=== PATIENT | female | born 1960 | race Caucasian/White ===

== ENCOUNTER 2016-09-01 14:28 | Inpatient (IN) | payer MEDICAID ==
[2016-09-01] MEDS ORDERED: NS 0.9% 1000 ML* 1,000 ML IV ONE ×2 (18:26→22:22)
[2016-09-01 19:03] LABS: Hematocrit 35 % (35-47); Hemoglobin 11.3 g/dl (12.0-16.0); Mean Corpuscular HGB Conc 32 g/dl (31-36); Mean Corpuscular Hemoglobin 30 pg (27-31); Mean Corpuscular Volume 95 fL (80-97); Mean Platelet Volume 9 um3 (7.4-10.4); Red Blood Count 3.71 10^6/ul (4.0-5.4); Red Cell Distribution Width 16 % (10.5-15); White Blood Count 14.4 10^3/ul (3.5-10.8)
[2016-09-01] MEDS ORDERED: HYDROmorphone* 1 MG/ML 1 ML SYR IV SLOW PU ONE ×2 (19:09→23:16)
[2016-09-01] MEDS ORDERED: Ondansetron INJ* 2 MG/ML VIAL IV ONE (19:09)
[2016-09-01 19:20] LABS: ALT 9 U/L (7-52); AST 13 U/L (13-39); Albumin 2.9 g/dL (3.2-5.2); Alkaline Phosphatase 70 U/L (34-104); Amylase 19 U/L (29-103); BUN/Creatinine Ratio 18.2 (8-20); Blood Urea Nitrogen 8 mg/dL (6-24); C Reactive Protein 28.96 mg/L (< 5.00); CO2 Carbon Dioxide 34 mmol/L (22-32); Calcium 8.6 mg/dL (8.6-10.3); Chloride 96 mmol/L (101-111); EGFR African American 188.9 (>60); EGFR Non-African American 146.9 (>60); Globulin 3.3 g/dL (2-4); Glucose 113 mg/dL (70-100); Lipase 17 U/L (11.0-82.0); Sodium 138 mmol/L (133-145); Total Protein 6.2 g/dL (6.4-8.9)
[2016-09-01 19:26] LABS: Anion Gap 8 mmol/L (2-11); Potassium 2.7 mmol/L (3.5-5.0)
[2016-09-01] MEDS ORDERED: Iohexol 300* (CONTRAST) 10 ML SDV IV ONE (19:28)
--- NOTE | 2016-09-01 19:54 | RAD ---
Indication: Abdominal pain for 2 days. J-tube placed 2 weeks ago. History of gastric ulcers. Peritoneal signs. Assess for perforation. Comparison: No relevant prior exams available on the [facility] PACS for comparison. Technique: Upright AP 1927 hours Report: Negative for free air beneath the diaphragm. No focal pulmonary lesion, compelling alveolar consolidation, pleural effusion, pneumothorax. Clear lungs and pleural spaces. Negative for pneumothorax. The heart, pulmonary vasculature, and mediastinal contours are unremarkable. Unremarkable osseous structures and soft tissue contours. IMPRESSION: 1. Negative for free air in either the diaphragm. 2. No evidence for acute intrathoracic disease.
[2016-09-01] MEDS: KCL 10 MEQ/50 ML IVPREMIX* 10 MEQ/50 ML BAG IV SCH ×3 (20:21→23:15)
--- NOTE | 2016-09-01 20:48 | RAD ---
INDICATION: LEFT upper and LEFT lower abdominal pain for 2 days. J-tube placed 2 weeks ago. History of gastric ulcers. COMPARISON: No relevant prior exams available on the [facility] PACS for comparison. TECHNIQUE: Multidetector CT images were obtained from the lung bases to the ischial tuberosities with 100 mL Omnipaque 300 IV and oral contrast. Multiplanar reformation. REPORT: Moderately large hiatal hernia with resulting mild compressive atelectasis at the medial aspect of the bilateral lung bases and anterior displacement of the heart. Decreased density of the liver consistent with fatty infiltration. Subtle suggestion of cholelithiasis. No additional CT abnormality of the gallbladder. Negative for biliary dilatation. Atrophic pancreas without suspicious CT finding. Unremarkable spleen. Hiatal hernia as noted. No additional abnormality of the upper GI. J-tube enters at the LEFT abdomen with the tip in the anterior midline. Subcutaneous and intra-abdominal wall musculature interstitial edema and subcutaneous emphysema at the LEFT anterior abdominal wall region of the J-tube insertion. LEFT lateral to the J-tube approximating the muscular fascia there is a 1.8 cm AP by 2.6 cm transverse by 2.8 cm cephalocaudal loculated fluid collection which may represent postprocedural hematoma or potentially abscess. Negative for suspicious finding of the small bowel or retrocecal appendix. Moderately severe diverticulosis of the colon without findings of diverticulitis. Negative for ascites. Negative for free intraperitoneal air negative for significant hernias. Additional subcutaneous emphysema noted at the RIGHT groin and proximal thigh. Normal adrenal glands. Normal size kidneys with symmetric delayed nephrograms and pyelograms. No suspicious focal renal lesions or hydronephrosis. Unremarkable ureters and largely decompressed urinary bladder. Unremarkable uterus and adnexal regions. Negative for lymphadenopathy. Normal diameter abdominal aorta and iliac arteries. Partial physiologic distention of the IVC. Negative for suspicious osseous lesions. Degenerative spondylosis and facet joint osteoarthritis. Associated mild grade 1 degenerative retrolisthesis at L2-L3 and mild degenerative grade 1 anterolisthesis at L4-L5. Mild bilateral hip joint osteoarthritis. IMPRESSION: 1. Hiatal hernia. 2. Fatty infiltration of the liver. 3. High probability for cholelithiasis. 4. G-tube in place. Correlate for potential cellulitis /myositis and small abscess versus hematoma at the LEFT anterior abdominal wall adjacent to the J-tube tract. 5. Bilateral symmetric delayed nephrograms and pyelograms. Correlate for potential acute renal failure. Negative for obstructive uropathy. 6. Incomplete distention of the IVC suggests low volume state. Correlate with clinical assessment. 7. Normal appendix documented. Colonic diverticulosis without findings of diverticulitis.
--- NOTE | 2016-09-01 22:14 | RAD ---
Indication: Suggestion of gallstones on CT. Comparison: CT of the same date. Technique: RIGHT upper quadrant ultrasound. Report: Appropriate direction flow documented in the portal and hepatic veins. 15.4 cm liver is echogenic in echogenicity. Negative for focal hepatic lesions. Negative for intrahepatic biliary dilatation. 2.3 mm common bile duct. The gallbladder is packed with small stones. 2.3 mm normal range gallbladder wall thickness. No pericholecystic fluid evident. Negative for sonographic Jensen's sign. The pancreas is obscured due to bowel gas. Negative for ascites. 11.6 cm RIGHT kidney is unremarkable. IMPRESSION: 1. Cholelithiasis without secondary findings to suggest acute cholecystitis. 2. Hepatosteatosis.
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
[2016-09-01 23:51] LABS: Alcohol < 10 mg/dL (<10)
[2016-09-02] MEDS ORDERED: Morphine INJ* 2 MG/ML 1 ML SYRINGE IV PRN (00:25)
[2016-09-02] MEDS ORDERED: NS 0.9% 1000 ML* 1,000 ML IV SCH (00:30)
--- NOTE | 2016-09-02 00:38 | ED ---
Joao Trent Alfonso, scribed for Daniel Tubbs on 09/02/16 at 0003 . Progress - Progress Note Progress Note: Consulted Dr. Guajardo who agrees to admit. Re-Evaluation - Re-Evaluation First Eval Re-Evaluation Time: 22:30 Change: Improved Comment: The patient is still in discomfort, although she appears to be more comfortable. My concern is that she is only taking clear liquids by mouth, is only able to get limited J-tube feeds, and is hypokalemia. She may require continuous IV potassium at the hospital. Course/Dx - Diagnoses Provider Diagnoses: Abdominal pain, Hypokalemia - Provider Notifications Discussed Care Of Patient With: Vidal Guajardo Time Discussed With Above Provider: 00:02 Instructed by Provider To: Other - Consulted Dr. Guajardo who agrees to admit. The documentation as recorded by the Joao baig Alfonso accurately reflects the service I personally performed and the decisions made by , Daniel Tubbs.
[2016-09-02] MEDS ORDERED: KCL 20 MEQ/100 ML IVPREMIX* 20 MEQ/100 ML BAG IV SCH (01:00)
[2016-09-02] MEDS: Pantoprazole IV* 40 MG IV SCH (02:44)
[2016-09-02] MEDS: Ondansetron INJ* 2 MG/ML VIAL IV PRN ×2 (02:45→10:21)
[2016-09-02] MEDS: KCL 10 MEQ/50 ML IVPREMIX* 10 MEQ/50 ML BAG IV SCH ×3 (02:47→08:43)
[2016-09-02 03:03] LABS: Urine Bilirubin Negative (Negative); Urine Glucose Negative (Negative); Urine Nitrite Negative (Negative)
[2016-09-02] MEDS: HYDROmorphone* 1 MG/ML 1 ML SYR IV PRN ×2 (06:13→15:27)
[2016-09-02 06:40] LABS: BUN/Creatinine Ratio 14.3 (8-20); Calcium 7.3 mg/dL (8.6-10.3); EGFR Non-African American 191.3 (>60); Globulin 2.4 g/dL (2-4); Magnesium 1.5 mg/dL (1.9-2.7); Phosphorus 2.8 mg/dL (2.5-5.0); Potassium 3.6 mmol/L (3.5-5.0); Total Bilirubin 0.5 mg/dL (0.2-1.0); Total Protein 4.4 g/dL (6.4-8.9)
[2016-09-02] MEDS: Sucralfate TAB* 1 GM PO SCH ×2 (08:43→20:40)
--- NOTE | 2016-09-02 09:47 | PN ---
Progress Note - Progress Note Date of Service: 09/02/16 SOAP: Subjective: She feels better this morning-she got some sleep She has some nausea, no vomiting Minimal pain around the J tube site Objective: Temp Pulse Resp BP Pulse Ox 98.0 F 85 16 109/53 93 09/02/16 07:16 09/02/16 07:16 09/02/16 07:16 09/02/16 07:16 09/02/16 07:16 Intake & Output 08/31/16 09/01/16 09/02/16 09/03/16 06:59 06:59 06:59 06:59 Intake Total 1414 Output Total 200 Balance 1214 Weight 175 lb Intake: IV Fluids 1210 IVPB 54 Oral 50 Tube Feeding Flush Amount 100 Output: Urine 200 Other: Date of Last Bowel 09/01/16 Movement Estimated Stool Amount Small PEX: Comfortable Lungs are clear Abd is soft and non-distended. Bowel sounds are present and are hyperactive but not high pitched or tinkling Mild tenderness around the J-tube site-no redness Laboratory Last Values WBC 14.4 10^3/ul (3.5-10.8) H 09/01/16 18:56 RBC 3.71 10^6/ul (4.0-5.4) L 09/01/16 18:56 Hgb 11.3 g/dl (12.0-16.0) L 09/01/16 18:56 Hct 35 % (35-47) 09/01/16 18:56 MCV 95 fL (80-97) 09/01/16 18:56 MCH 30 pg (27-31) 09/01/16 18:56 MCHC 32 g/dl (31-36) 09/01/16 18:56 RDW 16 % (10.5-15) H 09/01/16 18:56 Plt Count 315 10^3/ul (150-450) 09/01/16 18:56 MPV 9 um3 (7.4-10.4) 09/01/16 18:56 Neut % (Auto) 78.1 % (38-83) 09/01/16 18:56 Lymph % (Auto) 17.4 % (25-47) L 09/01/16 18:56 [place] % (Auto) 3.6 % (1-9) 09/01/16 18:56 Eos % (Auto) 0.5 % (0-6) 09/01/16 18:56 Baso % (Auto) 0.4 % (0-2) 09/01/16 18:56 Absolute Neuts (auto) 11.2 10^3/ul (1.5-7.7) H 09/01/16 18:56 Absolute Lymphs (auto) 2.5 10^3/ul (1.0-4.8) 09/01/16 18:56 Absolute Monos (auto) 0.5 10^3/ul (0-0.8) 09/01/16 18:56 Absolute Eos (auto) 0.1 10^3/ul (0-0.6) 09/01/16 18:56 Absolute Basos (auto) 0.1 10^3/ul (0-0.2) 09/01/16 18:56 Absolute Nucleated RBC 0.01 10^3/ul 09/01/16 18:56 Nucleated RBC % 0 09/01/16 18:56 Sodium 140 mmol/L (133-145) 09/02/16 06:15 Potassium 3.6 mmol/L (3.5-5.0) 09/02/16 06:15 Chloride 106 mmol/L (101-111) 09/02/16 06:15 Carbon Dioxide 31 mmol/L (22-32) 09/02/16 06:15 Anion Gap 3 mmol/L (2-11) 09/02/16 06:15 BUN 5 mg/dL (6-24) L 09/02/16 06:15 Creatinine 0.35 mg/dL (0.51-0.95) L 09/02/16 06:15 Est GFR ( Amer) 246.0 (>60) 09/02/16 06:15 Est GFR (Non-Af Amer) 191.3 (>60) 09/02/16 06:15 BUN/Creatinine Ratio 14.3 (8-20) 09/02/16 06:15 Glucose 96 mg/dL (70-100) 09/02/16 06:15 Lactic Acid 0.6 mmol/L (0.5-2.0) 09/01/16 23:20 Calcium 7.3 mg/dL (8.6-10.3) L 09/02/16 06:15 Phosphorus 2.8 mg/dL (2.5-5.0) 09/02/16 06:15 Magnesium 1.5 mg/dL (1.9-2.7) L 09/02/16 06:15 Total Bilirubin 0.50 mg/dL (0.2-1.0) 09/02/16 06:15 AST 10 U/L (13-39) L 09/02/16 06:15 ALT 7 U/L (7-52) 09/02/16 06:15 Alkaline Phosphatase 53 U/L (34-104) 09/02/16 06:15 C-Reactive Protein 28.96 mg/L (< 5.00) H 09/01/16 18:56 Total Protein 4.4 g/dL (6.4-8.9) L 09/02/16 06:15 Albumin 2.0 g/dL (3.2-5.2) L 09/02/16 06:15 Globulin 2.4 g/dL (2-4) 09/02/16 06:15 Albumin/Globulin Ratio 0.8 (1-3) L 09/02/16 06:15 Prealbumin 7 mg/dL (18-38) L 09/02/16 06:15 Amylase 19 U/L (29-103) L 09/01/16 18:56 Lipase 17 U/L (11.0-82.0) 09/01/16 18:56 Urine Color Yellow 09/02/16 02:51 Urine Appearance Clear 09/02/16 02:51 Urine pH 6.0 (5-9) 09/02/16 02:51 Ur Specific [place] > 1.060 (1.010-1.030) H 09/02/16 02:51 Urine Protein Negative (Negative) 09/02/16 02:51 Urine Ketones Trace (Negative) H 09/02/16 02:51 Urine Blood Negative (Negative) 09/02/16 02:51 Urine Nitrate Negative (Negative) 09/02/16 02:51 Urine Bilirubin Negative (Negative) 09/02/16 02:51 Urine Urobilinogen Negative (Negative) 09/02/16 02:51 Ur Leukocyte Esterase Negative (Negative) 09/02/16 02:51 Urine Glucose Negative (Negative) 09/02/16 02:51 Serum Alcohol < 10 mg/dL (<10) 09/01/16 18:56 Assessment: S/P exlap in [place] for perforated gastric ulcer-gastric outlet obstruction, s/p J-tube placement Malnutrition Abdominal pain Plan: Start J-tube feeds Nutrition consult Physical therapy Oral intake as tolerated Discharge planning-icu manager to see--?? placement depending on home situation. Patient recently moved here from [place] and presently living with sister. Repeat WBC in AM No antibiotics
--- NOTE | 2016-09-02 11:51 | HP ---
HISTORY AND PHYSICAL: DATE OF ADMISSION: 09/02/16 REASON FOR ADMISSION: Left-sided abdominal pain status post exploratory laparotomy. HISTORY OF PRESENT ILLNESS: Ms. Christina James is a 56-year-old woman, who was in previously good health, who actually just moved to [facility] from [place] 9 days ago. Her history starts sometime in early July where she developed some nausea and vomiting for about a week and then developed a severe upper abdominal pain radiating up into her chest, and on 07/16/16, she presented to a hospital in a suburb of [place], [place], where workup apparently showed pneumoperitoneum. She was taken emergently to the operating room for an exploratory laparotomy, although I do have the specific operative reports, but by referring to some of the records that we have available, she underwent a modified Harley patch of what appeared to be a prepyloric /pyloric gastric ulcer perforation. I do not have any reference to pathology. A MENDY drain was placed at that time and she spent several days in the intensive care unit according to the patient as well as her sister, who is here in the emergency room with her. She did develop an abdominal wall abscess requiring drainage and she was discharged home tolerating liquids. Apparently, she developed persistent nausea and vomiting and returned to the hospital and was re-admitted. She underwent an upper endoscopy after a CAT scan had showed some gastric outlet obstruction. Apparently, there was some continued ulceration at the gastric repair/patch, but I am not sure if there was mention of gastric outlet obstruction, but the sister makes it appear that the endoscope was able to be passed into the small intestine. In light of these findings, the patient underwent a laparoscopic jejunostomy tube with a balloon that she was using in the hospital on a pump and was subsequently discharged home taking bolus feeds. Apparently, there were some social issues regarding the patient and her and she returned to [facility] where she is now presently living with her sister in [place]. She has no primary care provider or medical care. She has been using bolus feeds with Jevity as instructed by the medical facility in [place]. Her main complaint today is in the last several days, she has been having some left- sided abdominal pain from the iliac crest up near where the J-tube is. She has had no fever, shakes, or chills. She has had very poor oral intake. She has had some loose bowel movements. Apparently, she has had some discomfort when the J-tube is flushed. The sister brought her into the emergency room today to make sure that there were no significant issues. All of the above is obtained from the limited records that we have from several admissions in the hospital in [place]. PAST MEDICAL HISTORY: Hiatal hernia. The patient was not aware of this prior to this surgery. PAST SURGICAL HISTORY: As per above. MEDICATIONS: Now include: 1. Pantoprazole. 2. Protonix 40 mg b.i.d. 3. Colace. 4. Carafate. ALLERGIES: She has no known drug allergies. SOCIAL HISTORY: She does not use tobacco or alcohol. She, apparently, is and estranged from her . REVIEW OF SYSTEMS: She has had no chest pain or shortness of breath. Pulmonary : There has been no wheezing or hemoptysis. PHYSICAL EXAMINATION GENERAL: She is a pale-appearing woman, appears to be somewhat older than stated age. She is awake, alert, and conversive, answers questions lucidly. VITAL SIGNS: She is afebrile, pulse 84, blood pressure 112/65, respirations 11. HEENT: Oral mucosa is slightly dry. Sclerae are anicteric. LUNGS: Clear to auscultation with normal respiratory effort. HEART: Regular rate and rhythm without murmurs, rubs, or gallops. ABDOMEN: Soft and nondistended. She has normoactive to hyperactive bowel sounds throughout, these were not, however, high-pitched or tinkling. She has a well- healed upper midline incision with appropriate incisional tenderness. I appreciate no hernia. She has a J-tube in the left mid abdomen. This flushes well with saline. I am not able to withdraw fluid obviously. There is some leakage around the tube with some induration and irritation of the skin and soft tissue. She has some mild tenderness lateral and inferior to this as well, but I appreciate no redness, fluctuance, or abscess. EXTREMITIES: Show no cyanosis or edema. DIAGNOSTIC STUDIES/LAB DATA: Included a white blood cell count of 14,000, hemoglobin of 11.3, platelet count is 315,000. Electrolytes were within normal limits other than a potassium of 2.7, carbon dioxide of 34, lactic acid 1.1. C - reactive protein 28. Albumin 2.9, amylase is 19. I did review the CT scan of the abdomen and pelvis and the images. This does not show any intraabdominal fluid, free air, or abscess. There is no apparent obstruction. She was given oral contrast, but there was only very small amount taken. There does not appear to be a markedly distended stomach and there appears to be some contrast into the duodenum. There also is a moderate-sized hiatal hernia. There is a J-tube in place with the balloon inflated that extends out to the left abdominal wall. There was some air in this tract. There was also some subcutaneous air in the right flank as well as the left flank with a possible small fluid collection in the left flank below the J-tube site insertion. It should be noted that there was subcutaneous air noted down on CT scan in mid August while in [place] and there were apparent drain sites placed and this does not appear to be unchanged. IMPRESSION AND PLAN: Status post exploratory laparotomy with a modified Harley patch placement of a perforated prepyloric and pyloric gastric ulcer confounded by abdominal wall abscess, which was drained and a subsequent apparent gastric outlet obstruction with subsequently placed laparoscopic jejunostomy feeding tube for nutrition and hydration. All of the above was done in [place] and she recently moved back to [facility] 9 days ago and has no regular care provider. Overall, she has not been thriving with intolerance to the tube feeds and is living with her sister, who works full-time and I believe is having difficulty caring for her ailing sister. In addition, she has been having poor oral intake, not able to keep liquids down. I had a long discussion with the patient and her sister. I do not believe that an urgent surgical intervention is required here; however, this seems to be more of a social problem with inability to manage her tube feeds and developing some discomfort in the left side of the abdominal wall, I am not certain the etiology of this. She is hypokalemic and somewhat dehydrated. They were not particularly interested in being admitted, but I think that at this point for her to improve, she will require admission with IV hydration and appropriate consultation with Dietary/Nutrition for assistance with home tube feeds and appropriate feeding devices, social science research assistant consultation, perhaps visiting nurses to be arranged, and I think even an upper GI with Gastrografin to evaluate the gastric outlet obstruction and also to make that the J-tube is in correct position. None of these could be done completely this weekend, but I think that this will expedite her care and prevent another return to the emergency room, especially in light of the fact that the patient has no primary care providers. Tonight, the plan will be for admission with IV hydration, repletion of her potassium, and appropriate Nutrition, Dietary, and Nursing consultation with plans for possible contrast evaluation earlier next week. [id number]/[facility] #: [id number] MTDD
[2016-09-03] MEDS: Pantoprazole IV* 40 MG IV SCH (01:06)
[2016-09-03] MEDS: HYDROmorphone* 1 MG/ML 1 ML SYR IV PRN ×2 (03:19→15:40)
[2016-09-03 08:28] LABS: Hematocrit 27 % (35-47); Hemoglobin 8.8 g/dl (12.0-16.0); Mean Corpuscular HGB Conc 32 g/dl (31-36); Mean Corpuscular Hemoglobin 31 pg (27-31); Mean Corpuscular Volume 95 fL (80-97); Mean Platelet Volume 9 um3 (7.4-10.4); Red Blood Count 2.86 10^6/ul (4.0-5.4); Red Cell Distribution Width 16 % (10.5-15); White Blood Count 9.4 10^3/ul (3.5-10.8)
[2016-09-03] MEDS: Sucralfate TAB* 1 GM PO SCH ×2 (08:52→21:09)
[2016-09-04] MEDS: HYDROmorphone* 1 MG/ML 1 ML SYR IV PRN ×4 (01:02→23:57)
[2016-09-04] MEDS: Pantoprazole IV* 40 MG IV SCH (01:04)
[2016-09-04 06:05] LABS: Hematocrit 27 % (35-47); Hemoglobin 8.7 g/dl (12.0-16.0); Mean Corpuscular HGB Conc 32 g/dl (31-36); Mean Corpuscular Hemoglobin 30 pg (27-31); Mean Corpuscular Volume 95 fL (80-97); Mean Platelet Volume 9 um3 (7.4-10.4); Red Blood Count 2.87 10^6/ul (4.0-5.4); Red Cell Distribution Width 16 % (10.5-15); White Blood Count 8.6 10^3/ul (3.5-10.8)
[2016-09-04 06:17] LABS: Albumin 1.9 g/dL (3.2-5.2); BUN/Creatinine Ratio 13.8 (8-20); Calcium 7.5 mg/dL (8.6-10.3); EGFR African American 305.6 (>60); EGFR Non-African American 237.6 (>60); Globulin 2.4 g/dL (2-4); Potassium 3.1 mmol/L (3.5-5.0); Total Protein 4.3 g/dL (6.4-8.9)
[2016-09-04 06:18] LABS: Total Bilirubin 0.4 mg/dL (0.2-1.0)
[2016-09-04] MEDS: Sucralfate TAB* 1 GM PO SCH ×2 (08:51→20:46)
[2016-09-04] MEDS: Ondansetron INJ* 2 MG/ML VIAL IV PRN (10:44)
--- NOTE | 2016-09-04 11:50 | RAD ---
INDICATION: Abdominal pain status post repair of a gastric ulcer at an outside institution July 2016. COMPARISON: Comparison is made with a prior CT of the abdomen and pelvis from September 01, 2016. Technique: The patient's jejunostomy tube was initially injected to assess for position and patency with Gastrografin. Subsequently a single contrast upper GI series exam was performed. Approximately 5.2 minutes of intermittent fluoroscopic guidance were provided for the study. Findings: The patient's jejunostomy tube is located within the small bowel in the mid abdomen. The catheter tip is located to the right of the midline. There is no evidence for leakage. The small bowel in the region of the catheter tip is nondistended. The esophageal peristalsis appeared to be within normal limits. There is a moderate to large hiatal hernia centered to the right of the midline. There is a persistent collection of barium present within the hernia projecting toward the left side just beyond the gastroesophageal junction suspicious for an ulcer or ulcerated mass. There is thickening of the gastric folds in this region This area is not visualized on the prior CT study. There is a collection of barium present in the distal antrum hilar region which is small in size suspicious for a gastric ulcer and consistent with the patient's clinical history. The stomach emptied slowly. There was decreased peristalsis. IMPRESSION: 1. LARGE HIATAL HERNIA. WITHIN THE HERNIA THERE IS A PERSISTENT COLLECTION OF BARIUM JUST BEYOND THE GASTROESOPHAGEAL JUNCTION SUSPICIOUS FOR AN ULCER OR ULCERATED MASS. RECOMMEND ENDOSCOPY FOR FURTHER EVALUATION. 2. PERSISTENT COLLECTION OF BARIUM IN THE DISTAL ANTRUM PYLORIC REGION MOST CONSISTENT WITH AN ULCER. 3. SLOW EMPTYING OF THE STOMACH. CPT II Codes: 6045F
--- NOTE | 2016-09-04 14:50 | PN ---
Progress Note - Progress Note Date of Service: 09/04/16 SOAP: Subjective: Reports doing the same. Still has leakage around J-tube despite low feeding rate at 30ml/hr. Denies nausea or vomiting. Tolerating clear liquids, just c/o early satiety. Objective: Awake and alert, comfortable and in NAD. VSS, afebrile Abdomen soft, NT, ND J-tube with wet dressing around, no active discharge. Feeding rate at 30 ml/hr. Prior incisions from recent surgery well healed. Upper GI reviwed with Dr. Guajardo Assessment: A 56 y/o female with recent patch repair of perforated gastric ulcer, s/p J- tube placement in [place] with persistent leakage around feeding tube. Plan: Will discuss with Dr. Guajardo Possible need for GI consult for EGD Keep on clear liquids at current rate of tube feeding.
--- NOTE | 2016-09-04 18:08 | PN ---
Progress Note - Progress Note Date of Service: 09/04/16 SOAP: Subjective: Her only complaint is the leakage around the J-tube She is taking some po-goes slowly and stops when feels full, no nausea or vomiting Passing flatus and no abdominal pain Objective: afebrile Temp Pulse Resp BP Pulse Ox 97.5 F 76 16 101/60 96 09/04/16 15:42 09/04/16 15:42 09/04/16 15:42 09/04/16 15:42 09/04/16 15:42 PEX: Abd is soft and non-distended. Bowel sounds are present. The J-tube is in good position and running well with continuous tube feeds. UGI reviewed Assessment: Recent repair of perforated gastric ulcer at hospital in [place]-- Apparent degree of gastric outlet obstruction at site of Harley patch repair. No contrast extravasation. J-tube in good position Plan: Appreciate [employer], Physical therapy and Dietary consults. Will increase tube feeds to 40 cc/hr Balloon in J-tube deflated slightly to see if this will decrease the drainage around the tube. Old operative records requested May consider GI consult for follow up EGD-this does not necessarily need to be done as an inpatient. When tolerating tube feeds and visiting nurse services can be arranged she can be discharged home All discussed with patient and her sister.
[2016-09-04] MEDS: Potassium Chlor TAB* 20 MEQ TAB.ER PO SCH (20:46)
[2016-09-05] MEDS: Pantoprazole IV* 40 MG IV SCH (01:11)
[2016-09-05] MEDS: HYDROmorphone* 1 MG/ML 1 ML SYR IV PRN ×3 (03:06→20:44)
[2016-09-05] MEDS: Ondansetron INJ* 2 MG/ML VIAL IV PRN ×2 (03:12→20:45)
[2016-09-05] MEDS: Sucralfate TAB* 1 GM PO SCH ×2 (09:31→20:45)
[2016-09-05] MEDS: Potassium Chlor TAB* 20 MEQ TAB.ER PO SCH ×2 (09:31→20:45)
--- NOTE | 2016-09-05 13:56 | PN ---
Progress Note - Progress Note Date of Service: 09/05/16 SOAP: Subjective: Reports doing better today. Ambulatory OOB to chair, denies any pain, nausea or vomiting. Tolerating clear liquids. Tube feeding rate advanced to 50ml/hr, which has been tolerated well too. Had a small BM earlier today. Objective: Awake and alert, comfortable on bed, finished eating lunch. In no acute distress. VSS, afebrile. Abdomen soft, NT, ND J-tube with scanty surrounding drainage noted, no active discharge. I/O reviewed UGI reviewed with Dr. Guajardo and radiologist. Assessment: A 56 y/o female, s/p repair of perforated gastric ulcer with malnutrition. Plan: Will continue current regimen of PO clear liquids, possibly advance to full liquids, in addition to tube feeding at a rate of 50ml/hr. Patient will require tube feeding at this time due to poor PO caloric and protein intake. She is taking some oral intake, however, it is not enough to meet her daily caloric intake for proper nutrition and healing. Will discuss with social research assistant plans for discharge. No surgical indications at this time.
[2016-09-06] MEDS: Pantoprazole IV* 40 MG IV SCH (01:48)
[2016-09-06] MEDS: HYDROmorphone* 1 MG/ML 1 ML SYR IV PRN ×3 (01:48→20:55)
[2016-09-06] MEDS ORDERED: NS 0.9% 500 ML BAG* 500 ML IV ONE (06:05)
--- NOTE | 2016-09-06 09:03 | PN ---
Progress Note - Progress Note Date of Service: 09/06/16 SOAP: Subjective: She did well overnight-no new complaints She is tolerating some of the full liquids and ensure She is passing flatus and had a BM this morning Objective: Temp Pulse Resp BP Pulse Ox 98.0 F 65 14 95/55 96 09/06/16 07:32 09/06/16 07:32 09/06/16 07:32 09/06/16 07:32 09/06/16 07:32 PEX: Comfortable in chair Lungs are clear Abd is soft and non-distended. She has bowel sounds that are normoactive and slightly hyperactive. J-Tube is in place with some minimal amount of drainage around the exit site. Ext with minimal edema No labs Assessment: S/P emergent repair of perforated gastric ulcer with J-tube placement Severe malnutrition with significant weight loss and muscle mass wasting. Low protein and pre-albumin lab values. Minimal and insufficient oral intake to maintain adequate caloric requirements secondary to edema and narrowing at the area of gastric perforation repair that is expected to improve with time and may need EGD in future for follow up and treatment if there is no improvement. Dependence on J-tube feeds to maintain recommended caloric intake per dietary assessment and recommendations. Plan: D/C planning in progress--possible d/c tomorrow Increase tube feeds to 60cc/h--goal of 70cc/hr Physical therapy Full liquids po as tolerated.
[2016-09-06] MEDS: Potassium Chlor TAB* 20 MEQ TAB.ER PO SCH ×2 (09:27→20:55)
[2016-09-06] MEDS: Sucralfate TAB* 1 GM PO SCH ×2 (09:28→20:55)
[2016-09-07] MEDS: Pantoprazole IV* 40 MG IV SCH (01:07)
[2016-09-07] MEDS: HYDROmorphone* 1 MG/ML 1 ML SYR IV PRN ×3 (01:07→11:55)
[2016-09-07] MEDS: Potassium Chlor TAB* 20 MEQ TAB.ER PO SCH (08:04)
[2016-09-07] MEDS: Sucralfate TAB* 1 GM PO SCH (08:04)
--- NOTE | 2016-09-07 10:45 | PN ---
Progress Note - Progress Note Date of Service: 09/07/16 Note: Surgery Progress: (see discharge summary) S: No new c/o. Tae TFs at 60 ml/hr. O: Vital Signs - 8 hr 09/07/16 09/07/16 09/07/16 03:02 05:08 05:55 Temperature 98.4 F Pulse Rate 76 Respiratory 16 14 12 Rate Blood Pressure 103/48 (mmHg) O2 Sat by Pulse 98 Oximetry 09/07/16 09/07/16 07:51 08:00 Temperature 97.9 F Pulse Rate 78 Respiratory 11 14 Rate Blood Pressure 98/54 (mmHg) O2 Sat by Pulse 96 Oximetry Intake and Output Last 24 Hours 09/05/16 09/06/16 09/07/16 09/08/16 06:59 06:59 06:59 06:59 Intake Total 677 2949 4189 840 Output Total 212 890 9792 500 Balance 277 2324 2989 340 Intake: IV Fluids 500 NS (0.9%) 500 Oral 677 1695 1480 840 Tube Feeding 1104 2038 Tube Feeding Flush Amount 150 171 Output: Urine 007 931 3492 500 Other: Estimated Void Medium Medium Date of Last Bowel 1 Movement # Bowel Movements 0 0 0 Estimated Stool Amount Medium Small # Voids 1 Heart: reg Lungs: clear Abd: soft; min tenderness; small amt drainage around J-tube. No new labs. A/P: severe malnutrition s/p repair perf'd gastric ulcer; J-jejunostomy feeding tube for severe protein malnutrition; home today on TFs; will order repeat labs for 1 week. Surgery f/u in 2 wks.
[2016-09-07 16:13] VITALS: BP 101/48
--- NOTE | 2016-09-08 12:03 | DS ---
AMENDED REPORT NOW INCLUDES COSIGNER DESIGNATION - ESIGNED BEFORE ADJUSTMENTS CC: [facility]* DISCHARGE SUMMARY: DATE OF ADMISSION: 09/02/16 DATE OF DISCHARGE: 09/07/16 ATTENDING SURGEON: Dr. Vidal Guajardo * (DICTATED BY JOSE F GANDARA) HOSPITAL COURSE: Please refer to admission history and physical for admission details. In brief, the patient had recently undergone repair of a perforated gastric ulcer in [place]. She required a subsequent surgery for gastric outlet obstruction for placement of a feeding jejunostomy. She then moved to the area here to stay with her sister because of social reasons and presented with abdominal pain and poor intake. She was unable to manage her bolus tube feedings at home. During the course of her admission, she underwent an upper GI series on 09/04/16, which showed a large hiatal hernia with persistent collection of barium just distal to the GE junction and also in the pyloric region consistent with her known recent surgeries. She was maintained on IV Protonix as well as oral sucralfate and gradually improved in terms of pain and tolerance of both oral liquids as well as tube feeds. As of the morning of discharge, she was tolerating full rate of 70 mL/hour of tube feeds (Jevity 1.2 ) and pump was programmed for 30 mL water flush every 8 hours. PHYSICAL EXAMINATION: In the morning of discharge, temperature 97.9, blood pressure 98/54, pulse 78, respirations are 11, room air saturation 96%. General : No acute distress. Heart: Regular rate and rhythm. No murmur noted. Lungs : Clear to auscultation. Abdomen: Soft. Mild tenderness in the upper abdomen to palpation. No tenderness in the lower abdomen. There is a small amount of clear yellow drainage around the jejunostomy site. LABORATORY DATA: Most recent labs were reviewed and these will be repeated in 1 week. PLAN: She has a followup scheduled with the primary care office ([facility]) for 09/15/16. She has a followup scheduled with Dr. Guajardo for . Instructions were reviewed with her. She will continue oral b.i.d. dose of Protonix 40 mg and continue the Carafate. A prescription was also sent from my office for Narco 5/325 to her pharmacy ([facility] checked) . [place], [place] [id number]/[facility] #: [id number] [facility]ITAL[facility]ando
== END 2016-09-07 19:05 | disposition home health service (06) | DRG 252 ==
LOC: ED 14:28 → SSU 09-02 00:23 → OBSVTOIN 09-02 09:30
PROVIDERS: ADMIT Surgery; ATTEND Surgery
DX: K94.13 Enterostomy malfunction (principal); E43 Unspecified severe protein-calorie malnutrition; G71.0 Muscular dystrophy; K44.9 Diaphragmatic hernia without obstruction or gangrene; E87.6 Hypokalemia; E86.0 Dehydration; K21.9 Gastro-esophageal reflux disease without esophagitis; Y83.8 Other surgical procedures as the cause of abnormal reaction of the patient, or of later complication, without mention of misadventure at the time of the procedure; Y73.1 Therapeutic (nonsurgical) and rehabilitative gastroenterology and urology devices associated with adverse incidents; Y92.9 Unspecified place or not applicable; Z93.4 Other artificial openings of gastrointestinal tract status; Z80.0 Family history of malignant neoplasm of digestive organs; Z68.28 Body mass index [BMI] 28.0-28.9, adult
CPT/HCPCS: 36415; 71010; 74177; 74246; 76705; 80053; 80320; 81003; 82150; 83605; 83690; 83735; 84100; 84134; 85025; 85027; 86140; A9270-GY; G0378; G0480; J1170; J2405; J3480; Q9967

== ENCOUNTER 2016-09-15 15:51 | Inpatient (IN) | payer MEDICAID ==
[2016-09-15 19:56] LABS: Hematocrit 31 % (35-47); Hemoglobin 9.9 g/dl (12.0-16.0); Mean Corpuscular HGB Conc 32 g/dl (31-36); Mean Corpuscular Hemoglobin 30 pg (27-31); Mean Corpuscular Volume 95 fL (80-97); Mean Platelet Volume 9 um3 (7.4-10.4); Red Blood Count 3.29 10^6/ul (4.0-5.4); Red Cell Distribution Width 17 % (10.5-15); White Blood Count 11.6 10^3/ul (3.5-10.8)
[2016-09-15 20:11] LABS: Albumin 3.1 g/dL (3.2-5.2); BUN/Creatinine Ratio 23.7 (8-20); Calcium 8.8 mg/dL (8.6-10.3); EGFR African American 223.7 (>60); EGFR Non-African American 173.9 (>60); Globulin 3.6 g/dL (2-4); Total Bilirubin 0.5 mg/dL (0.2-1.0); Total Protein 6.7 g/dL (6.4-8.9)
--- NOTE | 2016-09-15 21:47 | ED ---
Sandra Trent Edward, scribed for Mehul Bowens MD on 09/15/16 at 2113 . HPI Febrile Illness - HPI Summary HPI Summary: 56 y/o female presents to ED c/o gradual onset fever starting earlier this morning (high 102). Pt currently does not have a fever. She also noticed a hard spot above her feeding tube a couple of days ago with pain to touch, rated 7/10 in severity. Pt was seen at [facility] today and states they sent her to ED for further evaluation. PMHx ruptured ulcer. - History of Current Complaint Chief Complaint: EDFever Time Seen by Provider: 09/15/16 21:10 Hx Obtained From: Patient Onset/Duration: Started Hours Ago - This morning, Resolved Current Severity: Moderate Pain Intensity: 7 Pain Scale Used: 0-10 Numeric Aggravating Factors: Other: - Pain to touch Associated Signs and Symptoms: Other: - Hard spot and pain above J-tube - Additional Pertinent History Primary Care Physician: [id number] - Allergy/Home Medications Allergies/Adverse Reactions: Allergies Allergy/AdvReac Type Severity Reaction Status Date / Time No Known Allergies Allergy Verified 09/15/16 21:25 PMH/Surg Hx/FS Hx/Imm Hx Previously Healthy: No Endocrine/Hematology History: Denies: Hx Diabetes Cardiovascular History: Denies: Hx Hypertension GI History: Reports: Hx Gall Bladder Disease - gallstones, Hx Gastroesophageal Reflux Disease, Hx Hiatal Hernia, Hx Ulcer, Other GI Disorders - Hx perforated stomach, duodenal stenosis, prepyloric ulcer, malnourishment History: Denies: Hx Renal Disease Musculoskeletal History: Reports: Other Musculoskeletal History - Hx muscular dystrophy Sensory History: Reports: Hx Contacts or Glasses - Glasses, though not with patient at this time. Denies: Hx Hearing Aid Opthamlomology History: Reports: Hx Contacts or Glasses - Glasses, though not with patient at this time. - Surgical History Surgery Procedure, Year, and Place: J-tube insertion (10 days ago), ulcer repair (a month ago) Infectious Disease History: Denies: Traveled Outside the [place] in Last 30 Days - Family History Known Family History: Positive: Other - colon CA - Social History Alcohol Use: None Hx Substance Use: No - No excessive ASA or NSAID use Substance Use Type: Reports: None Hx Tobacco Use: No Smoking Status (MU): Never Smoked Tobacco Review of Systems Positive: Fever Eyes: Negative ENT: Negative Cardiovascular: Negative Respiratory: Negative Gastrointestinal: Other - Hard spot above J-tube, pain to touch Genitourinary: Negative Musculoskeletal: Negative Skin: Negative Neurological: Negative Psychological: Normal All Other Systems Reviewed And Are Negative: Yes Physical Exam Triage Information Reviewed: Yes Vital Signs On Initial Exam: Initial Vitals Temp Pulse Resp BP Pulse Ox 98.6 F 91 16 119/71 97 09/15/16 15:57 09/15/16 15:57 09/15/16 15:57 09/15/16 15:57 09/15/16 15:57 Vital Signs Reviewed: Yes Appearance: Positive: Pain Distress - mild discomfort, Thin Skin: Positive: Warm Head/Face: Positive: Normal Head/Face Inspection Eyes: Positive: BERNARDO Neck: Positive: Supple Respiratory/Lung Sounds: Positive: Breath Sounds Present Cardiovascular: Positive: RRR Abdomen Description: Positive: Soft, Other: - j tube in place with surrounding area of induratyion, tender, warmth Bowel Sounds: Positive: Present Musculoskeletal: Positive: Strength/ROM Intact Neurological: Positive: Alert, Oriented to Person Place, Time Psychiatric: Positive: Affect/Mood Appropriate Diagnostics - Vital Signs Vital Signs Temp Pulse Resp BP Pulse Ox 09/15/16 20:57 99.9 F 98 17 124/65 97 09/15/16 17:45 99.7 F 87 16 116/60 99 09/15/16 17:00 99.2 F 88 16 110/59 99 09/15/16 15:57 98.6 F 91 16 119/71 97 - Laboratory Lab Results: Lab Results 09/15/16 09/15/16 09/15/16 Range/Units 19:45 19:45 19:45 WBC 11.6 H (3.5-10.8) 10^3/ul RBC 3.29 L (4.0-5.4) 10^6/ul Hgb 9.9 L (12.0-16.0) g/dl Hct 31 L (35-47) % MCV 95 (80-97) fL MCH 30 (27-31) pg MCHC 32 (31-36) g/dl RDW 17 H (10.5-15) % Plt Count 396 (150-450) 10^3/ul MPV 9 (7.4-10.4) um3 Sodium 135 (133-145) mmol/L Potassium 4.0 (3.5-5.0) mmol/L Chloride 100 L (101-111) mmol/L Carbon Dioxide 29 (22-32) mmol/L Anion Gap 6 (2-11) mmol/L BUN 9 (6-24) mg/dL Creatinine 0.38 L (0.51-0.95) mg/dL Est GFR ( Amer) 223.7 (>60) Est GFR (Non-Af Amer) 173.9 (>60) BUN/Creatinine Ratio 23.7 H (8-20) Glucose 120 H (70-100) mg/dL Lactic Acid 0.9 (0.5-2.0) mmol/L Calcium 8.8 (8.6-10.3) mg/dL Total Bilirubin 0.50 (0.2-1.0) mg/dL AST 17 (13-39) U/L ALT 12 (7-52) U/L Alkaline Phosphatase 85 (34-104) U/L Total Protein 6.7 (6.4-8.9) g/dL Albumin 3.1 L (3.2-5.2) g/dL Globulin 3.6 (2-4) g/dL Albumin/Globulin Ratio 0.9 L (1-3) Result Diagrams: 09/15/16 19:45 09/15/16 19:45 Lab Statement: Any lab studies that have been ordered have been reviewed, and results considered in the medical decision making process. - CT ABD/PEL CT CT Interpretation: Positive (See Comments) - Fluid, contrast and pockets of air surrounding the J-tube catheter in the subcutaneous tissues indicating leakage along the catheter. There is mild hazy infiltration of the surrounding subcutaneous fat which could indicate inflammation or infection. CT Interpretation Completed By: Radiologist Re-Evaluation - Re-Evaluation First Eval Comment: results d/w pt, case d/w dr xiao Course/Dx - Course Assessment/Plan: 56 y/o female presents to ED c/o gradual onset fever starting earlier this morning (high 102). Pt currently does not have a fever. She also noticed a hard spot above her feeding tube a couple of days ago with pain to touch, rated 7/10 in severity. Pt was seen at [facility] [place] today and states they sent her to ED for further evaluation. PMHx ruptured ulcer. ABD/PEL CT SHOWS Fluid, contrast and pockets of air surrounding the J-tube catheter in the subcutaneous tissues indicating leakage along the catheter. There is mild hazy infiltration of the surrounding subcutaneous fat which could indicate inflammation or infection. Pt accepted for admission by Dr. Torres. - Diagnoses Provider Diagnoses: Abdominal pain - Provider Notifications Instructed by Provider To: Admit As Inpatient Discharge - Discharge Plan Condition: Fair Disposition: ADMITTED TO [facility] documentation as recorded by the Sandra baig Edward accurately reflects the service I personally performed and the decisions made by Kwan hernandez David, MD.
[2016-09-15] MEDS ORDERED: Iohexol 300* (CONTRAST) 10 ML SDV IV ONE (22:56)
[2016-09-15] MEDS ORDERED: Ondansetron INJ* 2 MG/ML VIAL IV ONE (23:47)
[2016-09-15] MEDS: Morphine INJ* 2 MG/ML 1 ML SYRINGE IV ONE (23:51)
[2016-09-16] MEDS ORDERED: Morphine INJ* 2 MG/ML 1 ML SYRINGE ONE (03:11)
[2016-09-16] MEDS: Morphine INJ* 2 MG/ML 1 ML SYRINGE IV ONE (03:14)
[2016-09-16] MEDS ORDERED: Acetaminophen TAB* 325 MG PO PRN (04:26)
[2016-09-16] MEDS: NS 0.9% 1000 ML* 1,000 ML IV SCH ×2 (04:46→23:01)
[2016-09-16] MEDS ORDERED: ZOSYN 3.375 GM x ONE DOSE over 30 miuntes IVPB ×2 (05:00)
[2016-09-16] MEDS: Sucralfate TAB* 1 GM PO SCH ×3 (06:26→18:57)
[2016-09-16] MEDS: Morphine INJ* 2 MG/ML 1 ML SYRINGE IV PRN ×4 (06:27→22:55)
--- NOTE | 2016-09-16 08:38 | HP ---
H&P (Free Text) History and Physical: Update to H & P Ms. James is a 56 y.o. female who returns to the hospital after a recent discharge because she was found to have a high fever at her doctor's office and she noticed more pain and a bigger lump near her jejunostomy tube. Her recent hx is of a perforated ulcer repaired in [place]. This was followed by an episode of persistent nausea and vomiting that was recognized to be due to gastric outlet obstruction. This was managed by placement of a feeding jejuostomy. She then left [place] and came to [place]. She was recently admitted to the surgical service from 09/02-09/07 when she was having difficulty with the bolus feeds and experiencing nausea. She was managed by d/c-ing the feeds and gradually resuming continuous feeds. She has been home since then managing the feeds well, but 3 days ago noticed a "bump" in the abdominal wall that seemed to get bigger while she waited till her scheduled doctor's appointment. From the office she was to the ER. Since coming to the floor she has had some pain at the site and she also c/o pain in the left chest with inspiration. 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 Meds: carafate, colace, protonix NKDA SH: neg. tob, EtOH, or IVDA FH: Ctkrswn-Rvnti-Phdhm syndrome in her sister, brother, and some uncles; sister also had colon cancer PE: General: WDWN female reclining in bed, in NAD Vital Signs 09/15/16 09/15/16 09/15/16 15:57 17:00 17:45 Temperature 98.6 F 99.2 F 99.7 F Pulse Rate 91 88 87 Respiratory 16 16 16 Rate Blood Pressure 119/71 110/59 116/60 (mmHg) O2 Sat by Pulse 97 99 99 Oximetry 09/15/16 09/15/16 09/15/16 20:57 21:21 23:51 Temperature 99.9 F 100.2 F Pulse Rate 98 104 Respiratory 17 16 18 Rate Blood Pressure 124/65 118/70 (mmHg) O2 Sat by Pulse 97 97 Oximetry 09/16/16 09/16/16 09/16/16 03:14 04:13 05:04 Temperature 97.9 F Pulse Rate 101 Respiratory 16 16 16 Rate Blood Pressure 114/69 (mmHg) O2 Sat by Pulse 99 Oximetry 09/16/16 09/16/16 06:27 07:21 Temperature 98.1 F Pulse Rate 90 Respiratory 16 16 Rate Blood Pressure 91/54 (mmHg) O2 Sat by Pulse 97 Oximetry HEENT: neg. cervical adenopathy, pale conjunctivae, neg. scleral icterus, dry oral mucosa. lungs: clear to ausc, no crepitus of the left side. heart: reg without murmurs abd: good BS, soft, tender near jejunostomy where there is a tender subcutaneous mass that is neither warm nor red. THere is a well-healed midline scar. ext: tr. edema of the ankles, no calf tenderness. Laboratory Results - last 24 hr 09/15/16 09/15/16 09/15/16 19:45 19:45 19:45 WBC 11.6 H RBC 3.29 L Hgb 9.9 L Hct 31 L MCV 95 MCH 30 MCHC 32 RDW 17 H Plt Count 396 MPV 9 Neut % (Auto) 75.0 Lymph % (Auto) 17.9 L Vance % (Auto) 5.9 Eos % (Auto) 0.7 Baso % (Auto) 0.5 Absolute Neuts (auto) 9.1 H Absolute Lymphs (auto) 2.2 Absolute Monos (auto) 0.7 Absolute Eos (auto) 0.1 Absolute Basos (auto) 0.1 Absolute Nucleated RBC 0.01 Nucleated RBC % 0.1 Sodium 135 Potassium 4.0 Chloride 100 L Carbon Dioxide 29 Anion Gap 6 BUN 9 Creatinine 0.38 L Est GFR ( Amer) 223.7 Est GFR (Non-Af Amer) 173.9 BUN/Creatinine Ratio 23.7 H Glucose 120 H Lactic Acid 0.9 Calcium 8.8 Total Bilirubin 0.50 AST 17 ALT 12 Alkaline Phosphatase 85 Total Protein 6.7 Albumin 3.1 L Globulin 3.6 Albumin/Globulin Ratio 0.9 L A/P: 56 y.o. female with possible subcutaneous abscess near jejunostomy. Will try to aspirate it to better characterize its nature. Will check CXR to evaluate the c/o pleuritic CP, will hold on PE eval. unless other signs/ symptoms occur. Will resume TF and oral pain meds. CLFoster
--- NOTE | 2016-09-16 09:13 | PN ---
Progress Note - Progress Note Date of Service: 09/16/16 Note: Surgery Procedure Note Under aseptic conditions, the subcutaneous mass in the abdominal wall adjacent to the jejunostomy site was aspirated. ~5 cc of old blood and a small amount of pus were recovered. She tolerated the procedure well. A bandaid was applied. Cultures were sent. Niki
--- NOTE | 2016-09-16 09:40 | RAD ---
Indication: Abdominal pain, Contrast: Administered 102.0 ml of OMNIPAQUE 300 mg/ml CT of the abdomen and pelvis was performed after oral and IV contrast administration. Coronal and sagittal reconstructed images were obtained. Lung bases demonstrate no pleural fluid, nodules or masses. Hiatal hernia is noted. Bibasilar atelectasis is noted. The heart demonstrates no pericardial effusion. Liver is normal in size. No focal lesions or intrahepatic ductal dilatation is noted. The spleen is normal in size. The gallbladder is distended. No calcified gallstone is noted. The common duct is not dilated. The pancreas demonstrates no mass or pancreatic duct dilatation. No adrenal lesions are noted. The kidneys demonstrate symmetric nephrograms without focal lesions. No retroperitoneal adenopathy is noted. No dilated loops of bowel are noted. The colon is filled with stool. CT of the pelvis demonstrates jejunostomy tube in place. There is a fluid collection superficial to the anterior abdominal wall muscles in the subcutaneous fat with multiloculated foci of air and contrast. This is likely an abscess and measures approximately 6 cm in length x 6 cm in width x 2.8 cm in greatest AP dimension. The contrast suggests that there may be leakage from the jejunostomy tube. The uterus and ovaries are unremarkable. The urinary bladder is unremarkable. No hernias are noted. IMPRESSION: There is a large fixed type hiatal hernia noted. At the jejunostomy tube insertion site in the subcutaneous tissue there is a 6 x 6 x 2.8 cm loculated fluid collection with contrast and air. This suggests that there is leakage from the jejunostomy tube. Underlying not excluded. No intra-abdominal masses are identified.
[2016-09-16] MEDS: Docusate CAP* 100 MG PO SCH ×3 (09:48→21:34)
[2016-09-16] MEDS: HYDROcodone/ACET. 7.5/325 LIQ* 15 ML UDC PO PRN (09:49)
[2016-09-16] MEDS: ZOSYN 3.375 GM Q8H per EXTENDED INFUSION IVPB SCH ×4 (09:49→16:50)
[2016-09-16] MEDS: Pantoprazole IV* 40 MG IV SCH (09:49)
[2016-09-16] MEDS: Ondansetron INJ* 2 MG/ML VIAL IV PRN (09:56)
--- NOTE | 2016-09-16 11:07 | RAD ---
Indication: Pleural chest pain. 2 views of the chest including dual energy PA views are reviewed. There appears to be a moderate to large hiatal hernia noted. Chronic pleural changes are noted. Lung hicks demonstrate no pleural fluid, pneumonia or pneumothorax. IMPRESSION: Large hiatal hernia. No definite pneumonia is identified.
[2016-09-17] MEDS: Sucralfate TAB* 1 GM PO SCH ×4 (01:21→16:14)
[2016-09-17] MEDS: ZOSYN 3.375 GM Q8H per EXTENDED INFUSION IVPB SCH ×6 (01:22→17:12)
[2016-09-17] MEDS: Morphine INJ* 2 MG/ML 1 ML SYRINGE IV PRN ×4 (02:47→20:05)
[2016-09-17] MEDS: NS 0.9% 1000 ML* 1,000 ML IV SCH (07:19)
[2016-09-17] MEDS: Docusate CAP* 100 MG PO SCH ×2 (08:38→21:09)
[2016-09-17] MEDS: Pantoprazole IV* 40 MG IV SCH (08:38)
--- NOTE | 2016-09-17 09:22 | PN ---
Progress Note - Progress Note Date of Service: 09/17/16 Note: Surgery Ms. James c/o new painful lump on right side near hip. She also had a lot of pain at the site near the J-tube with any movement. Cultures have come back showing neg MRSA, neg SA, but some gram pos cocci is in fluid aspirated from nodule. Ms. James asks to have rehab referral. Vital Signs 09/16/16 09/16/16 09/16/16 09:30 09:49 10:58 Temperature Pulse Rate Respiratory 16 16 16 Rate Blood Pressure (mmHg) O2 Sat by Pulse Oximetry 09/16/16 09/16/16 09/16/16 11:48 11:49 11:58 Temperature 98.3 F Pulse Rate 82 Respiratory 16 16 16 Rate Blood Pressure 88/43 (mmHg) O2 Sat by Pulse 95 Oximetry 09/16/16 09/16/16 09/16/16 12:40 15:14 18:57 Temperature 97.8 F Pulse Rate 80 Respiratory 17 16 Rate Blood Pressure 95/50 96/49 (mmHg) O2 Sat by Pulse 98 Oximetry 09/16/16 09/16/16 09/16/16 19:47 19:57 22:55 Temperature 98.5 F Pulse Rate 84 Respiratory 16 16 16 Rate Blood Pressure 89/55 (mmHg) O2 Sat by Pulse 96 Oximetry 09/16/16 09/16/16 09/17/16 23:29 23:55 02:47 Temperature 98.4 F Pulse Rate 74 Respiratory 16 16 16 Rate Blood Pressure 91/45 (mmHg) O2 Sat by Pulse 96 Oximetry 09/17/16 09/17/16 09/17/16 03:23 03:47 06:16 Temperature 98.6 F Pulse Rate 82 Respiratory 16 16 16 Rate Blood Pressure 82/40 (mmHg) O2 Sat by Pulse 91 Oximetry 09/17/16 09/17/16 07:16 07:25 Temperature 98.1 F Pulse Rate 71 Respiratory 16 16 Rate Blood Pressure 89/57 (mmHg) O2 Sat by Pulse 99 Oximetry Abd: soft, tender near trocar site in RLQ, no masses felt; tender near J-tube site where there is a subcutaneous nodule. Intake & Output 09/16/16 09/17/16 09/17/16 22:59 06:59 14:59 Intake Total 883 1634 10 Output Total 300 250 0 Balance 583 1384 10 Intake: IV Fluids 105 979 10 IVPB 105 Oral 360 200 Tube Feeding 358 290 Tube Feeding Flush Amount 60 60 Output: Urine 300 250 0 CXR showed large hiatal hernia. A/P: persistent infected hematoma near J-tube site. Will I&D later today. Ms. James would like her sister to be present. Continue Zosyn for now. EMILEForyan
[2016-09-17] MEDS: HYDROcodone/ACET. 7.5/325 LIQ* 15 ML UDC PO PRN ×3 (13:07→22:40)
--- NOTE | 2016-09-17 16:22 | PN ---
Progress Note - Progress Note Date of Service: 09/17/16 Note: Procedure Note Under sterile conditions using 1%Lidocaine, I&D of abdominal wall mass was done without difficulty. She tolerated procedure well. 1/4 inch packing used to dress wound. There was 2 cc of blood. Niki
[2016-09-18] MEDS: Sucralfate TAB* 1 GM PO SCH ×4 (00:19→17:47)
[2016-09-18] MEDS: Morphine INJ* 2 MG/ML 1 ML SYRINGE IV PRN ×6 (00:34→21:57)
[2016-09-18] MEDS: ZOSYN 3.375 GM Q8H per EXTENDED INFUSION IVPB SCH ×6 (01:16→18:57)
[2016-09-18] MEDS: HYDROcodone/ACET. 7.5/325 LIQ* 15 ML UDC PO PRN ×5 (03:19→23:58)
--- NOTE | 2016-09-18 08:51 | SURGPN ---
Subjective - Introduction -: Reports feeling OK, still has intermittent pain at I&D site. Denies fever or chills. J tube feeding has been working well. 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 - Medications -: Active Medications Generic Name Dose Route Start Last Admin Trade Name Freq PRN Reason Stop Dose Admin Acetaminophen 650 mg 09/16/16 04:26 Tylenol Tab* PO Q6H PRN FEVER Hydrocodone Bitart/Acetaminophen 5 ml 09/16/16 08:54 09/18/16 08:16 Nortab 7.5/325 Liq* PO 5 ml Q4H PRN Administration PAIN Docusate Sodium 100 mg 09/16/16 09:00 09/17/16 21:09 Colace Cap* PO 100 mg BID MATHEW Administration Piperacillin Sod/Tazobactam 100 mls @ 25 mls/hr 09/16/16 09:00 09/18/16 01:16 Sod 3.375 gm/ Sodium Chloride IVPB 25 mls/hr Q8H MATHEW Administration Morphine Sulfate 2 mg 09/16/16 04:25 09/18/16 04:04 Morphine Inj (Syringe)* IV 2 mg Q3H PRN Administration PAIN Ondansetron HCl 4 mg 09/16/16 04:25 09/16/16 09:56 Zofran Inj* IV 4 mg Q6H PRN Administration NAUSEA/VOMITING Pantoprazole Sodium 40 mg 09/16/16 09:00 09/17/16 08:38 Protonix Iv* IV 40 mg DAILY MATHEW Administration Sucralfate 1 gm 09/16/16 06:00 09/18/16 05:36 Carafate* PO Not Given Q6HR MATHEW Objective - Objective -: Awake and alert, laying in bed, comfortable and in NAD. - Intake and Output -: Intake & Output 09/16/16 09/17/16 09/18/16 09/19/16 06:59 06:59 06:59 06:59 Intake Total 1265 Output Total 750 Balance 515 Intake: IV Fluids 185 NS (0.9%) 80 zosyn 105 IVPB 105 zosyn 105 Oral 280 Tube Feeding 605 Tube Feeding Flush Amount 90 Output: Urine 750 Surgical Physical Exam - Comments -: Vitals reviewed, afebrile, Tmax 98.7 Lungs CTA bilat. Heart RRR, no murmurs Abdomen soft, NT, ND. J-tube site with no erythema or induration noted. I&D site, lateral to J-tube insertion with a nicely healing wound, approx. 2 cm , with no erythema or induration noted. No active bleeding or discharge. Packing gauze was removed, and new 1/4 inch plain packing gauze inserted. Ext. without edema Assessment and Plan - Assessment -: A 56 y/o female with hx PUD, perforated ulcer, s/p patch repair, on tube feeding. Abdominal wall abscess, s/p I&D. - Plan Additional Comments: Continue IV Zosyn. Discussed with patient possible discharge today. She is still having some pain issues, feels uncomfortable going home. She also has some difficulties ambulating, thinks she might benefit from STR for PT/OT eval and treatment. Will discuss with social service manager.
[2016-09-18] MEDS: Pantoprazole IV* 40 MG IV SCH (09:09)
[2016-09-18] MEDS: Docusate CAP* 100 MG PO SCH ×2 (09:14→20:27)
[2016-09-18] MEDS: Ondansetron INJ* 2 MG/ML VIAL IV PRN (13:03)
[2016-09-19] MEDS: Sucralfate TAB* 1 GM PO SCH ×4 (00:19→16:15)
[2016-09-19] MEDS: Morphine INJ* 2 MG/ML 1 ML SYRINGE IV PRN ×6 (01:17→22:50)
[2016-09-19] MEDS: ZOSYN 3.375 GM Q8H per EXTENDED INFUSION IVPB SCH ×6 (03:00→16:17)
[2016-09-19] MEDS: Docusate CAP* 100 MG PO SCH ×2 (07:42→20:35)
[2016-09-19] MEDS: HYDROcodone/ACET. 7.5/325 LIQ* 15 ML UDC PO PRN ×3 (08:50→19:34)
[2016-09-19] MEDS: Pantoprazole IV* 40 MG IV SCH (09:43)
--- NOTE | 2016-09-19 12:30 | PN ---
Progress Note - Progress Note Date of Service: 09/19/16 SOAP: Subjective: Doing about the same, has no new complaints. No fever or chills. Objective: VSS, afebrile Abdomen soft, NT, ND. Packing change done by nursing staff, wound and dressing are clean and dry. No labs today Assessment: Improving J-tube tunnel abscess, s/p I&D Plan: Convert Abx to PO Augmentin in anticipation for d/c tomorrow D/C plans to STR at [facility] tomorrow 09/20 Patient aware and agrees to plans
[2016-09-20] MEDS: Sucralfate TAB* 1 GM PO SCH ×3 (00:50→10:01)
[2016-09-20] MEDS: ZOSYN 3.375 GM Q8H per EXTENDED INFUSION IVPB SCH ×4 (01:39→07:54)
[2016-09-20] MEDS: Morphine INJ* 2 MG/ML 1 ML SYRINGE IV PRN (03:42)
[2016-09-20] MEDS: Docusate CAP* 100 MG PO SCH (07:49)
[2016-09-20] MEDS: Pantoprazole IV* 40 MG IV SCH (07:54)
[2016-09-20] MEDS: HYDROcodone/ACET. 7.5/325 LIQ* 15 ML UDC PO PRN ×2 (07:54→12:25)
[2016-09-20 07:57] VITALS: BP 131/72
--- NOTE | 2016-09-20 11:26 | PN ---
Progress Note - Progress Note Date of Service: 09/20/16 SOAP: Subjective: Feeling about the same, no new complaints. Denies fever or chills. Objective: Awake and alert, in NAD VSS, afebrile J-tube with scanty surrounding leak, not any worse than it has been. No skin changes or erythema. I&D site with clean packed wound. No active bleeding or discharge. Assessment: Doing well, s/p I&D of abdominal wall abscess Plan: D/c to [facility] today Packing change daily, instructions given in d/c pappers Augmentin PO for a week. F/U in office next week for wound recheck.
--- NOTE | 2016-09-20 12:16 | DS ---
DATE OF ADMISSION: 09/16/2016. DATE OF DISCHARGE: 09/20/2016. ADMISSION DIAGNOSES: Abdominal pain, fever, and abdominal wall abscess. DISCHARGE DIAGNOSES: Abdominal pain, fever, and abdominal wall abscess. ATTENDING PHYSICIAN: Dr. Monica Ponce* (dictated by JOSE F Cobos). CONSULTATIONS: None. PROCEDURE: Incision and drainage of abdominal wall abscess on 09/17/2016. HISTORY OF PRESENT ILLNESS: Ms. James is a 56-year-old female who presented to the emergency room in the late evening hours of 09/15/2016 with complaints of high fever at her doctor's office. She also noted more pain and bigger lump near her jejunostomy tube site. The patient is well-known to us from recent admission approximately two weeks ago due to problems with her J feeding tube. She has a recent history of perforated ulcer that was repaired in [place], followed by an episode of persistent nausea and vomiting and was recognized to be due to gastric outlet obstruction. She was managed back there by placement of feeding jejunostomy tube shortly after she left [place] and came to [place] to live with her sister. She was recently admitted earlier this month due to difficulty with the bolus feeding, as well as nausea and vomiting. She was eventually discharged and her feeding tube rate was gradually resumed. She was discharged home in a stable condition and reports doing well until two days prior to her presentation when she noticed a lump on her abdominal wall just lateral to her jejunostomy tube site. She scheduled an appointment to see her primary care doctor and she was noticed to have increased redness, pain, as well as fever, so she was sent to the emergency room for further evaluation. HOSPITAL COURSE: The patient was seen and examined by Dr. Ponce and was found to have an abscess of the abdominal wall for which she was admitted for IV antibiotics. The patient was seen on the following morning by Dr. Ponce and a small aspiration of the lump was done under aseptic technique at bedside with 5 cc of purulent drainage recovered. A band-aid was applied and culture was sent that revealed staph epidermidis, was negative for MRSA as well as a normal skin jazzmine. The patient was covered empirically on Zosyn and she did relatively well. On that second day from her admission, she continued to improve; however , the need was felt for the area to be explored more, so the patient underwent an incision and drainage of abdominal wall abscess at bedside using local anesthetic. The area was cleaned nicely and then was packed with a quarter inch plain packing gauze. The patient was continued on IV Zosyn and she had no difficulty with her tube feeding, as well as maintaining her full liquid diet. She continued to improve on a daily basis with daily packing changes and quarter inch plain packing gauze. The patient had difficulties ambulating out of bed due to her recent hospitalization as well as her remote history of muscular dystrophy. The plans were made for the patient to be [facility] for a [facility]-term rehab as well as OT/PT evaluation and treatment as tolerated. Her antibiotics were converted, we are going to maintain her on p.o. Augmentin as well as Lortab elixir as needed for pain. She will continue to have wound care at the [facility] facility using quarter inch plain packing gauze on a daily basis and she may shower as well. We will plan to see her back in the office next week for wound recheck and possible packing gauze change as well. DISCHARGE MEDICATIONS: Her discharge medications to the [facility] home facility at [facility] include: 1. Colace 100 mg p.o. b.i.d. 2. Lortab elixir 7.5/325, 15 ml p.o. q.6 hours as needed for pain. 3. Protonix 40 mg p.o. daily. 4. Carafate 1 gm tablet p.o. q.i.d. 5. Augmentin 875 mg one tablet p.o. b.i.d. for a week. PROBLEM LIST: Abscess of the abdominal wall close to jejunostomy tube site, status post incision and drainage of abdominal wall abscess on 09/17/2016. The patient will be maintained on antibiotics and pain control and she will spend the next few weeks for short-term rehab at [facility] and will be seen in the office next week on 09/27/2016 at 10:30 in the morning for a follow-up appointment. JOSE F BUSTOS [id number]/[facility] #: [id number] [place]
== END 2016-09-20 13:00 | DRG 252 ==
LOC: ED 15:51 → SSU 09-16 02:57 → OBSVTOIN 09-17 15:50
PROVIDERS: ADMIT Surgery; ATTEND Surgery
PROC: 0J983ZZ Drainage of Abdomen Subcutaneous Tissue and Fascia, Percutaneous Approach (ICD-10-PCS; principal; 2016-09-16)
PROC: 0J983ZZ Drainage of Abdomen Subcutaneous Tissue and Fascia, Percutaneous Approach (ICD-10-PCS; 2016-09-17)
DX: K94.19 Other complications of enterostomy (principal); G71.0 Muscular dystrophy; K31.5 Obstruction of duodenum; L02.211 Cutaneous abscess of abdominal wall; K21.9 Gastro-esophageal reflux disease without esophagitis; K44.9 Diaphragmatic hernia without obstruction or gangrene; Y69 Unspecified misadventure during surgical and medical care; R19.09 Other intra-abdominal and pelvic swelling, mass and lump; Z80.0 Family history of malignant neoplasm of digestive organs; Y92.9 Unspecified place or not applicable
CPT/HCPCS: 36415; 71020; 74177; 80053; 83605; 85025; 85027; 87040; 87070; 87077; 87150; 87186; 87205; 87640; 87641; 94640; A9270-GY; G0378; J2270; J2405; J2543; Q9967

== ENCOUNTER 2016-10-08 11:17 | Inpatient (IN) | payer MEDICAID, OTHER ==
[2016-10-08] MEDS ORDERED: Morphine INJ* 4 MG/ML 1 ML CARPUJECT IV ONE ×2 (12:38→15:50)
[2016-10-08] MEDS ORDERED: Ondansetron INJ* 2 MG/ML VIAL IV ONE (12:38)
[2016-10-08] MEDS ORDERED: NS 0.9% 1000 ML* 1,000 ML IV ONE ×2 (12:38→23:54)
[2016-10-08 13:19] LABS: ALT 16 U/L (7-52); Albumin 3.7 g/dL (3.2-5.2); Alkaline Phosphatase 73 U/L (34-104); BUN/Creatinine Ratio 37.8 (8-20); Blood Urea Nitrogen 17 mg/dL (6-24); C Reactive Protein 232.58 mg/L (< 5.00); CO2 Carbon Dioxide 28 mmol/L (22-32); Calcium 9.7 mg/dL (8.6-10.3); Chloride 101 mmol/L (101-111); EGFR Non-African American 143.1 (>60); Globulin 3.7 g/dL (2-4); Glucose 111 mg/dL (70-100); Lipase < 10 U/L (11.0-82.0); Sodium 136 mmol/L (133-145); Total Protein 7.4 g/dL (6.4-8.9)
[2016-10-08 13:21] LABS: Hematocrit 36 % (35-47); Hemoglobin 11.7 g/dl (12.0-16.0); Mean Corpuscular HGB Conc 33 g/dl (31-36); Mean Corpuscular Hemoglobin 30 pg (27-31); Mean Corpuscular Volume 93 fL (80-97); Mean Platelet Volume 11 um3 (7.4-10.4); Red Blood Count 3.86 10^6/ul (4.0-5.4); Red Cell Distribution Width 16 % (10.5-15); White Blood Count 12.5 10^3/ul (3.5-10.8)
[2016-10-08 14:14] LABS: Anion Gap 7 mmol/L (2-11)
[2016-10-08] MEDS ORDERED: Iohexol 300* (CONTRAST) 10 ML SDV IV ONE (14:18)
--- NOTE | 2016-10-08 15:30 | RAD ---
INDICATION: Abdominal abscess, J tube. COMPARISON: Comparison is made with a prior CT of the abdomen and pelvis from September 16, 2016. TECHNIQUE: A CT scan of the abdomen and pelvis was performed with intravenous and oral contrast following intravenous injection of 101 ml of Omnipaque 300 nonionic contrast. Contiguous axial sections were obtained from the lung bases through the symphysis pubis. Images were reconstructed in the coronal and sagittal planes. FINDINGS: There is minimal subsegmental atelectasis in the left lower lobe. The lung bases are otherwise clear. No pleural effusion is present. The liver and spleen are normal in size without significant focal abnormality. The liver is decreased in attenuation consistent with fatty infiltration. There is more focal decreased attenuation in the medial segment of the left hepatic lobe most consistent with more focal fatty infiltration. The gallbladder is distended. This appears similar to the prior exam. No calcified gallstones are seen. The pancreas appears to be within normal limits. The kidneys and adrenal glands are normal in size. No hydronephrosis is seen. There is a small 1 cm cyst in the lower pole of the right kidney. The aorta is normal in caliber and demonstrates homogeneous contrast opacification. No significant enlarged retroperitoneal lymph nodes are seen. There is a large hiatal hernia containing the majority of the stomach which is slightly distended and unchanged from the prior study. There is mild thickening of the wall of the antrum of the stomach which is unchanged. The small bowel and colon appear nondistended. The appendix is within normal limits. There is moderate to severe sigmoid diverticulosis without evidence for diverticulitis. There is an anterior abdominal wall hernia containing small bowel and colon which are nondistended. There is a jejunostomy tube entering anterolaterally on the left side. The catheter tip extends into the region of the jejunum. The balloon portion of the catheter has been pulled back and is now located within the abdominal wall. There is soft tissue swelling in the abdominal wall muscles and subcutaneous fat in this region. There is air present within the abdominal wall. There is an open wound and packing material present. No discrete fluid collection or abscess is seen. The uterus is retroverted and mildly enlarged. No free intraperitoneal air or fluid is seen. No significant focal osseous abnormality is seen. The results of this exam were discussed with the referring clinician. IMPRESSION: 1. THE PATIENT'S JEJUNOSTOMY TUBE HAS BEEN PULLED BACK. THE BALLOON CATHETER PORTION OF THE TUBE IS LOCATED WITHIN THE ABDOMINAL WALL. RECOMMEND REPLACING OR REPOSITIONING THIS TUBE. 2. THERE IS SOFT TISSUE SWELLING AND AIR WITHIN THE ABDOMINAL WALL MOST CONSISTENT WITH CELLULITIS. SOME OF THE AIR MAY BE SECONDARY TO LEAKAGE AROUND THE CATHETER. THERE IS ALSO AN OPEN WOUND IN THIS REGION. 3. LARGE HIATAL HERNIA, UNCHANGED. 4. THICKENING OF THE WALL OF THE ANTRUM UNCHANGED CONSISTENT WITH INCOMPLETE DISTENTION OR GASTRITIS. 6 ANTERIOR ABDOMINAL WALL HERNIA CONTAINING NONDISTENDED SMALL BOWEL AND COLON. 7. DISTENDED GALLBLADDER.
--- NOTE | 2016-10-08 16:45 | ED ---
Sandra Trent Edward, scribed for Daniel Tubbs on 10/08/16 at 1239 . Skin Complaint - HPI Summary HPI Summary: 56 y/o female presents to the ED c/o gradual onset abscess on the L side of her ABD where her feeding tube is that became larger and more painful starting two nights ago. The abscess is hot, draining and severely painful. The pain is aggravated with touch. The abscess was opened up and drained last night by Dr. Hernandez. Dr. Guajardo performed an I&D two nights ago. Associated sx: N/V. No PMHx DM. SHx J-tube. PMHx perforated gastric ulcer (2 months ago), hiatal hernia , muscular dystrophy. - History of Current Complaint Chief Complaint: EDAbdPain Time Seen by Provider: 10/08/16 12:25 Stated Complaint: ABD PAIN,INCISION FOR CYST LEAKING Hx Obtained From: Patient Onset/Duration: Started Days Ago, Still Present, Worse Since - Two nights ago Timing: Constant Current Severity: Severe Pain Intensity: 8 Pain Scale Used: 0-10 Numeric Skin Location: Abdomen - L side Character: Swelling, Redness, Painful Aggravating Symptom(s): Touch Associated Signs & Symptoms: Nausea, Vomiting, Drainage, Tenderness - Additional Pertinent History Primary Care Physician: [id number] - Allergy/Home Medications Allergies/Adverse Reactions: Allergies Allergy/AdvReac Type Severity Reaction Status Date / Time No Known Allergies Allergy Verified 09/15/16 21:25 PMH/Surg Hx/FS Hx/Imm Hx Previously Healthy: No Endocrine/Hematology History: Denies: Hx Diabetes Cardiovascular History: Denies: Hx Hypertension GI History: Reports: Hx Gall Bladder Disease - gallstones, Hx Gastroesophageal Reflux Disease, Hx Hiatal Hernia, Hx Ulcer, Other GI Disorders - Hx perforated stomach, duodenal stenosis, prepyloric ulcer, malnourishment History: Denies: Hx Dialysis, Hx Renal Disease Musculoskeletal History: Reports: Other Musculoskeletal History - Hx muscular dystrophy Sensory History: Reports: Hx Contacts or Glasses - Glasses, though not with patient at this time. Denies: Hx Hearing Aid Opthamlomology History: Reports: Hx Contacts or Glasses - Glasses, though not with patient at this time. - Surgical History Surgery Procedure, Year, and Place: J-tube insertion (10 days ago), ulcer repair (a month ago) - Immunization History Date of Tetanus Vaccine: utd Date of Influenza Vaccine: utd Infectious Disease History: No Infectious Disease History: Denies: Traveled Outside the [place] in Last 30 Days - Family History Known Family History: Positive: Other - colon CA - Social History Alcohol Use: None Hx Substance Use: No - No excessive ASA or NSAID use Substance Use Type: Reports: None Hx Tobacco Use: No Smoking Status (MU): Never Smoked Tobacco Review of Systems Constitutional: Negative Eyes: Negative ENT: Negative Cardiovascular: Negative Respiratory: Negative Positive: Vomiting, Nausea Genitourinary: Negative Musculoskeletal: Negative Skin: Other - Abscess @ L side ABD - hot, draining, painful Neurological: Negative Psychological: Normal All Other Systems Reviewed And Are Negative: Yes Physical Exam Triage Information Reviewed: Yes Vital Signs On Initial Exam: Initial Vitals Temp Pulse Resp BP Pulse Ox 98.7 F 81 14 114/67 98 10/08/16 11:20 10/08/16 11:20 10/08/16 11:20 10/08/16 11:20 10/08/16 11:20 Vital Signs Reviewed: Yes Appearance: Positive: Well-Appearing, No Pain Distress Skin: Positive: Warm, Skin Color Reflects Adequate Perfusion, Dry, Other - J tube and swelling lateral to the J tube. Tender with drainage. Head/Face: Positive: Normal Head/Face Inspection Eyes: Positive: EOMI, BERNARDO ENT: Positive: Normal ENT inspection Neck: Positive: Supple, Nontender Respiratory/Lung Sounds: Positive: Clear to Auscultation, Breath Sounds Present Cardiovascular: Positive: RRR, Pulses are Symmetrical in both Upper and Lower Extremities Abdomen Description: Positive: Soft, Other: - Tenderness over the LLQ and LUQ Bowel Sounds: Positive: Present Musculoskeletal: Positive: Normal, Strength/ROM Intact Neurological: Positive: Normal, Sensory/Motor Intact, Alert, Oriented to Person Place, Time Diagnostics - Vital Signs Vital Signs Temp Pulse Resp BP Pulse Ox 10/08/16 11:20 98.7 F 81 14 114/67 98 - Laboratory Result Diagrams: 10/08/16 12:45 10/08/16 14:25 Lab Statement: Any lab studies that have been ordered have been reviewed, and results considered in the medical decision making process. - CT ABD/PEL CT CT Interpretation: Positive (See Comments) - 1. THE PATIENT'S JEJUNOSTOMY TUBE HAS BEEN PULLED BACK. THE BALLOON CATHETER PORTION OF THE TUBE IS LOCATED WITHIN THE ABDOMINAL WALL. RECOMMEND REPLACING OR REPOSITIONING THIS TUBE. 2. THERE IS SOFT TISSUE SWELLING AND AIR WITHIN THE ABDOMINAL WALL MOST CONSISTENT WITH CELLULITIS. SOME OF THE AIR MAY BE SECONDARY TO LEAKAGE AROUND THE CATHETER. THERE IS ALSO AN OPEN WOUND IN THIS REGION. 3. LARGE HIATAL HERNIA, UNCHANGED. 4. THICKENING OF THE WALL OF THE ANTRUM UNCHANGED CONSISTENT WITH INCOMPLETE DISTENTION OR GASTRITIS. 6 ANTERIOR ABDOMINAL WALL HERNIA CONTAINING NONDISTENDED SMALL BOWEL AND COLON. 7. DISTENDED GALLBLADDER. ED PHYSICIAN AGREEABLE. CT Interpretation Completed By: Radiologist Re-Evaluation - Re-Evaluation 1 Re-Evaluation Time: 15:40 Comment: J-tube bulb deflated and J-tube removed Course/Dx - Course Assessment/Plan: 56 y/o female presents to the ED c/o gradual onset abscess on the L side of her ABD where her feeding tube is that became larger and more painful starting two nights ago. The abscess is hot, draining and severely painful. The pain is aggravated with touch. The abscess was opened up and drained last night by Dr. Hernandez. Dr. Guajardo performed an I&D two nights ago. Associated sx: N/V. No PMHx DM. SHx J-tube. PMHx perforated gastric ulcer ( 2 months ago), hiatal hernia, muscular dystrophy. CT results called in by Dr. Valles. Spoke with Dr. Hernandez (surgeon) @ 15:30. ABD/PEL CT SHOWS 1. THE PATIENT' S JEJUNOSTOMY TUBE HAS BEEN PULLED BACK. THE BALLOON CATHETER PORTION OF THE TUBE IS LOCATED WITHIN THE ABDOMINAL WALL. RECOMMEND REPLACING OR REPOSITIONING THIS TUBE. 2. THERE IS SOFT TISSUE SWELLING AND AIR WITHIN THE ABDOMINAL WALL MOST CONSISTENT WITH CELLULITIS. SOME OF THE AIR MAY BE SECONDARY TO LEAKAGE AROUND THE CATHETER. THERE IS ALSO AN OPEN WOUND IN THIS REGION. 3. LARGE HIATAL HERNIA, UNCHANGED. 4. THICKENING OF THE WALL OF THE ANTRUM UNCHANGED CONSISTENT WITH INCOMPLETE DISTENTION OR GASTRITIS. 6 ANTERIOR ABDOMINAL WALL HERNIA CONTAINING NONDISTENDED SMALL BOWEL AND COLON. 7. DISTENDED GALLBLADDER. ED PHYSICIAN AGREEABLE. Spoke with Dr. Jimenez. [place] [facility] On re -eval, the patient's j-tube was removed. - Diagnoses Provider Diagnoses: Abdominal pain, Abdominal wall abscess s/p drained, Malfunction of jejunostomy tube - Physician Notifications Discussed Care Of Patient With: Brenna Jimenez Time Discussed With Above Provider: 15:37 Instructed by Provider To: Admit As Inpatient Discharge - Discharge Plan Condition: Stable Disposition: ADMITTED TO [facility] Referrals: Jigna Lopez PA [Primary Care Provider] - The documentation as recorded by the Sandra baig Edward accurately reflects the service I personally performed and the decisions made by , Daniel Tubbs.
[2016-10-08] MEDS ORDERED: Zosyn per Pharmacy* NOTE FOLLOW UP SCH (17:00)
[2016-10-08 17:38] LABS: Urine Bilirubin Negative (Negative); Urine Glucose Negative (Negative); Urine Nitrite Negative (Negative)
--- NOTE | 2016-10-08 17:54 | HP ---
DATE OF ADMISSION: October 08, 2016 PRIMARY CARE PHYSICIAN: Lesley Lopez of [facility]. PRIMARY SURGEON: Dr. Guajardo CHIEF COMPLAINT: Abdominal wall abscess/skin & soft tissue infection (recurrent ), displaced J tube. HISTORY OF PRESENT ILLNESS: Christina James is a 56-year-old female with past medical history of Jipjuam-Weytt-Pfyls, recent perforated peptic ulcer (July 2016 s/p surgery in [place] at [facility]). Patient then relocated to [facility] to be cared for without the help of her sister and has had multiple complications since. She had a J tube placed prior to leaving [place]. Patient was admitted September 16 through the with an abdominal wall abscess near her left mid abdomen. Initially bedside I/D revealed pus growing Staph epi, and second I/D culture grew E. coli, Klebsiella pneumoniae, Enterobacter cloacae. She was treated with Zosyn and discharged with 7 days of Augmentin. She had been tolerating her continuous tube feeds at home since, but started to develop chills, tenderness at the left abdomen site, erythema, nausea/vomiting and visited her surgeon doctor two days prior to admission; bedside incision and drainage was performed. Patient received hydrocodone 7.5/acetaminophen 325 mg, but had continued symptoms of pain, swelling and tenderness at the site in addition to leaking at the J-tube site. Patient saw Surgeon Dr. Mehul Hernandez the night prior to admission who did additional incision and drainage with packing of gauze into the site, and gave prescription for Augmentin. However, pain was uncontrolled and patient was unable to fill antibiotics before morning of admission when she called Dr. Hernandez and was advised to return to the ED. In the ED CT abdomen and pelvis with IV and p.o. contrast noticed that the J tube balloon was dislodged into the abdominal wall, along with soft tissue swelling and subcutaneous air, and an open wound. ED physician then removed the J tube. The patient is being admitted for IV antibiotics, and further surgical management as necessary of the abdominal wall abscess. She was started on Zosyn in the ED. Blood cultures were obtained. Initial vital signs were blood pressure 114/67. Pulse rate 81. Satting 98% on room air. Temperature 98.7 degrees Fahrenheit. Initial labs leukocytosis white count 12.5. C reactive protein 232. Lipase below 10. Additional findings from the CT abdomen and pelvis included large hiatal hernia containing majority of the stomach which is highly distended, unchanged from prior study. Additionally mild thickening of the wall of the antrum of the stomach which is unchanged. Evidence of moderate to severe sigmoid diverticulosis without evidence of diverticulitis. Anterior abdominal wall hernia containing small bowel and colon which are nondistended. No free intraperitoneal air or fluid is seen. Gallbladder is distended. Patient attests to intermittent nausea and vomiting over the last week which is new. Previously she had been on 70 mL/hour during waking hours of Jevity 1.2 and had begun supplementing with p.o. intake. Sister notes that J tube was planned to be removed sometime soon, but patient had not yet seen newly established GI physician, Fatih Hernández, scheduled for appointment October 26. PAST MEDICAL HISTORY: [id number]-[id number]-Hgixz. Perforated peptic ulcer status post J tube complicated by abdominal wall abscess now x2. PAST SURGICAL HISTORY: Exploratory laparotomy 07/16/16 with modified Harley patch with laparoscopic jejunostomy tube with balloon. Incision and drainage. MEDICATIONS: 1. Protonix 40 mg b.i.d. 2. Hydrocodone/acetaminophen 7.5/325 mg liquid every 6 hours p.r.n. 3. Docusate 100 mg p.o. b.i.d. 4. Carafate 1 gram p.o. a.c. and h.s. Had been prescribed Augmentin day prior but not filled yet ALLERGIES: No known drug allergies FAMILY HISTORY: Sister with colon cancer. Dad with CVA and delirium. Maternal grandmother with pancreatic cancer. SOCIAL HISTORY: Patient living with sister in [facility] after relocating from [place]. Denies smoking history, drug use or alcohol use. No children. 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 REVIEW OF SYSTEMS: Patient has never received a colonoscopy. PHYSICAL EXAMINATION GENERAL: Patient is supine on bed, slightly uncomfortable appearing. VITAL SIGNS: As described in HPI. HEENT: Pupils equally round and reactive to light. Moist mucous membranes. NECK: Supple. LUNGS: Clear to auscultation bilaterally. No wheezing, rales or rhonchi. HEART: Regular rate and rhythm. No murmurs, rubs or gallops. ABDOMEN: former J tube exit site slightly erythematous lateral to left umbilicus. Area of erythema, swelling, approximately 6 cm wide that is lateral and superior to that site which has incision and packing (brown), with substantial tenderness of the area. No chantal pus or malodor observed. EXTREMITIES: No edema. Foot deformities and surgical scar. Pulses intact. SKIN: No lesions or rashes other than erythema noted above. LABORATORY DATA: As described in HPI. RADIOLOGIC IMAGING: As described in HPI. ASSESSMENT/PLAN: 1. Christina James is a 56-year-old with history of Charcot- Kenzie-Tooth, presenting with peptic ulcer perforation complicated by J tube placement and abdominal wall abscess with recurrence x2 now. She is being admitted for IV antibiotics, additional incision and drainage by surgical team including Dr. Hernandez and Dr. Guajardo. We will continue Zosyn here initially. Followup blood cultures and try to obtain additional cultures from the abscess site if possible to narrow antibiotics. Site previously grew E. coli, Klebsiella pneumoniae and Enterobacter cloacae, as well as Strep epi. She will receive IV fluids, maintain n.p.o. status. Manage nausea with Zofran p.r.n. Pain control with IV morphine p.r.n. We will give bowel regimen to prevent constipation. 2. Peptic ulcer disease. Continue home Carafate and Protonix 40 mg b.i.d. 3. Disposition. Surgical short stay unit observation status. 4. DVT prophylaxis heparin 5000 t.i.d to start HD#2 pending on surgical plan 5. Code status. Full code. Discussed with patient. [id number]/CPS #: [id number] DAVION
[2016-10-08] MEDS ORDERED: ZOSYN 3.375 GM Q8H per EXTENDED INFUSION IVPB SCH ×2 (18:00)
[2016-10-08] MEDS: NS 0.9% 1000 ML* 1,000 ML IV SCH (18:24)
[2016-10-08] MEDS: Morphine INJ* 4 MG/ML 1 ML CARPUJECT IV PRN (19:47)
[2016-10-08] MEDS: ZOSYN 3.375 GM Q8H per EXTENDED INFUSION IVPB SCH ×2 (20:31)
[2016-10-09] MEDS: Morphine INJ* 4 MG/ML 1 ML CARPUJECT IV PRN ×2 (01:04→05:09)
[2016-10-09] MEDS: NS 0.9% 1000 ML* 1,000 ML IV SCH (01:06)
[2016-10-09] MEDS: ZOSYN 3.375 GM Q8H per EXTENDED INFUSION IVPB SCH ×6 (05:11→21:05)
[2016-10-09 06:46] LABS: Hematocrit 25 % (35-47); Hemoglobin 8.3 g/dl (12.0-16.0); Mean Corpuscular HGB Conc 33 g/dl (31-36); Mean Corpuscular Hemoglobin 30 pg (27-31); Mean Corpuscular Volume 93 fL (80-97); Mean Platelet Volume 10 um3 (7.4-10.4); Red Blood Count 2.74 10^6/ul (4.0-5.4); Red Cell Distribution Width 16 % (10.5-15); White Blood Count 9.7 10^3/ul (3.5-10.8)
[2016-10-09] MEDS ORDERED: Ondansetron INJ* 2 MG/ML VIAL ONE (06:48)
[2016-10-09] MEDS: Ondansetron INJ* 2 MG/ML VIAL IV PRN (06:51)
[2016-10-09 07:10] LABS: BUN/Creatinine Ratio 22.5 (8-20); Calcium 8.3 mg/dL (8.6-10.3); EGFR African American 210.8 (>60); EGFR Non-African American 163.9 (>60); Magnesium 1.7 mg/dL (1.9-2.7); Potassium 3.8 mmol/L (3.5-5.0)
[2016-10-09] MEDS: HYDROmorphone* 1 MG/ML 1 ML CARPUJECT IV SLOW PU PRN ×6 (08:30→23:46)
[2016-10-09] MEDS ORDERED: Influenza VAC *QUAD* 2017-18* 0.5 ML SYRINGE IM ONE (09:00)
[2016-10-09] MEDS ORDERED: HYDROmorphone* 1 MG/ML 1 ML CARPUJECT IV SLOW PU ONE (09:40)
[2016-10-09] MEDS ORDERED: HYDROmorphone* 1 MG/ML 1 ML CARPUJECT ONE (09:42)
[2016-10-09] MEDS ORDERED: Magnesium Sulfate 2 GM IV* 2 GM/50 ML BAG IVPB ONE (10:52)
[2016-10-09] MEDS ORDERED: NS 0.9% 1000 ML* 1,000 ML IV SCH ×2 (11:00→12:07)
--- NOTE | 2016-10-09 12:01 | CONS ---
CC: [facility]; [facility] Office * CONSULTATION REPORT: DATE OF CONSULT: 10/09/16 REFERRING PROVIDER: Ronn Corona MD, hospitalist. REASON FOR CONSULT: Left abdominal wall abscess and drainage. HISTORY OF PRESENT ILLNESS: Ms. Christina James is a 56-year-old woman who is well known to me from 2 recent hospitalizations here at [facility] over the past 6 weeks. Her history starts in early summer when she was living in [place], [place] and presented with what was diagnosed as a perforated distal gastric ulcer at the prepyloric area, which was repaired using a Harley patch with abdominal washout. She was quite ill in the intensive care unit with drains in place for at least a week. Upon previous review of old record, she had improved to the point where she was discharged to rehab, developed problems with persistent nausea and vomiting, and repeat workup including an upper GI and endoscopy showed some narrowing at the repair site with persistent giant ulcer. For this reason, she was taken back to the operating room in [place], where she underwent a laparoscopic placement of a jejunostomy feeding tube, which she had been using after her discharge there. Due to family and personal reasons, she apparently left [place] and was living with her sister here in [facility] and she had presented to the emergency room about a week after arrival with abdominal pain, nausea and vomiting. Since her first admission here, she had been slowly advancing her diet to a soft diet and now had been taking J-tube feeds only during the day for convenience, but felt that she was increasing her oral intake to the point where soon we were going to plan on discontinuing the J-tube. Her bowels have been working. She had no fevers. I saw her in the office on Sunday where she complained of a lump lateral to the J- tube. She had an abscess drained here before, which we are not certain if this is a laparoscopic site or a drain site, but she noted she did have firmness , redness. She had firmness and pain, although on aspiration and opening, there was no evidence of abscess or unusual findings and this was packed. Over the next 48 hours, she developed redness, fever and swelling in addition to more drainage, presented to the emergency room here yesterday. A CAT scan of the abdomen and pelvis, which I did review showed the J-tube balloon to have pulled back up into the subcutaneous space with some air and a probable abscess in the space. There was no intraabdominal abscess, fluid or air and there appeared to be no significant obstructive pathology. She was noted to be afebrile without tachycardia. White blood cell count was 12,500 and her renal function was normal. She had a C-reactive protein of 232. I do not see whether a prealbumin has been ordered yet. Further discussion with Dr. Hernandez yesterday from a surgical consultation, the decision was made to remove the J-tube. Dr. Hernandez had opened up the abscess cavity and site and it was packed. In addition, her blood cultures returned positive for gram-negative bacilli. She is presently on Zosyn and surgical consultation has now been obtained. PAST MEDICAL HISTORY: 1. [id number]-[id number]. 2. Perforated peptic ulcer as per above with J-tube insertion. PAST SURGICAL HISTORY: 1. Exploratory laparotomy with Harley patch of a perforated gastric ulcer. 2. Laparoscopic jejunostomy tube insertion. MEDICATIONS: Include: 1. Protonix. 2. Hydrocodone. 3. Docusate. 4. Carafate. ALLERGIES: She has no known drug allergies. SOCIAL HISTORY: She has been living with her sister after relocating from [place]. She is apparently estranged from her . She denies smoking, drug abuse or alcohol use. PHYSICAL EXAM: Temperature 98.8, pulse 82, blood pressure 92/46. Her oxygen saturation is 98%. In general, she is a well-developed, well-nourished female who is awake, alert, in no apparent distress. Oral mucosa was slightly dry. Lungs were clear to auscultation with normal respiratory effort. Heart has a regular rate and rhythm without murmurs, rubs, or gallops. Her abdomen is soft , nondistended. There are bowel sounds present throughout. She has a well- healed midline incision. There was a J-tube site in the left mid abdominal wall and lateral to this is a 1.5-inch to 2-inch transverse incision with packing. The packing was removed and there is a subcutaneous cavity extending 3 to 4 cm in all directions including medially. There was some old contrast- appearing material and also some greenish brownish fluid down on the drainage gauze. There is some induration surrounding, but no significant cellulitis. IMPRESSION: 1. Recent history of an emergent repair of a perforated gastric ulcer with subsequent jejunostomy placement for gastric outlet obstruction at the site of repair. She had been slowly advancing her diet as tolerated and reducing the J - tube feedings. Currently, that developed an abdominal wall abscess due to the fact that the J-tube and its balloon had pulled back into the subcutaneous space causing contamination and infection. This seems to be adequately drained. 2. Medical problems as applied above. PLAN: 1. The patient has been admitted to the hospital and started on IV fluids. 2. IV Zosyn has been started for treatment of the abdominal wall abscess as well as the gram-negative bacilli in the blood. 3. The packing was changed here at the bedside. There was a cavity that will need to be packed daily. 4. Concern obviously is the closure of the jejunostomy site at the skin and subcutaneous tissue and hopefully not development of a long-term small bowel fistula. As far as we noticed, it has been healthy bowel. There is no evidence of distal obstruction, and with time and nutrition that this should improve and close with appropriate control of infection and wound care. 5. She could start with some sips of clear liquids, ice chips and water at present. 6. I would recommend nutritional consult and checking of her nutritional parameters to follow these to make sure that she has been improving over the past several weeks. [id number]/CPS #: [id number] DAVION
[2016-10-09] MEDS ORDERED: NS 0.9% 500 ML BAG* 500 ML IV ONE (12:07)
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
[2016-10-09] MEDS ORDERED: Heparin VIAL(*) 5000 UNITS/ML VIAL (FIVE THOUSAND) SUBCUT SCH (14:00)
[2016-10-10] MEDS: HYDROmorphone* 1 MG/ML 1 ML CARPUJECT IV SLOW PU PRN ×7 (01:51→21:28)
[2016-10-10] MEDS: NS 0.9% 1000 ML* 1,000 ML IV SCH ×2 (03:13→16:37)
[2016-10-10] MEDS: ZOSYN 3.375 GM Q8H per EXTENDED INFUSION IVPB SCH ×6 (05:07→22:03)
[2016-10-10] MEDS: Ondansetron INJ* 2 MG/ML VIAL IV PRN ×2 (05:27→19:01)
[2016-10-10 08:21] LABS: Hematocrit 27 % (35-47); Hemoglobin 8.9 g/dl (12.0-16.0); Mean Corpuscular HGB Conc 33 g/dl (31-36); Mean Corpuscular Hemoglobin 31 pg (27-31); Mean Corpuscular Volume 93 fL (80-97); Mean Platelet Volume 10 um3 (7.4-10.4); Red Blood Count 2.89 10^6/ul (4.0-5.4); Red Cell Distribution Width 15 % (10.5-15); White Blood Count 8.2 10^3/ul (3.5-10.8)
[2016-10-10 08:40] LABS: Anion Gap 6 mmol/L (2-11); BUN/Creatinine Ratio 13.2 (8-20); Blood Urea Nitrogen 5 mg/dL (6-24); CO2 Carbon Dioxide 27 mmol/L (22-32); Calcium 8.6 mg/dL (8.6-10.3); Chloride 105 mmol/L (101-111); EGFR African American 223.7 (>60); EGFR Non-African American 173.9 (>60); Glucose 82 mg/dL (70-100); Magnesium 1.7 mg/dL (1.9-2.7); Potassium 3.7 mmol/L (3.5-5.0); Sodium 138 mmol/L (133-145)
[2016-10-10 08:45] LABS: Prealbumin 7 mg/dL (18-38)
[2016-10-10 08:46] LABS: Iron < 15 ug/dL (50-212)
[2016-10-10 09:04] LABS: Ferritin 75.8 ng/mL (11-307)
[2016-10-10] MEDS: diPHENhydraMINE IV* 50 MG/ML 1 ml VIAL (BENADRYL) IV PRN ×2 (10:11→20:09)
--- NOTE | 2016-10-10 11:40 | PN ---
Progress Note - Progress Note Date of Service: 10/10/16 SOAP: Subjective: Still with left abdominal pain No N/V and is passing flatus Nurses changed the outer dressing several times yesterday Objective: Temp Pulse Resp BP Pulse Ox 98.0 F 71 16 93/49 96 10/10/16 07:28 10/10/16 07:28 10/10/16 10:11 10/10/16 07:28 10/10/16 07:28 Intake & Output 10/08/16 10/09/16 10/10/16 10/11/16 06:59 06:59 06:59 06:59 Intake Total 1708 3217 269 Output Total 600 850 300 Balance 1108 2367 -31 Weight 169 lb Intake: IV Fluids 1598 2597 269 ABX - ZOSYN 30 105 33 NS (0.9%) 267 1937 236 NS bolus 500 magnesium 55 IVPB 110 Oral 0 620 Output: Urine 600 850 300 Other: Estimated Void Medium Date of Last Bowel 10/07/16 Movement # Bowel Movements 0 0 # Voids 1 PEX: Comfortable Abdomen is soft and non-distended. Bowel sounds are present. Left lateral abdominal abscess cavity is open and clean-there is some odor and slight greenish tinge to the drainage. No significant amount of drainage though. Wound was re-packed. J-Tube site open without significant drainage at the site. Laboratory Results - last 24 hr 10/10/16 10/10/16 10/10/16 08:01 08:01 08:01 WBC 8.2 RBC 2.89 L Hgb 8.9 L Hct 27 L MCV 93 MCH 31 MCHC 33 RDW 15 Plt Count 250 MPV 10 Neut % (Auto) 73.8 Lymph % (Auto) 16.7 L [place] % (Auto) 6.9 Eos % (Auto) 2.3 Baso % (Auto) 0.3 Absolute Neuts (auto) 6.0 Absolute Lymphs (auto) 1.4 Absolute Monos (auto) 0.6 Absolute Eos (auto) 0.2 Absolute Basos (auto) 0 Absolute Nucleated RBC 0 Nucleated RBC % 0 Sodium 138 Potassium 3.7 Chloride 105 Carbon Dioxide 27 Anion Gap 6 BUN 5 L Creatinine 0.38 L Est GFR ( Amer) 223.7 Est GFR (Non-Af Amer) 173.9 BUN/Creatinine Ratio 13.2 Glucose 82 Calcium 8.6 Magnesium 1.7 L Iron < 15 L Ferritin 75.8 Lactate Dehydrogenase 99 L Prealbumin 7 L Blood Type B Negative Antibody Screen Negative Blood culture results noted-- Assessment: Left abdominal wall abscess s/p I and D. This was apparently caused by the dislodged J tube. J-tube has now been removed. Malnutrition Plan: Dietary consult Continue IV anbx Abscess care with daily packing Minimal po intake for now-hopefully J-tube site will heal and she will not develop a chronic fistula. She may need a short period of TPN as she apparently has not been taking enough po in (was using J-tube during the day and on a soft diet) and her pre-albumin is quite low.
[2016-10-10] MEDS: Acetaminophen TAB* 325 MG PO PRN (12:24)
[2016-10-10] MEDS ORDERED: Magnesium Sulfate 2 GM IV* 2 GM/50 ML BAG IVPB ONE (12:30)
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
[2016-10-11] MEDS: HYDROmorphone* 1 MG/ML 1 ML CARPUJECT IV SLOW PU PRN ×7 (00:09→23:39)
[2016-10-11] MEDS: NS 0.9% 1000 ML* 1,000 ML IV SCH (00:14)
[2016-10-11] MEDS: ZOSYN 3.375 GM Q8H per EXTENDED INFUSION IVPB SCH ×6 (04:51→21:43)
[2016-10-11 06:44] LABS: Hematocrit 25 % (35-47); Hemoglobin 8.2 g/dl (12.0-16.0); Mean Corpuscular HGB Conc 33 g/dl (31-36); Mean Corpuscular Hemoglobin 30 pg (27-31); Mean Corpuscular Volume 92 fL (80-97); Mean Platelet Volume 9 um3 (7.4-10.4); Red Blood Count 2.73 10^6/ul (4.0-5.4); Red Cell Distribution Width 16 % (10.5-15); White Blood Count 6.7 10^3/ul (3.5-10.8)
[2016-10-11 06:59] LABS: BUN/Creatinine Ratio 8.6 (8-20); Calcium 8.1 mg/dL (8.6-10.3); EGFR Non-African American 191.3 (>60); Magnesium 1.6 mg/dL (1.9-2.7); Potassium 3.7 mmol/L (3.5-5.0)
--- NOTE | 2016-10-11 08:52 | PN ---
Progress Note - Progress Note Date of Service: 10/11/16 SOAP: Subjective: Still with pain at abscess site She is tolerating some po and passing flatus, No N/V Passing flatus Objective: Temp Pulse Resp BP Pulse Ox 98.3 F 72 16 109/47 96 10/11/16 07:34 10/11/16 07:34 10/11/16 08:24 10/11/16 07:34 10/11/16 07:34 Intake & Output 10/09/16 10/10/16 10/11/16 10/12/16 06:59 06:59 06:59 06:59 Intake Total 1708 3217 2338 Output Total 587 959 5072 150 Balance 1108 2367 1138 -150 Weight 169 lb Intake: IV Fluids 1598 2597 1868 ABX - ZOSYN 30 105 33 NS (0.9%) 267 1937 764 NS bolus 500 1016 magnesium 55 55 IVPB 110 Oral 0 620 470 Output: Urine 877 732 7722 150 Other: Estimated Void Medium Date of Last Bowel 10/07/16 Movement # Bowel Movements 0 0 0 # Voids 1 1 PEX: Comfortable Abd is soft and and non-distended. Bowel sounds are present. Left abdominal wall abscess site is clean and open with surrounding induration and swelling without warmth or redness. Minimal drainage-packing removed-minimal seropurulent output, not green or yellow and cavity remains open. J-Tube site without drainage. Assessment: Left abdominal wall abscess s/p I and D--related to dislodged J tube. J-tube site appears to be healing without evidence of fistula--minimal drainage and abscess cavity appears clean Malnutrition Blood cultures positive Plan: Start soft diet plus supplements Wound care Physical therapy and nutrition consults Wound care IV antibiotics
[2016-10-11] MEDS: diPHENhydraMINE IV* 50 MG/ML 1 ml VIAL (BENADRYL) IV PRN ×2 (10:05→21:20)
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
[2016-10-11] MEDS: Ondansetron INJ* 2 MG/ML VIAL IV PRN (19:28)
[2016-10-12] MEDS: HYDROmorphone* 1 MG/ML 1 ML CARPUJECT IV SLOW PU PRN ×5 (03:01→17:04)
[2016-10-12] MEDS: ZOSYN 3.375 GM Q8H per EXTENDED INFUSION IVPB SCH ×6 (04:47→20:42)
--- NOTE | 2016-10-12 09:11 | PN ---
Progress Note - Progress Note Date of Service: 10/12/16 Note: Surgery Progress: S: pt states she still has a lot of pain around the I&D site w/ moderate drainage and skin irritation; she continues on IV Zosyn; she is using Dilaudid 1 mg regularly; she is asking for stool softener (no BM for 4- 5 d) O: Vital Signs - 8 hr 10/12/16 10/12/16 10/12/16 03:01 03:56 04:01 Temperature 98.6 F Pulse Rate 76 Respiratory 16 14 16 Rate Blood Pressure 95/47 (mmHg) O2 Sat by Pulse 94 Oximetry 10/12/16 10/12/16 10/12/16 05:15 06:15 07:13 Temperature 97.6 F Pulse Rate 64 Respiratory 16 16 16 Rate Blood Pressure 101/52 (mmHg) O2 Sat by Pulse 97 Oximetry 10/12/16 10/12/16 07:27 07:47 Temperature Pulse Rate Respiratory 18 18 Rate Blood Pressure (mmHg) O2 Sat by Pulse Oximetry Intake and Output Last 24 Hours 10/10/16 10/11/16 10/12/16 10/13/16 06:59 06:59 06:59 06:59 Intake Total 3217 2338 2722 Output Total 850 1200 1425 Balance 2367 1138 1297 Intake: IV Fluids 2597 1868 1519 ABX - ZOSYN 105 33 NS (0.9%) 7348 664 3850 NS bolus 500 1016 19 magnesium 55 55 IVPB 233 ABX - ZOSYN 133 magnesium 100 Oral 620 470 970 Output: Urine 850 1200 1425 Other: Estimated Void Medium # Bowel Movements 0 0 0 Estimated Stool Amount Medium # Voids 1 1 Left abd wound: some surrounding erythema of skin (2/2 wound drainage which appears to be mostly serous); some fibrinous debris in lateral wound and a small amt of cloudy drainage after probing w/ sterile Qtip. Irrigated w/ saline ; repacked w/ saline-moistened portion of 4x4; angelica'd well. Blood C&S noted (E coli) A/P: cont current wound care; abx per hosp; will order Colace; pt will speak w/ hospitalist re: potential change to po analgesics and abx; d/c plan?
[2016-10-12] MEDS: Docusate CAP* 100 MG PO SCH ×2 (09:48→20:42)
[2016-10-12 12:15] LABS: Hematocrit 28 % (35-47); Mean Corpuscular HGB Conc 33 g/dl (31-36); Mean Corpuscular Hemoglobin 31 pg (27-31); Mean Corpuscular Volume 93 fL (80-97); Mean Platelet Volume 9 um3 (7.4-10.4); Red Blood Count 2.97 10^6/ul (4.0-5.4); Red Cell Distribution Width 16 % (10.5-15); White Blood Count 7.2 10^3/ul (3.5-10.8)
[2016-10-12 12:29] LABS: BUN/Creatinine Ratio 6.1 (8-20); Calcium 8.4 mg/dL (8.6-10.3); EGFR African American 263.2 (>60); EGFR Non-African American 204.7 (>60); Magnesium 1.5 mg/dL (1.9-2.7); Potassium 3.4 mmol/L (3.5-5.0)
[2016-10-12] MEDS ORDERED: Potassium Chloride LIQUID* 20 MEQ PACKET PO ONE (13:00)
[2016-10-12] MEDS: oxyCODONE TAB* 5 MG TAB PO PRN ×2 (13:34→22:17)
[2016-10-12] MEDS: Ondansetron INJ* 2 MG/ML VIAL IV PRN ×2 (13:39→19:27)
[2016-10-12] MEDS ORDERED: Senna TAB PO PRN (19:07)
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
[2016-10-12] MEDS: NS 0.9% 1000 ML* 1,000 ML IV SCH (20:47)
[2016-10-13] MEDS: oxyCODONE TAB* 5 MG TAB PO PRN ×2 (03:45→13:19)
[2016-10-13] MEDS: ZOSYN 3.375 GM Q8H per EXTENDED INFUSION IVPB SCH ×4 (05:28→13:41)
[2016-10-13] MEDS: Docusate CAP* 100 MG PO SCH ×2 (08:09→19:47)
[2016-10-13] MEDS: HYDROmorphone* 1 MG/ML 1 ML CARPUJECT IV SLOW PU PRN ×3 (08:09→23:20)
[2016-10-13 10:17] LABS: Hematocrit 30 % (35-47); Hemoglobin 9.9 g/dl (12.0-16.0); Mean Corpuscular HGB Conc 33 g/dl (31-36); Mean Corpuscular Hemoglobin 30 pg (27-31); Mean Corpuscular Volume 91 fL (80-97); Mean Platelet Volume 9 um3 (7.4-10.4); Red Blood Count 3.28 10^6/ul (4.0-5.4); Red Cell Distribution Width 16 % (10.5-15); White Blood Count 6.1 10^3/ul (3.5-10.8)
[2016-10-13 10:39] LABS: BUN/Creatinine Ratio 5.7 (8-20); Calcium 8.6 mg/dL (8.6-10.3); EGFR Non-African American 191.3 (>60); Magnesium 1.6 mg/dL (1.9-2.7); Potassium 3.6 mmol/L (3.5-5.0)
[2016-10-13] MEDS ORDERED: Magnesium Sulf 4 GM/100 ML IV* 4,000 MG/100 ML BAG IVPB ONE (11:15)
[2016-10-13] MEDS: Ondansetron INJ* 2 MG/ML VIAL IV PRN ×2 (13:11→23:25)
--- NOTE | 2016-10-13 14:50 | PN ---
Progress Note - Progress Note Date of Service: 10/13/16 Note: Surgery Progress: S: "I feel lousy and nauseated today." Still having pain L abd, but using less pain meds. Had BM yesterday. Passing flatus. Day #6 Zosyn. O: Vital Signs - 8 hr 10/13/16 10/13/16 10/13/16 07:33 08:09 09:09 Temperature 97.8 F Pulse Rate 63 Respiratory 18 16 16 Rate Blood Pressure 123/68 (mmHg) O2 Sat by Pulse 98 Oximetry 10/13/16 10/13/16 12:36 13:19 Temperature 98.4 F Pulse Rate 68 Respiratory 18 16 Rate Blood Pressure 102/60 (mmHg) O2 Sat by Pulse 97 Oximetry Intake and Output Last 24 Hours 10/11/16 10/12/16 10/13/16 10/14/16 06:59 06:59 06:59 06:59 Intake Total 2338 2722 1375 160 Output Total 1200 1425 1150 1050 Balance 1138 1297 225 -890 Intake: IV Fluids 1868 1519 100 ABX - ZOSYN 33 100 NS (0.9%) 764 1500 NS bolus 1016 19 magnesium 55 IVPB 233 215 ABX - ZOSYN 133 115 magnesium 100 100 Oral 465 760 5943 160 Output: Urine 1200 1425 1150 1050 Other: Date of Last Bowel 10/13/16 Movement # Bowel Movements 0 0 1 Estimated Stool Amount Medium Small # Voids 1 1 Gen: NAD, though verbalizes how bad she feels. Abd: wound w/ moderate cloudy [place] drainage on drsg, which had been in place for ~ 18 hr. Surrounding skin w/ less erythema/irritation. Still moderately tender w / induration persisting in the supero-lateral aspect. She also was experiencing some sharp pain just medial to the wound when I examined her. The remainder of her abd exam reveals no sig tenderness. Packing was changed which she tolerated well. Laboratory Results - last 24 hr 10/13/16 10/13/16 10:05 10:05 WBC 6.1 RBC 3.28 L Hgb 9.9 L Hct 30 L MCV 91 MCH 30 MCHC 33 RDW 16 H Plt Count 325 MPV 9 Neut % (Auto) 68.8 Lymph % (Auto) 23.0 L [place] % (Auto) 5.1 Eos % (Auto) 2.2 Baso % (Auto) 0.9 Absolute Neuts (auto) 4.2 Absolute Lymphs (auto) 1.4 Absolute Monos (auto) 0.3 Absolute Eos (auto) 0.1 Absolute Basos (auto) 0.1 Absolute Nucleated RBC 0 Nucleated RBC % 0.1 Sodium 139 Potassium 3.6 Chloride 103 Carbon Dioxide 32 Anion Gap 4 BUN 2 L Creatinine 0.35 L Est GFR ( Amer) 246.0 Est GFR (Non-Af Amer) 191.3 BUN/Creatinine Ratio 5.7 L Glucose 125 H Calcium 8.6 Magnesium 1.6 L A/P: s/p I&D J-tube site w/ removal of J-tube, on Zosyn, with wound care ( packing changes daily), w/ overall improvement, though subjectively patient feels worse at present. Abx per hosp; cont wound care. Discussed w/ Dr. Guajardo.
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
[2016-10-13] MEDS ORDERED: diPHENhydraMINE PO* 25 MG PO PRN (15:59)
[2016-10-13] MEDS: HYDROmorphone TAB* 2 MG PO PRN (16:54)
--- NOTE | 2016-10-13 22:33 | CONS ---
CONSULTATION REPORT: DATE OF CONSULT: 10/13/16 CHIEF COMPLAINT: A 56-year-old female with a chief complaint of painful left second toe. HISTORY OF PRESENT ILLNESS: She has this chronic infection to this toe but at times, it does turn red and painful. PAST MEDICAL HISTORY: Reviewed. PAST SURGICAL HISTORY: Reviewed as well. MEDICATION LIST: Reviewed. REVIEW OF SYSTEMS: Constitutional: Denies. No nausea and vomiting. No fevers , no chills. Endocrine: Negative for hyperglycemia. PHYSICAL EXAM: Alert, oriented x3. In no apparent distress. Normal affect and speech. Vascular Exam: The lower extremities, dorsalis pedis pulses are 2/ 4, right and left. Posterior tibial pulses 2/4, right and left. Neuro Exam: Intact intracranial sensation. Nail Exam: Most of her nails appeared to be not mycotic at this time. Does needed the trimming; however, the toe in question, the left second toe, does have a mild paronychia on the lateral aspect. PLAN: Discussed etiology and treatment options with the patient. I recommend trimming of the nail border, which I did so. She should feel some immediate relief. As far as the future followup is concerned, I advised her that she has a type of nail that tends to ingrow and this has been chronic enough. I recommended she consider a much more definitive procedure like a matrixectomy to ensure that the site does not recur. The patient tolerated the procedure well. Thank you for the consult. Reconsult if needed. [id number]/CPS #: [id number] DAVION
[2016-10-13] MEDS: cefTRIAXone VIAL(*) 1,000 MG in NS 0.9% 50 ML* 50 ML IVPB SCH (23:28)
[2016-10-14] MEDS: HYDROmorphone TAB* 2 MG PO PRN (02:48)
[2016-10-14 08:02] LABS: BUN/Creatinine Ratio 5.1 (8-20); Blood Urea Nitrogen 2 mg/dL (6-24); CO2 Carbon Dioxide 25 mmol/L (22-32); Calcium 7.9 mg/dL (8.6-10.3); Chloride 104 mmol/L (101-111); EGFR African American 217.1 (>60); EGFR Non-African American 168.8 (>60); Glucose 93 mg/dL (70-100); Sodium 136 mmol/L (133-145)
[2016-10-14] MEDS: HYDROmorphone* 1 MG/ML 1 ML CARPUJECT IV SLOW PU PRN ×2 (08:08→18:11)
[2016-10-14] MEDS: Docusate CAP* 100 MG PO SCH ×2 (08:08→19:56)
[2016-10-14 08:29] LABS: Anion Gap 7 mmol/L (2-11); Magnesium 2.2 mg/dL (1.9-2.7)
--- NOTE | 2016-10-14 08:41 | PN ---
Progress Note - Progress Note Date of Service: 10/14/16 Note: Surgery Ms. James reports she has some pain at the I&D site, and has some nausea after the dressing changes. She is trying to make sure she gets in enough fluid at least. Vital Signs 10/13/16 10/13/16 10/13/16 09:09 12:05 12:36 Temperature 98.4 F 98.4 F Pulse Rate 68 68 Respiratory 16 18 18 Rate Blood Pressure 102/60 102/60 (mmHg) O2 Sat by Pulse 97 97 Oximetry 10/13/16 10/13/16 10/13/16 13:19 15:19 15:26 Temperature 98.6 F Pulse Rate 67 Respiratory 16 16 18 Rate Blood Pressure 113/48 (mmHg) O2 Sat by Pulse 96 Oximetry 10/13/16 10/13/16 10/13/16 16:54 18:54 19:27 Temperature 98.6 F Pulse Rate 63 Respiratory 16 16 18 Rate Blood Pressure 119/60 (mmHg) O2 Sat by Pulse 94 Oximetry 10/13/16 10/13/16 10/13/16 20:00 20:17 21:17 Temperature Pulse Rate Respiratory 14 14 14 Rate Blood Pressure (mmHg) O2 Sat by Pulse Oximetry 10/13/16 10/13/16 10/13/16 23:20 23:44 23:47 Temperature 98.3 F Pulse Rate 64 64 Respiratory 14 16 Rate Blood Pressure 103/43 (mmHg) O2 Sat by Pulse 95 93 Oximetry 10/14/16 10/14/16 10/14/16 00:20 02:30 02:48 Temperature 98.0 F Pulse Rate 67 Respiratory 12 16 16 Rate Blood Pressure 110/48 (mmHg) O2 Sat by Pulse 94 Oximetry 10/14/16 10/14/16 07:45 08:08 Temperature 98.5 F Pulse Rate 66 Respiratory 14 18 Rate Blood Pressure 105/54 (mmHg) O2 Sat by Pulse 95 Oximetry Abd: soft, tender near I&D site with some erythema at around the I&D and J- tube sites; there is also some induration laterally. Wound: I probed the wound and do not find any undrained pus. The wound base is clean and granulating. Intake & Output 10/13/16 10/14/16 10/14/16 22:59 06:59 14:59 Intake Total 410 682 Output Total 1000 1100 300 Balance -590 -418 -300 Intake: IV Fluids 582 ABX - ZOSYN 55 NS bolus 422 magnesium 105 Oral 410 100 Output: Urine 1000 1100 300 Laboratory Results - last 24 hr 10/13/16 10/13/16 10/14/16 10:05 10:05 07:35 WBC 6.1 RBC 3.28 L Hgb 9.9 L Hct 30 L MCV 91 MCH 30 MCHC 33 RDW 16 H Plt Count 325 MPV 9 Neut % (Auto) 68.8 Lymph % (Auto) 23.0 L [place] % (Auto) 5.1 Eos % (Auto) 2.2 Baso % (Auto) 0.9 Absolute Neuts (auto) 4.2 Absolute Lymphs (auto) 1.4 Absolute Monos (auto) 0.3 Absolute Eos (auto) 0.1 Absolute Basos (auto) 0.1 Absolute Nucleated RBC 0 Nucleated RBC % 0.1 Sodium 139 136 Potassium 3.6 TNP Chloride 103 104 Carbon Dioxide 32 25 Anion Gap 4 7 BUN 2 L 2 L Creatinine 0.35 L 0.39 L Est GFR ( Amer) 246.0 217.1 Est GFR (Non-Af Amer) 191.3 168.8 BUN/Creatinine Ratio 5.7 L 5.1 L Glucose 125 H 93 Calcium 8.6 7.9 L Magnesium 1.6 L 2.2 A/P: Gradual improvement; still managing symptoms around dressing changes. Continue current plan.
[2016-10-14] MEDS: Ondansetron INJ* 2 MG/ML VIAL IV PRN (09:07)
[2016-10-14 09:53] LABS: Hematocrit 28 % (35-47); Hemoglobin 9.4 g/dl (12.0-16.0); Mean Corpuscular HGB Conc 33 g/dl (31-36); Mean Corpuscular Hemoglobin 30 pg (27-31); Mean Corpuscular Volume 91 fL (80-97); Mean Platelet Volume 9 um3 (7.4-10.4); Red Cell Distribution Width 16 % (10.5-15); White Blood Count 6.1 10^3/ul (3.5-10.8)
[2016-10-14] MEDS: Acetaminophen TAB* 325 MG PO PRN ×2 (12:22→21:39)
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
[2016-10-14] MEDS ORDERED: Ondansetron INJ* 2 MG/ML VIAL IV PRN (17:34)
[2016-10-14] MEDS: cefTRIAXone VIAL(*) 1,000 MG in NS 0.9% 50 ML* 50 ML IVPB SCH (19:53)
[2016-10-14] MEDS: Famotidine TAB* 20 MG PO SCH (20:34)
--- NOTE | 2016-10-15 07:34 | PN ---
Progress Note - Progress Note Date of Service: 10/15/16 Note: Surgery Ms. James feels okay, but only ate half of dinner last night, and had no appetite for supplements. Denies other problems. Vital Signs 10/14/16 10/14/16 10/14/16 07:45 08:00 08:08 Temperature 98.5 F Pulse Rate 66 Respiratory 14 18 18 Rate Blood Pressure 105/54 (mmHg) O2 Sat by Pulse 95 Oximetry 10/14/16 10/14/16 10/14/16 09:08 11:28 15:36 Temperature 98.1 F 98.5 F Pulse Rate 60 65 Respiratory 18 14 14 Rate Blood Pressure 115/62 110/63 (mmHg) O2 Sat by Pulse 98 95 Oximetry 10/14/16 10/14/16 10/14/16 18:11 19:11 19:20 Temperature 98.6 F Pulse Rate 61 Respiratory 18 14 18 Rate Blood Pressure 119/60 (mmHg) O2 Sat by Pulse 96 Oximetry 10/14/16 10/14/16 10/14/16 19:56 21:41 23:53 Temperature 98.4 F Pulse Rate 70 Respiratory 16 15 16 Rate Blood Pressure 108/55 (mmHg) O2 Sat by Pulse 92 Oximetry 10/15/16 03:51 Temperature 98.2 F Pulse Rate 63 Respiratory 16 Rate Blood Pressure 116/47 (mmHg) O2 Sat by Pulse 94 Oximetry Abd: soft, non-tender except slightly near open wound near J-tube site. Wound: clean and granulating, min. drainage on gauze, packing had some fibrinopurulent drainage. Periwound skin is erythematous with vesicular eruptions. Intake & Output 10/14/16 10/15/16 10/15/16 22:59 06:59 14:59 Intake Total 450 100 Output Total 450 500 Balance 0 -400 Intake: IVPB 0 NS (0.9%) 0 Oral 450 100 Output: Urine 450 500 Other: # Bowel Movements 1 0 Estimated Stool Amount Small Laboratory Results - last 24 hr 10/14/16 10/14/16 10/14/16 07:35 09:41 09:41 WBC 6.1 RBC 3.10 L Hgb 9.4 L Hct 28 L MCV 91 MCH 30 MCHC 33 RDW 16 H Plt Count 338 MPV 9 Neut % (Auto) 70.1 Lymph % (Auto) 22.0 L Motley % (Auto) 5.5 Eos % (Auto) 1.9 Baso % (Auto) 0.5 Absolute Neuts (auto) 4.3 Absolute Lymphs (auto) 1.3 Absolute Monos (auto) 0.3 Absolute Eos (auto) 0.1 Absolute Basos (auto) 0 Absolute Nucleated RBC 0 Nucleated RBC % 0 Sodium 136 Potassium TNP 3.5 Chloride 104 Carbon Dioxide 25 Anion Gap 7 BUN 2 L Creatinine 0.39 L Est GFR ( Amer) 217.1 Est GFR (Non-Af Amer) 168.8 BUN/Creatinine Ratio 5.1 L Glucose 93 Calcium 7.9 L Magnesium 2.2 A/P: Improving; will provide Nystatin to periwound skin. CLFoster
[2016-10-15] MEDS: Docusate CAP* 100 MG PO SCH ×2 (08:04→19:40)
[2016-10-15] MEDS: Famotidine TAB* 20 MG PO SCH ×2 (08:04→19:39)
[2016-10-15] MEDS ORDERED: Magnesium Hydroxide LIQ* 30 ML UDC ONE (08:22)
[2016-10-15] MEDS: Nystatin TOP POWDER* 15 GM BTL TOPICAL SCH ×2 (08:25→19:40)
[2016-10-15] MEDS: HYDROmorphone TAB* 2 MG PO PRN ×3 (08:29→23:33)
[2016-10-15 08:43] LABS: Hematocrit 30 % (35-47); Hemoglobin 9.8 g/dl (12.0-16.0); Mean Corpuscular HGB Conc 33 g/dl (31-36); Mean Corpuscular Hemoglobin 30 pg (27-31); Mean Corpuscular Volume 91 fL (80-97); Mean Platelet Volume 8 um3 (7.4-10.4); Red Blood Count 3.28 10^6/ul (4.0-5.4); Red Cell Distribution Width 16 % (10.5-15); White Blood Count 6.1 10^3/ul (3.5-10.8)
[2016-10-15 08:55] LABS: Calcium 8.8 mg/dL (8.6-10.3); EGFR African American 210.8 (>60); EGFR Non-African American 163.9 (>60); Magnesium 1.7 mg/dL (1.9-2.7); Potassium 3.5 mmol/L (3.5-5.0)
[2016-10-15] MEDS ORDERED: Magnesium Hydroxide LIQ* 30 ML UDC PO PRN (09:34)
[2016-10-15] MEDS ORDERED: Magnesium Sulfate 2 GM IV* 2 GM/50 ML BAG IVPB ONE (18:13)
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
[2016-10-15] MEDS: cefTRIAXone VIAL(*) 1,000 MG in NS 0.9% 50 ML* 50 ML IVPB SCH (19:45)
[2016-10-15] MEDS: Acetaminophen TAB* 325 MG PO PRN (20:26)
[2016-10-16 08:31] LABS: Hematocrit 29 % (35-47); Hemoglobin 9.6 g/dl (12.0-16.0); Mean Corpuscular HGB Conc 33 g/dl (31-36); Mean Corpuscular Hemoglobin 30 pg (27-31); Mean Corpuscular Volume 91 fL (80-97); Mean Platelet Volume 8 um3 (7.4-10.4); Red Blood Count 3.18 10^6/ul (4.0-5.4); Red Cell Distribution Width 16 % (10.5-15); White Blood Count 7.7 10^3/ul (3.5-10.8)
[2016-10-16] MEDS: Docusate CAP* 100 MG PO SCH ×2 (08:40→21:22)
[2016-10-16] MEDS: HYDROmorphone TAB* 2 MG PO PRN ×3 (08:41→21:22)
[2016-10-16] MEDS: Famotidine TAB* 20 MG PO SCH ×2 (08:41→21:22)
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
[2016-10-16 08:49] LABS: BUN/Creatinine Ratio 12.5 (8-20); Calcium 8.6 mg/dL (8.6-10.3); EGFR African American 210.8 (>60); EGFR Non-African American 163.9 (>60); Magnesium 1.9 mg/dL (1.9-2.7); Potassium 3.6 mmol/L (3.5-5.0)
[2016-10-16] MEDS: Nystatin TOP POWDER* 15 GM BTL TOPICAL SCH ×3 (14:39→21:58)
[2016-10-16] MEDS ORDERED: PROCHLORPERAZINE INJ 5 MG/ML 2 ML VIAL IV PRN (18:10)
[2016-10-16] MEDS ORDERED: PROCHLORPERAZINE INJ 5 MG/ML 2 ML VIAL ONE (18:12)
[2016-10-16] MEDS: cefTRIAXone VIAL(*) 1,000 MG in NS 0.9% 50 ML* 50 ML IVPB SCH (21:22)
--- NOTE | 2016-10-16 21:38 | PN ---
Progress Note - Progress Note Date of Service: 10/16/16 SOAP: Subjective: Tolerating soft diet and having bowel movements but she also has some episodes of nausea without vomiting Abscess site pain is improving Objective: Temp Pulse Resp BP Pulse Ox 98.9 F 73 14 125/49 93 10/16/16 19:43 10/16/16 19:43 10/16/16 21:22 10/16/16 19:43 10/16/16 19:43 Intake & Output 10/14/16 10/15/16 10/16/16 10/17/16 06:59 06:59 06:59 06:59 Intake Total 7277 675 2857 640 Output Total 3150 5957 438 0439 Balance -1898 -580 824 -460 Intake: IV Fluids 582 ABX - ZOSYN 55 NS bolus 422 magnesium 105 IVPB 0 54 NS (0.9%) 0 magnesium 54 Oral 734 688 7503 640 Output: Urine 3150 7944 [id number] [id number] Other: # Bowel Movements 0 0 Estimated Stool Amount Small Medium Medium # Voids 1 PEX: Comfortable Abd is soft and nondistended. Bowel sounds are present Abscess site on left abdominal wall is clean and granulating. Minimal discharge. No odor Induration is much improved. Packing was changed. Assessment: Left abdominal wall abscess s/p I and D--no evidence of fistula Malnutrition-protein calorie S/P gastric ulcer perforation repair in [place] Plan: Soft diet WOund care IV antibiotics per hospitalist service She can be discharged home from surgical standpoint.
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
[2016-10-17] MEDS: Nystatin TOP POWDER* 15 GM BTL TOPICAL SCH (10:26)
[2016-10-17] MEDS: Docusate CAP* 100 MG PO SCH ×2 (10:38→20:19)
[2016-10-17] MEDS: Famotidine TAB* 20 MG PO SCH ×2 (10:38→20:18)
--- NOTE | 2016-10-17 13:56 | PN ---
Progress Note - Progress Note Date of Service: 10/17/16 Note: Surgery Progress: S: (patient seen earlier this a.m.) Less pain. Less drainage from wound. Tolerating diet fairly well. Current Medications Acetaminophen (Tylenol Tab*) 650 mg PO Q4H PRN PRN Reason: HEADACHE/PAIN Last Admin: 10/15/16 20:26 Dose: 650 mg Diphenhydramine HCl (Benadryl Po*) 25 mg PO Q6H PRN PRN Reason: ITCHING Last Admin: 10/14/16 19:56 Dose: 25 mg Docusate Sodium (Colace Cap*) 100 mg PO BID [facility] Last Admin: 10/17/16 10:38 Dose: 100 mg Famotidine (Pepcid Tab*) 20 mg PO BID [facility] Last Admin: 10/17/16 10:38 Dose: 20 mg Heparin Sodium (Porcine) (Heparin Flush Picc/Ml/Cvc(*)) 0 ml IV FLUSH 0600, 1800 [facility] PRN Reason: Protocol Last Admin: 10/17/16 05:56 Dose: Not Given Hydromorphone HCl (Dilaudid Iv*) 1 mg IV SLOW PU Q2HR PRN PRN Reason: PAIN - UNCONTROLLED Last Admin: 10/14/16 18:11 Dose: 1 mg Hydromorphone HCl (Dilaudid Tab*) 2 mg PO Q6H PRN PRN Reason: PAIN Last Admin: 10/16/16 21:22 Dose: 2 mg Ceftriaxone Sodium 1,000 mg/ (Sodium Chloride) 50 mls @ 200 mls/hr IVPB Q24H [facility] Last Admin: 10/16/16 21:22 Dose: 200 mls/hr Magnesium Hydroxide (Milk Of Magnesia Liq*) 30 ml PO DAILY PRN PRN Reason: CONSTIPATION Nystatin (Nystatin Top Powder*) 1 applic TOPICAL BID [facility] Last Admin: 10/17/16 10:26 Dose: Not Given Ondansetron HCl (Zofran Inj*) 4 mg IV Q4H PRN PRN Reason: NAUSEA Last Admin: 10/16/16 15:01 Dose: 4 mg Prochlorperazine Edisylate (Compazine Inj*) 5 mg IV Q6H PRN PRN Reason: NAUSEA Senna (Senokot Tab*) 1 tab PO DAILY PRN PRN Reason: CONSTIPATION O: Vital Signs - 8 hr 10/17/16 10/17/16 10/17/16 07:26 10:30 11:38 Temperature 97.9 F 98.7 F Pulse Rate 73 81 Respiratory 16 16 16 Rate Blood Pressure 115/55 121/65 (mmHg) O2 Sat by Pulse 91 96 Oximetry Intake and Output Last 24 Hours 10/15/16 10/16/16 10/17/16 10/18/16 06:59 06:59 06:59 06:59 Intake Total 670 1674 1028 600 Output Total 6702 114 4732 400 Balance -580 824 -672 200 Intake: IV Fluids 63 ABX - CEFTRIAXONE 55 NS (0.9%) 8 IVPB 0 54 NS (0.9%) 0 magnesium 54 Oral 670 1620 965 600 Output: Urine 0905 637 9760 400 Other: # Bowel Movements 0 0 0 Estimated Stool Amount Small Medium Medium Abd: small to moderate amt of drainage on dsg which had been in place for ~ 10- 12 hr), that from the lateral aspect being serosanguinous and that medially being more yellow/green. There remains some mild erythema of the surrounding skin w/ tenderness, but much improved from previous. There is no expressible drainage from the medial wound (former J-tube exit site). It is too small to probe. The lateral wound is repacked w/ saline-moistened 1/2" plain pkg which she tolerated well. A: s/p I&D of abd wall abscess and removal of feeding Jejunostomy tube; bacteremia; improving P: per hospitalist, she is likely to be discharged home 10/18; abx per Dr. Corral. She will cont w/ daily packing/drsg changes as above, with f/u in the office w/ Dr. Bennett Spencer, 10/24.
[2016-10-17] MEDS: HYDROmorphone TAB* 2 MG PO PRN (14:08)
[2016-10-17] MEDS: cefTRIAXone VIAL(*) 1,000 MG in NS 0.9% 50 ML* 50 ML IVPB SCH (20:19)
--- NOTE | 2016-10-17 22:34 | CONS ---
CONSULTATION REPORT: DATE OF CONSULT: 10/17/16 REQUESTING PROVIDER: Romina Capps NP CONSULTING SERVICE: Infectious Disease. REASON FOR CONSULTATION: E. coli bacteremia. IMPRESSION: 1. E. coli in 1 of 4 blood cultures bottles from 10/08/16 in the setting of left upper quadrant superficial abdominal abscess associated with a J-tube, which has been dislodged. It was a gram-negative organism. It was low-grade bacteremia and from a likely source with no signs or symptoms of distant spread. 2. Recent J-tube placement, which had been complicated by multiple abdominal wall abscesses. 3. Perforated peptic ulcer, status post J-tube and patch repair. 4. Hvktdvt-Uzauu-Ckgkg. RECOMMENDATIONS: Augmentin 500 mg by mouth twice daily for another 10 days. She will follow up with her surgical team. HISTORY OF PRESENT ILLNESS: This is a 56-year-old woman with recent abdominal surgery for ruptured peptic ulcer and she had a subsequent J-tube placed for nutrition. She was not tolerating the feeds well and over the course of summer , she had a number of abscesses associated with the entry site. She had a number of drainages including on November 16 when cultures were sent for E. coli, Klebsiella, Enterobacter, there were not cultures available from this admission. The area where the J-tube was dislodged is healing up. J-tube is out , she is eating okay. There is a small amount of greenish drainage she noticed on the dressing when it was changed the day after, been there for 24 hours. She has no pain at the site. PAST MEDICAL HISTORY: 1. Sntksnu-Deaoc-Wmmpc. 2. Perforated gastric ulcer, status post patch repair, abdominal washout and subsequent jejunostomy tube for gastric outlet obstruction at the site of repair. 3. Multiple abscess associated with the jejunostomy tube site. ALLERGIES: No known drug allergies. MEDICATIONS: 1. Tylenol. 2. Docusate. 3. Famotidine. 4. Magnesium. 5. Nystatin topical power. 6. Ceftriaxone 1 g a day. 7. Senna. 8. Benadryl p.r.n. SOCIAL HISTORY: She recently lived in [place]. She lives in [place] with her sister. She has no traveled, otherwise. FAMILY HISTORY: No recurrent infections. REVIEW OF SYSTEMS: All negative except as noted above. PHYSICAL EXAM: Vital Signs: Temperature is 37, heart rate 70, respiratory rate 16, blood pressure 130/67, O2 sat 99% on room air. General: She is awake , not in distress. HEENT: There is no conjunctival hemorrhage. Oropharynx without lesions. Neck is supple. Lymph Nodes: There is no inguinal, axillary , or epitrochlear lymphadenopathy. Heart: Regular rate and rhythm without murmurs, rubs or gallops. Lungs: Clear to auscultation bilaterally. Abdomen: Soft, nontender, nondistended. There are bowel sounds present. She has a left upper lobe subcentimeter wound with no surrounding erythema and no expressible fluid. Skin: There is no rash or splinter hemorrhages. Musculoskeletal: There is no spine tenderness to palpation or joint synovitis. DIAGNOSTIC STUDIES/LAB DATA: White blood cell count 7, hemoglobin 9.6, platelets 380,000. Creatinine 0.4. Please see impressions and recommendations outlined above, which I have discussed with Romina Capps NP and Dr. Guajardo. Thanks for asking me to see Ms. James in consultation. [id number]/[facility] #: [id number] [facility]
[2016-10-18] MEDS: Nystatin TOP POWDER* 15 GM BTL TOPICAL SCH ×2 (01:28→11:39)
[2016-10-18] MEDS: HYDROmorphone TAB* 2 MG PO PRN (01:59)
--- NOTE | 2016-10-18 10:18 | PN ---
Progress Note - Progress Note Date of Service: 10/18/16 Note: S: pt seen and examined at bedside. Expressing impatience toward care, wants to know the time she can expect to be discharged so she can tell her sister to pick her up. Waiting to go into the shower. Ate full breakfast this AM and had a bowel movement. States she is having less pain at wound sites. Dressing was changed this morning, appeared to have fair amount of green/brown discharge medially, some bloody discharge laterally. Pt reports it was itchy this morning , nurse applied more topical Nystatin powder which helped. Currently it is beginning to itch again but wants to wait until after shower to apply more powder. O: Vital Signs - 8 hr 10/18/16 10/18/16 03:48 03:59 Temperature 97.9 F Pulse Rate 64 Respiratory 16 16 Rate Blood Pressure 108/53 (mmHg) O2 Sat by Pulse 94 Oximetry Intake & Output 10/16/16 10/17/16 10/18/16 10/19/16 06:59 06:59 06:59 06:59 Intake Total 1674 1028 1655 Output Total 850 1700 800 100 Balance 824 -672 855 -100 Intake: IV Fluids 63 80 ABX - CEFTRIAXONE 55 55 NS (0.9%) 8 25 IVPB 54 magnesium 54 Oral 0079 562 0951 Output: Urine 850 1700 800 100 Other: Date of Last Bowel 10/18/16 Movement # Bowel Movements 0 0 0 1 Estimated Stool Amount Medium Medium Large Gen: Anxious appearing woman in NAD, Afeb. Ab: soft nontender, +BS. Fresh dressing that was applied this morning clean and dry. Mild amount of green/yellow discharge medially. A: s/p I&D of abd wall abscess and removal of feeding Jejunostomy tube; bacteremia; improving P: Ready for discharge later today.
[2016-10-18] MEDS: Docusate CAP* 100 MG PO SCH (10:45)
[2016-10-18] MEDS: Famotidine TAB* 20 MG PO SCH (10:45)
[2016-10-18 12:47] VITALS: BP 102/59
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
== END 2016-10-18 13:00 | disposition home health service (06) | DRG 721 ==
LOC: ED 11:17 → SSU 16:03 → OBSVTOIN 10-09 08:26
PROVIDERS: ADMIT Internal Medicine; ATTEND Internal Medicine
PROC: 3E0234Z Introduction of Serum, Toxoid and Vaccine into Muscle, Percutaneous Approach (ICD-10-PCS; principal; 2016-10-09)
PROC: 2W43X5Z Packing of Abdominal Wall using Packing Material (ICD-10-PCS; 2016-10-09)
PROC: 0DPDXUZ Removal of Feeding Device from Lower Intestinal Tract, External Approach (ICD-10-PCS; 2016-10-09)
DX: T81.4XXA Infection following a procedure, initial encounter (principal); K27.5 Chronic or unspecified peptic ulcer, site unspecified, with perforation; R78.81 Bacteremia; G71.0 Muscular dystrophy; K31.5 Obstruction of duodenum; E44.0 Moderate protein-calorie malnutrition; L02.211 Cutaneous abscess of abdominal wall; K94.13 Enterostomy malfunction; G60.0 Hereditary motor and sensory neuropathy; K44.9 Diaphragmatic hernia without obstruction or gangrene; K57.30 Diverticulosis of large intestine without perforation or abscess without bleeding; K46.9 Unspecified abdominal hernia without obstruction or gangrene; K21.9 Gastro-esophageal reflux disease without esophagitis; D64.9 Anemia, unspecified; T80.89XA Other complications following infusion, transfusion and therapeutic injection, initial encounter; Y82.8 Other medical devices associated with adverse incidents; Y92.239 Unspecified place in hospital as the place of occurrence of the external cause; B96.20 Unspecified Escherichia coli [E. coli] as the cause of diseases classified elsewhere; R11.2 Nausea with vomiting, unspecified; Y83.8 Other surgical procedures as the cause of abnormal reaction of the patient, or of later complication, without mention of misadventure at the time of the procedure; L03.032 Cellulitis of left toe; L60.0 Ingrowing nail; Z23 Encounter for immunization; Y92.9 Unspecified place or not applicable; Z80.0 Family history of malignant neoplasm of digestive organs; Z82.3 Family history of stroke; Z82.0 Family history of epilepsy and other diseases of the nervous system; Z87.11 Personal history of peptic ulcer disease; Z68.27 Body mass index [BMI] 27.0-27.9, adult
CPT/HCPCS: 36415; 74177; 80048; 80053; 81003; 82728; 83010; 83540; 83605; 83615; 83690; 83735; 84134; 85025; 85610; 85730; 86140; 86850; 86900; 86901; 87040; 87077; 87186; 87205; 90686; 93005; A9270-GY; G0378; J0696; J0780; J1170; J1200; J2270; J2405; J2543; J3475; Q9967

== ENCOUNTER 2016-11-25 12:36 | Emergency (ER) | payer OTHER ==
[2016-11-25] MEDS ORDERED: Ondansetron INJ* 2 MG/ML VIAL IV ONE (15:39)
[2016-11-25 16:21] LABS: Hematocrit 37 % (35-47); Hemoglobin 12.4 g/dl (12.0-16.0); Mean Corpuscular HGB Conc 33 g/dl (31-36); Mean Corpuscular Hemoglobin 29 pg (27-31); Mean Corpuscular Volume 88 fL (80-97); Mean Platelet Volume 10 um3 (7.4-10.4); Red Blood Count 4.24 10^6/ul (4.0-5.4); Red Cell Distribution Width 15 % (10.5-15); White Blood Count 8.2 10^3/ul (3.5-10.8)
[2016-11-25] MEDS: NS 0.9% 1000 ML* 2,000 ML IV ONE (16:30)
[2016-11-25 16:31] LABS: Albumin 3.7 g/dL (3.2-5.2); BUN/Creatinine Ratio 17.2 (8-20); C Reactive Protein 2.23 mg/L (< 5.00); Calcium 9.3 mg/dL (8.6-10.3); EGFR African American 137.3 (>60); EGFR Non-African American 106.8 (>60); Globulin 3.1 g/dL (2-4); Magnesium 1.7 mg/dL (1.9-2.7); Potassium 3.6 mmol/L (3.5-5.0); Total Bilirubin 0.5 mg/dL (0.2-1.0); Total Protein 6.8 g/dL (6.4-8.9)
[2016-11-25] MEDS ORDERED: Iohexol 300* (CONTRAST) 10 ML SDV IV ONE (17:10)
[2016-11-25] MEDS ORDERED: Morphine INJ* 4 MG/ML 1 ML CARPUJECT IV ONE (18:30)
--- NOTE | 2016-11-25 18:49 | RAD ---
CLINICAL HISTORY: Nausea and vomiting. History of G-tube removed 2 months earlier. COMPARISON: Most recent comparison CT examination is dated October 25, 2016 TECHNIQUE: Contrast enhanced CT examination of the abdomen and pelvis from the lung bases through the initial tuberosities. The patient received 96 mL Omnipaque 300 intravenously prior to imaging.The patient received oral contrast as well prior to imaging. FINDINGS: Similar the prior CT examination, there is a large hiatal hernia with the gastric fundus located at the midline and right of midline lower thorax. The hiatal hernia causes compressive atelectasis at the bilateral medial lower lobes. The liver, spleen, pancreas and adrenal glands are grossly normal in appearance. There is questionable thickening of the gallbladder wall measuring 4 mm in thickness. There are no hyperattenuating stones or gallbladder sludge seen in the lumen. The kidneys are normal in appearance without focal mass, calcification or signs of hydronephrosis. Evaluation is limited without oral contrast. The small and large bowel are not distended. The patient's normal appendix is identified in the right lower quadrant with gas in the lumen measuring just over 6 mm in diameter. There are numerable diverticula at the rectosigmoid colon but none exhibit focal inflammatory change. There is no gross retroperitoneal or mesenteric lymphadenopathy. There is supraumbilical midline diastases recti with subcutaneous fat and transverse colon herniating beyond the level of the abdominal wall. The pelvic viscera is normal in appearance. The abdominal aorta and iliac arteries are normal in course and diameter. Degenerative changes include multilevel loss of intervertebral disc height involving the lower thoracic and lumbar spine.There are no sinister bone lesions. IMPRESSION: 1. Large hiatal hernia similar in appearance to the previous CT examination. 2. Questionable thickening of the gallbladder wall. If the patient is exhibiting a positive Jensen's sign or other signs of acute cholecystitis further characterization can be made with ultrasound. 3. Additional chronic and degenerative changes described in the body the report.
[2016-11-25 20:19] VITALS: BP 104/49
[2016-11-25] MEDS ORDERED: LORazepam TAB(*) 1 MG PO ONE (20:33)
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
== END 2016-11-25 20:42 | disposition home or self-care (01) ==
LOC: ED 12:36
DX: R11.10 Vomiting, unspecified (principal); F32.9 Major depressive disorder, single episode, unspecified; K21.9 Gastro-esophageal reflux disease without esophagitis; Z87.11 Personal history of peptic ulcer disease; K44.9 Diaphragmatic hernia without obstruction or gangrene
CPT/HCPCS: 36415; 74177; 80053; 83605; 83690; 83735; 85025; 86140; 96360; 96374; 96375; 99283; A9270-GY; J2270; J2405; Q9967

== ENCOUNTER 2018-03-22 14:39 | Emergency (ER) | payer MEDICARE ==
--- NOTE | 2018-03-22 14:58 | ED ---
Abdominal Pain/Female - HPI Summary HPI Summary: A 57 y/o F brought in by ambulance presents to ED s/p abd surgery with c/o abd pain onset this week. She had a cholecystectomy, small intestine resection, hiatal hernia repair on 03/11/[address] [facility] Guajardo felt it was too invasive to the do the surgery locally. Associated sx: foul-smelling diarrhea 6x ; fever; nausea; lightheadedness. She has two tubes in her abdomen draining fluids, which has been odd colored today. Denies vomiting, bloody stool. Pt is in rehab at [facility]. - History of Current Complaint Stated Complaint: ABD PAIN Time Seen by Provider: 03/22/18 14:55 Hx Obtained From: Patient, EMS Onset/Duration: Lasting Days, Still Present Timing: Constant Severity Initially: Moderate Severity Currently: Moderate Pain Intensity: 7 Pain Scale Used: 0-10 Numeric Location: Diffuse Associated Signs and Symptoms: Positive: Fever, Nausea, Diarrhea, Other: - pos: lightheadedness. Negative: Blood in Stool, Vomiting Allergies/Adverse Reactions: Allergies Allergy/AdvReac Type Severity Reaction Status Date / Time No Known Allergies Allergy Verified 11/25/16 12:44 Home Medications: Home Medications ALPRAZolam [Alprazolam] 0.5 mg PO BEDTIME PRN 03/22/18 [History Confirmed ] Citalopram Hydrobromide [Citalopram HBr] 20 mg PO BEDTIME 03/22/18 [History Confirmed 03/22/18] traZODone TAB* [Desyrel TAB*] 50 mg PO BEDTIME 03/22/18 [History Confirmed 03/22] PMH/Surg Hx/FS Hx/Imm Hx Previously Healthy: No Endocrine/Hematology History: Denies: Hx Diabetes Cardiovascular History: Denies: Hx Hypertension GI History: Reports: Hx Gall Bladder Disease - gallstones, Hx Gastroesophageal Reflux Disease, Hx Hiatal Hernia, Hx Ulcer, Other GI Disorders - Hx perforated stomach, duodenal stenosis, prepyloric ulcer, malnourishment History: Denies: Hx Dialysis, Hx Renal Disease Musculoskeletal History: Reports: Other Musculoskeletal History - Hx muscular dystrophy Sensory History: Reports: Hx Contacts or Glasses - Glasses, though not with patient at this time. Denies: Hx Hearing Aid Opthamlomology History: Reports: Hx Contacts or Glasses - Glasses, though not with patient at this time. Psychiatric History: Reports: Hx Depression - CURRENT - Surgical History Surgery Procedure, Year, and Place: g-tube insertion, ulcer repair, - Immunization History Date of Tetanus Vaccine: utd Date of Influenza Vaccine: utd - Family History Known Family History: Positive: Other - colon CA - Social History Occupation: Unemployed Lives: With Family Alcohol Use: Rare Hx Substance Use: No - No excessive ASA or NSAID use Substance Use Type: Reports: None Hx Tobacco Use: No Smoking Status (MU): Never Smoked Tobacco Review of Systems Positive: Fever. Negative: Chills Negative: Erythema Negative: Sore Throat Negative: Chest Pain Negative: Shortness Of Breath, Cough Positive: Abdominal Pain, Diarrhea, Nausea, Other - pos: "odd" colored fluid draining from abd tubes. neg: bloody stool.. Negative: Vomiting Negative: dysuria, hematuria Negative: Myalgia, Edema Negative: Rash Neurological: Other - pos: lightheadedness. neg: dizziness All Other Systems Reviewed And Are Negative: Yes Physical Exam - Summary Physical Exam Summary: Constitutional: Well-developed, Well-nourished, Alert. (-) Distressed Skin: Warm, Dry HENT: Normocephalic; Atraumatic Eyes: Conjunctiva normal Neck: Musculoskeletal ROM normal neck. (-) JVD, (-) Stridor, (-) Tracheal deviation Cardio: Rhythm regular, rate normal, Heart sounds normal; Intact distal pulses; The pedal pulses are 2+ and symmetric. Radial pulses are 2+ and symmetric. (-) Murmur Pulmonary/Chest wall: Effort normal. (-) Respiratory distress, (-) Wheezes, (-) Rales Abd: Soft, (-) Distension, (-) Guarding, (-) Rebound, Diffusely tender. Drainage which is somewhat cloudy coming out of drain on left. Drain on the right is clear Musculoskeletal: (-) Edema Lymph: (-) Cervical adenopathy Neuro: Alert, Oriented x3 Psych: Mood and affect Normal Triage Information Reviewed: Yes Vital Signs Reviewed: Yes Diagnostics - Laboratory Result Diagrams: 03/22/18 15:32 03/22/18 15:32 Lab Statement: Any lab studies that have been ordered have been reviewed, and results considered in the medical decision making process. Abdominal Pain Fem Course/Dx - Course Course Of Treatment: Pt is a 57 y/o F brought in by ambulance s/p abd surgery with c/o abd pain onset this week. She had a Para-esophageal hiatal hernia repair, laparotomy, cholecystectomy, revision of GJ tube, and ventral hernia repair by Dr. Iqra Cuevas on 03/11/[address] [facility]. Guajardo felt it was too invasive to the do the surgery locally. Associated sx: foul-smelling diarrhea 6x ; fever; nausea; lightheadedness. She has two tubes in her abdomen draining fluids, which has been odd colored today. Denies vomiting, bloody stool. Test results with no significant abnormalities except for elevated troponin. Sepsis fluids and abx delated due to very difficult vascular access. We discussed patient care with Junior Servin and he accepted the patient to [facility]. Patient will be transferred to [facility]. Dx post-operative infection, abd pain, diarrhea. The patient is agreeable with this plan. - Diagnoses Provider Diagnoses: Post-operative infection, Diarrhea, Abdominal pain - Provider Notifications Discussed Care Of Patient With: Junior Servin Time Discussed With Above Provider: 18:48 Instructed by Provider To: Transfer - Dr. Junior Servin agreed to accept the patient to [facility] Discharge - Sign-Out/Discharge Documenting (check all that apply): Patient Departure Patient Received Moderate/Deep Sedation with Procedure: No - Discharge Plan Condition: Stable Disposition: TRANS HIGHER LVL OF CARE FAC Referrals: Jigna Lopez PA [Primary Care Provider] - - Billing Disposition and Condition Condition: STABLE Disposition: Trans Higher Lvl of Care Fac - Attestation Statements Document Initiated by Scribe: Yes Documenting Scribe: Liane Levin Provider For Whom Scribe is Documenting (Include Credential): Dr. Noe Easton MD Scribe Attestation: Liane Trent scribed for Dr. Noe Easton MD on 03/22/18 at 1936. Scribe Documentation Reviewed: Yes Provider Attestation: The documentation as recorded by the Liane baig accurately reflects the service I personally performed and the decisions made by me, Dr. Noe Easton MD Status of Scribe Document: Viewed
[2018-03-22 15:56] LABS: ABS Basophils 0 10^3/ul (0-0.2); ABS Eosinophils 0 10^3/ul (0-0.6); ABS Lymphocytes 0.9 10^3/ul (1.0-4.8); ABS Monocytes 0.6 10^3/ul (0-0.8); ABS Neutrophils 12.8 10^3/ul (1.5-7.7); ABS Nucleated RBC 0 10^3/ul; Eosinophil % 0.3 %; Hematocrit 34 % (35-47); Hemoglobin 10.9 g/dl (12.0-16.0); Mean Corpuscular HGB Conc 32 g/dl (31-36); Mean Corpuscular Hemoglobin 30 pg (27-31); Mean Corpuscular Volume 93 fL (80-97); Mean Platelet Volume 8.5 fL (7.4-10.4); Nucleated Red Blood Cells % 0; Platelet Count 396 10^3/ul (150-450); Red Blood Count 3.62 10^6/ul (4.00-5.40); Red Cell Distribution Width 14 % (10.5-15); White Blood Count 14.3 10^3/ul (3.5-10.8)
[2018-03-22 16:07] LABS: Activated Partial Thrombo Time 28.4 seconds (26.0-36.3); INR 1.06 (0.77-1.02)
[2018-03-22 16:17] LABS: Albumin 2.9 g/dL (3.2-5.2); BUN/Creatinine Ratio 16.3 (8-20); EGFR African American 181.9 (>60); EGFR Non-African American 150.3 (>60); Globulin 2.9 g/dL (2-4); Potassium 3.3 mmol/L (3.5-5.0); Total Bilirubin 0.6 mg/dL (0.2-1.0); Total Protein 5.8 g/dL (6.4-8.9)
[2018-03-22 16:18] LABS: Urine Appearance Clear; Urine Bacteria 1+ (Absent); Urine Bilirubin Negative (Negative); Urine Blood 1+ (Negative); Urine Color Yellow; Urine Glucose Negative (Negative); Urine Ketones 2+ (Negative); Urine Nitrite Negative (Negative); Urine Protein Negative (Negative); Urine Red Blood Cell 1+(3-5/hpf) (Absent); Urine Specific Gravity 1.017 (1.010-1.030); Urine Squamous Epithelial Cell Present (Absent); Urine Urobilinogen Negative (Negative); Urine White Blood Cell Trace(0-5/hpf) (Absent)
[2018-03-22 16:23] LABS: Troponin I 0.06 ng/mL (<0.04)
[2018-03-22] MEDS ORDERED: metroNIDAZOLE IV 500 MG/100ML* 500 MG/100 ML BAG IVPB ONE (16:37)
[2018-03-22] MEDS ORDERED: Ciprofloxacin 400MG IVPREMIX(* 400 MG/200 ML BAG IVPB ONE (16:37)
[2018-03-22] MEDS ORDERED: Morphine VIAL* 10 MG/ML 1 ML VIAL IV ONE ×2 (17:29→19:43)
[2018-03-22] MEDS ORDERED: Ondansetron INJ* 2 MG/ML VIAL IV ONE (17:30)
[2018-03-22] MEDS ORDERED: NS 0.9% 1000 ML** 1,000 ML IV SCH (18:30)
[2018-03-22] MEDS: NS 0.9% 1000 ML** 2,000 ML IV ONE (18:45)
[2018-03-22] MEDS ORDERED: Ondansetron ODT TAB* 4 MG PO ONE (19:43)
[2018-03-22 20:03] VITALS: BP 148/69
--- NOTE | 2018-03-23 19:55 | PN ---
Progress Note - Progress Note Date of Service: 03/23/18 - Positive blood culture in 1/4 bottles called by lab at [address] Hutchinson. Note: Chart reviewed. Pt was post op from abdominal surgery at [facility], and was transferred to [facility] for further evaluation and care. Dr. Servin, [facility] ED accepted pt. Called [facility] at 1954. Results in 1/4 blood culture bottles show growth in the aerobic bottle, MRSA neg and staph aureus negative. Urine culture also grew few enterbacteriacea, possible contaminant. [facility] put me through to Marissa Gao RN, pt's nurse, and she took report on the one positive blood culture, and the urine culture result. Marissa will report results to Dr. Garcia, pt's attending. Alyssa Hutchinson MD [id number]/23/18.
== END 2018-03-22 20:00 | disposition short-term general hospital (02) ==
LOC: ED 14:39
DX: T81.41XA Infection following a procedure, superficial incisional surgical site, initial encounter (principal); K21.9 Gastro-esophageal reflux disease without esophagitis; Z98.890 Other specified postprocedural states; R50.9 Fever, unspecified; R11.0 Nausea; R19.7 Diarrhea, unspecified; R42 Dizziness and giddiness
CPT/HCPCS: 36415; 80053; 81003; 81015; 83605; 84484; 85025; 85610; 85730; 87040; 87077; 87086; 87150; 87205; 96361; 96365; 96366; 99285; A9270-GY; J0744; J2270; J2405; J3490

== ENCOUNTER 2018-06-03 12:48 | Emergency (ER) | payer MEDICARE ==
[2018-06-03] MEDS ORDERED: NS 0.9% 1000 ML** 1,000 ML IV ONE (13:12)
--- NOTE | 2018-06-03 13:16 | ED ---
GI/ HPI - HPI Summary HPI Summary: Patient is a 58 y/o F presenting to ED with complaints of diarrhea and blood in stool. Patient has had episodes of diarrhea on and off over the course of the past few weeks but she notes last night was the first time she noticed blood. Blood is described as bright red. She reports a greater amount of blood present today with bowel movements compared to yesterday. PMHx of ruptured ulcer that required surgery. PSHx of cholecystectomy this past March, hiatal hernia repair, colon resection. She denies any post-surgery complications. Last colonoscopy was March of last year, 2017. She denies Hx of hemorrhoids, patient is not on blood thinners. Patient notes chronic and intermittent abdominal pain as well. No abdominal pain at present in the room. She states that she called PCP today and was advised to come to ED. No recent travel, no recent antibiotics reported. On triage, pain is rated 7/10, nothing is noted to aggravate/alleviate Sx. Home medications and allergies are reviewed. - History of Current Complaint Chief Complaint: EDGIBleed Time Seen by Provider: 06/03/18 13:04 Stated Complaint: BLOOD IN STOOL PER FAMILY Hx Obtained From: Patient Onset/Duration: Started Days Ago - blood in stool noted last night, Started Weeks Ago - diarrhea, Still Present Timing: Constant, Intermittent - abdominal pain, chronic, Lasting Days - blood in stool noted last night, Lasting Weeks - diarrhea Severity: Severe - 7/10 Current Severity: None Pain Intensity: 7 Associated Signs and Symptoms: Positive: Bright Red Blood w/Stool, Diarrhea, Abdominal Pain - chronic Aggravating Factor(s): Nothing Alleviating Factor(s): Nothing - Additional Pertinent History Primary Care Physician: JOSEPH - Allergy/Home Medications Allergies/Adverse Reactions: Allergies Allergy/AdvReac Type Severity Reaction Status Date / Time No Known Allergies Allergy Verified 06/03/18 12:53 Home Medications: Home Medications Pantoprazole TAB * [Protonix TAB*] 40 mg PO DAILY 06/03/18 [History Confirmed ] Sucralfate TAB* [Carafate*] 1 gm PO QID 06/03/18 [History Confirmed 06/03/18] PMH/Surg Hx/FS Hx/Imm Hx Endocrine/Hematology History: Denies: Hx Diabetes Cardiovascular History: Denies: Hx Hypertension GI History: Reports: Hx Gall Bladder Disease - gallstones, Hx Gastroesophageal Reflux Disease, Hx Hiatal Hernia, Hx Ulcer, Other GI Disorders - Hx perforated stomach, duodenal stenosis, prepyloric ulcer, malnourishment History: Denies: Hx Dialysis, Hx Renal Disease Musculoskeletal History: Reports: Other Musculoskeletal History - Hx muscular dystrophy Sensory History: Reports: Hx Contacts or Glasses - Glasses, though not with patient at this time. Denies: Hx Hearing Aid Opthamlomology History: Reports: Hx Contacts or Glasses - Glasses, though not with patient at this time. Psychiatric History: Reports: Hx Depression - CURRENT - Surgical History Surgery Procedure, Year, and Place: g-tube insertion, ulcer repair, - Immunization History Date of Tetanus Vaccine: utd Date of Influenza Vaccine: utd Infectious Disease History: No Infectious Disease History: Denies: Traveled Outside the [place] in Last 30 Days - Family History Known Family History: Positive: Other - colon CA - Social History Alcohol Use: None Hx Substance Use: No - No excessive ASA or NSAID use Substance Use Type: Reports: None Hx Tobacco Use: No Smoking Status (MU): Never Smoked Tobacco Review of Systems Negative: Fever - on vitals, temp is 98.8 F Gastrointestinal: Other - POSITIVE - BLOOD WITH STOOL Positive: Abdominal Pain - CHRONIC , Diarrhea All Other Systems Reviewed And Are Negative: Yes Physical Exam - Summary Physical Exam Summary: VITAL SIGNS: Reviewed. GENERAL: Patient is a well-developed and obese female who is lying comfortable in the stretcher. Patient is not in any acute respiratory distress. HEAD AND FACE: Normocephalic and atraumatic. EYES: PERRLA, EOMI x 2, No injected conjunctiva. EARS: Hearing grossly intact. Ear canals and tympanic membranes are WNL. MOUTH: Oropharynx within normal limits. NECK: Supple, trachea is midline, no adenopathy, no JVD. CHEST: Symmetric, no tenderness at palpation LUNGS: Clear to auscultation bilaterally. No wheezing or crackles. CVS: RRR, S1 and S2 present, no murmurs or gallops appreciated. ABDOMEN: Soft, non-tender. No signs of distention. Positive bowel sounds. No rebound no guarding, and no masses palpated. No abdominal bruit or pulsations. 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 NEURO: Alert and oriented x 3. No acute neurological deficits. Speech is normal. SKIN: Dry and warm Triage Information Reviewed: Yes Vital Signs On Initial Exam: Initial Vitals Temp Pulse Resp BP Pulse Ox 98.8 F 112 20 158/101 97 06/03/18 12:50 06/03/18 12:50 06/03/18 12:50 06/03/18 12:50 06/03/18 12:50 Vital Signs Reviewed: Yes Diagnostics - Vital Signs Vital Signs Temp Pulse Resp BP Pulse Ox 06/03/18 12:50 98.8 F 112 20 158/101 97 - Laboratory Result Diagrams: 06/03/18 14:30 06/03/18 14:30 Lab Statement: Any lab studies that have been ordered have been reviewed, and results considered in the medical decision making process. - Radiology ABDOMEN X-RAY Radiology Interpretation Completed By: Radiologist Summary of Radiographic Findings: IMPRESSION: NO EVIDENCE FOR OBSTRUCTION. THIS REPORT WAS REVIEWED BY DR. FARIAS. - EKG 1337 Cardiac Rate: NL - rate of 84 BPM EKG Rhythm: Sinus Rhythm Summary of EKG Findings: EKG showed sinus rhythm with rate of 84 BPM, normal axis, no ST elevation. Re-Evaluation - Re-Evaluation First Eval Re-Evaluation Time: 15:23 Comment: Therefore since the patient has a normal H&H and is guaiac negative the patient will be discharged home with follow-up with primary care physician. Patient is hemodynamically stable alert oriented 3. I discussed all the findings and test results with the patient. Patient was instructed to return to the emergency room immediately if any of the symptoms return worsens. Plan of care was discussed with the patient and understands and agrees. All questions were answered at patient satisfaction. There were no further complaints or concerns. Lung exam before discharge: CTA B/L. Good air exchange. No wheezing or crackles heard. CVS: S1 and S2 present. No murmurs appreciated. Patient is alert and oriented x 3. Patient is hemodynamically stable. Patient will be discharged home with follow up PCP in the next 2-3 days GIGU Course/Dx - Course Assessment/Plan: This patient is a 58-year-old female who presents to the emergency department with a chief complaint of bright red blood per rectum. The patient reports that diarrhea was present yesterday and she noticed some blood after having a bowel movement. Patient denies any abdominal pain at present also she has chronic history of abdominal pain. She had her last colonoscopy 1 year ago and she is not taking any blood thinners. Blood work without any significant abnormality except for INR 1.24, alkaline phosphatase of 110, lipase less than 10. Guaiac is negative. Abdominal x-ray impression: No evidence for obstruction. Therefore since the patient has a normal H&H and is guaiac negative the patient will be discharged home with follow-up with primary care physician. Patient is hemodynamically stable alert oriented 3. I discussed all the findings and test results with the patient. Patient was instructed to return to the emergency room immediately if any of the symptoms return worsens. Plan of care was discussed with the patient and understands and agrees. All questions were answered at patient satisfaction. There were no further complaints or concerns. Lung exam before discharge: CTA B/L. Good air exchange. No wheezing or crackles heard. CVS: S1 and S2 present. No murmurs appreciated. Patient is alert and oriented x 3. Patient is hemodynamically stable. Patient will be discharged home with follow up PCP in the next 2-3 days - Diagnoses Provider Diagnoses: GI bleed, Diarrhea Discharge - Sign-Out/Discharge Documenting (check all that apply): Patient Departure - discharge Patient Received Moderate/Deep Sedation with Procedure: No - Discharge Plan Condition: Stable Disposition: HOME Patient Education Materials: Gastrointestinal Bleeding (ED) Referrals: Jigna Lopez PA [Primary Care Provider] - 3 Days Additional Instructions: RETURN TO ED FOR ANY NEW OR WORSENING SYMPTOMS. FOLLOW UP WITH YOUR PRIMARY CARE PHYSICIAN WITHIN THREE DAYS - Billing Disposition and Condition Condition: STABLE Disposition: Home - Attestation Statements Document Initiated by Nahum: Yes Documenting Scribe: GIANFRANCO ANGEL Provider For Whom Nahum is Documenting (Include Credential): SADE FARIAS MD Scribe Attestation: GIANFRANCO Trent scribed for SADE FARIAS MD on 06/03/18 at 2111. Scribe Documentation Reviewed: Yes Provider Attestation: The documentation as recorded by the GIANFRANCO baig accurately reflects the service I personally performed and the decisions made by me, SADE FARIAS MD Status of Scribe Document: Viewed
[2018-06-03 14:52] LABS: ABS Basophils 0 10^3/ul (0-0.2); ABS Eosinophils 0.1 10^3/ul (0-0.6); ABS Lymphocytes 1.8 10^3/ul (1.0-4.8); ABS Monocytes 0.4 10^3/ul (0-0.8); ABS Nucleated RBC 0 10^3/ul; Eosinophil % 0.9 %; Hematocrit 34 % (33-41); Hemoglobin 11.2 g/dL (12.0-16.0); Lymphocyte % 21.9 %; Mean Corpuscular HGB Conc 33 g/dL (31-36); Mean Corpuscular Hemoglobin 28 pg (27-31); Mean Corpuscular Volume 86 fL (80-97); Mean Platelet Volume 9.7 fL (7.4-10.4); Nucleated Red Blood Cells % 0; Platelet Count 283 10^3/uL (150-450); Red Blood Count 3.95 10^6 /uL (3.70-4.87); Red Cell Distribution Width 15 % (10.5-15); White Blood Count 8.4 10^3/uL (3.5-10.8)
[2018-06-03 15:08] LABS: Activated Partial Thrombo Time 30.8 seconds (26.0-36.3); INR 1.24 (0.82-1.09)
[2018-06-03 15:14] LABS: ALT 19 U/L (7-52); AST 19 U/L (13-39); Albumin 3.5 g/dL (3.2-5.2); Albumin/Globulin Ratio 1.2 (1-3); Alkaline Phosphatase 110 U/L (34-104); Anion Gap 7 mmol/L (2-11); BUN/Creatinine Ratio 13.1 (8-20); Blood Urea Nitrogen 8 mg/dL (6-24); C Reactive Protein 4.43 mg/L (<8.01); CO2 Carbon Dioxide 25 mmol/L (22-32); Calcium 8.9 mg/dL (8.6-10.3); Chloride 107 mmol/L (101-111); EGFR African American 121.1 (>60); Glucose 98 mg/dL (70-100); Potassium 3.7 mmol/L (3.5-5.0); Sodium 139 mmol/L (135-145); Total Protein 6.5 g/dL (6.4-8.9)
[2018-06-03 15:35] VITALS: BP 104/69
== END 2018-06-03 15:35 | disposition home or self-care (01) ==
LOC: ED 12:48
DX: K92.2 Gastrointestinal hemorrhage, unspecified (principal); E11.9 Type 2 diabetes mellitus without complications; R94.31 Abnormal electrocardiogram [ECG] [EKG]; K21.9 Gastro-esophageal reflux disease without esophagitis; K44.9 Diaphragmatic hernia without obstruction or gangrene; G71.00 Muscular dystrophy, unspecified
CPT/HCPCS: 36415; 74019; 80053; 82272; 83605; 83690; 85025; 85610; 85730; 86140; 93005; 96360; 96361; 99283

== ENCOUNTER 2019-05-22 15:09 | Emergency (ER) | payer MEDICARE ==
--- OUTSIDE RECORDS SUMMARY | 2019-05-22 15:17 | XMS REPORT ---
:1960 Author Organization [facility] Care Team Providers Name Role Phone Unavailable Unavailable Unavailable Problems Condition Condition Condition Status Onset Resolution Last Treating Comments Name Details Category Date Date Treatment Clinician Date Other Other Diagnosis Active 2019-0 Misty postprocedu postprocedu 4-12 Ingrahm ral ral [id number] complicatio complicatio ns and ns and disorders disorders of of digestive digestive system system Unspecified Unspecified Diagnosis Active 2019-0 Misty abdominal abdominal 4-12 Ingrahm pain pain [id number] Incisional Incisional Diagnosis Active 2019-0 Misty hernia hernia 4-12 Ingrahm without without [id number] obstruction obstruction or gangrene or gangrene Diarrhea, Diarrhea, Diagnosis Active Misty unspecified unspecified Ingrm [id number] Dysuria Dysuria Diagnosis [facility] [id number] Weakness Weakness Diagnosis Active Misty Shantem [id number] Allergies, Adverse Reactions, Alerts Allergy Allergy Status Severity Reaction(s) Onset Inactive Treating Comments Name Type Date Date Clinician Unknown None Active Unknown None Unknown No Known Allergies For This Patient Medications Ordered Filled Start Stop Current Ordering Indication Dosage Frequency Signature Comments Components Medication Medication Date Date Medication? Clinician (SIG) Name Name No Known No Known No None None None Medications Medications For This For This Patient Patient Procedures This patient has no known procedures. Results This patient has no known results.
--- OUTSIDE RECORDS SUMMARY | 2019-05-22 15:17 | XMS REPORT ---
:1960 Author Organization [facility] Care Team Providers Name Role Phone Unavailable Unavailable Unavailable Problems Condition Condition Condition Status Onset Resolution Last Treating Comments Name Details Category Date Date Treatment Clinician Date Other Other Diagnosis Active 2019-0 Misty postprocedu postprocedu 4-12 Ingrahm ral ral [id number] complicatio complicatio ns and ns and disorders disorders of of digestive digestive system system Unspecified Unspecified Diagnosis Active 2019-0 Misty abdominal abdominal 4-12 Ingrahm pain pain [id number] Incisional Incisional Diagnosis Active 2019-0 Misty hernia hernia 4-12 Ingrahm without without [id number] obstruction obstruction or gangrene or gangrene Diarrhea, Diarrhea, Diagnosis Active Misty unspecified unspecified Ingrm [id number] Dysuria Dysuria Diagnosis [facility] [id number] Weakness Weakness Diagnosis Active Misty Shantem [id number] Allergies, Adverse Reactions, Alerts Allergy Allergy Status [...]
--- OUTSIDE RECORDS SUMMARY | 2019-05-22 15:17 | XMS REPORT ---
:1960 Author Organization [facility] Care Team Providers Name Role Phone Unavailable Unavailable Unavailable Problems Condition Condition Condition Status Onset Resolution Last Treating Comments Name Details Category Date Date Treatment Clinician Date Other Other Diagnosis Active 2019-0 Misty postprocedu postprocedu 4-12 Ingrahm ral ral [id number] complicatio complicatio ns and ns and disorders disorders of of digestive digestive system system Unspecified Unspecified Diagnosis Active 2019-0 Misty abdominal abdominal 4-12 Ingrahm pain pain [id number] Incisional Incisional Diagnosis Active 2019-0 Misty hernia hernia 4-12 Ingrahm without without [id number] obstruction obstruction or gangrene or gangrene Diarrhea, Diarrhea, Diagnosis Active Misty unspecified unspecified Ingrm [id number] Dysuria Dysuria Diagnosis [facility] [id number] Weakness Weakness Diagnosis Active Misty Shantem [id number] Allergies, Adverse Reactions, Alerts Allergy Allergy Status [...]
--- OUTSIDE RECORDS SUMMARY | 2019-05-22 15:17 | XMS REPORT ---
:1960 Author Organization [facility] Care Team Providers Name Role Phone Unavailable Unavailable Unavailable Problems Condition Condition Condition Status Onset Resolution Last Treating Comments Name Details Category Date Date Treatment Clinician Date Other Other Diagnosis Active 2019-0 Misty postprocedu postprocedu 4-12 Ingrahm ral ral [id number] complicatio complicatio ns and ns and disorders disorders of of digestive digestive system system Unspecified Unspecified Diagnosis Active 2019-0 Misty abdominal abdominal 4-12 Ingrahm pain pain [id number] Incisional Incisional Diagnosis Active 2019-0 Misty hernia hernia 4-12 Ingrahm without without [id number] obstruction obstruction or gangrene or gangrene Diarrhea, Diarrhea, Diagnosis Active Misty unspecified unspecified Ingrm [id number] Dysuria Dysuria Diagnosis [facility] [id number] Weakness Weakness Diagnosis Active Misty Shantem [id number] Allergies, Adverse Reactions, Alerts Allergy Allergy Status [...]
--- OUTSIDE RECORDS SUMMARY | 2019-05-22 15:17 | XMS REPORT ---
:1960 Author Organization [facility] Care Team Providers Name Role Phone Unavailable Unavailable Unavailable Problems Condition Condition Condition Status Onset Resolution Last Treating Comments Name Details Category Date Date Treatment Clinician Date Other Other Diagnosis Active 2019-0 Misty postprocedu postprocedu 4-12 Ingrahm ral ral [id number] complicatio complicatio ns and ns and disorders disorders of of digestive digestive system system Unspecified Unspecified Diagnosis Active 2019-0 Misty abdominal abdominal 4-12 Ingrahm pain pain [id number] Incisional Incisional Diagnosis Active 2019-0 Misty hernia hernia 4-12 Ingrahm without without [id number] obstruction obstruction or gangrene or gangrene Diarrhea, Diarrhea, Diagnosis Active Misty unspecified unspecified Ingrm [id number] Dysuria Dysuria Diagnosis [facility] [id number] Weakness Weakness Diagnosis Active Misty Shantem [id number] Allergies, Adverse Reactions, Alerts Allergy Allergy Status [...]
--- OUTSIDE RECORDS SUMMARY | 2019-05-22 15:17 | XMS REPORT ---
:1960 Author Organization [facility] Care Team Providers Name Role Phone Unavailable Unavailable Unavailable Problems Condition Condition Condition Status Onset Resolution Last Treating Comments Name Details Category Date Date Treatment Clinician Date Other Other Diagnosis Active 2019-0 Misty postprocedu postprocedu 4-12 Ingrahm ral ral [id number] complicatio complicatio ns and ns and disorders disorders of of digestive digestive system system Unspecified Unspecified Diagnosis Active 2019-0 Misty abdominal abdominal 4-12 Ingrahm pain pain [id number] Incisional Incisional Diagnosis Active 2019-0 Misty hernia hernia 4-12 Ingrahm without without [id number] obstruction obstruction or gangrene or gangrene Diarrhea, Diarrhea, Diagnosis Active Misty unspecified unspecified Ingrm [id number] Dysuria Dysuria Diagnosis [facility] [id number] Weakness Weakness Diagnosis Active Misty Shantem [id number] Allergies, Adverse Reactions, Alerts Allergy Allergy Status [...]
--- OUTSIDE RECORDS SUMMARY | 2019-05-22 15:17 | XMS REPORT ---
:1960 Author Organization [facility] Care Team Providers Name Role Phone Unavailable Unavailable Unavailable Problems Condition Condition Condition Status Onset Resolution Last Treating Comments Name Details Category Date Date Treatment Clinician Date Other Other Diagnosis Active 2019-0 Misty postprocedu postprocedu 4-12 Ingrahm ral ral [id number] complicatio complicatio ns and ns and disorders disorders of of digestive digestive system system Unspecified Unspecified Diagnosis Active 2019-0 Misty abdominal abdominal 4-12 Ingrahm pain pain [id number] Incisional Incisional Diagnosis Active 2019-0 Misty hernia hernia 4-12 Ingrahm without without [id number] obstruction obstruction or gangrene or gangrene Diarrhea, Diarrhea, Diagnosis Active Misty unspecified unspecified Ingrm [id number] Dysuria Dysuria Diagnosis [facility] [id number] Weakness Weakness Diagnosis Active Misty Shantem [id number] Allergies, Adverse Reactions, Alerts Allergy Allergy Status [...]
--- OUTSIDE RECORDS SUMMARY | 2019-05-22 15:17 | XMS REPORT ---
:1960 Author Organization [facility] Care Team Providers Name Role Phone Unavailable Unavailable Unavailable Problems Condition Condition Condition Status Onset Resolution Last Treating Comments Name Details Category Date Date Treatment Clinician Date Other Other Diagnosis Active 2019-0 Misty postprocedu postprocedu 4-12 Ingrahm ral ral [id number] complicatio complicatio ns and ns and disorders disorders of of digestive digestive system system Unspecified Unspecified Diagnosis Active 2019-0 Misty abdominal abdominal 4-12 Ingrahm pain pain [id number] Incisional Incisional Diagnosis Active 2019-0 Misty hernia hernia 4-12 Ingrahm without without [id number] obstruction obstruction or gangrene or gangrene Diarrhea, Diarrhea, Diagnosis Active Misty unspecified unspecified Ingrm [id number] Dysuria Dysuria Diagnosis [facility] [id number] Weakness Weakness Diagnosis Active Misty Shantem [id number] Allergies, Adverse Reactions, Alerts Allergy Allergy Status [...]
--- OUTSIDE RECORDS SUMMARY | 2019-05-22 15:17 | XMS REPORT ---
:1960 Author Organization [facility] Care Team Providers Name Role Phone Unavailable Unavailable Unavailable Problems Condition Condition Condition Status Onset Resolution Last Treating Comments Name Details Category Date Date Treatment Clinician Date Other Other Diagnosis Active 2019-0 Misty postprocedu postprocedu 4-12 Ingrahm ral ral [id number] complicatio complicatio ns and ns and disorders disorders of of digestive digestive system system Unspecified Unspecified Diagnosis Active 2019-0 Misty abdominal abdominal 4-12 Ingrahm pain pain [id number] Incisional Incisional Diagnosis Active 2019-0 Misty hernia hernia 4-12 Ingrahm without without [id number] obstruction obstruction or gangrene or gangrene Diarrhea, Diarrhea, Diagnosis Active Misty unspecified unspecified Ingrm [id number] Dysuria Dysuria Diagnosis [facility] [id number] Weakness Weakness Diagnosis Active Misty Shantem [id number] Allergies, Adverse Reactions, Alerts Allergy Allergy Status [...]
--- OUTSIDE RECORDS SUMMARY | 2019-05-22 15:17 | XMS REPORT ---
:1960 Author Organization [facility] Care Team Providers Name Role Phone Unavailable Unavailable Unavailable Problems Condition Condition Condition Status Onset Resolution Last Treating Comments Name Details Category Date Date Treatment Clinician Date Other Other Diagnosis Active 2019-0 Misty postprocedu postprocedu 4-12 Ingrahm ral ral [id number] complicatio complicatio ns and ns and disorders disorders of of digestive digestive system system Unspecified Unspecified Diagnosis Active 2019-0 Misty abdominal abdominal 4-12 Ingrahm pain pain [id number] Incisional Incisional Diagnosis Active 2019-0 Misty hernia hernia 4-12 Ingrahm without without [id number] obstruction obstruction or gangrene or gangrene Diarrhea, Diarrhea, Diagnosis Active Misty unspecified unspecified Ingrm [id number] Dysuria Dysuria Diagnosis [facility] [id number] Weakness Weakness Diagnosis Active Misty Shantem [id number] Allergies, Adverse Reactions, Alerts Allergy Allergy Status [...]
--- OUTSIDE RECORDS SUMMARY | 2019-05-22 15:17 | XMS REPORT ---
:1960 Author Organization [facility] Care Team Providers Name Role Phone Unavailable Unavailable Unavailable Problems Condition Condition Condition Status Onset Resolution Last Treating Comments Name Details Category Date Date Treatment Clinician Date Other Other Diagnosis Active 2019-0 Misty postprocedu postprocedu 4-12 Ingrahm ral ral [id number] complicatio complicatio ns and ns and disorders disorders of of digestive digestive system system Unspecified Unspecified Diagnosis Active 2019-0 Misty abdominal abdominal 4-12 Ingrahm pain pain [id number] Incisional Incisional Diagnosis Active 2019-0 Misty hernia hernia 4-12 Ingrahm without without [id number] obstruction obstruction or gangrene or gangrene Diarrhea, Diarrhea, Diagnosis Active Misty unspecified unspecified Ingrm [id number] Dysuria Dysuria Diagnosis Active [facility] [id number] Weakness Weakness Diagnosis Active Misty Shantem [id number] Allergies, Adverse Reactions, Alerts Allergy Allergy Status [...]
--- OUTSIDE RECORDS SUMMARY | 2019-05-22 15:17 | XMS REPORT ---
:1960 Author Organization [facility] Care Team Providers Name Role Phone Unavailable Unavailable Unavailable Problems Condition Condition Condition Status Onset Resolution Last Treating Comments Name Details Category Date Date Treatment Clinician Date Other Other Diagnosis Active 2019-0 Misty postprocedu postprocedu 4-12 Ingrahm ral ral [id number] complicatio complicatio ns and ns and disorders disorders of of digestive digestive system system Unspecified Unspecified Diagnosis Active 2019-0 Misty abdominal abdominal 4-12 Ingrahm pain pain [id number] Incisional Incisional Diagnosis Active 2019-0 Misty hernia hernia 4-12 Ingrahm without without [id number] obstruction obstruction or gangrene or gangrene Diarrhea, Diarrhea, Diagnosis Active Misty unspecified unspecified Ingrm [id number] Dysuria Dysuria Diagnosis [facility] [id number] Weakness Weakness Diagnosis Active Misty Shantem [id number] Allergies, Adverse Reactions, Alerts Allergy Allergy Status [...]
--- OUTSIDE RECORDS SUMMARY | 2019-05-22 15:17 | XMS REPORT ---
:1960 Author Organization [facility] Care Team Providers Name Role Phone Unavailable Unavailable Unavailable Problems Condition Condition Condition Status Onset Resolution Last Treating Comments Name Details Category Date Date Treatment Clinician Date Other Other Diagnosis Active 2019-0 Misty postprocedu postprocedu 4-12 Ingrahm ral ral [id number] complicatio complicatio ns and ns and disorders disorders of of digestive digestive system system Unspecified Unspecified Diagnosis Active 2019-0 Misty abdominal abdominal 4-12 Ingrahm pain pain [id number] Incisional Incisional Diagnosis Active 2019-0 Misty hernia hernia 4-12 Ingrahm without without [id number] obstruction obstruction or gangrene or gangrene Diarrhea, Diarrhea, Diagnosis Active Misty unspecified unspecified Ingrm [id number] Dysuria Dysuria Diagnosis Active [facility] [id number] Weakness Weakness Diagnosis Active Misty Shantem [id number] Allergies, Adverse Reactions, Alerts Allergy Allergy Status [...]
--- OUTSIDE RECORDS SUMMARY | 2019-05-22 15:17 | XMS REPORT ---
:1960 Author Organization [facility] Care Team Providers Name Role Phone Unavailable Unavailable Unavailable Problems Condition Condition Condition Status Onset Resolution Last Treating Comments Name Details Category Date Date Treatment Clinician Date Other Other Diagnosis Active 2019-0 Misty postprocedu postprocedu 4-12 Ingrahm ral ral [id number] complicatio complicatio ns and ns and disorders disorders of of digestive digestive system system Unspecified Unspecified Diagnosis Active 2019-0 Misty abdominal abdominal 4-12 Ingrahm pain pain [id number] Incisional Incisional Diagnosis Active 2019-0 Misty hernia hernia 4-12 Ingrahm without without [id number] obstruction obstruction or gangrene or gangrene Diarrhea, Diarrhea, Diagnosis Active Misty unspecified unspecified Ingrm [id number] Dysuria Dysuria Diagnosis [facility] [id number] Weakness Weakness Diagnosis Active Misty Shantem [id number] Allergies, Adverse Reactions, Alerts Allergy Allergy Status [...]
--- OUTSIDE RECORDS SUMMARY | 2019-05-22 15:17 | XMS REPORT ---
:1960 Author Organization [facility] Care Team Providers Name Role Phone Unavailable Unavailable Unavailable Problems Condition Condition Condition Status Onset Resolution Last Treating Comments Name Details Category Date Date Treatment Clinician Date Other Other Diagnosis Active 2019-0 Misty postprocedu postprocedu 4-12 Ingrahm ral ral [id number] complicatio complicatio ns and ns and disorders disorders of of digestive digestive system system Unspecified Unspecified Diagnosis Active 2019-0 Misty abdominal abdominal 4-12 Ingrahm pain pain [id number] Incisional Incisional Diagnosis Active 2019-0 Misty hernia hernia 4-12 Ingrahm without without [id number] obstruction obstruction or gangrene or gangrene Diarrhea, Diarrhea, Diagnosis Active Misty unspecified unspecified Ingrm [id number] Dysuria Dysuria Diagnosis [facility] [id number] Weakness Weakness Diagnosis Active Misty Shantem [id number] Allergies, Adverse Reactions, Alerts Allergy Allergy Status [...]
--- OUTSIDE RECORDS SUMMARY | 2019-05-22 15:17 | XMS REPORT | Continuity of Care Document ---
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 Onset: 06/13/2018 Incisional hernia Mitchell Jewell Onset: 06/13/2018 Malaise and fatigue Jigna Lopez P.Rachel Onset: 06/13/2018 Moderate recurrent major depression Jigna Lopez P.AMechelle Onset: 06/13/2018 Hereditary motor and sensory neuropathy Jigna Lopez P.Rachel Onset: 10/17/2018 Ventral hernia without obstruction or gangrene Jigna Lopez P.Rachel Onset: 01/2019 Neoplasm of uncertain behavior of kidney Jigna Lopez P.Rachel Onset: 2018 Constipation Tatianna Middleton MD Onset: 02/27/2019 Social History Type Date Description Comments Sex Unknown Tobacco Use Start: Unknown Denies Cigarette Use Smoking Status Reviewed: 03/09/19 Denies Cigarette Use ETOH Use Denies alcohol use Tobacco Use Start: Unknown Non Smoker Recreational Drug Use Denies Drug Use Exercise Type/Frequency Does not exercise Sun Exposure Uses sunscreen Seat Belt/Car Seat Seat Belt Use - Yes Allergies, Adverse Reactions, Alerts Description No Known Drug Allergies Medications Active Medications SIG Qnty Indications Ordering Date Provider Flonase Allergy 1 spray 1bottle J06.9 Tatianna Middleton 02/10/2019 Relief intrasanally daily MD Svetlana 50mcg/Act every morning as Suspension needed for stuffy nose Gabapentin 2 tabs by mouth Unknown 01/13/2019 100mg three times a day Capsules Venlafaxine HCL ER take 1 capsule by 90zaheer Gomez, 08/01/2018 mouth every morning Sarah Cates 150mg Caps ER 24HR for depression or anxiety Rollator Walker With Use around house Patricia, 07/04/2018 Seat, Four Wheels, and outside Sarah Cates And Hand Brakes Multivitamin Gummies 1 every day un Patricia, 06/13/2018 Adult Sarah Cates Chewtabs Alprazolam take 1/2 to 1 30tabs G47.8 Tatianna Middleton 05/27/2018 0.5mg tablet by mouth MD Svetlana Tablets every night at bedtime for anxiety or sleep. maximum daily dose is 1 tablet. code a Acetaminophen take 1 tab (500 mg) Unknown 05/06/2018 500mg by mouth every 6 Tablets hours a day as needed for pain Custom Afo Wear daily for 1pr G60.0 Patricia, 07/23/2017 leg/ankle support Sarah Cates M14.679 Trazodone HCL take 1 tablet by 90tabs G47.8 Tatianna Middleton, 07/03/2017 50mg Tablets mouth daily at MD bedtime for trouble sleeping Sucralfate take 1 tablet by 360tabs Tatianna Middleton, 09/08/2016 1gm Tablets mouth before meals and at bedtime Gummie Iron 1 daily (10 mg) Unknown Pantoprazole Sodium tk 1 t by mouth 90tabs Darryn Gomez, 40mg every day MMechelleDMechelle Tablets DR Zena Medications Bromfed DM 10ml by mouth 236ml J06.9 Tatianna Middleton, 02/10/2019 - 30-2-10mg/5ML q6 hours as MD 05/21/2019 Syrup needed Gabapentin Unknown 01/13/2019 - 300mg Capsules 01/14/2019 Immunizations CPT Code Status Date Vaccine Lot # [id number] Given 10/10/2018 Prevnar 13 [id number] Given 10/07/2018 Influenza Virus Vaccine, Quadrivalent, Split, Preservative Free 74165 Given 06/06/2018 MMR Virus Immunization [id number] Given 12/26/2017 Shingrix Zoster (Shingles) Vaccine (HZV) Recomb,Subnit,Adjuvanted 02819 Given 10/22/2017 Shingrix Zoster (Shingles) Vaccine (HZV) Recomb,Subnit,Adjuvanted 41315 Given 10/22/2017 Influenza Virus Vaccine, Quadrivalent, Split, Preservative Free U-Flu Given 10/18/2016 Influenza,Unspecified Vital Signs Date Vital Result Comment 05/22/2019 2:04pm BP Systolic 122 mmHg BP Diastolic 83 mmHg Heart Rate 61 /min Body Temperature 98.9 F Weight 217.00 lb 02/27/2019 4:57pm BP Systolic 118 mmHg BP Diastolic 78 mmHg Height 65 inches 5'5" Weight 213.00 lb BMI (Body Mass Index) 35.4 kg/m2 Results Description No Information Available Procedures Date Code Description Status 07/19/2018 69810038 Mammogram Completed 03/15/2017 [id number] Colonoscopy Completed Medical Devices Description No Information Available Encounters Type Date Location Provider Dx Diagnosis Office Visit 05/22/2019 Main Office Tatianna Middleton, S09.90xA Unspecified injury 2:00p MD of head, initial encounter W18.30xA Fall on same level, unspecified, initial encounter Office Visit 02/27/2019 4:45p Main Office Tatianna Middleton, G60.0 Hereditary motor MD and sensory neuropathy K59.00 Constipation, unspecified Z68.35 Body mass index (BMI) 35.0-35.9, adult Office Visit 02/10/2019 10:00a Main Office Tatianna Middleton J06.9 Acute upper Svetlana, respiratory infection, unspecified Office Visit 01/14/2019 4:40p Main Office Jigna Lopez, S00.93xA Contusion of P.A. unspecified part of head, initial encounter S93.402A Sprain of unspecified ligament of left ankle, init encntr G60.0 Hereditary motor and sensory neuropathy G47.33 Obstructive sleep apnea (adult) (pediatric) W18.30xA Fall on same level, unspecified, initial encounter Assessments Date Code Description Provider 05/22/2019 S09.90xA Unspecified injury of head, initial encounter Tatianna Middleton MD 05/22/2019 W18.30xA Fall on same level, unspecified, initial Tatianna Middleton MD encounter 02/27/2019 G60.0 Hereditary motor and sensory neuropathy Tatianna Middleton MD 02/27/2019 K59.00 Constipation, unspecified Tatianna Middleton MD 02/27/2019 Z68.35 Body mass index (BMI) 35.0-35.9, adult Tatianna Middleton MD 02/10/2019 J06.9 Acute upper respiratory infection, Tatianna Middleton MD unspecified 01/14/2019 S00.93xA Contusion of unspecified part of head, Jigna Lopez P.A. initial encounter 01/14/2019 S93.402A Sprain of unspecified ligament of left ankle, Jigna Lopez P.AMechelle initial encounter 01/14/2019 G60.0 Hereditary motor and sensory neuropathy Jigna Lopez P.A. 01/14/2019 G47.33 Obstructive sleep apnea (adult) (pediatric) Jigna Lopez P.A. 01/14/2019 W18.30xA Fall on same level, unspecified, initial Mitchell Jewell encounter Plan of Treatment 05/22/2019 - Tatianna Middleton MDS09.90xA Unspecified injury of head, initial encounterComments:patient appear neurologically intact via video, speech is coherent, however she does have quite a bump on forehead and she says she has one in back of head as well along with pounding headache. She is advised to avoid NSAIDs which she already does. Recommend she goes to , she would need a head CT and an in person evaluation, she will have her neighbor take her today.Follow up:f/u prnW18.30xA Fall on same level, unspecified, initial encounter Functional Status Description No Information Available Mental Status Description No Information Available Referrals Description No Information Available
--- OUTSIDE RECORDS SUMMARY | 2019-05-22 15:17 | XMS REPORT ---
:1960 Author Organization [facility] Care Team Providers Name Role Phone Unavailable Unavailable Unavailable Problems Condition Condition Condition Status Onset Resolution Last Treating Comments Name Details Category Date Date Treatment Clinician Date Other Other Diagnosis Active 2019-0 Misty postprocedu postprocedu 4-12 Ingrahm ral ral [id number] complicatio complicatio ns and ns and disorders disorders of of digestive digestive system system Unspecified Unspecified Diagnosis Active 2019-0 Misty abdominal abdominal 4-12 Ingrahm pain pain [id number] Incisional Incisional Diagnosis Active 2019-0 Misty hernia hernia 4-12 Ingrahm without without [id number] obstruction obstruction or gangrene or gangrene Diarrhea, Diarrhea, Diagnosis Active Misty unspecified unspecified Ingrm [id number] Dysuria Dysuria Diagnosis Active Misty Shantee.[facility] [id number] Weakness Weakness Diagnosis Active Misty Shantem [id number] Allergies, Adverse Reactions, Alerts Allergy Allergy Status [...]
--- OUTSIDE RECORDS SUMMARY | 2019-05-22 15:17 | XMS REPORT ---
:1960 Author Organization [facility] Care Team Providers Name Role Phone Unavailable Unavailable Unavailable Problems Condition Condition Condition Status Onset Resolution Last Treating Comments Name Details Category Date Date Treatment Clinician Date Other Other Diagnosis Active 2019-0 Misty postprocedu postprocedu 4-12 Ingrahm ral ral [id number] complicatio complicatio ns and ns and disorders disorders of of digestive digestive system system Unspecified Unspecified Diagnosis Active 2019-0 Misty abdominal abdominal 4-12 Ingrahm pain pain [id number] Incisional Incisional Diagnosis Active 2019-0 Misty hernia hernia 4-12 Ingrahm without without [id number] obstruction obstruction or gangrene or gangrene Diarrhea, Diarrhea, Diagnosis Active Misty unspecified unspecified Ingrm [id number] Dysuria Dysuria Diagnosis Active Misty [facility]. [facility] [id number] Weakness Weakness Diagnosis Active Misty Shantem [id number] Allergies, Adverse Reactions, Alerts Allergy Allergy Status [...]
--- OUTSIDE RECORDS SUMMARY | 2019-05-22 15:17 | XMS REPORT ---
:1960 Author Organization [facility] Care Team Providers Name Role Phone Unavailable Unavailable Unavailable Problems Condition Condition Condition Status Onset Resolution Last Treating Comments Name Details Category Date Date Treatment Clinician Date Other Other Diagnosis Active 2019-0 Misty postprocedu postprocedu 4-12 Ingrahm ral ral [id number] complicatio complicatio ns and ns and disorders disorders of of digestive digestive system system Unspecified Unspecified Diagnosis Active 2019-0 Misty abdominal abdominal 4-12 Ingrahm pain pain [id number] Incisional Incisional Diagnosis Active 2019-0 Misty hernia hernia 4-12 Ingrahm without without [id number] obstruction obstruction or gangrene or gangrene Diarrhea, Diarrhea, Diagnosis Active Misty unspecified unspecified Ingrm [id number] Dysuria Dysuria Diagnosis [facility] [id number] Weakness Weakness Diagnosis Active Misty Shantem [id number] Allergies, Adverse Reactions, Alerts Allergy Allergy Status [...]
--- OUTSIDE RECORDS SUMMARY | 2019-05-22 15:17 | XMS REPORT ---
:1960 Author Organization [facility] Care Team Providers Name Role Phone Unavailable Unavailable Unavailable Problems Condition Condition Condition Status Onset Resolution Last Treating Comments Name Details Category Date Date Treatment Clinician Date Other Other Diagnosis Active 2019-0 Misty postprocedu postprocedu 4-12 Ingrahm ral ral [id number] complicatio complicatio ns and ns and disorders disorders of of digestive digestive system system Unspecified Unspecified Diagnosis Active 2019-0 Misty abdominal abdominal 4-12 Ingrahm pain pain [id number] Incisional Incisional Diagnosis Active 2019-0 Misty hernia hernia 4-12 Ingrahm without without [id number] obstruction obstruction or gangrene or gangrene Diarrhea, Diarrhea, Diagnosis Active Misty unspecified unspecified Ingrm [id number] Dysuria Dysuria Diagnosis [facility] [id number] Weakness Weakness Diagnosis Active Misty Shantem [id number] Allergies, Adverse Reactions, Alerts Allergy Allergy Status [...]
--- NOTE | 2019-05-22 15:32 | UC ---
Head Injury HPI - HPI Summary HPI Summary: 58 yo female presents with head injury. She tells me that last night she was on the toilet having a bowel movement when she felt nauseous. She states this is not uncommon for her as she has had issues with constipation since her abdominal surgeries and current large abdominal hernia. During her episode of nausea last night while having a BM, she leaned forward to grab the garbage can in case she had to vomit. In doing this, she became lightheaded and fell forward hitting her forehead and left knee against the floor. No LOC, but she was dazed for about 5 seconds. 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 Last night felt a little dizzy with a headache. Today feels better. No more dizziness, but is still having a mild headache. She called her PCP and had a teleheatlh visit earlier today and was advised to come here to have a CT scan performed - per pt. She also endorses some pain in her left knee with palpation, but has FROM. Denies dizziness, vision changes, new weakness or numbness/tingling, SOB, chest pain, palpitations, vomiting, dysuria, back pain. She lives alone in a senior facility. She uses a cane at baseline, but has been using a walker more frequently lately and is doing this now s/p fall. 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 - History Of Current Complaint Chief Complaint: UCHeadInjury Stated Complaint: FELL HIT HEAD Time Seen by Provider: 05/22/19 15:31 Hx Obtained From: Patient Hx Last Menstrual Period: post Onset/Duration: Sudden Onset Severity Currently: Moderate Severity Initially: Severe Pain Intensity: 5 Pain Scale Used: 0-10 Numeric - Allergies/Home Medications Allergies/Adverse Reactions: Allergies Allergy/AdvReac Type Severity Reaction Status Date / Time No Known Allergies Allergy Verified 05/22/19 15:26 Home Medications: Home Medications traZODone TAB* [Desyrel TAB*] 50 mg PO BEDTIME 03/22/18 [History Confirmed 05/21] Pantoprazole TAB * [Protonix TAB*] 40 mg PO DAILY 06/03/18 [History Confirmed ] Sucralfate TAB* [Carafate*] 1 gm PO QID 06/03/18 [History Confirmed 05/22/19] ALPRAZolam TAB* [Xanax TAB*] 1 tab PO DAILY 05/22/19 [History Confirmed 05/22/19 ] Gabapentin CAP(*) [Neurontin 100 mg CAP(*)] 200 mg PO TID 05/22/19 [History Confirmed 05/22/19] Venlafaxine EXT RELEASE CAP* [Effexor Xr CAP*] 50 mg PO DAILY 05/22/19 [History Confirmed 05/22/19] PMH/Surg Hx/FS Hx/Imm Hx - Additional Past Medical History Additional PMH: CMT Gastric ulcer and abdominal abscess Abdominal hernia - Surgical History Surgical History: Yes Surgery Procedure, Year, and Place: g-tube insertion, ulcer repair,. hiatal hernia. gall bladder removed. pending hernia repair - Family History Known Family History: Positive: Other - colon CA - Social History Lives: Alone Alcohol Use: None Substance Use Type: None Smoking Status (MU): Never Smoked Tobacco - Immunization History Most Recent Influenza Vaccination: none Most Recent Pneumonia Vaccination: none Review of Systems All Other Systems Reviewed And Are Negative: No Constitutional: Positive: Negative Skin: Positive: Other - Abrasion forehead Eyes: Positive: Negative ENT: Positive: Negative Respiratory: Positive: Negative Cardiovascular: Positive: Negative Gastrointestinal: Positive: Negative Genitourinary: Positive: Negative Motor: Positive: Negative Neurovascular: Positive: Negative Musculoskeletal: Positive: Other: - Left knee pain Neurological/Mental Status: Positive: Headache Psychological: Positive: Negative Physical Exam - Summary Physical Exam Summary: GENERAL: NAD. WDWN. No pain distress. SKIN: Superficial abrasion to mid-left forehead. Mildly TTP. Slight edema. Clean. HEENT: Head: AT/NC. No raccoon eyes or battles sign. Eyes: PERRLA. EOM intact. NTTP orbits. Ears: Hearing grossly normal. TMs intact, no bulging, erythema, or edema. No hemotympanum Nose: Nasal mucosa pink and moist. NTTP maxillary and frontal sinus. NECK: Supple. Nontender. FROM CHEST: CTAB. No r/r/w. No accessory muscle use. Breathing comfortably and in no distress. CV: RRR. Pulses intact. Brisk cap refill. MSK: FROM in B/L UEs and LEs with symmetric strength. LEFT KNEE: Mild ttp about anterior inferior knee. FROM. Negative varus/valgus stress, tamiko, A/P drawer. NEURO: A&Ox3. 3 word recall, remote, recent memory, ability to follow 2-step directions, and attention intact. CN: II: Peripheral hicks intact. Vision normal. III, IV, : EOMI. No nystagmus. PERRLA. V: Sensations intact and symmetric. Opens mouth and clenches teeth. VII: No facial asymmetry. Forehead wrinkles. Grins, shuts eyes, frowns, puffs cheeks. VIII: Hearing intact to finger rub. IX, X: Swallows and coughs. Uvula midline. XI: Shrugs shoulders. Turns head against resistance. XII: No tongue deviation [id number] are intact. Normal speech. No facial drooping. PSYCH: Age appropriate behavior. Triage Information Reviewed: Yes Vital Signs: Initial Vital Signs Resp 16 05/22/19 15:13 Vital Signs: Temp Pulse Resp BP Pulse Ox 99.4 F 66 16 130/60 97 05/22/19 15:38 05/22/19 15:38 05/22/19 15:38 05/22/19 15:38 05/22/19 15:38 Vital Signs Reviewed: Yes Diagnostics - Radiology CT brain Radiology Interpretation Completed By: Radiologist Summary of Radiographic Findings: CT of the brain performed without IV contrast. Ventricular structures are midline. No midline shift is noted. The extra-axial spaces are unremarkable. There is no evidence of intracranial mass or hemorrhage. No other high or low density lesions are identified. Mastoid air cells and paranasal sinuses are grossly unremarkable. IMPRESSION: There is no evidence of intracranial mass or hemorrhage noted. Knee XR Radiology Interpretation Completed By: Radiologist Summary of Radiographic Findings: IMPRESSION: Degenerative changes of the patellofemoral joint, medial and lateral compartment. Head Injury Course/Dx - Course Course Of Treatment: CT brain negative as above. Knee XR negative for acute process as above. Her neuro exam is WNL and her symptoms are improved today compared to yesterday. - Strong likelihood of vasovagal episode or simply fell forward while reaching for garbage can. She is not having any neck pain, dizziness, vomiting, numbness , SOB, or chest pain. Head CT negative. - Advised to rest and apply ice to her forehead to decrease pain and swelling. May take tylenol as directed for pain. - F/u with PCP in 3-5 days for recheck - Discussed red flag signs and advised to go to ED if develops severe headache, dizziness, vomiting, numbness, SOB, or chest pain - Differential Dx/Diagnosis Provider Diagnosis: Head injury, Knee pain, Fall Discharge ED - Sign-Out/Discharge Documenting (check all that apply): Patient Departure All imaging exams completed and their final reports reviewed: Yes - Discharge Plan Condition: Stable Disposition: HOME Patient Education Materials: Head Injury (ED) Referrals: Jigna Lopez PA [Primary Care Provider] - 3 Days Additional Instructions: The imaging of your head and knee showed some age related changes, but nothing acute or due to your fall last night. Please rest and take tylenol as directed for discomfort. Apply ice to your forehead to reduce pain and swelling. Call your primary doctor to let them know your results today and for a follow up recheck within 3-5 days. If you develop fever, severe headache, dizziness, vision changes, vomiting, weakness, shortness of breath, or chest pain - please call 911 or go to the ER immediately - Billing Disposition and Condition Condition: STABLE Disposition: Home - Attestation Statements Provider Attestation: I was available for consult. This patient was seen by the DAVID. The patient was not presented to, seen by, or examined by me. -Neela
[2019-05-22 15:39] VITALS: BP 130/60
== END 2019-05-22 16:35 | disposition home or self-care (01) ==
LOC: UCEAST 15:09
DX: S09.90XA Unspecified injury of head, initial encounter (principal); S00.81XA Abrasion of other part of head, initial encounter; M25.562 Pain in left knee; M17.12 Unilateral primary osteoarthritis, left knee; W18.11XA Fall from or off toilet without subsequent striking against object, initial encounter; Y93.89 Activity, other specified; Y92.002 Bathroom of unspecified non-institutional (private) residence as the place of occurrence of the external cause
CPT/HCPCS: 70450; 99211; G0463

== ENCOUNTER 2021-03-10 17:13 | Observation (INO) ==
[2021-03-10] MEDS ORDERED: NS 0.9% 1000 ml BAG 1,000 ML IV ONE (18:06)
[2021-03-10] MEDS ORDERED: Ondansetron 4 mg VIAL 2 MG/ML 2 ml VIAL IV ONE (18:06)
[2021-03-10 18:34] LABS: ABS Lymphocytes 1.2 10^3/ul (1.0-4.8); ABS Monocytes 0.4 10^3/ul (0-0.8); Eosinophil % 0.2 %; Hematocrit 44 % (35-47); Lymphocyte % 15.3 %; Mean Corpuscular HGB Conc 34 g/dL (31-36); Mean Corpuscular Hemoglobin 32 pg (27-31); Mean Corpuscular Volume 93 fL (80-97); Mean Platelet Volume 9.9 fL (7.4-10.4); Platelet Count 217 10^3/uL (150-450); Red Blood Count 4.74 10^6 /uL (3.70-4.87); Red Cell Distribution Width 14 % (10-15); White Blood Count 7.6 10^3/uL (3.5-10.8)
[2021-03-10 18:53] LABS: ALT 14 U/L (7-52); AST 16 U/L (13-39); Albumin/Globulin Ratio 1.2 (1-3); Alkaline Phosphatase 169 U/L (35-149); Anion Gap 12 mmol/L (2-11); Blood Urea Nitrogen 12 mg/dL (6-24); C Reactive Protein 4.15 mg/L (<8.01); CO2 Carbon Dioxide 30 mmol/L (22-32); Calcium 9.7 mg/dL (8.6-10.3); Chloride 100 mmol/L (101-111); Globulin 3.3 g/dL (2-4); Glucose 103 mg/dL (70-100); Lipase < 10 U/L (11.0-82.0); Potassium 3.2 mmol/L (3.5-5.0); Sodium 142 mmol/L (135-145); Total Protein 7.3 g/dL (6.4-8.9); eGFR CKD-EPI 101.8 (>60)
[2021-03-10] MEDS ORDERED: Potassium Chlor 20 meq TAB.ER PO ONE (19:49)
[2021-03-10] MEDS ORDERED: Iohexol 300 (CONTRAST) 10 ML SDV IV ONE (20:12)
[2021-03-10] MEDS ORDERED: Ondansetron ODT 4 mg TAB 4 MG TAB SL ONE (21:52)
[2021-03-10 22:16] LABS: Urine Appearance Clear; Urine Bilirubin Negative (Negative); Urine Blood 2+ (Negative); Urine Color Yellow; Urine Glucose Negative (Negative); Urine Ketones 1+ (Negative); Urine Nitrite Negative (Negative); Urine Protein Negative (Negative); Urine Urobilinogen Negative (Negative)
[2021-03-10 22:32] LABS: Urine Bacteria 3+ (Absent); Urine Red Blood Cell 1+(3-5/hpf) (Absent); Urine Squamous Epithelial Cell Present (Absent); Urine White Blood Cell Trace(0-5/hpf) (Absent)
[2021-03-10 22:34] LABS: Urine Specific Gravity > 1.060 (1.002-1.030)
[2021-03-11] MEDS ORDERED: Prochlorperazine 5 mg/ml 2 ml VIAL (10 mg) IV ONE (01:18)
[2021-03-11] MEDS ORDERED: Metoclopramide 5 MG/ML VIAL (10 mg) IV SLOW PU ONE (02:07)
[2021-03-11] MEDS ORDERED: Ondansetron 4 mg VIAL 2 MG/ML 2 ml VIAL IV PRN (03:19)
[2021-03-11] MEDS ORDERED: Lactated Ringers 1000 ml BAG 1,000 ML IV SCH ×2 (03:32→04:00)
[2021-03-11] MEDS: KCL 20 MEQ/100 ML IVPREMIX 20 MEQ/100 ML BAG IV SCH ×3 (03:53→17:40)
[2021-03-11] MEDS ORDERED: Scopolamine 1 mg/72hr PATCH TRANSDERM SCH (04:00)
[2021-03-11] MEDS ORDERED: Pantoprazole VIAL 40 MG VIAL IV SCH (04:00)
[2021-03-11 05:22] LABS: Rapid COVID-19 Molecular Undetected (Undetected)
[2021-03-11] MEDS: Enoxaparin 100 MG/ML SYR SUBCUT SCH ×3 (06:56→22:02)
[2021-03-11] MEDS ORDERED: Midazolam 10 mg/10 ml VIAL 1 mg/ml 10 ml VIAL (10 mg) ONE (13:43)
[2021-03-11] MEDS ORDERED: fentaNYL 100 mcg/2 ml 50 MCG/ML VIAL ONE (13:43)
[2021-03-11] MEDS: Metoclopramide LIQUID 1 mg/ml 10 ml ORAL.SOLN (10 mg) PO SCH (17:44)
[2021-03-11] MEDS: Sucralfate 1 gm SUSP 1 GM/10 ML UDC PO SCH ×2 (17:45→20:36)
[2021-03-11] MEDS: Pantoprazole VIAL 40 MG VIAL IV SCH (20:36)
[2021-03-12] MEDS: Enoxaparin 100 MG/ML SYR SUBCUT SCH (06:35)
[2021-03-12 06:56] LABS: Calcium 8.8 mg/dL (8.6-10.3); Magnesium 1.6 mg/dL (1.9-2.7); Potassium 3.5 mmol/L (3.5-5.0)
[2021-03-12] MEDS ORDERED: Magnesium Sulfate 2 gm BAG 2 GM/50 ML BAG IVPB ONE (07:12)
[2021-03-12] MEDS: Sucralfate 1 gm SUSP 1 GM/10 ML UDC PO SCH ×4 (07:52→20:02)
[2021-03-12] MEDS: Metoclopramide LIQUID 1 mg/ml 10 ml ORAL.SOLN (10 mg) PO SCH ×2 (09:54→18:00)
[2021-03-12] MEDS: Pantoprazole VIAL 40 MG VIAL IV SCH ×2 (09:57→20:03)
[2021-03-12] MEDS ORDERED: cefTRIAXone 1 gm/50 mL NS BAG 1 GM/50 ML BAG IVPB SCH (15:00)
[2021-03-13] MEDS: Pantoprazole VIAL 40 MG VIAL IV SCH (08:32)
[2021-03-13] MEDS: Sucralfate 1 gm SUSP 1 GM/10 ML UDC PO SCH ×3 (08:32→11:22)
[2021-03-13] MEDS: Metoclopramide LIQUID 1 mg/ml 10 ml ORAL.SOLN (10 mg) PO SCH (08:32)
[2021-03-13] MEDS ORDERED: Amoxicillin/Clavul 875/125 TAB (Augmentin 875 tab) PO SCH (10:00)
[2021-03-13 11:38] VITALS: BP 108/74
[2021-03-14] MEDS ORDERED: Scopolamine PATCH Remove NOTE PATCH OFF SCH (04:00)
== END 2021-03-13 14:11 | disposition home or self-care (01) ==
LOC: EDHOLD 17:13 → ED 17:13 → SUATTDRO 03-11 03:15 → EDHOLD 03-11 08:38 → SSU 03-11 09:52
PROVIDERS: ADMIT Internal Medicine; ATTEND Family Medicine

== ENCOUNTER 2022-01-10 23:13 | Inpatient (IN) ==
[2022-01-11] MEDS ORDERED: Ondansetron 4 mg VIAL 2 MG/ML 2 ml VIAL IV ONE ×3 (00:04→15:16)
[2022-01-11 00:10] LABS: ABS Eosinophils 0.1 10^3/ul (0-0.6); ABS Lymphocytes 1.1 10^3/ul (1.0-4.8); ABS Monocytes 0.5 10^3/ul (0-0.8); ABS Neutrophils 5.4 10^3/ul (1.5-7.7); Eosinophil % 1.1 %; Hematocrit 28 % (35-47); Hemoglobin 8.5 g/dL (12.0-16.0); Lymphocyte % 15.1 %; Mean Corpuscular HGB Conc 31 g/dL (31-36); Mean Corpuscular Hemoglobin 24 pg (27-31); Mean Corpuscular Volume 78 fL (80-97); Mean Platelet Volume 8.9 fL (7.4-10.4); Platelet Count 367 10^3/uL (150-450); Red Blood Count 3.53 10^6 /uL (3.70-4.87); Red Cell Distribution Width 17 % (10-15)
[2022-01-11 00:48] LABS: Albumin 3.4 g/dL (3.2-5.2); Anion Gap 8 mmol/L (2-11); Blood Urea Nitrogen 13 mg/dL (6-24); CO2 Carbon Dioxide 29 mmol/L (22-32); Calcium 9.2 mg/dL (8.6-10.3); Chloride 100 mmol/L (101-111); Glucose 136 mg/dL (70-100); Potassium 3.7 mmol/L (3.5-5.0); Sodium 137 mmol/L (135-145); Total Protein 6.5 g/dL (6.4-8.9); eGFR CKD-EPI 111.8 (>60)
[2022-01-11 00:49] LABS: ALT 18 U/L (7-52); AST 22 U/L (13-39); Albumin/Globulin Ratio 1.1 (1-3); Alkaline Phosphatase 106 U/L (35-149); C Reactive Protein 5.26 mg/L (<8.01); Globulin 3.1 g/dL (2-4); Lipase < 10 U/L (11.0-82.0)
[2022-01-11] MEDS: Acetaminophen IV 1 GM/100ML 1,000 MG/100 ML BAG IV PRN ×2 (02:00→11:50)
[2022-01-11] MEDS ORDERED: Droperidol 5 MG/2 ML 2 ML VIAL IV ONE (04:16)
[2022-01-11 06:54] LABS: Urine Appearance Cloudy; Urine Bilirubin Negative (Negative); Urine Blood Negative (Negative); Urine Color Amber; Urine Glucose Negative (Negative); Urine Ketones Trace (Negative); Urine Nitrite Negative (Negative); Urine Protein 1+(30 mg/dL) (Negative); Urine Specific Gravity 1.035 (1.002-1.030); Urine Urobilinogen Positive (Negative)
[2022-01-11 07:01] LABS: Urine Bacteria 1+ (Absent); Urine Red Blood Cell 2+(6-10/hpf) (Absent); Urine Squamous Epithelial Cell Present (Absent); Urine White Blood Cell Trace(0-5/hpf) (Absent)
[2022-01-11] MEDS: D5LR 1000 ml BAG 1,000 ML IV SCH ×2 (07:29→14:38)
[2022-01-11] MEDS ORDERED: Iohexol 350 (CONTRAST) 500 ML MDV IV ONE (10:49)
[2022-01-11] MEDS: Enoxaparin 40 MG/0.4 ML SYR SUBCUT SCH (20:21)
[2022-01-11] MEDS: Pantoprazole VIAL 40 MG VIAL IV SCH (20:22)
[2022-01-11] MEDS: Scopolamine 1 mg/72hr PATCH TRANSDERM SCH (20:22)
[2022-01-12] MEDS ORDERED: NS 0.9% 1000 ml BAG 1,000 ML IV SCH (09:00)
[2022-01-12] MEDS: Ondansetron 4 mg VIAL 2 MG/ML 2 ml VIAL IV PRN ×2 (09:19→22:01)
[2022-01-12] MEDS ORDERED: ERYTHROMYCIN LACTOBIONATE IV PRN (12:55)
[2022-01-12] MEDS ORDERED: D5LR 20 MEQ KCL 1000 ml BAG 1,000 ML IV SCH (13:00)
[2022-01-12] MEDS ORDERED: ERYTHROMYCIN LACTOBIONATE IVPB PRN (14:17)
[2022-01-12] MEDS ORDERED: NS 0.9% IVPB PRN (14:17)
[2022-01-12] MEDS: TPN 24 HR with Dextrose 50% Water 500 ML, Amino Acid Infusion 10% 1,000 ML, Lipid Emuls... CENT\\PICC SCH (17:56)
[2022-01-12] MEDS: Pantoprazole VIAL 40 MG VIAL IV SCH (22:02)
[2022-01-12] MEDS: Enoxaparin 40 MG/0.4 ML SYR SUBCUT SCH (22:02)
[2022-01-13 05:49] LABS: ABS Lymphocytes 1.2 10^3/ul (1.0-4.8); ABS Monocytes 0.7 10^3/ul (0-0.8); ABS Neutrophils 5.5 10^3/ul (1.5-7.7); Eosinophil % 0.4 %; Hematocrit 24 % (35-47); Hemoglobin 7.8 g/dL (12.0-16.0); Lymphocyte % 15.9 %; Mean Corpuscular HGB Conc 32 g/dL (31-36); Mean Corpuscular Hemoglobin 25 pg (27-31); Mean Corpuscular Volume 78 fL (80-97); Mean Platelet Volume 8.7 fL (7.4-10.4); Platelet Count 305 10^3/uL (150-450); Red Blood Count 3.11 10^6 /uL (3.70-4.87); Red Cell Distribution Width 17 % (10-15); White Blood Count 7.4 10^3/uL (3.5-10.8)
[2022-01-13 05:54] LABS: INR 1.12 (0.89-1.11)
[2022-01-13 06:12] LABS: ALT 13 U/L (7-52); AST 11 U/L (13-39); Albumin 3.1 g/dL (3.2-5.2); Albumin/Globulin Ratio 1.2 (1-3); Alkaline Phosphatase 91 U/L (35-149); Anion Gap 9 mmol/L (2-11); Blood Urea Nitrogen 14 mg/dL (6-24); CO2 Carbon Dioxide 29 mmol/L (22-32); Calcium 8.9 mg/dL (8.6-10.3); Chloride 103 mmol/L (101-111); Cholesterol 94 mg/dL; Globulin 2.6 g/dL (2-4); Glucose 189 mg/dL (70-100); Magnesium 1.4 mg/dL (1.9-2.7); Potassium 3.7 mmol/L (3.5-5.0); Prealbumin 14 mg/dL (18-38); Sodium 141 mmol/L (135-145); Total Iron Binding Capacity 365 mcg/dL (250-450); Total Protein 5.7 g/dL (6.4-8.9); Transferrin 261 mg/dL (203-362); Triglycerides 111 mg/dL; eGFR CKD-EPI 110.5 (>60)
[2022-01-13 06:17] LABS: % Iron Saturation 5 % (15-55); Iron < 20 ug/dL (50-212); Unsaturated Iron Binding 345 ug/dL
[2022-01-13] MEDS: Ondansetron 4 mg VIAL 2 MG/ML 2 ml VIAL IV PRN ×3 (07:45→18:31)
[2022-01-13] MEDS ORDERED: Ferric Gluconate IV 250 MG in NS 0.9% 100 ml BAG 200 ML IVPB SCH (09:00)
[2022-01-13] MEDS ORDERED: Dextrose 50% Syringe 50 ml 25 GM/50 ML SYRINGE IV PUSH PRN (09:58)
[2022-01-13] MEDS ORDERED: Magnesium Sulfate IV 3 GM in NS 0.9% 100 ml BAG 100 ML IVPB ONE (10:30)
[2022-01-13] MEDS ORDERED: Ferric Gluconate IV 250 MG in NS 0.9% 250 ml 200 ML IVPB SCH (10:41)
[2022-01-13] MEDS: Ferric Gluconate IV 250 MG in NS 0.9% 250 ml 200 ML IVPB SCH (12:52)
[2022-01-13] MEDS ORDERED: Influenza vaccine *QUAD* *2022-23* 0.5 ML SYRINGE IM ONE (15:00)
[2022-01-13] MEDS: TPN 24 HR with Dextrose 50% Water 500 ML, Amino Acid Infusion 10% 1,000 ML, Lipid Emuls... CENT\\PICC SCH (18:26)
[2022-01-13] MEDS: Pantoprazole VIAL 40 MG VIAL IV SCH (19:54)
[2022-01-13] MEDS: Metoclopramide 5 MG/ML VIAL (10 mg) IV SLOW PU PRN (19:54)
[2022-01-14] MEDS: Enoxaparin 40 MG/0.4 ML SYR SUBCUT SCH ×2 (00:25→20:24)
[2022-01-14] MEDS: Metoclopramide 5 MG/ML VIAL (10 mg) IV SLOW PU PRN ×2 (06:23→20:29)
[2022-01-14] MEDS ORDERED: Piperacillin/Tazobac ADVAN 3.375 GM in NS 0.9% 100 ml BAG 100 ML IV ONE (08:05)
[2022-01-14] MEDS: Ondansetron 4 mg VIAL 2 MG/ML 2 ml VIAL IV PRN ×2 (08:09→17:09)
[2022-01-14] MEDS ORDERED: Vancomycin per Pharmacy 1 EA NOTE FOLLOW UP SCH (09:00)
[2022-01-14] MEDS ORDERED: Vancomycin 1,250 MG in NS 0.9% 250 ml 250 ML IVPB ONE (09:00)
[2022-01-14] MEDS ORDERED: Zosyn per Pharmacy NOTE FOLLOW UP SCH (09:00)
[2022-01-14 10:59] LABS: Albumin 2.9 g/dL (3.2-5.2); Albumin/Globulin Ratio 1.2 (1-3); Calcium 9.1 mg/dL (8.6-10.3); Globulin 2.4 g/dL (2-4); Magnesium 1.9 mg/dL (1.9-2.7); Phosphorus 4.1 mg/dL (2.5-5.0); Total Bilirubin 0.5 mg/dL (0.2-1.0); Total Protein 5.3 g/dL (6.4-8.9); eGFR CKD-EPI 106.9 (>60)
[2022-01-14 11:27] LABS: Potassium 6.5 mmol/L (3.5-5.0)
[2022-01-14 12:44] LABS: Albumin 3.1 g/dL (3.2-5.2); Albumin/Globulin Ratio 1.2 (1-3); Calcium 8.6 mg/dL (8.6-10.3); Globulin 2.6 g/dL (2-4); Magnesium 1.5 mg/dL (1.9-2.7); Phosphorus 2.4 mg/dL (2.5-5.0); Potassium 3.7 mmol/L (3.5-5.0); Total Bilirubin 0.3 mg/dL (0.2-1.0); Total Protein 5.7 g/dL (6.4-8.9); eGFR CKD-EPI 114.8 (>60)
[2022-01-14] MEDS ORDERED: Magnesium Sulfate IV 3 GM in NS 0.9% 100 ml BAG 100 ML IVPB ONE (13:01)
[2022-01-14] MEDS: ZOSYN 3.375 GM Q6H - Intermittant 30 min Infusion IV SCH ×2 (14:03→20:19)
[2022-01-14] MEDS: TPN 24 HR with Dextrose 50% Water 500 ML, Amino Acid Infusion 10% 1,000 ML, Lipid Emuls... CENT\\PICC SCH (18:13)
[2022-01-14] MEDS: Vancomycin 1,250 MG in NS 0.9% 250 ml 250 ML IVPB SCH ×2 (18:21→23:52)
[2022-01-14] MEDS: Ferric Gluconate IV 250 MG in NS 0.9% 250 ml 200 ML IVPB SCH (19:15)
[2022-01-14] MEDS: Pantoprazole VIAL 40 MG VIAL IV SCH (20:20)
[2022-01-14] MEDS: Scopolamine 1 mg/72hr PATCH TRANSDERM SCH (20:22)
[2022-01-14] MEDS ORDERED: Ferric Gluconate IV 250 MG in NS 0.9% 250 ml 200 ML IVPB SCH (21:00)
[2022-01-14] MEDS: Acetaminophen IV 1 GM/100ML 1,000 MG/100 ML BAG IV PRN (21:11)
[2022-01-15] MEDS: ZOSYN 3.375 GM Q6H - Intermittant 30 min Infusion IV SCH ×4 (02:05→21:24)
[2022-01-15] MEDS ORDERED: Vancomycin Trough Check NOTE FOLLOW UP ONE (08:30)
[2022-01-15 09:11] LABS: ABS Eosinophils 0.1 10^3/ul (0-0.6); ABS Lymphocytes 0.7 10^3/ul (1.0-4.8); ABS Monocytes 0.5 10^3/ul (0-0.8); ABS Neutrophils 5.6 10^3/ul (1.5-7.7); Eosinophil % 1.9 %; Hematocrit 23 % (35-47); Hemoglobin 7.2 g/dL (12.0-16.0); Lymphocyte % 9.8 %; Mean Corpuscular HGB Conc 31 g/dL (31-36); Mean Corpuscular Hemoglobin 24 pg (27-31); Mean Corpuscular Volume 78 fL (80-97); Mean Platelet Volume 8.4 fL (7.4-10.4); Platelet Count 227 10^3/uL (150-450); Red Blood Count 2.98 10^6 /uL (3.70-4.87); Red Cell Distribution Width 17 % (10-15); White Blood Count 6.9 10^3/uL (3.5-10.8)
[2022-01-15] MEDS: Ondansetron 4 mg VIAL 2 MG/ML 2 ml VIAL IV PRN ×3 (09:11→22:47)
[2022-01-15 09:44] LABS: ALT 12 U/L (7-52); AST 12 U/L (13-39); Albumin 2.7 g/dL (3.2-5.2); Albumin/Globulin Ratio 1.1 (1-3); Alkaline Phosphatase 71 U/L (35-149); Anion Gap 6 mmol/L (2-11); Blood Urea Nitrogen 14 mg/dL (6-24); CO2 Carbon Dioxide 25 mmol/L (22-32); Chloride 108 mmol/L (101-111); Cholesterol 71 mg/dL; Globulin 2.4 g/dL (2-4); Glucose 117 mg/dL (70-100); Magnesium 1.5 mg/dL (1.9-2.7); Phosphorus 2.5 mg/dL (2.5-5.0); Potassium 3.8 mmol/L (3.5-5.0); Prealbumin 11 mg/dL (18-38); Sodium 139 mmol/L (135-145); Total Protein 5.1 g/dL (6.4-8.9); Triglycerides 124 mg/dL
[2022-01-15 09:59] LABS: eGFR CKD-EPI 119.1 (>60)
[2022-01-15] MEDS: Vancomycin 1,250 MG in NS 0.9% 250 ml 250 ML IVPB SCH ×2 (10:26→18:59)
[2022-01-15] MEDS ORDERED: Alteplase (CATHFLO) 2 MG VIAL IV ONE (12:11)
[2022-01-15] MEDS ORDERED: Magnesium Sulfate IV 3 GM in NS 0.9% 100 ml BAG 100 ML IVPB ONE (14:02)
[2022-01-15] MEDS: TPN 24 HR with Dextrose 50% Water 500 ML, Amino Acid Infusion 10% 1,000 ML, Lipid Emuls... CENT\\PICC SCH (17:29)
[2022-01-15] MEDS: Pantoprazole VIAL 40 MG VIAL IV SCH (21:24)
[2022-01-15] MEDS: Enoxaparin 40 MG/0.4 ML SYR SUBCUT SCH (21:24)
[2022-01-16] MEDS: Vancomycin 1,250 MG in NS 0.9% 250 ml 250 ML IVPB SCH ×3 (00:30→17:12)
[2022-01-16] MEDS: Metoclopramide 5 MG/ML VIAL (10 mg) IV SLOW PU PRN ×2 (00:35→14:04)
[2022-01-16] MEDS: ZOSYN 3.375 GM Q6H - Intermittant 30 min Infusion IV SCH ×4 (02:22→21:21)
[2022-01-16 04:36] LABS: ABS Eosinophils 0.2 10^3/ul (0-0.6); ABS Lymphocytes 1.1 10^3/ul (1.0-4.8); ABS Monocytes 0.6 10^3/ul (0-0.8); ABS Neutrophils 3.9 10^3/ul (1.5-7.7); Eosinophil % 3.9 %; Hematocrit 24 % (35-47); Hemoglobin 7.2 g/dL (12.0-16.0); Lymphocyte % 19.4 %; Mean Corpuscular HGB Conc 31 g/dL (31-36); Mean Corpuscular Hemoglobin 24 pg (27-31); Mean Corpuscular Volume 79 fL (80-97); Mean Platelet Volume 8.9 fL (7.4-10.4); Platelet Count 233 10^3/uL (150-450); Red Blood Count 2.96 10^6 /uL (3.70-4.87); Red Cell Distribution Width 17 % (10-15); White Blood Count 5.9 10^3/uL (3.5-10.8)
[2022-01-16 04:59] LABS: Albumin 2.6 g/dL (3.2-5.2); Calcium 7.7 mg/dL (8.6-10.3); Globulin 2.5 g/dL (2-4); Magnesium 1.6 mg/dL (1.9-2.7); Total Bilirubin 0.2 mg/dL (0.2-1.0); Total Protein 5.1 g/dL (6.4-8.9); eGFR CKD-EPI 113.3 (>60)
[2022-01-16] MEDS: Ondansetron 4 mg VIAL 2 MG/ML 2 ml VIAL IV PRN ×2 (07:40→21:21)
[2022-01-16] MEDS ORDERED: Magnesium Sulfate IV 3 GM in NS 0.9% 100 ml BAG 100 ML IVPB ONE (08:42)
[2022-01-16] MEDS: TPN 24 HR with Dextrose 50% Water 500 ML, Amino Acid Infusion 10% 1,000 ML, Lipid Emuls... CENT\\PICC SCH (17:07)
[2022-01-16] MEDS: Enoxaparin 40 MG/0.4 ML SYR SUBCUT SCH (21:21)
[2022-01-16] MEDS: Pantoprazole VIAL 40 MG VIAL IV SCH (21:21)
[2022-01-17] MEDS: Vancomycin 1,250 MG in NS 0.9% 250 ml 250 ML IVPB SCH ×3 (01:04→17:12)
[2022-01-17] MEDS: ZOSYN 3.375 GM Q6H - Intermittant 30 min Infusion IV SCH ×3 (03:35→14:28)
[2022-01-17 05:11] LABS: ABS Eosinophils 0.2 10^3/ul (0-0.6); ABS Lymphocytes 1.1 10^3/ul (1.0-4.8); ABS Monocytes 0.5 10^3/ul (0-0.8); ABS Neutrophils 4.3 10^3/ul (1.5-7.7); Eosinophil % 3.9 %; Hematocrit 23 % (35-47); Lymphocyte % 17.5 %; Mean Corpuscular HGB Conc 31 g/dL (31-36); Mean Corpuscular Hemoglobin 24 pg (27-31); Mean Corpuscular Volume 79 fL (80-97); Mean Platelet Volume 9.2 fL (7.4-10.4); Platelet Count 225 10^3/uL (150-450); Red Blood Count 2.89 10^6 /uL (3.70-4.87); Red Cell Distribution Width 17 % (10-15); White Blood Count 6.2 10^3/uL (3.5-10.8)
[2022-01-17 06:05] LABS: Albumin 2.6 g/dL (3.2-5.2); Albumin/Globulin Ratio 1.1 (1-3); Calcium 8.1 mg/dL (8.6-10.3); Globulin 2.4 g/dL (2-4); Magnesium 1.6 mg/dL (1.9-2.7); Phosphorus 3.6 mg/dL (2.5-5.0); Potassium 3.9 mmol/L (3.5-5.0); Total Bilirubin 0.3 mg/dL (0.2-1.0); eGFR CKD-EPI 106.9 (>60)
[2022-01-17] MEDS: Pantoprazole VIAL 40 MG VIAL IV SCH ×2 (08:43→21:24)
[2022-01-17] MEDS ORDERED: Trimethobenzamide *IM* 100 mg/ml 2 ml VIAL (200 mg) IM PRN (16:08)
[2022-01-17] MEDS: TPN 24 HR with Dextrose 50% Water 500 ML, Amino Acid Infusion 10% 1,000 ML, Lipid Emuls... CENT\\PICC SCH (17:12)
[2022-01-17] MEDS ORDERED: Magnesium Sulfate IV 3 GM in NS 0.9% 100 ml BAG 100 ML IVPB ONE (17:27)
[2022-01-17] MEDS: Scopolamine 1 mg/72hr PATCH TRANSDERM SCH (21:25)
[2022-01-17] MEDS: Enoxaparin 40 MG/0.4 ML SYR SUBCUT SCH (21:25)
[2022-01-17] MEDS: Ondansetron 4 mg VIAL 2 MG/ML 2 ml VIAL IV PRN (22:14)
[2022-01-18] MEDS: ZOSYN 3.375 GM Q6H - Intermittant 30 min Infusion IV SCH ×5 (00:19→19:59)
[2022-01-18] MEDS: Metoclopramide 5 MG/ML VIAL (10 mg) IV SLOW PU PRN ×3 (00:56→16:53)
[2022-01-18] MEDS ORDERED: Alteplase (CATHFLO) 2 MG VIAL IV ONE ×2 (01:17→15:16)
[2022-01-18] MEDS: Vancomycin 1,250 MG in NS 0.9% 250 ml 250 ML IVPB SCH ×3 (02:37→18:05)
[2022-01-18] MEDS: Nystatin TOP POWDER 15 GM BTL TOPICAL SCH ×3 (02:38→21:27)
[2022-01-18] MEDS: Ondansetron 4 mg VIAL 2 MG/ML 2 ml VIAL IV PRN (05:53)
[2022-01-18 06:27] LABS: Hematocrit 25 % (35-47); Hemoglobin 7.8 g/dL (12.0-16.0); Mean Corpuscular HGB Conc 32 g/dL (31-36); Mean Corpuscular Hemoglobin 25 pg (27-31); Mean Corpuscular Volume 80 fL (80-97); Mean Platelet Volume 9.4 fL (7.4-10.4); Platelet Count 242 10^3/uL (150-450); Red Blood Count 3.09 10^6 /uL (3.70-4.87); Red Cell Distribution Width 17 % (10-15); White Blood Count 8.1 10^3/uL (3.5-10.8)
[2022-01-18 06:57] LABS: Calcium 8.3 mg/dL (8.6-10.3); Magnesium 2.1 mg/dL (1.9-2.7); Potassium 4.2 mmol/L (3.5-5.0); eGFR CKD-EPI 99.2 (>60)
[2022-01-18] MEDS: Pantoprazole VIAL 40 MG VIAL IV SCH ×2 (10:00→21:27)
[2022-01-18] MEDS: TPN 24 HR with Dextrose 50% Water 500 ML, Amino Acid Infusion 10% 1,000 ML, Lipid Emuls... CENT\\PICC SCH (18:27)
[2022-01-18 19:36] LABS: Rapid COVID-19 Molecular Undetected (Undetected)
[2022-01-18] MEDS: Enoxaparin 40 MG/0.4 ML SYR SUBCUT SCH (21:27)
[2022-01-18 21:30] VITALS: BP 118/76
[2022-01-19] MEDS ORDERED: Vancomycin Trough Check NOTE FOLLOW UP ONE (08:30)
== END 2022-01-18 22:07 | disposition short-term general hospital (02) | DRG 193 ==
LOC: ED 23:13 → EDHOLD 01-12 12:42 → SUATTDRO 01-12 12:42 → EDHOLD 01-12 21:16 → MED 01-12 21:26
PROVIDERS: ADMIT Hospitalist; ATTEND Hospitalist

== ENCOUNTER 2022-02-10 16:40 | Inpatient (IN) ==
[2022-02-10] MEDS ORDERED: TPN 24 HR with Dextrose 50% Water 500 ML, Amino Acid Infusion 10% 850 ML, Sterile Water... CENT\\PICC SCH (17:00)
[2022-02-10 20:14] LABS: ABS Eosinophils 0.1 10^3/ul (0-0.6); ABS Lymphocytes 1.1 10^3/ul (1.0-4.8); ABS Monocytes 0.4 10^3/ul (0-0.8); ABS Neutrophils 3.6 10^3/ul (1.5-7.7); Eosinophil % 2.5 %; Hematocrit 28 % (35-47); Hemoglobin 8.9 g/dL (12.0-16.0); Lymphocyte % 20.7 %; Mean Corpuscular HGB Conc 32 g/dL (31-36); Mean Corpuscular Hemoglobin 27 pg (27-31); Mean Corpuscular Volume 86 fL (80-97); Nucleated Red Blood Cells % 0.1; Platelet Count 181 10^3/uL (150-450); Red Blood Count 3.26 10^6 /uL (3.70-4.87); Red Cell Distribution Width 24 % (10-15); White Blood Count 5.2 10^3/uL (3.5-10.8)
[2022-02-10 20:59] LABS: Calcium 8.3 mg/dL (8.6-10.3); Creatinine, Serum 0.56 mg/dL (0.51-0.95); Magnesium 1.5 mg/dL (1.9-2.7); Phosphorus 4.8 mg/dL (2.5-5.0); Potassium 4.2 mmol/L (3.5-5.0); eGFR CKD-EPI 102.5 (>60)
[2022-02-10] MEDS: Enoxaparin 40 MG/0.4 ML SYR SUBCUT SCH (22:05)
[2022-02-10] MEDS: Prochlorperazine 5 mg/ml 2 ml VIAL (10 mg) IV SCH (22:05)
[2022-02-10] MEDS ORDERED: Alteplase (CATHFLO) 2 MG VIAL IV ONE (23:03)
[2022-02-11] MEDS: Prochlorperazine 5 mg/ml 2 ml VIAL (10 mg) IV SCH ×4 (03:38→19:48)
[2022-02-11] MEDS ORDERED: Ondansetron 4 mg VIAL 2 MG/ML 2 ml VIAL IV ONE (04:12)
[2022-02-11 06:39] LABS: Albumin 2.6 g/dL (3.2-5.2); Albumin/Globulin Ratio 0.9 (1-3); Calcium 8.3 mg/dL (8.6-10.3); Creatinine, Serum 0.56 mg/dL (0.51-0.95); Globulin 2.8 g/dL (2-4); Magnesium 1.4 mg/dL (1.9-2.7); Phosphorus 4.6 mg/dL (2.5-5.0); Potassium 4.1 mmol/L (3.5-5.0); Total Bilirubin 0.3 mg/dL (0.2-1.0); Total Protein 5.4 g/dL (6.4-8.9); eGFR CKD-EPI 102.5 (>60)
[2022-02-11] MEDS ORDERED: Magnesium Sulf 4 GM/100 ML IV 4,000 MG/100 ML BAG IVPB ONE (08:17)
[2022-02-11] MEDS: Venlafaxine XR 75 mg PO SCH (10:15)
[2022-02-11] MEDS ORDERED: TPN 24 HR with Dextrose 50% Water 500 ML, Amino Acid Infusion 10% 850 ML, Sterile Water... CENT\\PICC SCH (17:00)
[2022-02-11] MEDS: Enoxaparin 40 MG/0.4 ML SYR SUBCUT SCH (17:19)
[2022-02-12] MEDS: Prochlorperazine 5 mg/ml 2 ml VIAL (10 mg) IV SCH ×4 (01:56→20:00)
[2022-02-12] MEDS: Nystatin TOP POWDER 15 GM BTL TOPICAL SCH ×4 (05:26→20:04)
[2022-02-12 06:01] LABS: Albumin 2.6 g/dL (3.2-5.2); Calcium 8.2 mg/dL (8.6-10.3); Creatinine, Serum 0.57 mg/dL (0.51-0.95); Globulin 2.6 g/dL (2-4); Magnesium 1.6 mg/dL (1.9-2.7); Phosphorus 3.8 mg/dL (2.5-5.0); Potassium 4.4 mmol/L (3.5-5.0); Total Bilirubin 0.2 mg/dL (0.2-1.0); Total Protein 5.2 g/dL (6.4-8.9)
[2022-02-12] MEDS ORDERED: Magnesium Sulfate IV 3 GM in NS 0.9% 100 ml BAG 100 ML IVPB ONE (08:11)
[2022-02-12] MEDS: Venlafaxine XR 75 mg PO SCH (10:01)
[2022-02-12] MEDS ORDERED: TPN 24 HR with Dextrose 40% Water 625 ML, Amino Acid Infusion 10% 850 ML, Sterile Water... CENT\\PICC SCH (17:00)
[2022-02-12] MEDS: Enoxaparin 40 MG/0.4 ML SYR SUBCUT SCH (17:14)
[2022-02-13] MEDS: Prochlorperazine 5 mg/ml 2 ml VIAL (10 mg) IV SCH ×4 (03:14→20:06)
[2022-02-13 05:57] LABS: Albumin 2.7 g/dL (3.2-5.2); Calcium 8.5 mg/dL (8.6-10.3); Creatinine, Serum 0.54 mg/dL (0.51-0.95); Globulin 2.6 g/dL (2-4); Magnesium 1.6 mg/dL (1.9-2.7); Phosphorus 3.6 mg/dL (2.5-5.0); Potassium 4.8 mmol/L (3.5-5.0); Total Bilirubin 0.2 mg/dL (0.2-1.0); Total Protein 5.3 g/dL (6.4-8.9); eGFR CKD-EPI 103.4 (>60)
[2022-02-13] MEDS ORDERED: Magnesium Sulfate 2 gm BAG 2 GM/50 ML BAG IVPB ONE (08:21)
[2022-02-13] MEDS: Nystatin TOP POWDER 15 GM BTL TOPICAL SCH ×3 (09:33→21:24)
[2022-02-13] MEDS: Venlafaxine XR 75 mg PO SCH (09:33)
[2022-02-13] MEDS ORDERED: TPN 24 HR with Dextrose 40% Water 625 ML, Amino Acid Infusion 10% 850 ML, Sterile Water... CENT\\PICC SCH (17:00)
[2022-02-13] MEDS: Enoxaparin 40 MG/0.4 ML SYR SUBCUT SCH (18:17)
[2022-02-14] MEDS: Prochlorperazine 5 mg/ml 2 ml VIAL (10 mg) IV SCH ×4 (02:00→20:49)
[2022-02-14 05:56] LABS: Calcium 8.8 mg/dL (8.6-10.3); Creatinine, Serum 0.55 mg/dL (0.51-0.95); Globulin 2.9 g/dL (2-4); Magnesium 1.6 mg/dL (1.9-2.7); Phosphorus 4.1 mg/dL (2.5-5.0); Potassium 4.8 mmol/L (3.5-5.0); Total Bilirubin 0.2 mg/dL (0.2-1.0); Total Protein 5.9 g/dL (6.4-8.9); eGFR CKD-EPI 102.9 (>60)
[2022-02-14] MEDS ORDERED: Magnesium Sulfate 2 gm BAG 2 GM/50 ML BAG IVPB ONE (08:35)
[2022-02-14] MEDS: Venlafaxine XR 75 mg PO SCH (09:52)
[2022-02-14] MEDS: Nystatin TOP POWDER 15 GM BTL TOPICAL SCH ×3 (13:16→20:52)
[2022-02-14] MEDS ORDERED: Polyethylene Glycol 3350 17 GM PACKET PO PRN (16:00)
[2022-02-14] MEDS ORDERED: TPN 24 HR with Dextrose 40% Water 625 ML, Amino Acid Infusion 10% 850 ML, Sterile Water... CENT\\PICC SCH (17:00)
[2022-02-14] MEDS: Enoxaparin 40 MG/0.4 ML SYR SUBCUT SCH (17:52)
[2022-02-14] MEDS: Ondansetron 4 mg VIAL 2 MG/ML 2 ml VIAL IV PRN ×2 (17:52→23:29)
[2022-02-14] MEDS: Senna TAB 8.6 mg TAB PO PRN (20:59)
[2022-02-15] MEDS: Prochlorperazine 5 mg/ml 2 ml VIAL (10 mg) IV SCH ×4 (01:54→19:37)
[2022-02-15] MEDS ORDERED: Ondansetron 4 mg VIAL 2 MG/ML 2 ml VIAL IV ONE (03:11)
[2022-02-15] MEDS: Ondansetron 4 mg VIAL 2 MG/ML 2 ml VIAL IV PRN ×2 (03:16→22:49)
[2022-02-15] MEDS ORDERED: Trimethobenzamide *IM* 100 mg/ml 2 ml VIAL (200 mg) IM ONE (08:43)
[2022-02-15 09:08] LABS: Hematocrit 31 % (35-47); Hemoglobin 10.1 g/dL (12.0-16.0); Mean Corpuscular HGB Conc 32 g/dL (31-36); Mean Corpuscular Hemoglobin 27 pg (27-31); Mean Corpuscular Volume 83 fL (80-97); Mean Platelet Volume 9.1 fL (7.4-10.4); Platelet Count 267 10^3/uL (150-450); Red Blood Count 3.74 10^6 /uL (3.70-4.87); Red Cell Distribution Width 24 % (10-15); White Blood Count 7.5 10^3/uL (3.5-10.8)
[2022-02-15 09:35] LABS: ABS Basophils 0.1 10^3/ul (0-0.2); ABS Eosinophils 0.1 10^3/ul (0-0.6); ABS Lymphocytes 1.1 10^3/ul (1.0-4.8); ABS Monocytes 0.5 10^3/ul (0-0.8); ABS Neutrophils 5.7 10^3/ul (1.5-7.7); Eosinophil % 1.4 %; Lymphocyte % 15.3 %
[2022-02-15] MEDS: Venlafaxine XR 75 mg PO SCH (09:52)
[2022-02-15] MEDS: Nystatin TOP POWDER 15 GM BTL TOPICAL SCH ×3 (09:53→21:04)
[2022-02-15 09:59] LABS: Albumin 3.2 g/dL (3.2-5.2); Calcium 9.3 mg/dL (8.6-10.3); Creatinine, Serum 0.57 mg/dL (0.51-0.95); Globulin 3.2 g/dL (2-4); Magnesium 1.7 mg/dL (1.9-2.7); Phosphorus 4.5 mg/dL (2.5-5.0); Potassium 4.9 mmol/L (3.5-5.0); Total Bilirubin 0.2 mg/dL (0.2-1.0); Total Protein 6.4 g/dL (6.4-8.9)
[2022-02-15] MEDS ORDERED: Magnesium Sulfate 2 gm BAG 2 GM/50 ML BAG IVPB ONE (11:41)
[2022-02-15] MEDS: TPN 24 HR with Dextrose 70% Water 350 ML, Amino Acid Infusion 10% 850 ML, Sterile Water... IV SCH (17:03)
[2022-02-15] MEDS: Enoxaparin 40 MG/0.4 ML SYR SUBCUT SCH (18:28)
[2022-02-16] MEDS: Prochlorperazine 5 mg/ml 2 ml VIAL (10 mg) IV SCH ×4 (01:48→20:54)
[2022-02-16 06:09] LABS: Calcium 9.1 mg/dL (8.6-10.3); Creatinine, Serum 0.57 mg/dL (0.51-0.95); Potassium 4.9 mmol/L (3.5-5.0)
[2022-02-16] MEDS: Nystatin TOP POWDER 15 GM BTL TOPICAL SCH ×3 (10:05→22:16)
[2022-02-16] MEDS: Venlafaxine XR 75 mg PO SCH (10:26)
[2022-02-16] MEDS: TPN 24 HR with Dextrose 70% Water 350 ML, Amino Acid Infusion 10% 850 ML, Sterile Water... IV SCH (17:21)
[2022-02-16] MEDS: Ondansetron 4 mg VIAL 2 MG/ML 2 ml VIAL IV PRN (17:26)
[2022-02-16] MEDS: Enoxaparin 40 MG/0.4 ML SYR SUBCUT SCH (18:01)
[2022-02-16 21:10] LABS: Magnesium 1.7 mg/dL (1.9-2.7)
[2022-02-16 21:15] LABS: Phosphorus 4.4 mg/dL (2.5-5.0)
[2022-02-17] MEDS: Prochlorperazine 5 mg/ml 2 ml VIAL (10 mg) IV SCH ×4 (01:51→20:03)
[2022-02-17 06:24] LABS: Albumin 3.1 g/dL (3.2-5.2); Calcium 9.4 mg/dL (8.6-10.3); Creatinine, Serum 0.59 mg/dL (0.51-0.95); Globulin 3.2 g/dL (2-4); Magnesium 1.6 mg/dL (1.9-2.7); Phosphorus 4.6 mg/dL (2.5-5.0); Total Bilirubin 0.2 mg/dL (0.2-1.0); Total Protein 6.3 g/dL (6.4-8.9); eGFR CKD-EPI 101.2 (>60)
[2022-02-17] MEDS: Nystatin TOP POWDER 15 GM BTL TOPICAL SCH ×3 (07:53→21:28)
[2022-02-17] MEDS: Venlafaxine XR 75 mg PO SCH (08:14)
[2022-02-17] MEDS ORDERED: TPN 24 HR with Dextrose 70% Water 350 ML, Amino Acid Infusion 10% 850 ML, Sterile Water... IV SCH (11:03)
[2022-02-17] MEDS: TPN 24 HR with Dextrose 70% Water 350 ML, Amino Acid Infusion 10% 850 ML, Sterile Water... IV SCH (17:17)
[2022-02-17] MEDS: Enoxaparin 40 MG/0.4 ML SYR SUBCUT SCH (20:03)
[2022-02-17] MEDS: Ondansetron 4 mg VIAL 2 MG/ML 2 ml VIAL IV PRN (23:37)
[2022-02-18] MEDS: Prochlorperazine 5 mg/ml 2 ml VIAL (10 mg) IV SCH ×4 (01:46→18:42)
[2022-02-18] MEDS ORDERED: Ondansetron 4 mg VIAL 2 MG/ML 2 ml VIAL IV ONE (02:13)
[2022-02-18 06:30] LABS: Creatinine, Serum 0.48 mg/dL (0.51-0.95); Potassium 4.7 mmol/L (3.5-5.0); eGFR CKD-EPI 106.4 (>60)
[2022-02-18] MEDS: Venlafaxine XR 75 mg PO SCH (08:06)
[2022-02-18] MEDS: Nystatin TOP POWDER 15 GM BTL TOPICAL SCH ×3 (08:06→21:01)
[2022-02-18] MEDS: Ondansetron 4 mg VIAL 2 MG/ML 2 ml VIAL IV PRN ×3 (10:09→20:59)
[2022-02-18] MEDS ORDERED: Alteplase (CATHFLO) 2 MG VIAL IV ONE (13:01)
[2022-02-18 13:21] LABS: Magnesium 1.5 mg/dL (1.9-2.7)
[2022-02-18] MEDS: TPN 24 HR with Dextrose 70% Water 350 ML, Amino Acid Infusion 10% 850 ML, Sterile Water... IV SCH (16:43)
[2022-02-18] MEDS: Enoxaparin 40 MG/0.4 ML SYR SUBCUT SCH (18:31)
[2022-02-18 18:43] LABS: Urine Osmo 756 mOsm/kg (150-1150)
[2022-02-18 19:05] LABS: Osmolality Serum 289 mOsm/kg (275-295)
[2022-02-19] MEDS: Prochlorperazine 5 mg/ml 2 ml VIAL (10 mg) IV SCH ×4 (01:07→19:19)
[2022-02-19 09:55] LABS: Creatinine, Serum 0.46 mg/dL (0.51-0.95); Magnesium 1.6 mg/dL (1.9-2.7); Potassium 4.4 mmol/L (3.5-5.0); eGFR CKD-EPI 107.5 (>60)
[2022-02-19] MEDS: Nystatin TOP POWDER 15 GM BTL TOPICAL SCH ×3 (10:18→20:03)
[2022-02-19] MEDS: Venlafaxine XR 75 mg PO SCH (10:18)
[2022-02-19] MEDS ORDERED: Magnesium Sulfate IV 3 GM in NS 0.9% 100 ml BAG 100 ML IVPB ONE (11:38)
[2022-02-19] MEDS: TPN 24 HR with Dextrose 70% Water 350 ML, Amino Acid Infusion 10% 850 ML, Sterile Water... IV SCH (16:59)
[2022-02-19] MEDS: Enoxaparin 40 MG/0.4 ML SYR SUBCUT SCH (19:19)
[2022-02-20] MEDS: Prochlorperazine 5 mg/ml 2 ml VIAL (10 mg) IV SCH ×4 (02:14→20:00)
[2022-02-20 05:35] LABS: CO2 Carbon Dioxide 22 mmol/L (22-32); Calcium 8.9 mg/dL (8.6-10.3); Chloride 100 mmol/L (101-111); Magnesium 1.7 mg/dL (1.9-2.7); Sodium 128 mmol/L (135-145)
[2022-02-20 05:39] LABS: Anion Gap 6 mmol/L (2-11)
[2022-02-20 05:41] LABS: Blood Urea Nitrogen 25 mg/dL (6-24); Creatinine, Serum 0.46 mg/dL (0.51-0.95); Glucose 193 mg/dL (70-100); eGFR CKD-EPI 107.5 (>60)
[2022-02-20] MEDS ORDERED: Alteplase (CATHFLO) 2 MG VIAL IV ONE (06:42)
[2022-02-20] MEDS ORDERED: Magnesium Sulfate IV 3 GM in NS 0.9% 100 ml BAG 100 ML IVPB ONE (08:37)
[2022-02-20] MEDS: Venlafaxine XR 75 mg PO SCH (08:55)
[2022-02-20] MEDS: Nystatin TOP POWDER 15 GM BTL TOPICAL SCH ×3 (10:16→21:59)
[2022-02-20] MEDS ORDERED: TPN 24 HR with Dextrose 70% Water 350 ML, Amino Acid Infusion 10% 850 ML, Sterile Water... IV SCH (17:00)
[2022-02-20] MEDS: Enoxaparin 40 MG/0.4 ML SYR SUBCUT SCH (18:26)
[2022-02-21] MEDS: Prochlorperazine 5 mg/ml 2 ml VIAL (10 mg) IV SCH ×4 (01:36→20:16)
[2022-02-21] MEDS: Saline NASAL SPRAY 0.65% BTL BOTH NARES PRN (01:41)
[2022-02-21 05:43] LABS: Albumin 2.9 g/dL (3.2-5.2); Calcium 8.9 mg/dL (8.6-10.3); Creatinine, Serum 0.47 mg/dL (0.51-0.95); Globulin 2.9 g/dL (2-4); Magnesium 1.7 mg/dL (1.9-2.7); Phosphorus 4.3 mg/dL (2.5-5.0); Potassium 4.4 mmol/L (3.5-5.0); Total Bilirubin 0.2 mg/dL (0.2-1.0); Total Protein 5.8 g/dL (6.4-8.9); eGFR CKD-EPI 106.9 (>60)
[2022-02-21] MEDS: Nystatin TOP POWDER 15 GM BTL TOPICAL SCH ×3 (08:04→20:20)
[2022-02-21] MEDS: Venlafaxine XR 75 mg PO SCH (10:26)
[2022-02-21] MEDS ORDERED: Magnesium Sulfate IV 3 GM in NS 0.9% 100 ml BAG 100 ML IVPB ONE (12:00)
[2022-02-21] MEDS ORDERED: Lactated Ringers 1000 ml BAG 1,000 ML IV ONE (15:27)
[2022-02-21] MEDS: TPN 24 HR with Dextrose 70% Water 350 ML, Amino Acid Infusion 10% 850 ML, Sterile Water... IV SCH (16:50)
[2022-02-21] MEDS: Enoxaparin 40 MG/0.4 ML SYR SUBCUT SCH (20:14)
[2022-02-22] MEDS: Prochlorperazine 5 mg/ml 2 ml VIAL (10 mg) IV SCH ×4 (02:04→20:29)
[2022-02-22 05:19] LABS: Albumin 2.8 g/dL (3.2-5.2); Calcium 8.8 mg/dL (8.6-10.3); Creatinine, Serum 0.42 mg/dL (0.51-0.95); Globulin 2.7 g/dL (2-4); Magnesium 1.7 mg/dL (1.9-2.7); Potassium 4.5 mmol/L (3.5-5.0); Total Bilirubin 0.2 mg/dL (0.2-1.0); Total Protein 5.5 g/dL (6.4-8.9); eGFR CKD-EPI 109.8 (>60)
[2022-02-22] MEDS: Venlafaxine XR 75 mg PO SCH (08:06)
[2022-02-22] MEDS: Nystatin TOP POWDER 15 GM BTL TOPICAL SCH ×4 (09:00→20:35)
[2022-02-22] MEDS: TPN 24 HR with Dextrose 70% Water 350 ML, Amino Acid Infusion 10% 850 ML, Sterile Water... IV SCH (17:12)
[2022-02-22] MEDS: Enoxaparin 40 MG/0.4 ML SYR SUBCUT SCH (20:28)
[2022-02-23] MEDS: Prochlorperazine 5 mg/ml 2 ml VIAL (10 mg) IV SCH ×4 (01:48→20:09)
[2022-02-23 05:52] LABS: Albumin 2.8 g/dL (3.2-5.2); Calcium 8.6 mg/dL (8.6-10.3); Magnesium 1.5 mg/dL (1.9-2.7); Potassium 4.2 mmol/L (3.5-5.0); Total Bilirubin 0.2 mg/dL (0.2-1.0)
[2022-02-23 05:58] LABS: Albumin/Globulin Ratio 1.1 (1-3); Creatinine, Serum 0.42 mg/dL (0.51-0.95); Globulin 2.6 g/dL (2-4); Total Protein 5.4 g/dL (6.4-8.9); eGFR CKD-EPI 109.8 (>60)
[2022-02-23] MEDS: Nystatin TOP POWDER 15 GM BTL TOPICAL SCH ×3 (08:36→20:10)
[2022-02-23] MEDS ORDERED: Magnesium Sulfate IV 3 GM in NS 0.9% 100 ml BAG 100 ML IVPB ONE (09:00)
[2022-02-23] MEDS: Venlafaxine XR 75 mg PO SCH (11:58)
[2022-02-23] MEDS: TPN 24 HR with Dextrose 70% Water 350 ML, Amino Acid Infusion 10% 850 ML, Sterile Water... IV SCH (17:07)
[2022-02-23] MEDS: Enoxaparin 40 MG/0.4 ML SYR SUBCUT SCH (17:10)
[2022-02-24] MEDS: Prochlorperazine 5 mg/ml 2 ml VIAL (10 mg) IV SCH ×4 (02:10→20:39)
[2022-02-24] MEDS ORDERED: Alteplase (CATHFLO) 2 MG VIAL IV ONE (05:14)
[2022-02-24 08:32] LABS: ALT 11 U/L (7-52); Albumin 2.6 g/dL (3.2-5.2); Albumin/Globulin Ratio 1.1 (1-3); Alkaline Phosphatase 87 U/L (35-149); Blood Urea Nitrogen 25 mg/dL (6-24); CO2 Carbon Dioxide 21 mmol/L (22-32); Calcium 9.3 mg/dL (8.6-10.3); Chloride 105 mmol/L (101-111); Creatinine, Serum 0.53 mg/dL (0.51-0.95); Globulin 2.4 g/dL (2-4); Sodium 127 mmol/L (135-145); eGFR CKD-EPI 103.9 (>60)
[2022-02-24 08:35] LABS: Anion Gap 1 mmol/L (2-11)
[2022-02-24] MEDS: Nystatin TOP POWDER 15 GM BTL TOPICAL SCH ×2 (09:00→13:35)
[2022-02-24 10:14] LABS: Calcium 8.8 mg/dL (8.6-10.3); Creatinine, Serum 0.42 mg/dL (0.51-0.95); Magnesium 1.6 mg/dL (1.9-2.7); Potassium 4.3 mmol/L (3.5-5.0); eGFR CKD-EPI 109.8 (>60)
[2022-02-24] MEDS ORDERED: Magnesium Sulfate IV 3 GM in NS 0.9% 100 ml BAG 100 ML IVPB ONE (11:24)
[2022-02-24] MEDS: Venlafaxine XR 75 mg PO SCH (11:41)
[2022-02-24] MEDS: DEXTROSE IV SCH (17:14)
[2022-02-24] MEDS: WATER IV SCH (17:14)
[2022-02-24] MEDS: [UNRECOGNIZED DRUG - OTHER] IV SCH (17:14)
[2022-02-24] MEDS: AMINO ACID INFUSION IV SCH (17:14)
[2022-02-24] MEDS: TPN IV SCH (17:14)
[2022-02-24] MEDS: Enoxaparin 40 MG/0.4 ML SYR SUBCUT SCH (20:39)
[2022-02-25] MEDS: Prochlorperazine 5 mg/ml 2 ml VIAL (10 mg) IV SCH ×4 (02:08→22:04)
[2022-02-25 05:25] LABS: Albumin 2.8 g/dL (3.2-5.2); Albumin/Globulin Ratio 1.1 (1-3); Calcium 8.6 mg/dL (8.6-10.3); Creatinine, Serum 0.46 mg/dL (0.51-0.95); Globulin 2.5 g/dL (2-4); Magnesium 1.7 mg/dL (1.9-2.7); Potassium 4.4 mmol/L (3.5-5.0); Total Bilirubin 0.2 mg/dL (0.2-1.0); Total Protein 5.3 g/dL (6.4-8.9); eGFR CKD-EPI 107.5 (>60)
[2022-02-25] MEDS: Venlafaxine XR 75 mg PO SCH (10:10)
[2022-02-25] MEDS: WATER IV SCH (16:56)
[2022-02-25] MEDS: DEXTROSE IV SCH (16:56)
[2022-02-25] MEDS: TPN IV SCH (16:56)
[2022-02-25] MEDS: AMINO ACID INFUSION IV SCH (16:56)
[2022-02-25] MEDS: [UNRECOGNIZED DRUG - OTHER] IV SCH (16:56)
[2022-02-25] MEDS: Enoxaparin 40 MG/0.4 ML SYR SUBCUT SCH (22:08)
[2022-02-26] MEDS: Prochlorperazine 5 mg/ml 2 ml VIAL (10 mg) IV SCH ×4 (03:46→19:59)
[2022-02-26] MEDS: Ondansetron 4 mg VIAL 2 MG/ML 2 ml VIAL IV PRN ×2 (06:03→17:49)
[2022-02-26] MEDS: Venlafaxine XR 75 mg PO SCH (10:51)
[2022-02-26] MEDS ORDERED: Magnesium Sulfate IV 3 GM in NS 0.9% 100 ml BAG 100 ML IVPB ONE (11:42)
[2022-02-26] MEDS ORDERED: WATER IV SCH (17:00)
[2022-02-26] MEDS ORDERED: [UNRECOGNIZED DRUG - OTHER] IV SCH (17:00)
[2022-02-26] MEDS ORDERED: DEXTROSE IV SCH (17:00)
[2022-02-26] MEDS ORDERED: TPN IV SCH (17:00)
[2022-02-26] MEDS ORDERED: AMINO ACID INFUSION IV SCH (17:00)
[2022-02-26] MEDS: Enoxaparin 40 MG/0.4 ML SYR SUBCUT SCH (20:04)
[2022-02-27] MEDS: Ondansetron 4 mg VIAL 2 MG/ML 2 ml VIAL IV PRN ×2 (00:35→10:45)
[2022-02-27] MEDS: Prochlorperazine 5 mg/ml 2 ml VIAL (10 mg) IV SCH ×4 (02:12→21:22)
[2022-02-27] MEDS ORDERED: Metoclopramide 5 MG/ML VIAL (10 mg) IV ONE (03:23)
[2022-02-27] MEDS: Venlafaxine XR 75 mg PO SCH (16:03)
[2022-02-27] MEDS ORDERED: DEXTROSE IV SCH (17:00)
[2022-02-27] MEDS ORDERED: TPN IV SCH (17:00)
[2022-02-27] MEDS ORDERED: AMINO ACID INFUSION IV SCH (17:00)
[2022-02-27] MEDS ORDERED: WATER IV SCH (17:00)
[2022-02-27] MEDS ORDERED: [UNRECOGNIZED DRUG - OTHER] IV SCH (17:00)
[2022-02-27] MEDS: Saline NASAL SPRAY 0.65% BTL BOTH NARES PRN (21:19)
[2022-02-27] MEDS: Enoxaparin 40 MG/0.4 ML SYR SUBCUT SCH (21:22)
[2022-02-28] MEDS: Saline NASAL SPRAY 0.65% BTL BOTH NARES PRN (01:21)
[2022-02-28] MEDS: Prochlorperazine 5 mg/ml 2 ml VIAL (10 mg) IV SCH ×4 (01:21→20:45)
[2022-02-28] MEDS ORDERED: Alteplase (CATHFLO) 2 MG VIAL IV ONE (05:37)
[2022-02-28 06:52] LABS: Albumin/Globulin Ratio 1.1 (1-3); Creatinine, Serum 0.46 mg/dL (0.51-0.95); Globulin 2.7 g/dL (2-4); Magnesium 1.5 mg/dL (1.9-2.7); Phosphorus 4.2 mg/dL (2.5-5.0); Potassium 4.5 mmol/L (3.5-5.0); Total Bilirubin 0.2 mg/dL (0.2-1.0); Total Protein 5.7 g/dL (6.4-8.9); eGFR CKD-EPI 107.5 (>60)
[2022-02-28] MEDS: Venlafaxine XR 75 mg PO SCH (09:15)
[2022-02-28] MEDS ORDERED: Magnesium Sulfate 2 gm BAG 2 GM/50 ML BAG IVPB ONE (09:30)
[2022-02-28] MEDS ORDERED: WATER IV SCH (17:00)
[2022-02-28] MEDS ORDERED: DEXTROSE IV SCH (17:00)
[2022-02-28] MEDS ORDERED: TPN IV SCH (17:00)
[2022-02-28] MEDS ORDERED: [UNRECOGNIZED DRUG - OTHER] IV SCH (17:00)
[2022-02-28] MEDS ORDERED: AMINO ACID INFUSION IV SCH (17:00)
[2022-02-28] MEDS: Enoxaparin 40 MG/0.4 ML SYR SUBCUT SCH (21:42)
[2022-03-01] MEDS: Prochlorperazine 5 mg/ml 2 ml VIAL (10 mg) IV SCH ×4 (01:50→19:31)
[2022-03-01] MEDS: Venlafaxine XR 75 mg PO SCH (10:55)
[2022-03-01] MEDS: [UNRECOGNIZED DRUG - OTHER] IV SCH (16:51)
[2022-03-01] MEDS: AMINO ACID INFUSION IV SCH (16:51)
[2022-03-01] MEDS: TPN IV SCH (16:51)
[2022-03-01] MEDS: DEXTROSE IV SCH (16:51)
[2022-03-01] MEDS: WATER IV SCH (16:51)
[2022-03-01] MEDS: Enoxaparin 40 MG/0.4 ML SYR SUBCUT SCH (21:14)
[2022-03-02] MEDS: Prochlorperazine 5 mg/ml 2 ml VIAL (10 mg) IV SCH ×4 (02:58→19:52)
[2022-03-02] MEDS: Venlafaxine XR 75 mg PO SCH (11:02)
[2022-03-02] MEDS: [UNRECOGNIZED DRUG - OTHER] IV SCH ×2 (16:31→16:32)
[2022-03-02] MEDS: TPN IV SCH ×2 (16:31→16:32)
[2022-03-02] MEDS: DEXTROSE IV SCH ×2 (16:31→16:32)
[2022-03-02] MEDS: AMINO ACID INFUSION IV SCH ×2 (16:31→16:32)
[2022-03-02] MEDS: WATER IV SCH ×2 (16:31→16:32)
[2022-03-02] MEDS: Enoxaparin 40 MG/0.4 ML SYR SUBCUT SCH (21:33)
[2022-03-03] MEDS: Prochlorperazine 5 mg/ml 2 ml VIAL (10 mg) IV SCH ×4 (01:50→20:24)
[2022-03-03 05:39] LABS: ABS Eosinophils 0.2 10^3/ul (0-0.6); ABS Lymphocytes 1.5 10^3/ul (1.0-4.8); ABS Monocytes 0.5 10^3/ul (0-0.8); ABS Neutrophils 3.8 10^3/ul (1.5-7.7); Eosinophil % 3.8 %; Hematocrit 27 % (35-47); Hemoglobin 8.4 g/dL (12.0-16.0); Lymphocyte % 24.5 %; Mean Corpuscular HGB Conc 32 g/dL (31-36); Mean Corpuscular Hemoglobin 26 pg (27-31); Mean Corpuscular Volume 84 fL (80-97); Mean Platelet Volume 9.1 fL (7.4-10.4); Platelet Count 264 10^3/uL (150-450); Red Cell Distribution Width 21 % (10-15)
[2022-03-03 06:12] LABS: Albumin 2.8 g/dL (3.2-5.2); Albumin/Globulin Ratio 1.1 (1-3); Calcium 8.9 mg/dL (8.6-10.3); Creatinine, Serum 0.43 mg/dL (0.51-0.95); Globulin 2.6 g/dL (2-4); Magnesium 1.6 mg/dL (1.9-2.7); Phosphorus 4.2 mg/dL (2.5-5.0); Potassium 4.4 mmol/L (3.5-5.0); Total Bilirubin 0.2 mg/dL (0.2-1.0); Total Protein 5.4 g/dL (6.4-8.9); eGFR CKD-EPI 109.2 (>60)
[2022-03-03] MEDS: Venlafaxine XR 75 mg PO SCH (07:14)
[2022-03-03] MEDS ORDERED: Magnesium Sulf 4 GM/100 ML IV 4,000 MG/100 ML BAG IVPB ONE (09:00)
[2022-03-03] MEDS: DEXTROSE IV SCH (17:12)
[2022-03-03] MEDS: AMINO ACID INFUSION IV SCH (17:12)
[2022-03-03] MEDS: [UNRECOGNIZED DRUG - OTHER] IV SCH (17:12)
[2022-03-03] MEDS: WATER IV SCH (17:12)
[2022-03-03] MEDS: TPN IV SCH (17:12)
[2022-03-03] MEDS: Enoxaparin 40 MG/0.4 ML SYR SUBCUT SCH (20:25)
[2022-03-04] MEDS: Prochlorperazine 5 mg/ml 2 ml VIAL (10 mg) IV SCH ×4 (01:47→19:54)
[2022-03-04] MEDS: Venlafaxine XR 75 mg PO SCH (11:52)
[2022-03-04] MEDS: [UNRECOGNIZED DRUG - OTHER] IV SCH (16:59)
[2022-03-04] MEDS: WATER IV SCH (16:59)
[2022-03-04] MEDS: DEXTROSE IV SCH (16:59)
[2022-03-04] MEDS: AMINO ACID INFUSION IV SCH (16:59)
[2022-03-04] MEDS: TPN IV SCH (16:59)
[2022-03-04] MEDS: Enoxaparin 40 MG/0.4 ML SYR SUBCUT SCH (20:08)
[2022-03-05] MEDS: Prochlorperazine 5 mg/ml 2 ml VIAL (10 mg) IV SCH ×4 (01:57→21:37)
[2022-03-05] MEDS: Ondansetron 4 mg VIAL 2 MG/ML 2 ml VIAL IV PRN ×2 (05:08→17:40)
[2022-03-05] MEDS: Venlafaxine XR 75 mg PO SCH (10:13)
[2022-03-05] MEDS ORDERED: Alteplase (CATHFLO) 2 MG VIAL IV ONE (15:37)
[2022-03-05] MEDS: DEXTROSE IV SCH (17:49)
[2022-03-05] MEDS: WATER IV SCH (17:49)
[2022-03-05] MEDS: AMINO ACID INFUSION IV SCH (17:49)
[2022-03-05] MEDS: [UNRECOGNIZED DRUG - OTHER] IV SCH (17:49)
[2022-03-05] MEDS: TPN IV SCH (17:49)
[2022-03-05] MEDS: Enoxaparin 40 MG/0.4 ML SYR SUBCUT SCH (21:37)
[2022-03-06] MEDS: Prochlorperazine 5 mg/ml 2 ml VIAL (10 mg) IV SCH ×4 (01:17→21:30)
[2022-03-06] MEDS: Venlafaxine XR 75 mg PO SCH (11:35)
[2022-03-06] MEDS: Ondansetron 4 mg VIAL 2 MG/ML 2 ml VIAL IV PRN (11:36)
[2022-03-06] MEDS: AMINO ACID INFUSION IV SCH (17:03)
[2022-03-06] MEDS: WATER IV SCH (17:03)
[2022-03-06] MEDS: DEXTROSE IV SCH (17:03)
[2022-03-06] MEDS: TPN IV SCH (17:03)
[2022-03-06] MEDS: [UNRECOGNIZED DRUG - OTHER] IV SCH (17:03)
[2022-03-06] MEDS: Enoxaparin 40 MG/0.4 ML SYR SUBCUT SCH (21:39)
[2022-03-06] MEDS: Lidocaine PATCH 5% PATCH TRANSDERM SCH (22:55)
[2022-03-07] MEDS: Prochlorperazine 5 mg/ml 2 ml VIAL (10 mg) IV SCH ×4 (01:20→22:02)
[2022-03-07 07:39] LABS: Albumin 2.9 g/dL (3.2-5.2); Albumin/Globulin Ratio 1.2 (1-3); Calcium 8.7 mg/dL (8.6-10.3); Creatinine, Serum 0.46 mg/dL (0.51-0.95); Globulin 2.4 g/dL (2-4); Magnesium 1.6 mg/dL (1.9-2.7); Potassium 4.4 mmol/L (3.5-5.0); Total Bilirubin 0.2 mg/dL (0.2-1.0); Total Protein 5.3 g/dL (6.4-8.9); eGFR CKD-EPI 107.5 (>60)
[2022-03-07] MEDS: Ondansetron 4 mg VIAL 2 MG/ML 2 ml VIAL IV PRN (10:00)
[2022-03-07] MEDS: Lidocaine PATCH 5% PATCH TRANSDERM SCH (10:14)
[2022-03-07] MEDS: Venlafaxine XR 75 mg PO SCH (10:15)
[2022-03-07] MEDS: [UNRECOGNIZED DRUG - OTHER] IV SCH (17:16)
[2022-03-07] MEDS: TPN IV SCH (17:16)
[2022-03-07] MEDS: DEXTROSE IV SCH (17:16)
[2022-03-07] MEDS: AMINO ACID INFUSION IV SCH (17:16)
[2022-03-07] MEDS: WATER IV SCH (17:16)
[2022-03-07] MEDS: Enoxaparin 40 MG/0.4 ML SYR SUBCUT SCH (22:00)
[2022-03-08] MEDS: Prochlorperazine 5 mg/ml 2 ml VIAL (10 mg) IV SCH ×4 (01:28→22:31)
[2022-03-08] MEDS: Venlafaxine XR 75 mg PO SCH (10:15)
[2022-03-08] MEDS: Lidocaine PATCH 5% PATCH TRANSDERM SCH (10:15)
[2022-03-08] MEDS: [UNRECOGNIZED DRUG - OTHER] IV SCH (17:28)
[2022-03-08] MEDS: DEXTROSE IV SCH (17:28)
[2022-03-08] MEDS: WATER IV SCH (17:28)
[2022-03-08] MEDS: AMINO ACID INFUSION IV SCH (17:28)
[2022-03-08] MEDS: TPN IV SCH (17:28)
[2022-03-08] MEDS: Enoxaparin 40 MG/0.4 ML SYR SUBCUT SCH (22:41)
[2022-03-09] MEDS: Prochlorperazine 5 mg/ml 2 ml VIAL (10 mg) IV SCH ×5 (00:45→19:57)
[2022-03-09] MEDS ORDERED: Dextrose 50% Syringe 50 ml 25 GM/50 ML SYRINGE IV PUSH PRN (08:27)
[2022-03-09] MEDS: Venlafaxine XR 75 mg PO SCH (08:58)
[2022-03-09] MEDS: Lidocaine PATCH 5% PATCH TRANSDERM SCH (08:59)
[2022-03-09] MEDS ORDERED: DEXTROSE IV SCH (17:00)
[2022-03-09] MEDS ORDERED: TPN IV SCH (17:00)
[2022-03-09] MEDS ORDERED: [UNRECOGNIZED DRUG - OTHER] IV SCH (17:00)
[2022-03-09] MEDS ORDERED: AMINO ACID INFUSION IV SCH (17:00)
[2022-03-09] MEDS ORDERED: WATER IV SCH (17:00)
[2022-03-09] MEDS: Enoxaparin 40 MG/0.4 ML SYR SUBCUT SCH (21:43)
[2022-03-10] MEDS: Prochlorperazine 5 mg/ml 2 ml VIAL (10 mg) IV SCH (02:06)
[2022-03-10 06:39] LABS: Albumin 2.9 g/dL (3.2-5.2); Albumin/Globulin Ratio 1.2 (1-3); Calcium 8.8 mg/dL (8.6-10.3); Creatinine, Serum 0.42 mg/dL (0.51-0.95); Globulin 2.5 g/dL (2-4); Magnesium 1.6 mg/dL (1.9-2.7); Potassium 4.4 mmol/L (3.5-5.0); Total Bilirubin 0.2 mg/dL (0.2-1.0); Total Protein 5.4 g/dL (6.4-8.9); eGFR CKD-EPI 109.8 (>60)
[2022-03-10] MEDS: Lidocaine PATCH 5% PATCH TRANSDERM SCH (08:40)
[2022-03-10] MEDS: Venlafaxine XR 75 mg PO SCH (08:41)
[2022-03-10] MEDS: Ondansetron 4 mg VIAL 2 MG/ML 2 ml VIAL IV PRN (10:41)
[2022-03-10] MEDS ORDERED: Ferric Gluconate IV 250 MG in NS 0.9% 250 ml 200 ML IVPB ONE (14:14)
[2022-03-10] MEDS ORDERED: Ferric Gluconate IV 250 MG in NS 0.9% 100 ml BAG 100 ML IVPB ONE (14:37)
[2022-03-10] MEDS ORDERED: Magnesium Sulfate 2 gm BAG 2 GM/50 ML BAG IVPB ONE (14:47)
[2022-03-10] MEDS: DEXTROSE IV SCH (17:10)
[2022-03-10] MEDS: AMINO ACID INFUSION IV SCH (17:10)
[2022-03-10] MEDS: TPN IV SCH (17:10)
[2022-03-10] MEDS: [UNRECOGNIZED DRUG - OTHER] IV SCH (17:10)
[2022-03-10] MEDS: WATER IV SCH (17:10)
[2022-03-10] MEDS ORDERED: Prochlorperazine 5 mg/ml 2 ml VIAL (10 mg) IV SCH (20:00)
[2022-03-10] MEDS: Enoxaparin 40 MG/0.4 ML SYR SUBCUT SCH ×2 (20:57→21:04)
[2022-03-11] MEDS: Venlafaxine XR 75 mg PO SCH (10:32)
[2022-03-11] MEDS: WATER IV SCH (17:04)
[2022-03-11] MEDS: TPN IV SCH (17:04)
[2022-03-11] MEDS: AMINO ACID INFUSION IV SCH (17:04)
[2022-03-11] MEDS: [UNRECOGNIZED DRUG - OTHER] IV SCH (17:04)
[2022-03-11] MEDS: DEXTROSE IV SCH (17:04)
[2022-03-11] MEDS: Enoxaparin 40 MG/0.4 ML SYR SUBCUT SCH (20:15)
[2022-03-12] MEDS: Ondansetron 4 mg VIAL 2 MG/ML 2 ml VIAL IV PRN ×3 (03:19→16:09)
[2022-03-12] MEDS ORDERED: Alteplase (CATHFLO) 2 MG VIAL IV ONE (03:42)
[2022-03-12] MEDS: Venlafaxine XR 75 mg PO SCH (09:08)
[2022-03-12] MEDS: [UNRECOGNIZED DRUG - OTHER] IV SCH (17:00)
[2022-03-12] MEDS: TPN IV SCH (17:00)
[2022-03-12] MEDS: DEXTROSE IV SCH (17:00)
[2022-03-12] MEDS: WATER IV SCH (17:00)
[2022-03-12] MEDS: AMINO ACID INFUSION IV SCH (17:00)
[2022-03-12] MEDS: Enoxaparin 40 MG/0.4 ML SYR SUBCUT SCH (22:02)
[2022-03-13] MEDS: Venlafaxine XR 75 mg PO SCH ×2 (07:56→10:39)
[2022-03-13] MEDS: Ondansetron 4 mg VIAL 2 MG/ML 2 ml VIAL IV PRN ×2 (08:05→16:59)
[2022-03-13] MEDS ORDERED: AMINO ACID INFUSION IV SCH (17:00)
[2022-03-13] MEDS ORDERED: [UNRECOGNIZED DRUG - OTHER] IV SCH (17:00)
[2022-03-13] MEDS ORDERED: WATER IV SCH (17:00)
[2022-03-13] MEDS ORDERED: DEXTROSE IV SCH (17:00)
[2022-03-13] MEDS ORDERED: TPN IV SCH (17:00)
[2022-03-13] MEDS: Enoxaparin 40 MG/0.4 ML SYR SUBCUT SCH (23:15)
[2022-03-14] MEDS ORDERED: Alteplase (CATHFLO) 2 MG VIAL IV ONE (06:06)
[2022-03-14 07:11] LABS: Albumin 2.9 g/dL (3.2-5.2); CO2 Carbon Dioxide 23 mmol/L (22-32); Calcium 8.7 mg/dL (8.6-10.3); Chloride 102 mmol/L (101-111); Sodium 132 mmol/L (135-145)
[2022-03-14] MEDS: Ondansetron 4 mg VIAL 2 MG/ML 2 ml VIAL IV PRN (07:15)
[2022-03-14 07:17] LABS: ALT 16 U/L (7-52); Albumin/Globulin Ratio 1.1 (1-3); Alkaline Phosphatase 88 U/L (35-149); Blood Urea Nitrogen 21 mg/dL (6-24); Cholesterol 97 mg/dL; Creatinine, Serum 0.45 mg/dL (0.51-0.95); Globulin 2.6 g/dL (2-4); Glucose 175 mg/dL (70-100); Prealbumin 16 mg/dL (18-38); Total Protein 5.5 g/dL (6.4-8.9); Triglycerides 141 mg/dL
[2022-03-14 07:21] LABS: Anion Gap 7 mmol/L (2-11)
[2022-03-14] MEDS: Venlafaxine XR 75 mg PO SCH (08:25)
[2022-03-14 08:59] LABS: Magnesium 1.6 mg/dL (1.9-2.7); Potassium Redraw 4.4 mmol/L (3.5-5.0)
[2022-03-14] MEDS ORDERED: Magnesium Sulfate 2 gm BAG 2 GM/50 ML BAG IVPB ONE (10:41)
[2022-03-14] MEDS ORDERED: WATER IV SCH (17:00)
[2022-03-14] MEDS ORDERED: [UNRECOGNIZED DRUG - OTHER] IV SCH (17:00)
[2022-03-14] MEDS ORDERED: AMINO ACID INFUSION IV SCH (17:00)
[2022-03-14] MEDS ORDERED: DEXTROSE IV SCH (17:00)
[2022-03-14] MEDS ORDERED: TPN IV SCH (17:00)
[2022-03-14] MEDS: Enoxaparin 40 MG/0.4 ML SYR SUBCUT SCH (22:28)
[2022-03-15] MEDS: Venlafaxine XR 75 mg PO SCH (08:48)
[2022-03-15] MEDS ORDERED: Magnesium Sulfate 2 GM IV (Premix) IVPB ONE (12:30)
[2022-03-15] MEDS: AMINO ACID INFUSION IV SCH (17:25)
[2022-03-15] MEDS: TPN IV SCH (17:25)
[2022-03-15] MEDS: WATER IV SCH (17:25)
[2022-03-15] MEDS: [UNRECOGNIZED DRUG - OTHER] IV SCH (17:25)
[2022-03-15] MEDS: DEXTROSE IV SCH (17:25)
[2022-03-15] MEDS: Enoxaparin 40 MG/0.4 ML SYR SUBCUT SCH (20:02)
[2022-03-16] MEDS: Venlafaxine XR 75 mg PO SCH (09:33)
[2022-03-16] MEDS ORDERED: Magnesium Sulfate 2 GM IV (Premix) IVPB ONE (12:30)
[2022-03-16] MEDS: DEXTROSE IV SCH (17:06)
[2022-03-16] MEDS: TPN IV SCH (17:06)
[2022-03-16] MEDS: WATER IV SCH (17:06)
[2022-03-16] MEDS: AMINO ACID INFUSION IV SCH (17:06)
[2022-03-16] MEDS: [UNRECOGNIZED DRUG - OTHER] IV SCH (17:06)
[2022-03-16] MEDS: Enoxaparin 40 MG/0.4 ML SYR SUBCUT SCH (20:08)
[2022-03-17 05:37] LABS: Hematocrit 29 % (35-47); Mean Corpuscular HGB Conc 31 g/dL (31-36); Mean Corpuscular Hemoglobin 26 pg (27-31); Mean Corpuscular Volume 83 fL (80-97); Mean Platelet Volume 8.8 fL (7.4-10.4); Platelet Count 301 10^3/uL (150-450); Red Blood Count 3.46 10^6 /uL (3.70-4.87); Red Cell Distribution Width 21 % (10-15); White Blood Count 6.4 10^3/uL (3.5-10.8)
[2022-03-17] MEDS: Venlafaxine XR 75 mg PO SCH (10:36)
[2022-03-17 14:48] LABS: Albumin 3.1 g/dL (3.2-5.2); Calcium 8.8 mg/dL (8.6-10.3); Creatinine, Serum 0.44 mg/dL (0.51-0.95); Magnesium 1.5 mg/dL (1.9-2.7); Phosphorus 4.1 mg/dL (2.5-5.0); Potassium 4.3 mmol/L (3.5-5.0); Total Bilirubin 0.3 mg/dL (0.2-1.0); Total Protein 6.1 g/dL (6.4-8.9); eGFR CKD-EPI 108.6 (>60)
[2022-03-17] MEDS ORDERED: Magnesium Sulfate IV 1GM/100ML 1 GM/100 ML BAG IV ONE (14:52)
[2022-03-17] MEDS: [UNRECOGNIZED DRUG - OTHER] IV SCH (17:55)
[2022-03-17] MEDS: TPN IV SCH (17:55)
[2022-03-17] MEDS: DEXTROSE IV SCH (17:55)
[2022-03-17] MEDS: WATER IV SCH (17:55)
[2022-03-17] MEDS: AMINO ACID INFUSION IV SCH (17:55)
[2022-03-17] MEDS: Enoxaparin 40 MG/0.4 ML SYR SUBCUT SCH (20:42)
[2022-03-17] MEDS: Insulin GLARGINE 100 un/ml 10 ml VIAL SUBCUT SCH (20:42)
[2022-03-18] MEDS: Ondansetron 4 mg VIAL 2 MG/ML 2 ml VIAL IV PRN ×2 (03:28→10:46)
[2022-03-18 05:15] LABS: Calcium 8.7 mg/dL (8.6-10.3); Potassium 4.1 mmol/L (3.5-5.0)
[2022-03-18 05:21] LABS: Creatinine, Serum 0.43 mg/dL (0.51-0.95); eGFR CKD-EPI 109.2 (>60)
[2022-03-18] MEDS: Venlafaxine XR 75 mg PO SCH (11:54)
[2022-03-18] MEDS: DEXTROSE IV SCH (16:59)
[2022-03-18] MEDS: [UNRECOGNIZED DRUG - OTHER] IV SCH (16:59)
[2022-03-18] MEDS: TPN IV SCH (16:59)
[2022-03-18] MEDS: AMINO ACID INFUSION IV SCH (16:59)
[2022-03-18] MEDS: WATER IV SCH (16:59)
[2022-03-18] MEDS: Insulin GLARGINE 100 un/ml 10 ml VIAL SUBCUT SCH (20:40)
[2022-03-18] MEDS: Enoxaparin 40 MG/0.4 ML SYR SUBCUT SCH (20:41)
[2022-03-19] MEDS: Venlafaxine XR 75 mg PO SCH (10:10)
[2022-03-19] MEDS: [UNRECOGNIZED DRUG - OTHER] IV SCH (16:57)
[2022-03-19] MEDS: TPN IV SCH (16:57)
[2022-03-19] MEDS: AMINO ACID INFUSION IV SCH (16:57)
[2022-03-19] MEDS: DEXTROSE IV SCH (16:57)
[2022-03-19] MEDS: WATER IV SCH (16:57)
[2022-03-19] MEDS: Insulin GLARGINE 100 un/ml 10 ml VIAL SUBCUT SCH (21:44)
[2022-03-19] MEDS: Enoxaparin 40 MG/0.4 ML SYR SUBCUT SCH (21:44)
[2022-03-20] MEDS: Venlafaxine XR 75 mg PO SCH (08:29)
[2022-03-20] MEDS: Ondansetron 4 mg VIAL 2 MG/ML 2 ml VIAL IV PRN ×2 (12:44→17:54)
[2022-03-20] MEDS ORDERED: Prochlorperazine 5 mg/ml 2 ml VIAL (10 mg) IV ONE (13:53)
[2022-03-20] MEDS: [UNRECOGNIZED DRUG - OTHER] IV SCH (17:37)
[2022-03-20] MEDS: AMINO ACID INFUSION IV SCH (17:37)
[2022-03-20] MEDS: TPN IV SCH (17:37)
[2022-03-20] MEDS: DEXTROSE IV SCH (17:37)
[2022-03-20] MEDS: WATER IV SCH (17:37)
[2022-03-20] MEDS: Prochlorperazine 5 mg/ml 2 ml VIAL (10 mg) IV PRN (21:28)
[2022-03-20] MEDS: Insulin GLARGINE 100 un/ml 10 ml VIAL SUBCUT SCH (21:29)
[2022-03-20] MEDS: Enoxaparin 40 MG/0.4 ML SYR SUBCUT SCH (21:30)
[2022-03-21 07:08] LABS: Albumin/Globulin Ratio 1.1 (1-3); Creatinine, Serum 0.38 mg/dL (0.51-0.95); Globulin 2.8 g/dL (2-4); Magnesium 1.7 mg/dL (1.9-2.7); Potassium 4.3 mmol/L (3.5-5.0); Total Bilirubin 0.2 mg/dL (0.2-1.0); Total Protein 5.8 g/dL (6.4-8.9); eGFR CKD-EPI 112.5 (>60)
[2022-03-21] MEDS: Prochlorperazine 5 mg/ml 2 ml VIAL (10 mg) IV PRN ×2 (08:52→21:35)
[2022-03-21] MEDS: Venlafaxine XR 75 mg PO SCH (08:52)
[2022-03-21] MEDS ORDERED: Magnesium Sulfate IV 3 GM in NS 0.9% 100 ml BAG 100 ML IVPB ONE (09:00)
[2022-03-21] MEDS ORDERED: DEXTROSE IV SCH (11:17)
[2022-03-21] MEDS ORDERED: WATER IV SCH (11:17)
[2022-03-21] MEDS ORDERED: [UNRECOGNIZED DRUG - OTHER] IV SCH (11:17)
[2022-03-21] MEDS ORDERED: TPN IV SCH (11:17)
[2022-03-21] MEDS ORDERED: AMINO ACID INFUSION IV SCH (11:17)
[2022-03-21] MEDS: DEXTROSE IV SCH (17:15)
[2022-03-21] MEDS: [UNRECOGNIZED DRUG - OTHER] IV SCH (17:15)
[2022-03-21] MEDS: WATER IV SCH (17:15)
[2022-03-21] MEDS: AMINO ACID INFUSION IV SCH (17:15)
[2022-03-21] MEDS: TPN IV SCH (17:15)
[2022-03-21] MEDS: Insulin GLARGINE 100 un/ml 10 ml VIAL SUBCUT SCH (21:22)
[2022-03-21] MEDS: Enoxaparin 40 MG/0.4 ML SYR SUBCUT SCH (21:22)
[2022-03-21] MEDS: Ondansetron 4 mg VIAL 2 MG/ML 2 ml VIAL IV PRN (23:36)
[2022-03-22] MEDS: Prochlorperazine 5 mg/ml 2 ml VIAL (10 mg) IV PRN ×2 (04:14→12:05)
[2022-03-22] MEDS: Venlafaxine XR 75 mg PO SCH (08:58)
[2022-03-22] MEDS: DEXTROSE IV SCH (17:29)
[2022-03-22] MEDS: [UNRECOGNIZED DRUG - OTHER] IV SCH (17:29)
[2022-03-22] MEDS: WATER IV SCH (17:29)
[2022-03-22] MEDS: AMINO ACID INFUSION IV SCH (17:29)
[2022-03-22] MEDS: TPN IV SCH (17:29)
[2022-03-22] MEDS: Ondansetron 4 mg VIAL 2 MG/ML 2 ml VIAL IV PRN (17:53)
[2022-03-22] MEDS: Insulin GLARGINE 100 un/ml 10 ml VIAL SUBCUT SCH (22:04)
[2022-03-22] MEDS: Enoxaparin 40 MG/0.4 ML SYR SUBCUT SCH (22:05)
[2022-03-23] MEDS: Prochlorperazine 5 mg/ml 2 ml VIAL (10 mg) IV PRN ×2 (00:30→11:42)
[2022-03-23] MEDS: Ondansetron 4 mg VIAL 2 MG/ML 2 ml VIAL IV PRN (03:38)
[2022-03-23] MEDS: Venlafaxine XR 75 mg PO SCH (09:26)
[2022-03-23] MEDS: AMINO ACID INFUSION IV SCH (17:19)
[2022-03-23] MEDS: TPN IV SCH (17:19)
[2022-03-23] MEDS: DEXTROSE IV SCH (17:19)
[2022-03-23] MEDS: WATER IV SCH (17:19)
[2022-03-23] MEDS: [UNRECOGNIZED DRUG - OTHER] IV SCH (17:19)
[2022-03-23] MEDS: Enoxaparin 40 MG/0.4 ML SYR SUBCUT SCH (20:38)
[2022-03-23] MEDS: Insulin GLARGINE 100 un/ml 10 ml VIAL SUBCUT SCH (20:38)
[2022-03-24 08:25] LABS: Albumin 3.1 g/dL (3.2-5.2); Albumin/Globulin Ratio 1.2 (1-3); Calcium 8.8 mg/dL (8.6-10.3); Creatinine, Serum 0.39 mg/dL (0.51-0.95); Globulin 2.6 g/dL (2-4); Magnesium 1.5 mg/dL (1.9-2.7); Phosphorus 3.8 mg/dL (2.5-5.0); Potassium 4.5 mmol/L (3.5-5.0); Total Bilirubin 0.2 mg/dL (0.2-1.0); Total Protein 5.7 g/dL (6.4-8.9); eGFR CKD-EPI 111.8 (>60)
[2022-03-24] MEDS ORDERED: Magnesium Sulfate IV 3 GM in NS 0.9% 100 ml BAG 100 ML IVPB ONE (08:34)
[2022-03-24] MEDS: Venlafaxine XR 75 mg PO SCH (09:39)
[2022-03-24] MEDS: DEXTROSE IV SCH (17:31)
[2022-03-24] MEDS: [UNRECOGNIZED DRUG - OTHER] IV SCH (17:31)
[2022-03-24] MEDS: TPN IV SCH (17:31)
[2022-03-24] MEDS: WATER IV SCH (17:31)
[2022-03-24] MEDS: AMINO ACID INFUSION IV SCH (17:31)
[2022-03-24] MEDS: Insulin GLARGINE 100 un/ml 10 ml VIAL SUBCUT SCH (19:34)
[2022-03-24] MEDS: Enoxaparin 40 MG/0.4 ML SYR SUBCUT SCH (19:35)
[2022-03-25] MEDS: Ondansetron 4 mg VIAL 2 MG/ML 2 ml VIAL IV PRN ×2 (05:29→09:28)
[2022-03-25] MEDS: Venlafaxine XR 75 mg PO SCH (09:24)
[2022-03-25] MEDS: Prochlorperazine 5 mg/ml 2 ml VIAL (10 mg) IV PRN (13:01)
[2022-03-25] MEDS: WATER IV SCH (17:50)
[2022-03-25] MEDS: DEXTROSE IV SCH (17:50)
[2022-03-25] MEDS: [UNRECOGNIZED DRUG - OTHER] IV SCH (17:50)
[2022-03-25] MEDS: TPN IV SCH (17:50)
[2022-03-25] MEDS: AMINO ACID INFUSION IV SCH (17:50)
[2022-03-25] MEDS: Enoxaparin 40 MG/0.4 ML SYR SUBCUT SCH (21:33)
[2022-03-25] MEDS: Insulin GLARGINE 100 un/ml 10 ml VIAL SUBCUT SCH (21:36)
[2022-03-26] MEDS: Ondansetron 4 mg VIAL 2 MG/ML 2 ml VIAL IV PRN ×3 (08:15→22:29)
[2022-03-26] MEDS: Venlafaxine XR 75 mg PO SCH ×2 (10:46→12:12)
[2022-03-26] MEDS: TPN IV SCH (17:06)
[2022-03-26] MEDS: AMINO ACID INFUSION IV SCH (17:06)
[2022-03-26] MEDS: DEXTROSE IV SCH (17:06)
[2022-03-26] MEDS: WATER IV SCH (17:06)
[2022-03-26] MEDS: [UNRECOGNIZED DRUG - OTHER] IV SCH (17:06)
[2022-03-26] MEDS: Insulin GLARGINE 100 un/ml 10 ml VIAL SUBCUT SCH (19:27)
[2022-03-26] MEDS: Enoxaparin 40 MG/0.4 ML SYR SUBCUT SCH (19:30)
[2022-03-27] MEDS: Venlafaxine XR 75 mg PO SCH (10:34)
[2022-03-27] MEDS: Ondansetron 4 mg VIAL 2 MG/ML 2 ml VIAL IV PRN (10:34)
[2022-03-27] MEDS: Prochlorperazine 5 mg/ml 2 ml VIAL (10 mg) IV PRN (16:01)
[2022-03-27] MEDS: WATER IV SCH (17:21)
[2022-03-27] MEDS: AMINO ACID INFUSION IV SCH (17:21)
[2022-03-27] MEDS: TPN IV SCH (17:21)
[2022-03-27] MEDS: [UNRECOGNIZED DRUG - OTHER] IV SCH (17:21)
[2022-03-27] MEDS: DEXTROSE IV SCH (17:21)
[2022-03-27] MEDS: Insulin GLARGINE 100 un/ml 10 ml VIAL SUBCUT SCH (20:26)
[2022-03-27] MEDS: Enoxaparin 40 MG/0.4 ML SYR SUBCUT SCH (20:27)
[2022-03-28 06:16] LABS: Albumin 2.9 g/dL (3.2-5.2); Albumin/Globulin Ratio 1.1 (1-3); Calcium 8.7 mg/dL (8.6-10.3); Creatinine, Serum 0.39 mg/dL (0.51-0.95); Globulin 2.6 g/dL (2-4); Magnesium 1.6 mg/dL (1.9-2.7); Phosphorus 3.7 mg/dL (2.5-5.0); Potassium 4.5 mmol/L (3.5-5.0); Total Bilirubin 0.2 mg/dL (0.2-1.0); Total Protein 5.5 g/dL (6.4-8.9); eGFR CKD-EPI 111.8 (>60)
[2022-03-28] MEDS: Prochlorperazine 5 mg/ml 2 ml VIAL (10 mg) IV PRN ×2 (10:07→19:29)
[2022-03-28] MEDS: Venlafaxine XR 75 mg PO SCH (10:08)
[2022-03-28] MEDS ORDERED: Magnesium Sulfate 2 gm BAG 2 GM/50 ML BAG IVPB ONE (11:16)
[2022-03-28] MEDS: Ondansetron 4 mg VIAL 2 MG/ML 2 ml VIAL IV PRN (11:36)
[2022-03-28] MEDS: WATER IV SCH (17:01)
[2022-03-28] MEDS: DEXTROSE IV SCH (17:01)
[2022-03-28] MEDS: TPN IV SCH (17:01)
[2022-03-28] MEDS: AMINO ACID INFUSION IV SCH (17:01)
[2022-03-28] MEDS: [UNRECOGNIZED DRUG - OTHER] IV SCH (17:01)
[2022-03-28] MEDS: Insulin GLARGINE 100 un/ml 10 ml VIAL SUBCUT SCH (21:44)
[2022-03-28] MEDS: Enoxaparin 40 MG/0.4 ML SYR SUBCUT SCH (21:45)
[2022-03-29] MEDS: Prochlorperazine 5 mg/ml 2 ml VIAL (10 mg) IV PRN ×3 (09:08→22:08)
[2022-03-29] MEDS: Venlafaxine XR 75 mg PO SCH (09:08)
[2022-03-29] MEDS: Ondansetron 4 mg VIAL 2 MG/ML 2 ml VIAL IV PRN (12:08)
[2022-03-29] MEDS: WATER IV SCH (17:24)
[2022-03-29] MEDS: DEXTROSE IV SCH (17:24)
[2022-03-29] MEDS: AMINO ACID INFUSION IV SCH (17:24)
[2022-03-29] MEDS: [UNRECOGNIZED DRUG - OTHER] IV SCH (17:24)
[2022-03-29] MEDS: TPN IV SCH (17:24)
[2022-03-29] MEDS: Enoxaparin 40 MG/0.4 ML SYR SUBCUT SCH (22:02)
[2022-03-29] MEDS: Insulin GLARGINE 100 un/ml 10 ml VIAL SUBCUT SCH (22:02)
[2022-03-30] MEDS: Ondansetron 4 mg VIAL 2 MG/ML 2 ml VIAL IV PRN (06:27)
[2022-03-30] MEDS: Venlafaxine XR 75 mg PO SCH (08:54)
[2022-03-30] MEDS: Prochlorperazine 5 mg/ml 2 ml VIAL (10 mg) IV PRN ×2 (11:59→21:01)
[2022-03-30] MEDS: WATER IV SCH (17:22)
[2022-03-30] MEDS: AMINO ACID INFUSION IV SCH (17:22)
[2022-03-30] MEDS: [UNRECOGNIZED DRUG - OTHER] IV SCH (17:22)
[2022-03-30] MEDS: TPN IV SCH (17:22)
[2022-03-30] MEDS: DEXTROSE IV SCH (17:22)
[2022-03-30] MEDS: Insulin GLARGINE 100 un/ml 10 ml VIAL SUBCUT SCH (21:00)
[2022-03-30] MEDS: Enoxaparin 40 MG/0.4 ML SYR SUBCUT SCH (21:01)
[2022-03-31] MEDS: Ondansetron 4 mg VIAL 2 MG/ML 2 ml VIAL IV PRN ×2 (06:10→09:53)
[2022-03-31 07:27] LABS: Albumin 3.1 g/dL (3.2-5.2); Albumin/Globulin Ratio 1.1 (1-3); Creatinine, Serum 0.4 mg/dL (0.51-0.95); Globulin 2.8 g/dL (2-4); Magnesium 1.5 mg/dL (1.9-2.7); Phosphorus 3.8 mg/dL (2.5-5.0); Potassium 4.4 mmol/L (3.5-5.0); Total Bilirubin 0.2 mg/dL (0.2-1.0); Total Protein 5.9 g/dL (6.4-8.9); eGFR CKD-EPI 111.1 (>60)
[2022-03-31] MEDS: Prochlorperazine 5 mg/ml 2 ml VIAL (10 mg) IV PRN (08:24)
[2022-03-31] MEDS ORDERED: Magnesium Sulfate 2 gm BAG 2 GM/50 ML BAG IVPB ONE (08:58)
[2022-03-31] MEDS: Venlafaxine XR 75 mg PO SCH (09:54)
[2022-03-31] MEDS ORDERED: Metoclopramide 5 MG/ML VIAL (10 mg) IV SLOW PU ONE (12:29)
[2022-03-31] MEDS: AMINO ACID INFUSION IV SCH (18:26)
[2022-03-31] MEDS: TPN IV SCH (18:26)
[2022-03-31] MEDS: [UNRECOGNIZED DRUG - OTHER] IV SCH (18:26)
[2022-03-31] MEDS: DEXTROSE IV SCH (18:26)
[2022-03-31] MEDS: WATER IV SCH (18:26)
[2022-03-31] MEDS: Enoxaparin 40 MG/0.4 ML SYR SUBCUT SCH (21:43)
[2022-03-31] MEDS: Insulin GLARGINE 100 un/ml 10 ml VIAL SUBCUT SCH (21:44)
[2022-03-31] MEDS: Metoclopramide 5 MG/ML VIAL (10 mg) IV PRN (22:07)
[2022-03-31] MEDS: Acetaminophen IV 1 GM/100ML 1,000 MG/100 ML BAG IV PRN (23:59)
[2022-04-01] MEDS: Acetaminophen IV 1 GM/100ML 1,000 MG/100 ML BAG IV PRN ×2 (08:39→14:22)
[2022-04-01] MEDS: Metoclopramide 5 MG/ML VIAL (10 mg) IV PRN (10:26)
[2022-04-01] MEDS: Venlafaxine XR 75 mg PO SCH (10:26)
[2022-04-01] MEDS: Ondansetron 4 mg VIAL 2 MG/ML 2 ml VIAL IV PRN (14:22)
[2022-04-01] MEDS: WATER IV SCH (17:05)
[2022-04-01] MEDS: AMINO ACID INFUSION IV SCH (17:05)
[2022-04-01] MEDS: DEXTROSE IV SCH (17:05)
[2022-04-01] MEDS: TPN IV SCH (17:05)
[2022-04-01] MEDS: [UNRECOGNIZED DRUG - OTHER] IV SCH (17:05)
[2022-04-01] MEDS: Prochlorperazine 5 mg/ml 2 ml VIAL (10 mg) IV PRN (21:22)
[2022-04-01] MEDS: Enoxaparin 40 MG/0.4 ML SYR SUBCUT SCH (21:22)
[2022-04-01] MEDS: Insulin GLARGINE 100 un/ml 10 ml VIAL SUBCUT SCH (21:23)
[2022-04-02] MEDS: Ondansetron 4 mg VIAL 2 MG/ML 2 ml VIAL IV PRN ×2 (02:05→20:34)
[2022-04-02 07:12] LABS: Albumin 3.2 g/dL (3.2-5.2); Albumin/Globulin Ratio 1.1 (1-3); Calcium 9.1 mg/dL (8.6-10.3); Creatinine, Serum 0.41 mg/dL (0.51-0.95); Globulin 2.8 g/dL (2-4); Magnesium 1.7 mg/dL (1.9-2.7); Phosphorus 4.1 mg/dL (2.5-5.0); Potassium 4.5 mmol/L (3.5-5.0); Total Bilirubin 0.3 mg/dL (0.2-1.0); eGFR CKD-EPI 110.5 (>60)
[2022-04-02] MEDS ORDERED: Magnesium Sulfate 2 gm BAG 2 GM/50 ML BAG IVPB ONE (07:51)
[2022-04-02] MEDS: Venlafaxine XR 75 mg PO SCH (08:31)
[2022-04-02] MEDS: Prochlorperazine 5 mg/ml 2 ml VIAL (10 mg) IV PRN (16:49)
[2022-04-02] MEDS: AMINO ACID INFUSION IV SCH (16:50)
[2022-04-02] MEDS: TPN IV SCH (16:50)
[2022-04-02] MEDS: WATER IV SCH (16:50)
[2022-04-02] MEDS: [UNRECOGNIZED DRUG - OTHER] IV SCH (16:50)
[2022-04-02] MEDS: DEXTROSE IV SCH (16:50)
[2022-04-02] MEDS: Acetaminophen IV 1 GM/100ML 1,000 MG/100 ML BAG IV PRN (19:51)
[2022-04-02] MEDS: Insulin GLARGINE 100 un/ml 10 ml VIAL SUBCUT SCH (20:25)
[2022-04-02] MEDS: Enoxaparin 40 MG/0.4 ML SYR SUBCUT SCH (20:26)
[2022-04-03] MEDS: Ondansetron 4 mg VIAL 2 MG/ML 2 ml VIAL IV PRN ×2 (09:49→13:32)
[2022-04-03] MEDS: Venlafaxine XR 75 mg PO SCH (09:50)
[2022-04-03] MEDS: Prochlorperazine 5 mg/ml 2 ml VIAL (10 mg) IV PRN (14:38)
[2022-04-03] MEDS: WATER IV SCH (17:03)
[2022-04-03] MEDS: DEXTROSE IV SCH (17:03)
[2022-04-03] MEDS: TPN IV SCH (17:03)
[2022-04-03] MEDS: AMINO ACID INFUSION IV SCH (17:03)
[2022-04-03] MEDS: [UNRECOGNIZED DRUG - OTHER] IV SCH (17:03)
[2022-04-03] MEDS: Insulin GLARGINE 100 un/ml 10 ml VIAL SUBCUT SCH (20:08)
[2022-04-03] MEDS: Enoxaparin 40 MG/0.4 ML SYR SUBCUT SCH (20:08)
[2022-04-03] MEDS: Acetaminophen IV 1 GM/100ML 1,000 MG/100 ML BAG IV PRN (20:09)
[2022-04-04 06:09] LABS: Albumin 3.2 g/dL (3.2-5.2); Albumin/Globulin Ratio 1.2 (1-3); Calcium 8.9 mg/dL (8.6-10.3); Creatinine, Serum 0.43 mg/dL (0.51-0.95); Globulin 2.7 g/dL (2-4); Magnesium 1.6 mg/dL (1.9-2.7); Phosphorus 3.6 mg/dL (2.5-5.0); Potassium 4.3 mmol/L (3.5-5.0); Total Bilirubin 0.3 mg/dL (0.2-1.0); Total Protein 5.9 g/dL (6.4-8.9); eGFR CKD-EPI 109.2 (>60)
[2022-04-04] MEDS: Venlafaxine XR 75 mg PO SCH (11:15)
[2022-04-04] MEDS: Prochlorperazine 5 mg/ml 2 ml VIAL (10 mg) IV PRN (11:15)
[2022-04-04] MEDS: Magnesium Sulfate 2 gm BAG 2 GM/50 ML BAG IVPB SCH (12:13)
[2022-04-04] MEDS: WATER IV SCH (17:38)
[2022-04-04] MEDS: TPN IV SCH (17:38)
[2022-04-04] MEDS: DEXTROSE IV SCH (17:38)
[2022-04-04] MEDS: [UNRECOGNIZED DRUG - OTHER] IV SCH (17:38)
[2022-04-04] MEDS: AMINO ACID INFUSION IV SCH (17:38)
[2022-04-04] MEDS: Acetaminophen IV 1 GM/100ML 1,000 MG/100 ML BAG IV PRN (20:04)
[2022-04-04] MEDS: Enoxaparin 40 MG/0.4 ML SYR SUBCUT SCH (20:12)
[2022-04-04] MEDS: Insulin GLARGINE 100 un/ml 10 ml VIAL SUBCUT SCH (20:12)
[2022-04-05] MEDS: Venlafaxine XR 75 mg PO SCH (10:37)
[2022-04-05] MEDS: Magnesium Sulfate 2 gm BAG 2 GM/50 ML BAG IVPB SCH (10:37)
[2022-04-05] MEDS: Acetaminophen IV 1 GM/100ML 1,000 MG/100 ML BAG IV PRN ×2 (17:11→22:35)
[2022-04-05] MEDS: [UNRECOGNIZED DRUG - OTHER] IV SCH (17:11)
[2022-04-05] MEDS: WATER IV SCH (17:11)
[2022-04-05] MEDS: TPN IV SCH (17:11)
[2022-04-05] MEDS: AMINO ACID INFUSION IV SCH (17:11)
[2022-04-05] MEDS: DEXTROSE IV SCH (17:11)
[2022-04-05] MEDS: Enoxaparin 40 MG/0.4 ML SYR SUBCUT SCH (20:40)
[2022-04-05] MEDS: Insulin GLARGINE 100 un/ml 10 ml VIAL SUBCUT SCH (20:41)
[2022-04-06] MEDS: Acetaminophen IV 1 GM/100ML 1,000 MG/100 ML BAG IV PRN ×2 (05:23→23:15)
[2022-04-06] MEDS: Venlafaxine XR 75 mg PO SCH (09:22)
[2022-04-06] MEDS: Magnesium Sulfate 2 gm BAG 2 GM/50 ML BAG IVPB SCH (09:24)
[2022-04-06] MEDS: Ondansetron 4 mg VIAL 2 MG/ML 2 ml VIAL IV PRN ×2 (09:48→17:36)
[2022-04-06] MEDS: WATER IV SCH (17:36)
[2022-04-06] MEDS: DEXTROSE IV SCH (17:36)
[2022-04-06] MEDS: AMINO ACID INFUSION IV SCH (17:36)
[2022-04-06] MEDS: [UNRECOGNIZED DRUG - OTHER] IV SCH (17:36)
[2022-04-06] MEDS: TPN IV SCH (17:36)
[2022-04-06] MEDS: Insulin GLARGINE 100 un/ml 10 ml VIAL SUBCUT SCH (20:27)
[2022-04-06] MEDS: Enoxaparin 40 MG/0.4 ML SYR SUBCUT SCH (20:28)
[2022-04-07 06:09] LABS: Albumin 2.8 g/dL (3.2-5.2); Albumin/Globulin Ratio 1.2 (1-3); Calcium 8.4 mg/dL (8.6-10.3); Creatinine, Serum 0.43 mg/dL (0.51-0.95); Globulin 2.3 g/dL (2-4); Magnesium 1.6 mg/dL (1.9-2.7); Potassium 4.3 mmol/L (3.5-5.0); Total Bilirubin 0.2 mg/dL (0.2-1.0); Total Protein 5.1 g/dL (6.4-8.9); eGFR CKD-EPI 109.2 (>60)
[2022-04-07] MEDS: Acetaminophen IV 1 GM/100ML 1,000 MG/100 ML BAG IV PRN ×2 (09:21→16:20)
[2022-04-07] MEDS: Venlafaxine XR 75 mg PO SCH (09:34)
[2022-04-07] MEDS: Magnesium Sulfate 2 gm BAG 2 GM/50 ML BAG IVPB SCH (09:59)
[2022-04-07] MEDS: Ondansetron 4 mg VIAL 2 MG/ML 2 ml VIAL IV PRN (16:53)
[2022-04-07] MEDS: [UNRECOGNIZED DRUG - OTHER] IV SCH (16:53)
[2022-04-07] MEDS: DEXTROSE IV SCH (16:53)
[2022-04-07] MEDS: TPN IV SCH (16:53)
[2022-04-07] MEDS: WATER IV SCH (16:53)
[2022-04-07] MEDS: AMINO ACID INFUSION IV SCH (16:53)
[2022-04-07] MEDS: Insulin GLARGINE 100 un/ml 10 ml VIAL SUBCUT SCH (20:42)
[2022-04-07] MEDS: Enoxaparin 40 MG/0.4 ML SYR SUBCUT SCH (20:43)
[2022-04-08] MEDS: Acetaminophen IV 1 GM/100ML 1,000 MG/100 ML BAG IV PRN ×2 (04:30→12:58)
[2022-04-08] MEDS: Magnesium Sulfate 2 gm BAG 2 GM/50 ML BAG IVPB SCH (08:27)
[2022-04-08] MEDS: Venlafaxine XR 75 mg PO SCH (09:36)
[2022-04-08] MEDS: Prochlorperazine 5 mg/ml 2 ml VIAL (10 mg) IV PRN (12:25)
[2022-04-08] MEDS: DEXTROSE IV SCH (17:07)
[2022-04-08] MEDS: TPN IV SCH (17:07)
[2022-04-08] MEDS: WATER IV SCH (17:07)
[2022-04-08] MEDS: AMINO ACID INFUSION IV SCH (17:07)
[2022-04-08] MEDS: [UNRECOGNIZED DRUG - OTHER] IV SCH (17:07)
[2022-04-08] MEDS: Insulin GLARGINE 100 un/ml 10 ml VIAL SUBCUT SCH (19:30)
[2022-04-08] MEDS: Enoxaparin 40 MG/0.4 ML SYR SUBCUT SCH (19:32)
[2022-04-09] MEDS: Prochlorperazine 5 mg/ml 2 ml VIAL (10 mg) IV PRN (00:53)
[2022-04-09] MEDS: Ondansetron 4 mg VIAL 2 MG/ML 2 ml VIAL IV PRN (09:12)
[2022-04-09] MEDS: Magnesium Sulfate 2 gm BAG 2 GM/50 ML BAG IVPB SCH (10:51)
[2022-04-09] MEDS: Venlafaxine XR 75 mg PO SCH (10:51)
[2022-04-09] MEDS: Acetaminophen IV 1 GM/100ML 1,000 MG/100 ML BAG IV PRN ×2 (16:00→22:29)
[2022-04-09] MEDS: WATER IV SCH (17:37)
[2022-04-09] MEDS: AMINO ACID INFUSION IV SCH (17:37)
[2022-04-09] MEDS: DEXTROSE IV SCH (17:37)
[2022-04-09] MEDS: TPN IV SCH (17:37)
[2022-04-09] MEDS: [UNRECOGNIZED DRUG - OTHER] IV SCH (17:37)
[2022-04-09] MEDS: Insulin GLARGINE 100 un/ml 10 ml VIAL SUBCUT SCH (19:27)
[2022-04-09] MEDS: Enoxaparin 40 MG/0.4 ML SYR SUBCUT SCH (19:29)
[2022-04-10] MEDS: Prochlorperazine 5 mg/ml 2 ml VIAL (10 mg) IV PRN (06:11)
[2022-04-10] MEDS: Ondansetron 4 mg VIAL 2 MG/ML 2 ml VIAL IV PRN ×3 (11:05→23:07)
[2022-04-10] MEDS: Magnesium Sulfate 2 gm BAG 2 GM/50 ML BAG IVPB SCH (11:13)
[2022-04-10] MEDS: Venlafaxine XR 75 mg PO SCH (11:18)
[2022-04-10] MEDS: Acetaminophen IV 1 GM/100ML 1,000 MG/100 ML BAG IV PRN ×2 (11:54→18:46)
[2022-04-10] MEDS: WATER IV SCH (17:29)
[2022-04-10] MEDS: AMINO ACID INFUSION IV SCH (17:29)
[2022-04-10] MEDS: TPN IV SCH (17:29)
[2022-04-10] MEDS: [UNRECOGNIZED DRUG - OTHER] IV SCH (17:29)
[2022-04-10] MEDS: DEXTROSE IV SCH (17:29)
[2022-04-10] MEDS ORDERED: Morphine 2 MG/ML SYRINGE IV ONE (22:10)
[2022-04-10] MEDS: Enoxaparin 40 MG/0.4 ML SYR SUBCUT SCH (23:11)
[2022-04-10] MEDS: Insulin GLARGINE 100 un/ml 10 ml VIAL SUBCUT SCH (23:12)
[2022-04-11] MEDS: Acetaminophen IV 1 GM/100ML 1,000 MG/100 ML BAG IV PRN ×3 (02:17→23:25)
[2022-04-11] MEDS ORDERED: Morphine 2 MG/ML SYRINGE IV ONE (06:16)
[2022-04-11 06:31] LABS: Albumin 3.1 g/dL (3.2-5.2); Albumin/Globulin Ratio 1.1 (1-3); Calcium 8.9 mg/dL (8.6-10.3); Creatinine, Serum 0.44 mg/dL (0.51-0.95); Globulin 2.7 g/dL (2-4); Magnesium 1.6 mg/dL (1.9-2.7); Phosphorus 3.9 mg/dL (2.5-5.0); Potassium 4.2 mmol/L (3.5-5.0); Total Bilirubin 0.2 mg/dL (0.2-1.0); Total Protein 5.8 g/dL (6.4-8.9); eGFR CKD-EPI 108.6 (>60)
[2022-04-11] MEDS: Ondansetron 4 mg VIAL 2 MG/ML 2 ml VIAL IV PRN ×2 (08:30→12:38)
[2022-04-11] MEDS: Magnesium Sulfate 2 gm BAG 2 GM/50 ML BAG IVPB SCH (09:11)
[2022-04-11] MEDS: Venlafaxine XR 75 mg PO SCH (09:15)
[2022-04-11] MEDS ORDERED: Magnesium Sulfate IV 3 GM in NS 0.9% 100 ml BAG 100 ML IVPB ONE (12:30)
[2022-04-11] MEDS: Prochlorperazine 5 mg/ml 2 ml VIAL (10 mg) IV PRN (12:38)
[2022-04-11] MEDS: [UNRECOGNIZED DRUG - OTHER] IV SCH (17:36)
[2022-04-11] MEDS: DEXTROSE IV SCH (17:36)
[2022-04-11] MEDS: WATER IV SCH (17:36)
[2022-04-11] MEDS: TPN IV SCH (17:36)
[2022-04-11] MEDS: AMINO ACID INFUSION IV SCH (17:36)
[2022-04-11] MEDS: Insulin GLARGINE 100 un/ml 10 ml VIAL SUBCUT SCH (22:57)
[2022-04-11] MEDS: Enoxaparin 40 MG/0.4 ML SYR SUBCUT SCH (22:59)
[2022-04-12] MEDS: Venlafaxine XR 75 mg PO SCH (08:01)
[2022-04-12] MEDS: Magnesium Sulfate 2 gm BAG 2 GM/50 ML BAG IVPB SCH (08:01)
[2022-04-12] MEDS: Acetaminophen IV 1 GM/100ML 1,000 MG/100 ML BAG IV PRN ×2 (11:26→17:21)
[2022-04-12] MEDS: Ondansetron 4 mg VIAL 2 MG/ML 2 ml VIAL IV PRN (11:56)
[2022-04-12] MEDS: Amoxicillin/Clavul 875/125 TAB (Augmentin 875 tab) PO SCH ×2 (14:24→23:34)
[2022-04-12] MEDS: AMINO ACID INFUSION IV SCH (17:22)
[2022-04-12] MEDS: [UNRECOGNIZED DRUG - OTHER] IV SCH (17:22)
[2022-04-12] MEDS: WATER IV SCH (17:22)
[2022-04-12] MEDS: DEXTROSE IV SCH (17:22)
[2022-04-12] MEDS: TPN IV SCH (17:22)
[2022-04-12] MEDS: Insulin GLARGINE 100 un/ml 10 ml VIAL SUBCUT SCH (23:38)
[2022-04-12] MEDS: Enoxaparin 40 MG/0.4 ML SYR SUBCUT SCH (23:38)
[2022-04-13] MEDS: Prochlorperazine 5 mg/ml 2 ml VIAL (10 mg) IV PRN ×2 (08:27)
[2022-04-13] MEDS: Magnesium Sulfate 2 gm BAG 2 GM/50 ML BAG IVPB SCH (08:30)
[2022-04-13] MEDS: Amoxicillin/Clavul 875/125 TAB (Augmentin 875 tab) PO SCH ×2 (09:42→20:10)
[2022-04-13] MEDS: Venlafaxine XR 75 mg PO SCH (09:43)
[2022-04-13] MEDS: Acetaminophen IV 1 GM/100ML 1,000 MG/100 ML BAG IV PRN ×2 (12:52→20:11)
[2022-04-13] MEDS: TPN IV SCH (16:53)
[2022-04-13] MEDS: AMINO ACID INFUSION IV SCH (16:53)
[2022-04-13] MEDS: DEXTROSE IV SCH (16:53)
[2022-04-13] MEDS: [UNRECOGNIZED DRUG - OTHER] IV SCH (16:53)
[2022-04-13] MEDS: WATER IV SCH (16:53)
[2022-04-13] MEDS: Enoxaparin 40 MG/0.4 ML SYR SUBCUT SCH (20:10)
[2022-04-13] MEDS: Insulin GLARGINE 100 un/ml 10 ml VIAL SUBCUT SCH (20:11)
[2022-04-14] MEDS: Senna TAB 8.6 mg TAB PO PRN (03:21)
[2022-04-14] MEDS ORDERED: Alteplase (CATHFLO) 2 MG VIAL IV ONE (03:51)
[2022-04-14] MEDS: Magnesium Sulfate 2 gm BAG 2 GM/50 ML BAG IVPB SCH (09:54)
[2022-04-14] MEDS: Amoxicillin/Clavul 875/125 TAB (Augmentin 875 tab) PO SCH ×2 (09:55→19:50)
[2022-04-14] MEDS: Venlafaxine XR 75 mg PO SCH (09:55)
[2022-04-14 09:56] LABS: Magnesium 1.5 mg/dL (1.9-2.7)
[2022-04-14 10:10] LABS: Albumin 2.7 g/dL (3.2-5.2); Albumin/Globulin Ratio 1.2 (1-3); Calcium 8.6 mg/dL (8.6-10.3); Creatinine, Serum 0.31 mg/dL (0.51-0.95); Globulin 2.3 g/dL (2-4); Phosphorus 3.8 mg/dL (2.5-5.0); Potassium 4.7 mmol/L (3.5-5.0); Total Bilirubin 0.2 mg/dL (0.2-1.0); eGFR CKD-EPI 118.2 (>60)
[2022-04-14] MEDS: Acetaminophen IV 1 GM/100ML 1,000 MG/100 ML BAG IV PRN (14:04)
[2022-04-14] MEDS: fentaNYL 100 mcg/2 ml 50 MCG/ML VIAL IV SLOW PU PRN (16:39)
[2022-04-14] MEDS: DEXTROSE IV SCH (17:19)
[2022-04-14] MEDS: TPN IV SCH (17:19)
[2022-04-14] MEDS: [UNRECOGNIZED DRUG - OTHER] IV SCH (17:19)
[2022-04-14] MEDS: AMINO ACID INFUSION IV SCH (17:19)
[2022-04-14] MEDS: WATER IV SCH (17:19)
[2022-04-14] MEDS: Ciproflox/Dexameth OTIC.SUSP 7.5 ML BTL RIGHT EAR SCH ×2 (17:20→19:51)
[2022-04-14] MEDS: Enoxaparin 40 MG/0.4 ML SYR SUBCUT SCH (19:49)
[2022-04-14] MEDS: Insulin GLARGINE 100 un/ml 10 ml VIAL SUBCUT SCH (19:50)
[2022-04-14] MEDS: Ondansetron 4 mg VIAL 2 MG/ML 2 ml VIAL IV PRN (20:03)
[2022-04-15] MEDS: fentaNYL 100 mcg/2 ml 50 MCG/ML VIAL IV SLOW PU PRN ×2 (00:05→05:00)
[2022-04-15] MEDS: Magnesium Sulfate 2 gm BAG 2 GM/50 ML BAG IVPB SCH (08:04)
[2022-04-15 11:00] LABS: .Transferrin 196 mg/dL (203-362); Total Iron Binding Capacity 274 mcg/dL (250-450)
[2022-04-15 11:21] LABS: Ferritin 8.3 ng/mL (11-307)
[2022-04-15] MEDS: Venlafaxine XR 75 mg PO SCH (11:49)
[2022-04-15] MEDS: Ciproflox/Dexameth OTIC.SUSP 7.5 ML BTL RIGHT EAR SCH ×2 (11:49→20:22)
[2022-04-15] MEDS: Amoxicillin/Clavul 875/125 TAB (Augmentin 875 tab) PO SCH ×2 (11:52→20:20)
[2022-04-15] MEDS: WATER IV SCH (17:33)
[2022-04-15] MEDS: DEXTROSE IV SCH (17:33)
[2022-04-15] MEDS: [UNRECOGNIZED DRUG - OTHER] IV SCH (17:33)
[2022-04-15] MEDS: AMINO ACID INFUSION IV SCH (17:33)
[2022-04-15] MEDS: TPN IV SCH (17:33)
[2022-04-15] MEDS: Enoxaparin 40 MG/0.4 ML SYR SUBCUT SCH (20:21)
[2022-04-15] MEDS: Insulin GLARGINE 100 un/ml 10 ml VIAL SUBCUT SCH (20:21)
[2022-04-16] MEDS: Acetaminophen IV 1 GM/100ML 1,000 MG/100 ML BAG IV PRN ×2 (01:42→20:58)
[2022-04-16] MEDS: Magnesium Sulfate 2 gm BAG 2 GM/50 ML BAG IVPB SCH (07:34)
[2022-04-16] MEDS: Venlafaxine XR 75 mg PO SCH (11:24)
[2022-04-16] MEDS: Amoxicillin/Clavul 875/125 TAB (Augmentin 875 tab) PO SCH ×2 (11:24→20:58)
[2022-04-16] MEDS: Ciproflox/Dexameth OTIC.SUSP 7.5 ML BTL RIGHT EAR SCH ×2 (11:24→21:09)
[2022-04-16] MEDS: Ondansetron 4 mg VIAL 2 MG/ML 2 ml VIAL IV PRN (11:50)
[2022-04-16] MEDS: [UNRECOGNIZED DRUG - OTHER] IV SCH (17:29)
[2022-04-16] MEDS: DEXTROSE IV SCH (17:29)
[2022-04-16] MEDS: TPN IV SCH (17:29)
[2022-04-16] MEDS: AMINO ACID INFUSION IV SCH (17:29)
[2022-04-16] MEDS: WATER IV SCH (17:29)
[2022-04-16] MEDS: Insulin GLARGINE 100 un/ml 10 ml VIAL SUBCUT SCH (21:04)
[2022-04-16] MEDS: Enoxaparin 40 MG/0.4 ML SYR SUBCUT SCH (21:04)
[2022-04-17] MEDS: Acetaminophen IV 1 GM/100ML 1,000 MG/100 ML BAG IV PRN ×2 (07:25→14:38)
[2022-04-17] MEDS: Magnesium Sulfate 2 gm BAG 2 GM/50 ML BAG IVPB SCH (09:34)
[2022-04-17] MEDS: Venlafaxine XR 75 mg PO SCH (09:36)
[2022-04-17] MEDS: Multivitamins/Minerals TAB PO SCH (09:36)
[2022-04-17] MEDS: Amoxicillin/Clavul 875/125 TAB (Augmentin 875 tab) PO SCH ×2 (09:36→20:03)
[2022-04-17] MEDS: Ciproflox/Dexameth OTIC.SUSP 7.5 ML BTL RIGHT EAR SCH ×2 (09:37→20:04)
[2022-04-17] MEDS: [UNRECOGNIZED DRUG - OTHER] IV SCH (17:11)
[2022-04-17] MEDS: TPN IV SCH (17:11)
[2022-04-17] MEDS: AMINO ACID INFUSION IV SCH (17:11)
[2022-04-17] MEDS: WATER IV SCH (17:11)
[2022-04-17] MEDS: DEXTROSE IV SCH (17:11)
[2022-04-17] MEDS: Insulin GLARGINE 100 un/ml 10 ml VIAL SUBCUT SCH (20:04)
[2022-04-17] MEDS: Enoxaparin 40 MG/0.4 ML SYR SUBCUT SCH (20:04)
[2022-04-18 06:13] LABS: Albumin 2.8 g/dL (3.2-5.2); Albumin/Globulin Ratio 1.2 (1-3); Calcium 8.8 mg/dL (8.6-10.3); Creatinine, Serum 0.42 mg/dL (0.51-0.95); Globulin 2.4 g/dL (2-4); Magnesium 1.7 mg/dL (1.9-2.7); Phosphorus 4.2 mg/dL (2.5-5.0); Potassium 4.6 mmol/L (3.5-5.0); Total Bilirubin 0.2 mg/dL (0.2-1.0); Total Protein 5.2 g/dL (6.4-8.9); eGFR CKD-EPI 109.8 (>60)
[2022-04-18] MEDS: Magnesium Sulfate 2 gm BAG 2 GM/50 ML BAG IVPB SCH (08:02)
[2022-04-18] MEDS: Multivitamins/Minerals TAB PO SCH (08:07)
[2022-04-18] MEDS: Ciproflox/Dexameth OTIC.SUSP 7.5 ML BTL RIGHT EAR SCH ×2 (08:07→20:53)
[2022-04-18] MEDS: Amoxicillin/Clavul 875/125 TAB (Augmentin 875 tab) PO SCH ×2 (08:07→20:45)
[2022-04-18] MEDS: Venlafaxine XR 75 mg PO SCH (08:07)
[2022-04-18] MEDS ORDERED: Magnesium Sulfate IV 1GM/100ML 1 GM/100 ML BAG IV ONE (09:00)
[2022-04-18] MEDS: TPN IV SCH (17:02)
[2022-04-18] MEDS: AMINO ACID INFUSION IV SCH (17:02)
[2022-04-18] MEDS: WATER IV SCH (17:02)
[2022-04-18] MEDS: DEXTROSE IV SCH (17:02)
[2022-04-18] MEDS: [UNRECOGNIZED DRUG - OTHER] IV SCH (17:02)
[2022-04-18] MEDS: Acetaminophen IV 1 GM/100ML 1,000 MG/100 ML BAG IV PRN (20:44)
[2022-04-18] MEDS: Enoxaparin 40 MG/0.4 ML SYR SUBCUT SCH (20:45)
[2022-04-18] MEDS: Insulin GLARGINE 100 un/ml 10 ml VIAL SUBCUT SCH (20:47)
[2022-04-19] MEDS: Prochlorperazine 5 mg/ml 2 ml VIAL (10 mg) IV PRN (02:26)
[2022-04-19] MEDS: Magnesium Sulfate 2 gm BAG 2 GM/50 ML BAG IVPB SCH (07:31)
[2022-04-19] MEDS: Ciproflox/Dexameth OTIC.SUSP 7.5 ML BTL RIGHT EAR SCH ×2 (09:32→21:05)
[2022-04-19] MEDS: Amoxicillin/Clavul 875/125 TAB (Augmentin 875 tab) PO SCH (09:32)
[2022-04-19] MEDS: Multivitamins/Minerals TAB PO SCH (09:33)
[2022-04-19] MEDS: Venlafaxine XR 75 mg PO SCH (09:33)
[2022-04-19] MEDS: [UNRECOGNIZED DRUG - OTHER] IV SCH (17:02)
[2022-04-19] MEDS: WATER IV SCH (17:02)
[2022-04-19] MEDS: AMINO ACID INFUSION IV SCH (17:02)
[2022-04-19] MEDS: DEXTROSE IV SCH (17:02)
[2022-04-19] MEDS: TPN IV SCH (17:02)
[2022-04-19] MEDS: Insulin GLARGINE 100 un/ml 10 ml VIAL SUBCUT SCH (21:04)
[2022-04-19] MEDS: Enoxaparin 40 MG/0.4 ML SYR SUBCUT SCH (21:04)
[2022-04-19] MEDS: Acetaminophen IV 1 GM/100ML 1,000 MG/100 ML BAG IV PRN (21:36)
[2022-04-20] MEDS: Multivitamins/Minerals TAB PO SCH (08:44)
[2022-04-20] MEDS: Venlafaxine XR 75 mg PO SCH (08:44)
[2022-04-20] MEDS: Ciproflox/Dexameth OTIC.SUSP 7.5 ML BTL RIGHT EAR SCH (08:44)
[2022-04-20] MEDS: Magnesium Sulfate 2 gm BAG 2 GM/50 ML BAG IVPB SCH (08:45)
[2022-04-20] MEDS: WATER IV SCH (16:59)
[2022-04-20] MEDS: DEXTROSE IV SCH (16:59)
[2022-04-20] MEDS: TPN IV SCH (16:59)
[2022-04-20] MEDS: [UNRECOGNIZED DRUG - OTHER] IV SCH (16:59)
[2022-04-20] MEDS: AMINO ACID INFUSION IV SCH (16:59)
[2022-04-20] MEDS: Acetaminophen IV 1 GM/100ML 1,000 MG/100 ML BAG IV PRN (20:08)
[2022-04-20] MEDS: Enoxaparin 40 MG/0.4 ML SYR SUBCUT SCH (20:12)
[2022-04-20] MEDS: Insulin GLARGINE 100 un/ml 10 ml VIAL SUBCUT SCH (22:18)
[2022-04-21 05:44] LABS: Albumin 2.9 g/dL (3.2-5.2); Calcium 8.9 mg/dL (8.6-10.3); Creatinine, Serum 0.36 mg/dL (0.51-0.95); Globulin 2.8 g/dL (2-4); Magnesium 1.7 mg/dL (1.9-2.7); Potassium 4.7 mmol/L (3.5-5.0); Total Bilirubin 0.2 mg/dL (0.2-1.0); Total Protein 5.7 g/dL (6.4-8.9)
[2022-04-21] MEDS: Magnesium Sulfate 2 gm BAG 2 GM/50 ML BAG IVPB SCH (09:08)
[2022-04-21] MEDS: Venlafaxine XR 75 mg PO SCH (10:21)
[2022-04-21] MEDS: Multivitamins/Minerals TAB PO SCH (10:21)
[2022-04-21] MEDS: Prochlorperazine 5 mg/ml 2 ml VIAL (10 mg) IV PRN ×2 (14:13→20:31)
[2022-04-21] MEDS: Ondansetron 4 mg VIAL 2 MG/ML 2 ml VIAL IV PRN ×2 (16:47→22:14)
[2022-04-21] MEDS: WATER IV SCH (17:01)
[2022-04-21] MEDS: [UNRECOGNIZED DRUG - OTHER] IV SCH (17:01)
[2022-04-21] MEDS: DEXTROSE IV SCH (17:01)
[2022-04-21] MEDS: TPN IV SCH (17:01)
[2022-04-21] MEDS: AMINO ACID INFUSION IV SCH (17:01)
[2022-04-21] MEDS: Enoxaparin 40 MG/0.4 ML SYR SUBCUT SCH (20:32)
[2022-04-21] MEDS: Insulin GLARGINE 100 un/ml 10 ml VIAL SUBCUT SCH (22:14)
[2022-04-22] MEDS: Magnesium Sulfate 2 gm BAG 2 GM/50 ML BAG IVPB SCH (09:26)
[2022-04-22] MEDS: Venlafaxine XR 75 mg PO SCH (09:26)
[2022-04-22] MEDS: Multivitamins/Minerals TAB PO SCH (09:26)
[2022-04-22] MEDS: WATER IV SCH (17:18)
[2022-04-22] MEDS: [UNRECOGNIZED DRUG - OTHER] IV SCH (17:18)
[2022-04-22] MEDS: TPN IV SCH (17:18)
[2022-04-22] MEDS: AMINO ACID INFUSION IV SCH (17:18)
[2022-04-22] MEDS: DEXTROSE IV SCH (17:18)
[2022-04-22] MEDS: Insulin GLARGINE 100 un/ml 10 ml VIAL SUBCUT SCH (21:01)
[2022-04-22] MEDS: Enoxaparin 40 MG/0.4 ML SYR SUBCUT SCH (21:01)
[2022-04-22] MEDS: Ondansetron 4 mg VIAL 2 MG/ML 2 ml VIAL IV PRN (21:01)
[2022-04-23] MEDS: Venlafaxine XR 75 mg PO SCH (08:09)
[2022-04-23] MEDS: Magnesium Sulfate 2 gm BAG 2 GM/50 ML BAG IVPB SCH (08:10)
[2022-04-23] MEDS: Multivitamins/Minerals TAB PO SCH (08:10)
[2022-04-23] MEDS: Acetaminophen IV 1 GM/100ML 1,000 MG/100 ML BAG IV PRN (17:29)
[2022-04-23] MEDS: TPN IV SCH (17:30)
[2022-04-23] MEDS: WATER IV SCH (17:30)
[2022-04-23] MEDS: AMINO ACID INFUSION IV SCH (17:30)
[2022-04-23] MEDS: [UNRECOGNIZED DRUG - OTHER] IV SCH (17:30)
[2022-04-23] MEDS: DEXTROSE IV SCH (17:30)
[2022-04-23] MEDS: Enoxaparin 40 MG/0.4 ML SYR SUBCUT SCH (21:36)
[2022-04-23] MEDS: Ondansetron 4 mg VIAL 2 MG/ML 2 ml VIAL IV PRN (21:36)
[2022-04-23] MEDS: Insulin GLARGINE 100 un/ml 10 ml VIAL SUBCUT SCH (21:37)
[2022-04-23] MEDS: Prochlorperazine 5 mg/ml 2 ml VIAL (10 mg) IV PRN (23:00)
[2022-04-24] MEDS: Prochlorperazine 5 mg/ml 2 ml VIAL (10 mg) IV PRN ×2 (07:55→19:56)
[2022-04-24] MEDS: Magnesium Sulfate 2 gm BAG 2 GM/50 ML BAG IVPB SCH (08:28)
[2022-04-24] MEDS: Venlafaxine XR 75 mg PO SCH (09:00)
[2022-04-24] MEDS: Multivitamins/Minerals TAB PO SCH (09:00)
[2022-04-24] MEDS: DEXTROSE IV SCH (17:01)
[2022-04-24] MEDS: TPN IV SCH (17:01)
[2022-04-24] MEDS: [UNRECOGNIZED DRUG - OTHER] IV SCH (17:01)
[2022-04-24] MEDS: AMINO ACID INFUSION IV SCH (17:01)
[2022-04-24] MEDS: WATER IV SCH (17:01)
[2022-04-24] MEDS: Acetaminophen IV 1 GM/100ML 1,000 MG/100 ML BAG IV PRN (19:56)
[2022-04-24] MEDS: Enoxaparin 40 MG/0.4 ML SYR SUBCUT SCH (19:57)
[2022-04-24] MEDS: Insulin GLARGINE 100 un/ml 10 ml VIAL SUBCUT SCH (19:57)
[2022-04-25 09:42] LABS: Albumin/Globulin Ratio 1.2 (1-3); Creatinine, Serum 0.34 mg/dL (0.51-0.95); Globulin 2.6 g/dL (2-4); Magnesium 1.6 mg/dL (1.9-2.7); Potassium 4.4 mmol/L (3.5-5.0); Total Bilirubin 0.3 mg/dL (0.2-1.0); Total Protein 5.6 g/dL (6.4-8.9); eGFR CKD-EPI 115.6 (>60)
[2022-04-25] MEDS: Multivitamins/Minerals TAB PO SCH (10:36)
[2022-04-25] MEDS: Venlafaxine XR 75 mg PO SCH (10:36)
[2022-04-25] MEDS: Magnesium Sulfate 2 gm BAG 2 GM/50 ML BAG IVPB SCH (10:36)
[2022-04-25] MEDS: [UNRECOGNIZED DRUG - OTHER] IV SCH (17:25)
[2022-04-25] MEDS: DEXTROSE IV SCH (17:25)
[2022-04-25] MEDS: TPN IV SCH (17:25)
[2022-04-25] MEDS: AMINO ACID INFUSION IV SCH (17:25)
[2022-04-25] MEDS: WATER IV SCH (17:25)
[2022-04-25] MEDS ORDERED: Eye Irrigation Solution 30 ML BOTTLE BOTH EYES ONE (20:04)
[2022-04-25] MEDS: Amoxicillin/Clavul 875/125 TAB (Augmentin 875 tab) PO SCH (20:29)
[2022-04-25] MEDS: Enoxaparin 40 MG/0.4 ML SYR SUBCUT SCH (20:29)
[2022-04-25] MEDS: Carboxymethylcellulos 1% OPTH 1 AMP BOTH EYES SCH (20:32)
[2022-04-25] MEDS: Acetaminophen IV 1 GM/100ML 1,000 MG/100 ML BAG IV PRN (21:35)
[2022-04-25] MEDS: Insulin GLARGINE 100 un/ml 10 ml VIAL SUBCUT SCH (22:55)
[2022-04-26] MEDS: Magnesium Sulfate 2 gm BAG 2 GM/50 ML BAG IVPB SCH (11:45)
[2022-04-26] MEDS: Amoxicillin/Clavul 875/125 TAB (Augmentin 875 tab) PO SCH ×2 (11:45→21:41)
[2022-04-26] MEDS: Multivitamins/Minerals TAB PO SCH (11:46)
[2022-04-26] MEDS: Carboxymethylcellulos 1% OPTH 1 AMP BOTH EYES SCH (11:46)
[2022-04-26] MEDS: Venlafaxine XR 75 mg PO SCH (11:46)
[2022-04-26] MEDS: WATER IV SCH (17:30)
[2022-04-26] MEDS: [UNRECOGNIZED DRUG - OTHER] IV SCH (17:30)
[2022-04-26] MEDS: AMINO ACID INFUSION IV SCH (17:30)
[2022-04-26] MEDS: TPN IV SCH (17:30)
[2022-04-26] MEDS: DEXTROSE IV SCH (17:30)
[2022-04-26] MEDS: Acetaminophen IV 1 GM/100ML 1,000 MG/100 ML BAG IV PRN (18:42)
[2022-04-26] MEDS: Insulin GLARGINE 100 un/ml 10 ml VIAL SUBCUT SCH (21:40)
[2022-04-26] MEDS: Enoxaparin 40 MG/0.4 ML SYR SUBCUT SCH (21:41)
[2022-04-27] MEDS: Acetaminophen IV 1 GM/100ML 1,000 MG/100 ML BAG IV PRN ×3 (02:14→19:58)
[2022-04-27] MEDS: Magnesium Sulfate 2 gm BAG 2 GM/50 ML BAG IVPB SCH (10:17)
[2022-04-27] MEDS: Amoxicillin/Clavul 875/125 TAB (Augmentin 875 tab) PO SCH ×2 (10:20→20:37)
[2022-04-27] MEDS: Carboxymethylcellulos 1% OPTH 1 AMP BOTH EYES SCH (10:20)
[2022-04-27] MEDS: Multivitamins/Minerals TAB PO SCH (10:20)
[2022-04-27] MEDS: Venlafaxine XR 75 mg PO SCH (10:20)
[2022-04-27] MEDS ORDERED: TPN IV SCH ×2 (14:13→17:01)
[2022-04-27] MEDS ORDERED: WATER IV SCH ×2 (14:13→17:01)
[2022-04-27] MEDS ORDERED: AMINO ACID INFUSION IV SCH ×2 (14:13→17:01)
[2022-04-27] MEDS ORDERED: [UNRECOGNIZED DRUG - OTHER] IV SCH ×2 (14:13→17:01)
[2022-04-27] MEDS ORDERED: DEXTROSE IV SCH ×2 (14:13→17:01)
[2022-04-27] MEDS: Enoxaparin 40 MG/0.4 ML SYR SUBCUT SCH (20:10)
[2022-04-27] MEDS: Insulin GLARGINE 100 un/ml 10 ml VIAL SUBCUT SCH (21:58)
[2022-04-28 05:48] VITALS: BP 133/85
[2022-04-28 06:47] LABS: Albumin 2.9 g/dL (3.2-5.2); Albumin/Globulin Ratio 1.1 (1-3); Calcium 8.7 mg/dL (8.6-10.3); Creatinine, Serum 0.39 mg/dL (0.51-0.95); Globulin 2.6 g/dL (2-4); Magnesium 1.6 mg/dL (1.9-2.7); Phosphorus 3.8 mg/dL (2.5-5.0); Potassium 4.5 mmol/L (3.5-5.0); Total Bilirubin 0.2 mg/dL (0.2-1.0); Total Protein 5.5 g/dL (6.4-8.9); eGFR CKD-EPI 111.8 (>60)
[2022-04-28 07:49] LABS: Hematocrit 30 % (35-47); Mean Corpuscular HGB Conc 33 g/dL (31-36); Mean Corpuscular Hemoglobin 28 pg (27-31); Mean Corpuscular Volume 85 fL (80-97); Mean Platelet Volume 9.2 fL (7.4-10.4); Platelet Count 277 10^3/uL (150-450); Red Blood Count 3.55 10^6 /uL (3.70-4.87); Red Cell Distribution Width 18 % (10-15); White Blood Count 6.2 10^3/uL (3.5-10.8)
[2022-04-28] MEDS: Magnesium Sulfate 2 gm BAG 2 GM/50 ML BAG IVPB SCH (08:59)
[2022-04-28] MEDS: Carboxymethylcellulos 1% OPTH 1 AMP BOTH EYES SCH (09:00)
== END 2022-04-28 09:32 | disposition short-term general hospital (02) | DRG 393 ==
LOC: MED 18:29 → SUATTDRO 18:29
PROVIDERS: ADMIT Internal Medicine; ATTEND Internal Medicine

== ENCOUNTER 2022-04-28 09:40 | Observation (INO) ==
[2022-04-28] MEDS ORDERED: Dextrose 50% Syringe 50 ml 25 GM/50 ML SYRINGE IV PUSH PRN (11:10)
[2022-04-28] MEDS ORDERED: Prochlorperazine 5 mg/ml 2 ml VIAL (10 mg) IV PRN (11:10)
[2022-04-28] MEDS ORDERED: Senna TAB 8.6 mg TAB PO PRN (11:10)
[2022-04-28] MEDS ORDERED: Ondansetron 4 mg VIAL 2 MG/ML 2 ml VIAL IV PRN (11:10)
[2022-04-28] MEDS ORDERED: Polyethylene Glycol 3350 17 GM PACKET PO PRN (11:10)
[2022-04-28] MEDS ORDERED: Alteplase (CATHFLO) 2 MG VIAL IV PRN (11:10)
[2022-04-28] MEDS ORDERED: Magnesium Sulfate 1 GM IV 1 GM/100 ML BAG IV ONE (12:00)
[2022-04-28] MEDS ORDERED: Venlafaxine XR 75 mg PO SCH (12:00)
[2022-04-28] MEDS ORDERED: Multivitamins/Minerals TAB PO SCH (12:00)
[2022-04-28 14:57] VITALS: BP 120/82
[2022-04-28] MEDS ORDERED: AMINO ACID INFUSION CENT\\PICC SCH (17:00)
[2022-04-28] MEDS ORDERED: TPN CENT\\PICC SCH (17:00)
[2022-04-28] MEDS ORDERED: [UNRECOGNIZED DRUG - OTHER] CENT\\PICC SCH (17:00)
[2022-04-28] MEDS ORDERED: DEXTROSE CENT\\PICC SCH (17:00)
[2022-04-28] MEDS ORDERED: WATER CENT\\PICC SCH (17:00)
[2022-04-28] MEDS ORDERED: Amoxicillin/Clavul 875/125 TAB (Augmentin 875 tab) PO SCH (21:00)
[2022-04-28] MEDS ORDERED: Insulin GLARGINE 100 un/ml 10 ml VIAL SUBCUT SCH ×2 (21:00)
[2022-04-28] MEDS ORDERED: Enoxaparin 40 MG/0.4 ML SYR SUBCUT SCH (21:00)
[2022-04-29] MEDS ORDERED: Multivitamins/Minerals TAB PO SCH (09:00)
[2022-04-29] MEDS ORDERED: Carboxymethylcellulos 1% OPTH 1 AMP BOTH EYES SCH (09:00)
[2022-04-29] MEDS ORDERED: Magnesium Sulfate 3 GM IV IVPB SCH (09:00)
== END 2022-04-28 17:29 | disposition swing bed (61) ==
LOC: MED
PROVIDERS: ADMIT Internal Medicine; ATTEND Internal Medicine

== ENCOUNTER 2022-05-05 13:24 | Inpatient (IN) ==
[2022-05-05] MEDS ORDERED: Alteplase (CATHFLO) 2 MG VIAL IV PRN (15:39)
[2022-05-05] MEDS ORDERED: Dextrose 50% Syringe 50 ml 25 GM/50 ML SYRINGE IV PUSH PRN ×2 (15:39→17:48)
[2022-05-05] MEDS: WATER CENT\\PICC SCH (17:31)
[2022-05-05] MEDS: [UNRECOGNIZED DRUG - OTHER] CENT\\PICC SCH (17:31)
[2022-05-05] MEDS: DEXTROSE CENT\\PICC SCH (17:31)
[2022-05-05] MEDS: TPN CENT\\PICC SCH (17:31)
[2022-05-05] MEDS: AMINO ACID INFUSION CENT\\PICC SCH (17:31)
[2022-05-05] MEDS: Ondansetron 4 mg VIAL 2 MG/ML 2 ml VIAL IV PRN ×2 (17:31→22:12)
[2022-05-05] MEDS: Prochlorperazine 5 mg/ml 2 ml VIAL (10 mg) IV PRN (20:07)
[2022-05-05] MEDS: Acetaminophen IV 1 GM/100ML 1,000 MG/100 ML BAG IV PRN (22:15)
[2022-05-05] MEDS: Insulin GLARGINE 100 un/ml 10 ml VIAL SUBCUT SCH (22:17)
[2022-05-05] MEDS: Enoxaparin 40 MG/0.4 ML SYR SUBCUT SCH (22:19)
[2022-05-05] MEDS: Ciproflox/Dexameth OTIC.SUSP 7.5 ML BTL RIGHT EAR SCH (22:20)
[2022-05-06] MEDS: Ondansetron 4 mg VIAL 2 MG/ML 2 ml VIAL IV PRN ×4 (06:04→23:54)
[2022-05-06] MEDS: Acetaminophen IV 1 GM/100ML 1,000 MG/100 ML BAG IV PRN ×2 (06:06→21:02)
[2022-05-06] MEDS: Multivitamins/Minerals TAB PO SCH ×2 (07:56→13:52)
[2022-05-06] MEDS: Carboxymethylcellulos 1% OPTH 1 AMP BOTH EYES SCH (07:56)
[2022-05-06] MEDS: Venlafaxine XR 75 mg PO SCH ×2 (07:56→13:51)
[2022-05-06] MEDS: Ciproflox/Dexameth OTIC.SUSP 7.5 ML BTL RIGHT EAR SCH ×3 (07:56→21:14)
[2022-05-06] MEDS: Prochlorperazine 5 mg/ml 2 ml VIAL (10 mg) IV PRN ×2 (10:29→19:09)
[2022-05-06] MEDS: AMINO ACID INFUSION CENT\\PICC SCH (17:27)
[2022-05-06] MEDS: [UNRECOGNIZED DRUG - OTHER] CENT\\PICC SCH (17:27)
[2022-05-06] MEDS: WATER CENT\\PICC SCH (17:27)
[2022-05-06] MEDS: DEXTROSE CENT\\PICC SCH (17:27)
[2022-05-06] MEDS: TPN CENT\\PICC SCH (17:27)
[2022-05-06] MEDS: Insulin GLARGINE 100 un/ml 10 ml VIAL SUBCUT SCH (21:06)
[2022-05-06] MEDS: Enoxaparin 40 MG/0.4 ML SYR SUBCUT SCH (21:08)
[2022-05-07] MEDS: Prochlorperazine 5 mg/ml 2 ml VIAL (10 mg) IV PRN ×2 (01:50→09:16)
[2022-05-07] MEDS: Ondansetron 4 mg VIAL 2 MG/ML 2 ml VIAL IV PRN (05:00)
[2022-05-07] MEDS: Acetaminophen IV 1 GM/100ML 1,000 MG/100 ML BAG IV PRN ×2 (05:07→23:32)
[2022-05-07] MEDS: Ciproflox/Dexameth OTIC.SUSP 7.5 ML BTL RIGHT EAR SCH ×2 (09:16→22:06)
[2022-05-07] MEDS: Carboxymethylcellulos 1% OPTH 1 AMP BOTH EYES SCH (11:10)
[2022-05-07] MEDS: Venlafaxine XR 75 mg PO SCH (11:10)
[2022-05-07] MEDS: Multivitamins/Minerals TAB PO SCH (12:48)
[2022-05-07] MEDS ORDERED: [UNRECOGNIZED DRUG - OTHER] CENT\\PICC SCH (17:00)
[2022-05-07] MEDS ORDERED: DEXTROSE CENT\\PICC SCH (17:00)
[2022-05-07] MEDS ORDERED: TPN CENT\\PICC SCH (17:00)
[2022-05-07] MEDS ORDERED: AMINO ACID INFUSION CENT\\PICC SCH (17:00)
[2022-05-07] MEDS ORDERED: WATER CENT\\PICC SCH (17:00)
[2022-05-07] MEDS: Enoxaparin 40 MG/0.4 ML SYR SUBCUT SCH (22:02)
[2022-05-07] MEDS: Insulin GLARGINE 100 un/ml 10 ml VIAL SUBCUT SCH (22:02)
[2022-05-08] MEDS: Prochlorperazine 5 mg/ml 2 ml VIAL (10 mg) IV PRN ×2 (06:03→17:50)
[2022-05-08] MEDS: Ondansetron 4 mg VIAL 2 MG/ML 2 ml VIAL IV PRN ×2 (09:29→21:30)
[2022-05-08] MEDS: Carboxymethylcellulos 1% OPTH 1 AMP BOTH EYES SCH (10:36)
[2022-05-08] MEDS: Ciproflox/Dexameth OTIC.SUSP 7.5 ML BTL RIGHT EAR SCH ×2 (10:37→21:38)
[2022-05-08] MEDS: Multivitamins/Minerals TAB PO SCH (10:37)
[2022-05-08] MEDS: Venlafaxine XR 75 mg PO SCH (10:37)
[2022-05-08] MEDS: Acetaminophen IV 1 GM/100ML 1,000 MG/100 ML BAG IV PRN (14:37)
[2022-05-08] MEDS: AMINO ACID INFUSION CENT\\PICC SCH (17:51)
[2022-05-08] MEDS: WATER CENT\\PICC SCH (17:51)
[2022-05-08] MEDS: [UNRECOGNIZED DRUG - OTHER] CENT\\PICC SCH (17:51)
[2022-05-08] MEDS: DEXTROSE CENT\\PICC SCH (17:51)
[2022-05-08] MEDS: TPN CENT\\PICC SCH (17:51)
[2022-05-08] MEDS: Insulin GLARGINE 100 un/ml 10 ml VIAL SUBCUT SCH (21:34)
[2022-05-08] MEDS: Enoxaparin 40 MG/0.4 ML SYR SUBCUT SCH (21:35)
[2022-05-09] MEDS: Prochlorperazine 5 mg/ml 2 ml VIAL (10 mg) IV PRN ×2 (02:07→10:55)
[2022-05-09 10:28] LABS: Albumin 3.4 g/dL (3.2-5.2); Albumin/Globulin Ratio 1.4 (1-3); Creatinine, Serum 0.36 mg/dL (0.51-0.95); Globulin 2.5 g/dL (2-4); Magnesium 1.7 mg/dL (1.9-2.7); Phosphorus 3.7 mg/dL (2.5-5.0); Potassium 4.3 mmol/L (3.5-5.0); Total Bilirubin 0.3 mg/dL (0.2-1.0); Total Protein 5.9 g/dL (6.4-8.9)
[2022-05-09] MEDS: Carboxymethylcellulos 1% OPTH 1 AMP BOTH EYES SCH (11:02)
[2022-05-09] MEDS: Ciproflox/Dexameth OTIC.SUSP 7.5 ML BTL RIGHT EAR SCH ×2 (11:02→21:14)
[2022-05-09] MEDS: Multivitamins/Minerals TAB PO SCH (11:03)
[2022-05-09] MEDS: Venlafaxine XR 75 mg PO SCH (11:03)
[2022-05-09] MEDS: TPN CENT\\PICC SCH (16:59)
[2022-05-09] MEDS: AMINO ACID INFUSION CENT\\PICC SCH (16:59)
[2022-05-09] MEDS: DEXTROSE CENT\\PICC SCH (16:59)
[2022-05-09] MEDS: [UNRECOGNIZED DRUG - OTHER] CENT\\PICC SCH (16:59)
[2022-05-09] MEDS: WATER CENT\\PICC SCH (16:59)
[2022-05-09] MEDS: Enoxaparin 40 MG/0.4 ML SYR SUBCUT SCH (21:13)
[2022-05-09] MEDS: Insulin GLARGINE 100 un/ml 10 ml VIAL SUBCUT SCH (21:38)
[2022-05-10] MEDS: Ondansetron 4 mg VIAL 2 MG/ML 2 ml VIAL IV PRN (03:47)
[2022-05-10] MEDS: Carboxymethylcellulos 1% OPTH 1 AMP BOTH EYES SCH (10:25)
[2022-05-10] MEDS: Multivitamins/Minerals TAB PO SCH (10:26)
[2022-05-10] MEDS: Ciproflox/Dexameth OTIC.SUSP 7.5 ML BTL RIGHT EAR SCH ×2 (10:26→21:21)
[2022-05-10] MEDS: Venlafaxine XR 75 mg PO SCH (10:26)
[2022-05-10] MEDS: Acetaminophen IV 1 GM/100ML 1,000 MG/100 ML BAG IV PRN (12:00)
[2022-05-10] MEDS: [UNRECOGNIZED DRUG - OTHER] CENT\\PICC SCH (17:01)
[2022-05-10] MEDS: AMINO ACID INFUSION CENT\\PICC SCH (17:01)
[2022-05-10] MEDS: WATER CENT\\PICC SCH (17:01)
[2022-05-10] MEDS: TPN CENT\\PICC SCH (17:01)
[2022-05-10] MEDS: DEXTROSE CENT\\PICC SCH (17:01)
[2022-05-10] MEDS: Insulin GLARGINE 100 un/ml 10 ml VIAL SUBCUT SCH (21:19)
[2022-05-10] MEDS: Enoxaparin 40 MG/0.4 ML SYR SUBCUT SCH (21:20)
[2022-05-11] MEDS: Ciproflox/Dexameth OTIC.SUSP 7.5 ML BTL RIGHT EAR SCH ×2 (08:23→22:35)
[2022-05-11] MEDS: Venlafaxine XR 75 mg PO SCH (08:24)
[2022-05-11] MEDS: Carboxymethylcellulos 1% OPTH 1 AMP BOTH EYES SCH (08:24)
[2022-05-11] MEDS: Multivitamins/Minerals TAB PO SCH (08:24)
[2022-05-11] MEDS: Ondansetron 4 mg VIAL 2 MG/ML 2 ml VIAL IV PRN (15:35)
[2022-05-11] MEDS: WATER CENT\\PICC SCH (17:54)
[2022-05-11] MEDS: AMINO ACID INFUSION CENT\\PICC SCH (17:54)
[2022-05-11] MEDS: TPN CENT\\PICC SCH (17:54)
[2022-05-11] MEDS: [UNRECOGNIZED DRUG - OTHER] CENT\\PICC SCH (17:54)
[2022-05-11] MEDS: DEXTROSE CENT\\PICC SCH (17:54)
[2022-05-11] MEDS: Enoxaparin 40 MG/0.4 ML SYR SUBCUT SCH (22:35)
[2022-05-11] MEDS: Insulin GLARGINE 100 un/ml 10 ml VIAL SUBCUT SCH (22:47)
[2022-05-12] MEDS: Prochlorperazine 5 mg/ml 2 ml VIAL (10 mg) IV PRN ×2 (05:06→23:12)
[2022-05-12 08:50] LABS: Albumin 3.3 g/dL (3.2-5.2); Albumin/Globulin Ratio 1.2 (1-3); Calcium 9.2 mg/dL (8.6-10.3); Creatinine, Serum 0.38 mg/dL (0.51-0.95); Globulin 2.7 g/dL (2-4); Magnesium 1.7 mg/dL (1.9-2.7); Phosphorus 3.7 mg/dL (2.5-5.0); Potassium 4.4 mmol/L (3.5-5.0); Total Bilirubin 0.4 mg/dL (0.2-1.0); eGFR CKD-EPI 112.5 (>60)
[2022-05-12] MEDS: Ondansetron 4 mg VIAL 2 MG/ML 2 ml VIAL IV PRN ×2 (09:04→14:50)
[2022-05-12] MEDS: Ciproflox/Dexameth OTIC.SUSP 7.5 ML BTL RIGHT EAR SCH (09:05)
[2022-05-12] MEDS: Carboxymethylcellulos 1% OPTH 1 AMP BOTH EYES SCH (11:09)
[2022-05-12] MEDS: Multivitamins/Minerals TAB PO SCH (11:10)
[2022-05-12] MEDS: Venlafaxine XR 75 mg PO SCH (11:10)
[2022-05-12] MEDS: [UNRECOGNIZED DRUG - OTHER] CENT\\PICC SCH (17:33)
[2022-05-12] MEDS: WATER CENT\\PICC SCH (17:33)
[2022-05-12] MEDS: DEXTROSE CENT\\PICC SCH (17:33)
[2022-05-12] MEDS: TPN CENT\\PICC SCH (17:33)
[2022-05-12] MEDS: AMINO ACID INFUSION CENT\\PICC SCH (17:33)
[2022-05-12] MEDS: Insulin GLARGINE 100 un/ml 10 ml VIAL SUBCUT SCH (22:59)
[2022-05-12] MEDS: Enoxaparin 40 MG/0.4 ML SYR SUBCUT SCH (22:59)
[2022-05-12] MEDS: Acetaminophen IV 1 GM/100ML 1,000 MG/100 ML BAG IV PRN (23:13)
[2022-05-13] MEDS: Multivitamins/Minerals TAB PO SCH (10:42)
[2022-05-13] MEDS: Venlafaxine XR 75 mg PO SCH (10:42)
[2022-05-13] MEDS: Carboxymethylcellulos 1% OPTH 1 AMP BOTH EYES SCH (10:49)
[2022-05-13] MEDS: Prochlorperazine 5 mg/ml 2 ml VIAL (10 mg) IV PRN (12:14)
[2022-05-13] MEDS: TPN CENT\\PICC SCH (17:47)
[2022-05-13] MEDS: WATER CENT\\PICC SCH (17:47)
[2022-05-13] MEDS: [UNRECOGNIZED DRUG - OTHER] CENT\\PICC SCH (17:47)
[2022-05-13] MEDS: AMINO ACID INFUSION CENT\\PICC SCH (17:47)
[2022-05-13] MEDS: DEXTROSE CENT\\PICC SCH (17:47)
[2022-05-13] MEDS: Insulin GLARGINE 100 un/ml 10 ml VIAL SUBCUT SCH (22:41)
[2022-05-13] MEDS: Enoxaparin 40 MG/0.4 ML SYR SUBCUT SCH (22:43)
[2022-05-14] MEDS: Prochlorperazine 5 mg/ml 2 ml VIAL (10 mg) IV PRN (09:56)
[2022-05-14] MEDS: Venlafaxine XR 75 mg PO SCH (09:57)
[2022-05-14] MEDS: Multivitamins/Minerals TAB PO SCH (09:57)
[2022-05-14] MEDS: Carboxymethylcellulos 1% OPTH 1 AMP BOTH EYES SCH (10:32)
[2022-05-14] MEDS: AMINO ACID INFUSION CENT\\PICC SCH (17:34)
[2022-05-14] MEDS: [UNRECOGNIZED DRUG - OTHER] CENT\\PICC SCH (17:34)
[2022-05-14] MEDS: TPN CENT\\PICC SCH (17:34)
[2022-05-14] MEDS: DEXTROSE CENT\\PICC SCH (17:34)
[2022-05-14] MEDS: WATER CENT\\PICC SCH (17:34)
[2022-05-14] MEDS: Acetaminophen IV 1 GM/100ML 1,000 MG/100 ML BAG IV PRN (21:05)
[2022-05-14] MEDS: Enoxaparin 40 MG/0.4 ML SYR SUBCUT SCH (21:08)
[2022-05-14] MEDS: Insulin GLARGINE 100 un/ml 10 ml VIAL SUBCUT SCH (21:16)
[2022-05-15] MEDS: Venlafaxine XR 75 mg PO SCH (11:10)
[2022-05-15] MEDS: Carboxymethylcellulos 1% OPTH 1 AMP BOTH EYES SCH (11:10)
[2022-05-15] MEDS: Multivitamins/Minerals TAB PO SCH (11:10)
[2022-05-15] MEDS: Prochlorperazine 5 mg/ml 2 ml VIAL (10 mg) IV PRN (11:19)
[2022-05-15] MEDS: Ondansetron 4 mg VIAL 2 MG/ML 2 ml VIAL IV PRN (16:21)
[2022-05-15] MEDS: AMINO ACID INFUSION CENT\\PICC SCH (16:38)
[2022-05-15] MEDS: [UNRECOGNIZED DRUG - OTHER] CENT\\PICC SCH (16:38)
[2022-05-15] MEDS: WATER CENT\\PICC SCH (16:38)
[2022-05-15] MEDS: TPN CENT\\PICC SCH (16:38)
[2022-05-15] MEDS: DEXTROSE CENT\\PICC SCH (16:38)
[2022-05-15] MEDS: Acetaminophen IV 1 GM/100ML 1,000 MG/100 ML BAG IV PRN (18:21)
[2022-05-15] MEDS: Enoxaparin 40 MG/0.4 ML SYR SUBCUT SCH (23:08)
[2022-05-15] MEDS: Insulin GLARGINE 100 un/ml 10 ml VIAL SUBCUT SCH (23:09)
[2022-05-16 06:25] LABS: Albumin 3.2 g/dL (3.2-5.2); Albumin/Globulin Ratio 1.2 (1-3); Calcium 9.2 mg/dL (8.6-10.3); Creatinine, Serum 0.41 mg/dL (0.51-0.95); Globulin 2.6 g/dL (2-4); Magnesium 1.7 mg/dL (1.9-2.7); Phosphorus 4.1 mg/dL (2.5-5.0); Potassium 4.4 mmol/L (3.5-5.0); Total Bilirubin 0.3 mg/dL (0.2-1.0); Total Protein 5.8 g/dL (6.4-8.9); eGFR CKD-EPI 110.5 (>60)
[2022-05-16] MEDS: Multivitamins/Minerals TAB PO SCH (10:17)
[2022-05-16] MEDS: Venlafaxine XR 75 mg PO SCH (10:17)
[2022-05-16] MEDS: Carboxymethylcellulos 1% OPTH 1 AMP BOTH EYES SCH (10:19)
[2022-05-16] MEDS ORDERED: DEXTROSE CENT\\PICC SCH (12:00)
[2022-05-16] MEDS ORDERED: [UNRECOGNIZED DRUG - OTHER] CENT\\PICC SCH (12:00)
[2022-05-16] MEDS ORDERED: TPN CENT\\PICC SCH (12:00)
[2022-05-16] MEDS ORDERED: AMINO ACID INFUSION CENT\\PICC SCH (12:00)
[2022-05-16] MEDS ORDERED: WATER CENT\\PICC SCH (12:00)
[2022-05-16] MEDS: Acetaminophen IV 1 GM/100ML 1,000 MG/100 ML BAG IV PRN ×2 (13:21→21:50)
[2022-05-16] MEDS: [UNRECOGNIZED DRUG - OTHER] CENT\\PICC SCH (17:08)
[2022-05-16] MEDS: WATER CENT\\PICC SCH (17:08)
[2022-05-16] MEDS: AMINO ACID INFUSION CENT\\PICC SCH (17:08)
[2022-05-16] MEDS: TPN CENT\\PICC SCH (17:08)
[2022-05-16] MEDS: DEXTROSE CENT\\PICC SCH (17:08)
[2022-05-16] MEDS: Enoxaparin 40 MG/0.4 ML SYR SUBCUT SCH (21:53)
[2022-05-16] MEDS: Insulin GLARGINE 100 un/ml 10 ml VIAL SUBCUT SCH (21:54)
[2022-05-17] MEDS: Carboxymethylcellulos 1% OPTH 1 AMP BOTH EYES SCH (08:09)
[2022-05-17] MEDS: Multivitamins/Minerals TAB PO SCH (12:29)
[2022-05-17] MEDS: Venlafaxine XR 75 mg PO SCH (12:29)
[2022-05-17] MEDS: [UNRECOGNIZED DRUG - OTHER] CENT\\PICC SCH (16:59)
[2022-05-17] MEDS: WATER CENT\\PICC SCH (16:59)
[2022-05-17] MEDS: TPN CENT\\PICC SCH (16:59)
[2022-05-17] MEDS: Ondansetron 4 mg VIAL 2 MG/ML 2 ml VIAL IV PRN (16:59)
[2022-05-17] MEDS: AMINO ACID INFUSION CENT\\PICC SCH (16:59)
[2022-05-17] MEDS: DEXTROSE CENT\\PICC SCH (16:59)
[2022-05-17] MEDS: Enoxaparin 40 MG/0.4 ML SYR SUBCUT SCH (21:53)
[2022-05-17] MEDS: Insulin GLARGINE 100 un/ml 10 ml VIAL SUBCUT SCH (21:54)
[2022-05-17] MEDS: Calcium Carb (TUMS) 500 mg CHEW TAB PO PRN (22:59)
[2022-05-18] MEDS: Prochlorperazine 5 mg/ml 2 ml VIAL (10 mg) IV PRN (08:44)
[2022-05-18] MEDS: Carboxymethylcellulos 1% OPTH 1 AMP BOTH EYES SCH (08:46)
[2022-05-18] MEDS: Venlafaxine XR 75 mg PO SCH (11:04)
[2022-05-18] MEDS: Multivitamins/Minerals TAB PO SCH (11:05)
[2022-05-18] MEDS: WATER CENT\\PICC SCH (17:36)
[2022-05-18] MEDS: DEXTROSE CENT\\PICC SCH (17:36)
[2022-05-18] MEDS: AMINO ACID INFUSION CENT\\PICC SCH (17:36)
[2022-05-18] MEDS: [UNRECOGNIZED DRUG - OTHER] CENT\\PICC SCH (17:36)
[2022-05-18] MEDS: TPN CENT\\PICC SCH (17:36)
[2022-05-18] MEDS: Acetaminophen IV 1 GM/100ML 1,000 MG/100 ML BAG IV PRN (21:27)
[2022-05-18] MEDS: Enoxaparin 40 MG/0.4 ML SYR SUBCUT SCH (22:24)
[2022-05-18] MEDS: Insulin GLARGINE 100 un/ml 10 ml VIAL SUBCUT SCH (22:24)
[2022-05-19] MEDS: Prochlorperazine 5 mg/ml 2 ml VIAL (10 mg) IV PRN (00:31)
[2022-05-19] MEDS: Carboxymethylcellulos 1% OPTH 1 AMP BOTH EYES SCH (07:52)
[2022-05-19] MEDS: Venlafaxine XR 75 mg PO SCH (07:52)
[2022-05-19] MEDS: Multivitamins/Minerals TAB PO SCH (07:52)
[2022-05-19 09:08] LABS: Albumin/Globulin Ratio 1.3 (1-3); Calcium 8.6 mg/dL (8.6-10.3); Creatinine, Serum 0.48 mg/dL (0.51-0.95); Globulin 2.4 g/dL (2-4); Magnesium 1.7 mg/dL (1.9-2.7); Potassium 4.1 mmol/L (3.5-5.0); Total Bilirubin 0.3 mg/dL (0.2-1.0); Total Protein 5.4 g/dL (6.4-8.9); eGFR CKD-EPI 106.4 (>60)
[2022-05-19] MEDS: WATER CENT\\PICC SCH (17:04)
[2022-05-19] MEDS: AMINO ACID INFUSION CENT\\PICC SCH (17:04)
[2022-05-19] MEDS: TPN CENT\\PICC SCH (17:04)
[2022-05-19] MEDS: DEXTROSE CENT\\PICC SCH (17:04)
[2022-05-19] MEDS: [UNRECOGNIZED DRUG - OTHER] CENT\\PICC SCH (17:04)
[2022-05-19] MEDS: Enoxaparin 40 MG/0.4 ML SYR SUBCUT SCH (21:04)
[2022-05-19] MEDS: Insulin GLARGINE 100 un/ml 10 ml VIAL SUBCUT SCH (21:04)
[2022-05-20 05:16] LABS: ABS Eosinophils 0.2 10^3/ul (0-0.6); ABS Lymphocytes 1.8 10^3/ul (1.0-4.8); ABS Monocytes 0.5 10^3/ul (0-0.8); ABS Neutrophils 4.2 10^3/ul (1.5-7.7); Eosinophil % 2.4 %; Hematocrit 32 % (35-47); Hemoglobin 10.3 g/dL (12.0-16.0); Lymphocyte % 26.5 %; Mean Corpuscular Hemoglobin 28 pg (27-31); Mean Corpuscular Hgb Conc 32 g/dL (31-36); Mean Corpuscular Volume 87 fL (80-97); Mean Platelet Volume 9.1 fL (7.4-10.4); Platelet Count 233 10^3/uL (150-450); Red Cell Distribution Width 21 % (10-15); White Blood Count 6.7 10^3/uL (3.5-10.8)
[2022-05-20 05:35] LABS: Albumin 3.1 g/dL (3.2-5.2); Albumin/Globulin Ratio 1.3 (1-3); Calcium 8.8 mg/dL (8.6-10.3); Creatinine, Serum 0.36 mg/dL (0.51-0.95); Globulin 2.4 g/dL (2-4); Magnesium 1.7 mg/dL (1.9-2.7); Phosphorus 3.8 mg/dL (2.5-5.0); Total Bilirubin 0.3 mg/dL (0.2-1.0); Total Protein 5.5 g/dL (6.4-8.9)
[2022-05-20] MEDS: Venlafaxine XR 75 mg PO SCH (09:44)
[2022-05-20] MEDS: Multivitamins/Minerals TAB PO SCH (09:45)
[2022-05-20] MEDS: Carboxymethylcellulos 1% OPTH 1 AMP BOTH EYES SCH (09:49)
[2022-05-20] MEDS: Calcium Carb (TUMS) 500 mg CHEW TAB PO PRN ×2 (13:49→15:36)
[2022-05-20] MEDS: WATER CENT\\PICC SCH (17:21)
[2022-05-20] MEDS: [UNRECOGNIZED DRUG - OTHER] CENT\\PICC SCH (17:21)
[2022-05-20] MEDS: AMINO ACID INFUSION CENT\\PICC SCH (17:21)
[2022-05-20] MEDS: TPN CENT\\PICC SCH (17:21)
[2022-05-20] MEDS: DEXTROSE CENT\\PICC SCH (17:21)
[2022-05-20] MEDS: Enoxaparin 40 MG/0.4 ML SYR SUBCUT SCH (21:23)
[2022-05-20] MEDS: Insulin GLARGINE 100 un/ml 10 ml VIAL SUBCUT SCH (21:24)
[2022-05-20] MEDS ORDERED: Calcium Carb (TUMS) 500 mg CHEW TAB PO ONE (21:25)
[2022-05-20] MEDS: Ondansetron 4 mg VIAL 2 MG/ML 2 ml VIAL IV PRN (22:48)
[2022-05-21] MEDS: Prochlorperazine 5 mg/ml 2 ml VIAL (10 mg) IV PRN ×2 (03:02→10:03)
[2022-05-21] MEDS: Acetaminophen IV 1 GM/100ML 1,000 MG/100 ML BAG IV PRN (03:02)
[2022-05-21] MEDS: Multivitamins/Minerals TAB PO SCH (11:08)
[2022-05-21] MEDS: Venlafaxine XR 75 mg PO SCH (11:08)
[2022-05-21] MEDS: Carboxymethylcellulos 1% OPTH 1 AMP BOTH EYES SCH (11:09)
[2022-05-21] MEDS: WATER CENT\\PICC SCH (17:32)
[2022-05-21] MEDS: [UNRECOGNIZED DRUG - OTHER] CENT\\PICC SCH (17:32)
[2022-05-21] MEDS: DEXTROSE CENT\\PICC SCH (17:32)
[2022-05-21] MEDS: AMINO ACID INFUSION CENT\\PICC SCH (17:32)
[2022-05-21] MEDS: TPN CENT\\PICC SCH (17:32)
[2022-05-21] MEDS: Calcium Carb (TUMS) 500 mg CHEW TAB PO PRN (20:10)
[2022-05-21] MEDS: Senna TAB 8.6 mg TAB PO PRN (20:10)
[2022-05-21] MEDS: Insulin GLARGINE 100 un/ml 10 ml VIAL SUBCUT SCH (22:50)
[2022-05-21] MEDS: Enoxaparin 40 MG/0.4 ML SYR SUBCUT SCH (22:51)
[2022-05-22] MEDS: Venlafaxine XR 75 mg PO SCH (11:06)
[2022-05-22] MEDS: Carboxymethylcellulos 1% OPTH 1 AMP BOTH EYES SCH (11:06)
[2022-05-22] MEDS: Multivitamins/Minerals TAB PO SCH (11:06)
[2022-05-22] MEDS: TPN CENT\\PICC SCH (18:00)
[2022-05-22] MEDS: WATER CENT\\PICC SCH (18:00)
[2022-05-22] MEDS: [UNRECOGNIZED DRUG - OTHER] CENT\\PICC SCH (18:00)
[2022-05-22] MEDS: AMINO ACID INFUSION CENT\\PICC SCH (18:00)
[2022-05-22] MEDS: DEXTROSE CENT\\PICC SCH (18:00)
[2022-05-22] MEDS: Insulin GLARGINE 100 un/ml 10 ml VIAL SUBCUT SCH (20:41)
[2022-05-22] MEDS: Enoxaparin 40 MG/0.4 ML SYR SUBCUT SCH (20:42)
[2022-05-23] MEDS: Acetaminophen IV 1 GM/100ML 1,000 MG/100 ML BAG IV PRN (00:05)
[2022-05-23 06:02] LABS: Albumin 2.9 g/dL (3.2-5.2); Calcium 8.7 mg/dL (8.6-10.3); Creatinine, Serum 0.47 mg/dL (0.51-0.95); Magnesium 1.7 mg/dL (1.9-2.7); Phosphorus 4.2 mg/dL (2.5-5.0); Potassium 4.3 mmol/L (3.5-5.0); Total Protein 5.2 g/dL (6.4-8.9); eGFR CKD-EPI 106.9 (>60)
[2022-05-23 06:03] LABS: Albumin/Globulin Ratio 1.3 (1-3); Globulin 2.3 g/dL (2-4); Total Bilirubin 0.3 mg/dL (0.2-1.0)
[2022-05-23] MEDS: Carboxymethylcellulos 1% OPTH 1 AMP BOTH EYES SCH (11:00)
[2022-05-23] MEDS: Multivitamins/Minerals TAB PO SCH (11:00)
[2022-05-23] MEDS: Venlafaxine XR 75 mg PO SCH (11:00)
[2022-05-23] MEDS: Prochlorperazine 5 mg/ml 2 ml VIAL (10 mg) IV PRN (11:21)
[2022-05-23] MEDS: AMINO ACID INFUSION CENT\\PICC SCH (17:14)
[2022-05-23] MEDS: WATER CENT\\PICC SCH (17:14)
[2022-05-23] MEDS: TPN CENT\\PICC SCH (17:14)
[2022-05-23] MEDS: [UNRECOGNIZED DRUG - OTHER] CENT\\PICC SCH (17:14)
[2022-05-23] MEDS: DEXTROSE CENT\\PICC SCH (17:14)
[2022-05-23] MEDS: Enoxaparin 40 MG/0.4 ML SYR SUBCUT SCH (20:49)
[2022-05-23] MEDS: Insulin GLARGINE 100 un/ml 10 ml VIAL SUBCUT SCH (20:50)
[2022-05-24] MEDS: Acetaminophen IV 1 GM/100ML 1,000 MG/100 ML BAG IV PRN (03:09)
[2022-05-24] MEDS: Ondansetron 4 mg VIAL 2 MG/ML 2 ml VIAL IV PRN (05:03)
[2022-05-24] MEDS: Venlafaxine XR 75 mg PO SCH (10:32)
[2022-05-24] MEDS: Carboxymethylcellulos 1% OPTH 1 AMP BOTH EYES SCH (10:32)
[2022-05-24] MEDS: Multivitamins/Minerals TAB PO SCH (10:32)
[2022-05-24] MEDS: TPN CENT\\PICC SCH (16:55)
[2022-05-24] MEDS: AMINO ACID INFUSION CENT\\PICC SCH (16:55)
[2022-05-24] MEDS: DEXTROSE CENT\\PICC SCH (16:55)
[2022-05-24] MEDS: [UNRECOGNIZED DRUG - OTHER] CENT\\PICC SCH (16:55)
[2022-05-24] MEDS: WATER CENT\\PICC SCH (16:55)
[2022-05-24] MEDS: Enoxaparin 40 MG/0.4 ML SYR SUBCUT SCH (20:54)
[2022-05-24] MEDS: Insulin GLARGINE 100 un/ml 10 ml VIAL SUBCUT SCH (20:54)
[2022-05-25] MEDS: Multivitamins/Minerals TAB PO SCH (10:34)
[2022-05-25] MEDS: Venlafaxine XR 75 mg PO SCH (10:34)
[2022-05-25] MEDS: [UNRECOGNIZED DRUG - OTHER] CENT\\PICC SCH (17:09)
[2022-05-25] MEDS: DEXTROSE CENT\\PICC SCH (17:09)
[2022-05-25] MEDS: AMINO ACID INFUSION CENT\\PICC SCH (17:09)
[2022-05-25] MEDS: TPN CENT\\PICC SCH (17:09)
[2022-05-25] MEDS: WATER CENT\\PICC SCH (17:09)
[2022-05-25] MEDS: Insulin GLARGINE 100 un/ml 10 ml VIAL SUBCUT SCH (20:37)
[2022-05-25] MEDS: Enoxaparin 40 MG/0.4 ML SYR SUBCUT SCH (20:37)
[2022-05-26 06:35] LABS: Albumin/Globulin Ratio 1.3 (1-3); Calcium 8.7 mg/dL (8.6-10.3); Creatinine, Serum 0.37 mg/dL (0.51-0.95); Globulin 2.4 g/dL (2-4); Magnesium 1.6 mg/dL (1.9-2.7); Phosphorus 3.8 mg/dL (2.5-5.0); Potassium 4.4 mmol/L (3.5-5.0); Total Bilirubin 0.3 mg/dL (0.2-1.0); Total Protein 5.4 g/dL (6.4-8.9); eGFR CKD-EPI 113.3 (>60)
[2022-05-26] MEDS: Multivitamins/Minerals TAB PO SCH (09:07)
[2022-05-26] MEDS: Venlafaxine XR 75 mg PO SCH (09:07)
[2022-05-26] MEDS: Ondansetron 4 mg VIAL 2 MG/ML 2 ml VIAL IV PRN (11:49)
[2022-05-26] MEDS: WATER CENT\\PICC SCH (17:18)
[2022-05-26] MEDS: AMINO ACID INFUSION CENT\\PICC SCH (17:18)
[2022-05-26] MEDS: [UNRECOGNIZED DRUG - OTHER] CENT\\PICC SCH (17:18)
[2022-05-26] MEDS: TPN CENT\\PICC SCH (17:18)
[2022-05-26] MEDS: DEXTROSE CENT\\PICC SCH (17:18)
[2022-05-26] MEDS: Insulin GLARGINE 100 un/ml 10 ml VIAL SUBCUT SCH (21:03)
[2022-05-26] MEDS: Enoxaparin 40 MG/0.4 ML SYR SUBCUT SCH (21:04)
[2022-05-27] MEDS: Multivitamins/Minerals TAB PO SCH (11:20)
[2022-05-27] MEDS: Venlafaxine XR 75 mg PO SCH (11:21)
[2022-05-27] MEDS: Acetaminophen IV 1 GM/100ML 1,000 MG/100 ML BAG IV PRN (11:28)
[2022-05-27] MEDS: Prochlorperazine 5 mg/ml 2 ml VIAL (10 mg) IV PRN (11:28)
[2022-05-27] MEDS: AMINO ACID INFUSION CENT\\PICC SCH (17:13)
[2022-05-27] MEDS: [UNRECOGNIZED DRUG - OTHER] CENT\\PICC SCH (17:13)
[2022-05-27] MEDS: TPN CENT\\PICC SCH (17:13)
[2022-05-27] MEDS: DEXTROSE CENT\\PICC SCH (17:13)
[2022-05-27] MEDS: WATER CENT\\PICC SCH (17:13)
[2022-05-27] MEDS: Insulin GLARGINE 100 un/ml 10 ml VIAL SUBCUT SCH (22:42)
[2022-05-27] MEDS: Enoxaparin 40 MG/0.4 ML SYR SUBCUT SCH (22:44)
[2022-05-28] MEDS: Prochlorperazine 5 mg/ml 2 ml VIAL (10 mg) IV PRN (08:22)
[2022-05-28] MEDS: Venlafaxine XR 75 mg PO SCH (10:55)
[2022-05-28] MEDS: Multivitamins/Minerals TAB PO SCH (10:55)
[2022-05-28] MEDS: TPN CENT\\PICC SCH (16:50)
[2022-05-28] MEDS: DEXTROSE CENT\\PICC SCH (16:50)
[2022-05-28] MEDS: AMINO ACID INFUSION CENT\\PICC SCH (16:50)
[2022-05-28] MEDS: WATER CENT\\PICC SCH (16:50)
[2022-05-28] MEDS: [UNRECOGNIZED DRUG - OTHER] CENT\\PICC SCH (16:50)
[2022-05-28] MEDS: Calcium Carb (TUMS) 500 mg CHEW TAB PO PRN (17:28)
[2022-05-28] MEDS: Ondansetron 4 mg VIAL 2 MG/ML 2 ml VIAL IV PRN (19:24)
[2022-05-28] MEDS: Insulin GLARGINE 100 un/ml 10 ml VIAL SUBCUT SCH (21:32)
[2022-05-28] MEDS: Enoxaparin 40 MG/0.4 ML SYR SUBCUT SCH (21:33)
[2022-05-28] MEDS ORDERED: Al Hydrox/Mg Hydrox/Simet LIQ 30 ML UDC PO ONE (22:03)
[2022-05-29] MEDS: Acetaminophen IV 1 GM/100ML 1,000 MG/100 ML BAG IV PRN ×2 (00:18→23:29)
[2022-05-29] MEDS: Multivitamins/Minerals TAB PO SCH (08:20)
[2022-05-29] MEDS: Venlafaxine XR 75 mg PO SCH (08:20)
[2022-05-29] MEDS: DEXTROSE CENT\\PICC SCH (17:21)
[2022-05-29] MEDS: WATER CENT\\PICC SCH (17:21)
[2022-05-29] MEDS: [UNRECOGNIZED DRUG - OTHER] CENT\\PICC SCH (17:21)
[2022-05-29] MEDS: TPN CENT\\PICC SCH (17:21)
[2022-05-29] MEDS: AMINO ACID INFUSION CENT\\PICC SCH (17:21)
[2022-05-29] MEDS: Calcium Carb (TUMS) 500 mg CHEW TAB PO PRN (19:16)
[2022-05-29] MEDS: Enoxaparin 40 MG/0.4 ML SYR SUBCUT SCH (21:13)
[2022-05-29] MEDS: Insulin GLARGINE 100 un/ml 10 ml VIAL SUBCUT SCH (21:13)
[2022-05-30 06:28] LABS: Albumin 2.9 g/dL (3.2-5.2); Albumin/Globulin Ratio 1.3 (1-3); Calcium 8.6 mg/dL (8.6-10.3); Creatinine, Serum 0.35 mg/dL (0.51-0.95); Globulin 2.2 g/dL (2-4); Magnesium 1.8 mg/dL (1.9-2.7); Potassium 4.3 mmol/L (3.5-5.0); Total Bilirubin 0.2 mg/dL (0.2-1.0); Total Protein 5.1 g/dL (6.4-8.9); eGFR CKD-EPI 114.8 (>60)
[2022-05-30] MEDS: Venlafaxine XR 75 mg PO SCH (09:47)
[2022-05-30] MEDS: Multivitamins/Minerals TAB PO SCH (09:47)
[2022-05-30] MEDS: Calcium Carb (TUMS) 500 mg CHEW TAB PO PRN ×2 (12:28→21:45)
[2022-05-30] MEDS ORDERED: Al Hydrox/Mg Hydrox/Simet LIQ 30 ML UDC PO ONE ×2 (16:48→21:59)
[2022-05-30] MEDS: DEXTROSE CENT\\PICC SCH (17:06)
[2022-05-30] MEDS: WATER CENT\\PICC SCH (17:06)
[2022-05-30] MEDS: AMINO ACID INFUSION CENT\\PICC SCH (17:06)
[2022-05-30] MEDS: TPN CENT\\PICC SCH (17:06)
[2022-05-30] MEDS: [UNRECOGNIZED DRUG - OTHER] CENT\\PICC SCH (17:06)
[2022-05-30] MEDS: Enoxaparin 40 MG/0.4 ML SYR SUBCUT SCH (21:46)
[2022-05-30] MEDS: Insulin GLARGINE 100 un/ml 10 ml VIAL SUBCUT SCH (21:48)
[2022-05-31] MEDS: Venlafaxine XR 75 mg PO SCH (12:07)
[2022-05-31] MEDS: Multivitamins/Minerals TAB PO SCH (12:07)
[2022-05-31] MEDS: [UNRECOGNIZED DRUG - OTHER] CENT\\PICC SCH (16:48)
[2022-05-31] MEDS: DEXTROSE CENT\\PICC SCH (16:48)
[2022-05-31] MEDS: TPN CENT\\PICC SCH (16:48)
[2022-05-31] MEDS: WATER CENT\\PICC SCH (16:48)
[2022-05-31] MEDS: AMINO ACID INFUSION CENT\\PICC SCH (16:48)
[2022-05-31] MEDS: Insulin GLARGINE 100 un/ml 10 ml VIAL SUBCUT SCH (20:02)
[2022-05-31] MEDS: Enoxaparin 40 MG/0.4 ML SYR SUBCUT SCH (20:04)
[2022-06-01] MEDS: Prochlorperazine 5 mg/ml 2 ml VIAL (10 mg) IV PRN (09:00)
[2022-06-01] MEDS: Ondansetron 4 mg VIAL 2 MG/ML 2 ml VIAL IV PRN (13:06)
[2022-06-01] MEDS: Multivitamins/Minerals TAB PO SCH (13:09)
[2022-06-01] MEDS: Venlafaxine XR 75 mg PO SCH (13:09)
[2022-06-01] MEDS: AMINO ACID INFUSION CENT\\PICC SCH (17:17)
[2022-06-01] MEDS: [UNRECOGNIZED DRUG - OTHER] CENT\\PICC SCH (17:17)
[2022-06-01] MEDS: WATER CENT\\PICC SCH (17:17)
[2022-06-01] MEDS: TPN CENT\\PICC SCH (17:17)
[2022-06-01] MEDS: DEXTROSE CENT\\PICC SCH (17:17)
[2022-06-01] MEDS: Calcium Carb (TUMS) 500 mg CHEW TAB PO PRN (19:14)
[2022-06-01] MEDS ORDERED: Al Hydrox/Mg Hydrox/Simet LIQ 30 ML UDC PO ONE (19:49)
[2022-06-01] MEDS: Insulin GLARGINE 100 un/ml 10 ml VIAL SUBCUT SCH (20:55)
[2022-06-01] MEDS: Enoxaparin 40 MG/0.4 ML SYR SUBCUT SCH (20:56)
[2022-06-02] MEDS: Acetaminophen IV 1 GM/100ML 1,000 MG/100 ML BAG IV PRN (01:07)
[2022-06-02 05:18] LABS: Albumin/Globulin Ratio 1.3 (1-3); Calcium 8.9 mg/dL (8.6-10.3); Creatinine, Serum 0.45 mg/dL (0.51-0.95); Globulin 2.3 g/dL (2-4); Magnesium 1.9 mg/dL (1.9-2.7); Phosphorus 4.3 mg/dL (2.5-5.0); Potassium 4.5 mmol/L (3.5-5.0); Total Bilirubin 0.2 mg/dL (0.2-1.0); Total Protein 5.3 g/dL (6.4-8.9)
[2022-06-02] MEDS: Ondansetron 4 mg VIAL 2 MG/ML 2 ml VIAL IV PRN (09:39)
[2022-06-02] MEDS: Multivitamins/Minerals TAB PO SCH (13:44)
[2022-06-02] MEDS: Venlafaxine XR 75 mg PO SCH (13:45)
[2022-06-02] MEDS: TPN CENT\\PICC SCH (17:26)
[2022-06-02] MEDS: DEXTROSE CENT\\PICC SCH (17:26)
[2022-06-02] MEDS: WATER CENT\\PICC SCH (17:26)
[2022-06-02] MEDS: AMINO ACID INFUSION CENT\\PICC SCH (17:26)
[2022-06-02] MEDS: [UNRECOGNIZED DRUG - OTHER] CENT\\PICC SCH (17:26)
[2022-06-02] MEDS: Insulin GLARGINE 100 un/ml 10 ml VIAL SUBCUT SCH (20:37)
[2022-06-02] MEDS: Enoxaparin 40 MG/0.4 ML SYR SUBCUT SCH (20:38)
[2022-06-02] MEDS: Calcium Carb (TUMS) 500 mg CHEW TAB PO PRN (23:19)
[2022-06-03] MEDS: Al Hydrox/Mg Hydrox/Simet LIQ 30 ML UDC PO PRN ×2 (01:31→16:28)
[2022-06-03] MEDS: Prochlorperazine 5 mg/ml 2 ml VIAL (10 mg) IV PRN (08:53)
[2022-06-03] MEDS: Venlafaxine XR 75 mg PO SCH (11:47)
[2022-06-03] MEDS: Multivitamins/Minerals TAB PO SCH (11:47)
[2022-06-03] MEDS: AMINO ACID INFUSION CENT\\PICC SCH (17:29)
[2022-06-03] MEDS: DEXTROSE CENT\\PICC SCH (17:29)
[2022-06-03] MEDS: WATER CENT\\PICC SCH (17:29)
[2022-06-03] MEDS: TPN CENT\\PICC SCH (17:29)
[2022-06-03] MEDS: [UNRECOGNIZED DRUG - OTHER] CENT\\PICC SCH (17:29)
[2022-06-03] MEDS: Calcium Carb (TUMS) 500 mg CHEW TAB PO PRN (20:21)
[2022-06-03] MEDS: Enoxaparin 40 MG/0.4 ML SYR SUBCUT SCH (21:11)
[2022-06-03] MEDS: Insulin GLARGINE 100 un/ml 10 ml VIAL SUBCUT SCH (21:12)
[2022-06-03] MEDS ORDERED: Al Hydrox/Mg Hydrox/Simet LIQ 30 ML UDC PO ONE (23:38)
[2022-06-04] MEDS: Prochlorperazine 5 mg/ml 2 ml VIAL (10 mg) IV PRN (02:40)
[2022-06-04] MEDS: Multivitamins/Minerals TAB PO SCH (10:25)
[2022-06-04] MEDS: Venlafaxine XR 75 mg PO SCH (10:25)
[2022-06-04] MEDS: DEXTROSE CENT\\PICC SCH (17:04)
[2022-06-04] MEDS: TPN CENT\\PICC SCH (17:04)
[2022-06-04] MEDS: [UNRECOGNIZED DRUG - OTHER] CENT\\PICC SCH (17:04)
[2022-06-04] MEDS: WATER CENT\\PICC SCH (17:04)
[2022-06-04] MEDS: AMINO ACID INFUSION CENT\\PICC SCH (17:04)
[2022-06-04] MEDS: Insulin GLARGINE 100 un/ml 10 ml VIAL SUBCUT SCH (21:40)
[2022-06-04] MEDS: Enoxaparin 40 MG/0.4 ML SYR SUBCUT SCH (21:42)
[2022-06-05] MEDS: Multivitamins/Minerals TAB PO SCH (08:54)
[2022-06-05] MEDS: Venlafaxine XR 75 mg PO SCH (08:54)
[2022-06-05] MEDS: Acetaminophen IV 1 GM/100ML 1,000 MG/100 ML BAG IV PRN (09:05)
[2022-06-05] MEDS: DEXTROSE CENT\\PICC SCH (17:28)
[2022-06-05] MEDS: TPN CENT\\PICC SCH (17:28)
[2022-06-05] MEDS: AMINO ACID INFUSION CENT\\PICC SCH (17:28)
[2022-06-05] MEDS: WATER CENT\\PICC SCH (17:28)
[2022-06-05] MEDS: [UNRECOGNIZED DRUG - OTHER] CENT\\PICC SCH (17:28)
[2022-06-05] MEDS: Enoxaparin 40 MG/0.4 ML SYR SUBCUT SCH (22:17)
[2022-06-05] MEDS: Insulin GLARGINE 100 un/ml 10 ml VIAL SUBCUT SCH (22:17)
[2022-06-06 06:54] LABS: Albumin 2.8 g/dL (3.2-5.2); Albumin/Globulin Ratio 1.3 (1-3); Calcium 8.3 mg/dL (8.6-10.3); Creatinine, Serum 0.38 mg/dL (0.51-0.95); Globulin 2.2 g/dL (2-4); Magnesium 1.8 mg/dL (1.9-2.7); Phosphorus 3.6 mg/dL (2.5-5.0); Potassium 4.4 mmol/L (3.5-5.0); Total Bilirubin 0.2 mg/dL (0.2-1.0); eGFR CKD-EPI 111.8 (>60)
[2022-06-06] MEDS: Venlafaxine XR 75 mg PO SCH (12:24)
[2022-06-06] MEDS: Multivitamins/Minerals TAB PO SCH (12:24)
[2022-06-06] MEDS ORDERED: Alteplase (CATHFLO) 2 MG VIAL IV ONE (15:24)
[2022-06-06] MEDS: AMINO ACID INFUSION CENT\\PICC SCH (17:41)
[2022-06-06] MEDS: [UNRECOGNIZED DRUG - OTHER] CENT\\PICC SCH (17:41)
[2022-06-06] MEDS: TPN CENT\\PICC SCH (17:41)
[2022-06-06] MEDS: WATER CENT\\PICC SCH (17:41)
[2022-06-06] MEDS: DEXTROSE CENT\\PICC SCH (17:41)
[2022-06-06] MEDS: Enoxaparin 40 MG/0.4 ML SYR SUBCUT SCH (22:42)
[2022-06-06] MEDS: Insulin GLARGINE 100 un/ml 10 ml VIAL SUBCUT SCH (22:42)
[2022-06-07] MEDS: Multivitamins/Minerals TAB PO SCH (12:20)
[2022-06-07] MEDS: Venlafaxine XR 75 mg PO SCH (12:20)
[2022-06-07] MEDS ORDERED: DEXTROSE CENT\\PICC SCH (17:00)
[2022-06-07] MEDS ORDERED: [UNRECOGNIZED DRUG - OTHER] CENT\\PICC SCH (17:00)
[2022-06-07] MEDS ORDERED: TPN CENT\\PICC SCH (17:00)
[2022-06-07] MEDS ORDERED: AMINO ACID INFUSION CENT\\PICC SCH (17:00)
[2022-06-07] MEDS ORDERED: WATER CENT\\PICC SCH (17:00)
[2022-06-07] MEDS: WATER CENT\\PICC SCH (17:43)
[2022-06-07] MEDS: [UNRECOGNIZED DRUG - OTHER] CENT\\PICC SCH (17:43)
[2022-06-07] MEDS: DEXTROSE CENT\\PICC SCH (17:43)
[2022-06-07] MEDS: TPN CENT\\PICC SCH (17:43)
[2022-06-07] MEDS: AMINO ACID INFUSION CENT\\PICC SCH (17:43)
[2022-06-07] MEDS: Enoxaparin 40 MG/0.4 ML SYR SUBCUT SCH (22:51)
[2022-06-07] MEDS: Insulin GLARGINE 100 un/ml 10 ml VIAL SUBCUT SCH (22:53)
[2022-06-08 07:04] LABS: Calcium 8.6 mg/dL (8.6-10.3); Creatinine, Serum 0.49 mg/dL (0.51-0.95); Magnesium 1.8 mg/dL (1.9-2.7); Potassium 4.5 mmol/L (3.5-5.0); eGFR CKD-EPI 105.2 (>60)
[2022-06-08] MEDS: Multivitamins/Minerals TAB PO SCH (08:31)
[2022-06-08] MEDS: Venlafaxine XR 75 mg PO SCH (08:33)
[2022-06-08] MEDS: Prochlorperazine 5 mg/ml 2 ml VIAL (10 mg) IV PRN (11:53)
[2022-06-08] MEDS: DEXTROSE CENT\\PICC SCH (18:04)
[2022-06-08] MEDS: AMINO ACID INFUSION CENT\\PICC SCH (18:04)
[2022-06-08] MEDS: TPN CENT\\PICC SCH (18:04)
[2022-06-08] MEDS: [UNRECOGNIZED DRUG - OTHER] CENT\\PICC SCH (18:04)
[2022-06-08] MEDS: WATER CENT\\PICC SCH (18:04)
[2022-06-08] MEDS: Insulin GLARGINE 100 un/ml 10 ml VIAL SUBCUT SCH (22:16)
[2022-06-08] MEDS: Enoxaparin 40 MG/0.4 ML SYR SUBCUT SCH (22:16)
[2022-06-09] MEDS: Prochlorperazine 5 mg/ml 2 ml VIAL (10 mg) IV PRN ×2 (05:32→19:51)
[2022-06-09 05:43] LABS: Albumin 2.8 g/dL (3.2-5.2); Albumin/Globulin Ratio 1.2 (1-3); Calcium 8.6 mg/dL (8.6-10.3); Creatinine, Serum 0.37 mg/dL (0.51-0.95); Globulin 2.3 g/dL (2-4); Magnesium 1.8 mg/dL (1.9-2.7); Phosphorus 3.5 mg/dL (2.5-5.0); Potassium 4.6 mmol/L (3.5-5.0); Total Bilirubin 0.2 mg/dL (0.2-1.0); Total Protein 5.1 g/dL (6.4-8.9); eGFR CKD-EPI 112.5 (>60)
[2022-06-09] MEDS: Multivitamins/Minerals TAB PO SCH (11:07)
[2022-06-09] MEDS: Venlafaxine XR 75 mg PO SCH (11:08)
[2022-06-09] MEDS: DEXTROSE CENT\\PICC SCH (17:36)
[2022-06-09] MEDS: AMINO ACID INFUSION CENT\\PICC SCH (17:36)
[2022-06-09] MEDS: [UNRECOGNIZED DRUG - OTHER] CENT\\PICC SCH (17:36)
[2022-06-09] MEDS: WATER CENT\\PICC SCH (17:36)
[2022-06-09] MEDS: TPN CENT\\PICC SCH (17:36)
[2022-06-09] MEDS: Enoxaparin 40 MG/0.4 ML SYR SUBCUT SCH (21:59)
[2022-06-09] MEDS: Insulin GLARGINE 100 un/ml 10 ml VIAL SUBCUT SCH (22:00)
[2022-06-10] MEDS: Multivitamins/Minerals TAB PO SCH (11:20)
[2022-06-10] MEDS: Venlafaxine XR 75 mg PO SCH (11:20)
[2022-06-10] MEDS: Acetaminophen IV 1 GM/100ML 1,000 MG/100 ML BAG IV PRN (16:56)
[2022-06-10] MEDS: DEXTROSE CENT\\PICC SCH (17:31)
[2022-06-10] MEDS: [UNRECOGNIZED DRUG - OTHER] CENT\\PICC SCH (17:31)
[2022-06-10] MEDS: AMINO ACID INFUSION CENT\\PICC SCH (17:31)
[2022-06-10] MEDS: WATER CENT\\PICC SCH (17:31)
[2022-06-10] MEDS: TPN CENT\\PICC SCH (17:31)
[2022-06-10] MEDS: Enoxaparin 40 MG/0.4 ML SYR SUBCUT SCH (21:05)
[2022-06-10] MEDS: Insulin GLARGINE 100 un/ml 10 ml VIAL SUBCUT SCH (21:07)
[2022-06-11 06:11] LABS: Albumin 2.8 g/dL (3.2-5.2); Albumin/Globulin Ratio 1.3 (1-3); Calcium 8.4 mg/dL (8.6-10.3); Creatinine, Serum 0.36 mg/dL (0.51-0.95); Globulin 2.2 g/dL (2-4); Magnesium 1.8 mg/dL (1.9-2.7); Phosphorus 4.1 mg/dL (2.5-5.0); Potassium 4.6 mmol/L (3.5-5.0); Total Bilirubin 0.2 mg/dL (0.2-1.0); eGFR CKD-EPI 113.3 (>60)
[2022-06-11] MEDS ORDERED: Magnesium Sulfate IV 1GM/100ML 1 GM/100 ML BAG IV ONE (08:25)
[2022-06-11] MEDS: Prochlorperazine 5 mg/ml 2 ml VIAL (10 mg) IV PRN (09:17)
[2022-06-11] MEDS: Multivitamins/Minerals TAB PO SCH (12:05)
[2022-06-11] MEDS: Venlafaxine XR 75 mg PO SCH (12:05)
[2022-06-11] MEDS: Al Hydrox/Mg Hydrox/Simet LIQ 30 ML UDC PO PRN (16:31)
[2022-06-11] MEDS: Acetaminophen IV 1 GM/100ML 1,000 MG/100 ML BAG IV PRN (16:31)
[2022-06-11] MEDS: TPN CENT\\PICC SCH (17:16)
[2022-06-11] MEDS: AMINO ACID INFUSION CENT\\PICC SCH (17:16)
[2022-06-11] MEDS: WATER CENT\\PICC SCH (17:16)
[2022-06-11] MEDS: [UNRECOGNIZED DRUG - OTHER] CENT\\PICC SCH (17:16)
[2022-06-11] MEDS: DEXTROSE CENT\\PICC SCH (17:16)
[2022-06-11] MEDS ORDERED: Calcium Carb (TUMS) 500 mg CHEW TAB PO ONE (19:28)
[2022-06-11] MEDS: Enoxaparin 40 MG/0.4 ML SYR SUBCUT SCH (20:40)
[2022-06-11] MEDS: Insulin GLARGINE 100 un/ml 10 ml VIAL SUBCUT SCH (20:42)
[2022-06-12 05:28] LABS: Albumin/Globulin Ratio 1.2 (1-3); Creatinine, Serum 0.43 mg/dL (0.51-0.95); Globulin 2.6 g/dL (2-4); Magnesium 1.9 mg/dL (1.9-2.7); Phosphorus 3.9 mg/dL (2.5-5.0); Potassium 4.6 mmol/L (3.5-5.0); Total Bilirubin 0.2 mg/dL (0.2-1.0); Total Protein 5.6 g/dL (6.4-8.9); eGFR CKD-EPI 108.5 (>60)
[2022-06-12] MEDS: Prochlorperazine 5 mg/ml 2 ml VIAL (10 mg) IV PRN (13:43)
[2022-06-12] MEDS: Venlafaxine XR 75 mg PO SCH (13:55)
[2022-06-12] MEDS: Multivitamins/Minerals TAB PO SCH (13:55)
[2022-06-12] MEDS: [UNRECOGNIZED DRUG - OTHER] CENT\\PICC SCH (17:16)
[2022-06-12] MEDS: DEXTROSE CENT\\PICC SCH (17:16)
[2022-06-12] MEDS: WATER CENT\\PICC SCH (17:16)
[2022-06-12] MEDS: AMINO ACID INFUSION CENT\\PICC SCH (17:16)
[2022-06-12] MEDS: TPN CENT\\PICC SCH (17:16)
[2022-06-12] MEDS: Al Hydrox/Mg Hydrox/Simet LIQ 30 ML UDC PO PRN (18:53)
[2022-06-12] MEDS: Ondansetron 4 mg VIAL 2 MG/ML 2 ml VIAL IV PRN (20:17)
[2022-06-12] MEDS: Enoxaparin 40 MG/0.4 ML SYR SUBCUT SCH (20:21)
[2022-06-12] MEDS: Insulin GLARGINE 100 un/ml 10 ml VIAL SUBCUT SCH (20:22)
[2022-06-13 05:21] LABS: Albumin 2.8 g/dL (3.2-5.2); Albumin/Globulin Ratio 1.2 (1-3); Calcium 8.5 mg/dL (8.6-10.3); Creatinine, Serum 0.51 mg/dL (0.51-0.95); Globulin 2.4 g/dL (2-4); Magnesium 1.8 mg/dL (1.9-2.7); Phosphorus 3.9 mg/dL (2.5-5.0); Potassium 4.6 mmol/L (3.5-5.0); Total Bilirubin 0.2 mg/dL (0.2-1.0); Total Protein 5.2 g/dL (6.4-8.9); eGFR CKD-EPI 104.2 (>60)
[2022-06-13] MEDS: Multivitamins/Minerals TAB PO SCH (13:03)
[2022-06-13] MEDS: Venlafaxine XR 75 mg PO SCH (13:03)
[2022-06-13] MEDS: WATER CENT\\PICC SCH (17:42)
[2022-06-13] MEDS: TPN CENT\\PICC SCH (17:42)
[2022-06-13] MEDS: AMINO ACID INFUSION CENT\\PICC SCH (17:42)
[2022-06-13] MEDS: DEXTROSE CENT\\PICC SCH (17:42)
[2022-06-13] MEDS: [UNRECOGNIZED DRUG - OTHER] CENT\\PICC SCH (17:42)
[2022-06-13] MEDS: Enoxaparin 40 MG/0.4 ML SYR SUBCUT SCH (20:55)
[2022-06-13] MEDS: Insulin GLARGINE 100 un/ml 10 ml VIAL SUBCUT SCH (20:55)
[2022-06-14 06:45] LABS: Albumin 2.9 g/dL (3.2-5.2); Albumin/Globulin Ratio 1.3 (1-3); Calcium 8.7 mg/dL (8.6-10.3); Creatinine, Serum 0.55 mg/dL (0.51-0.95); Globulin 2.2 g/dL (2-4); Magnesium 1.8 mg/dL (1.9-2.7); Phosphorus 4.2 mg/dL (2.5-5.0); Potassium 4.7 mmol/L (3.5-5.0); Total Bilirubin 0.2 mg/dL (0.2-1.0); Total Protein 5.1 g/dL (6.4-8.9); eGFR CKD-EPI 102.3 (>60)
[2022-06-14] MEDS: Multivitamins/Minerals TAB PO SCH (08:44)
[2022-06-14] MEDS: Venlafaxine XR 75 mg PO SCH (08:44)
[2022-06-14] MEDS: AMINO ACID INFUSION CENT\\PICC SCH (17:11)
[2022-06-14] MEDS: [UNRECOGNIZED DRUG - OTHER] CENT\\PICC SCH (17:11)
[2022-06-14] MEDS: DEXTROSE CENT\\PICC SCH (17:11)
[2022-06-14] MEDS: TPN CENT\\PICC SCH (17:11)
[2022-06-14] MEDS: WATER CENT\\PICC SCH (17:11)
[2022-06-14] MEDS: Enoxaparin 40 MG/0.4 ML SYR SUBCUT SCH (21:35)
[2022-06-14] MEDS: Insulin GLARGINE 100 un/ml 10 ml VIAL SUBCUT SCH (21:36)
[2022-06-15 05:49] LABS: Albumin 2.8 g/dL (3.2-5.2); Albumin/Globulin Ratio 1.3 (1-3); Calcium 8.7 mg/dL (8.6-10.3); Creatinine, Serum 0.37 mg/dL (0.51-0.95); Globulin 2.2 g/dL (2-4); Magnesium 1.9 mg/dL (1.9-2.7); Potassium 4.5 mmol/L (3.5-5.0); Total Bilirubin 0.2 mg/dL (0.2-1.0); eGFR CKD-EPI 112.5 (>60)
[2022-06-15] MEDS: Venlafaxine XR 75 mg PO SCH (10:14)
[2022-06-15] MEDS: Multivitamins/Minerals TAB PO SCH (10:14)
[2022-06-15] MEDS: DEXTROSE CENT\\PICC SCH (17:43)
[2022-06-15] MEDS: AMINO ACID INFUSION CENT\\PICC SCH (17:43)
[2022-06-15] MEDS: WATER CENT\\PICC SCH (17:43)
[2022-06-15] MEDS: TPN CENT\\PICC SCH (17:43)
[2022-06-15] MEDS: [UNRECOGNIZED DRUG - OTHER] CENT\\PICC SCH (17:43)
[2022-06-15] MEDS: Prochlorperazine 5 mg/ml 2 ml VIAL (10 mg) IV PRN (20:00)
[2022-06-15] MEDS: Insulin GLARGINE 100 un/ml 10 ml VIAL SUBCUT SCH (22:03)
[2022-06-15] MEDS: Enoxaparin 40 MG/0.4 ML SYR SUBCUT SCH (22:03)
[2022-06-16 06:43] LABS: Albumin 2.9 g/dL (3.2-5.2); Albumin/Globulin Ratio 1.1 (1-3); Calcium 8.4 mg/dL (8.6-10.3); Creatinine, Serum 0.42 mg/dL (0.51-0.95); Globulin 2.6 g/dL (2-4); Magnesium 1.9 mg/dL (1.9-2.7); Phosphorus 3.9 mg/dL (2.5-5.0); Potassium 4.4 mmol/L (3.5-5.0); Total Bilirubin 0.2 mg/dL (0.2-1.0); Total Protein 5.5 g/dL (6.4-8.9); eGFR CKD-EPI 109.2 (>60)
[2022-06-16] MEDS: Multivitamins/Minerals TAB PO SCH (11:19)
[2022-06-16] MEDS: Venlafaxine XR 75 mg PO SCH (11:19)
[2022-06-16] MEDS: [UNRECOGNIZED DRUG - OTHER] CENT\\PICC SCH (17:30)
[2022-06-16] MEDS: TPN CENT\\PICC SCH (17:30)
[2022-06-16] MEDS: AMINO ACID INFUSION CENT\\PICC SCH (17:30)
[2022-06-16] MEDS: DEXTROSE CENT\\PICC SCH (17:30)
[2022-06-16] MEDS: WATER CENT\\PICC SCH (17:30)
[2022-06-16] MEDS: Enoxaparin 40 MG/0.4 ML SYR SUBCUT SCH (20:04)
[2022-06-16] MEDS: Insulin GLARGINE 100 un/ml 10 ml VIAL SUBCUT SCH (20:05)
[2022-06-17] MEDS: Venlafaxine XR 75 mg PO SCH (09:20)
[2022-06-17] MEDS: Multivitamins/Minerals TAB PO SCH (09:20)
[2022-06-17] MEDS: Prochlorperazine 5 mg/ml 2 ml VIAL (10 mg) IV PRN (10:42)
[2022-06-17] MEDS: TPN CENT\\PICC SCH (17:00)
[2022-06-17] MEDS: AMINO ACID INFUSION CENT\\PICC SCH (17:00)
[2022-06-17] MEDS: WATER CENT\\PICC SCH (17:00)
[2022-06-17] MEDS: [UNRECOGNIZED DRUG - OTHER] CENT\\PICC SCH (17:00)
[2022-06-17] MEDS: DEXTROSE CENT\\PICC SCH (17:00)
[2022-06-17] MEDS: Al Hydrox/Mg Hydrox/Simet LIQ 30 ML UDC PO PRN (21:24)
[2022-06-17] MEDS: Insulin GLARGINE 100 un/ml 10 ml VIAL SUBCUT SCH (21:25)
[2022-06-17] MEDS: Enoxaparin 40 MG/0.4 ML SYR SUBCUT SCH (21:27)
[2022-06-18] MEDS: Venlafaxine XR 75 mg PO SCH (10:40)
[2022-06-18] MEDS: Multivitamins/Minerals TAB PO SCH (10:40)
[2022-06-18] MEDS: DEXTROSE CENT\\PICC SCH (17:00)
[2022-06-18] MEDS: AMINO ACID INFUSION CENT\\PICC SCH (17:00)
[2022-06-18] MEDS: WATER CENT\\PICC SCH (17:00)
[2022-06-18] MEDS: TPN CENT\\PICC SCH (17:00)
[2022-06-18] MEDS: [UNRECOGNIZED DRUG - OTHER] CENT\\PICC SCH (17:00)
[2022-06-18] MEDS: Enoxaparin 40 MG/0.4 ML SYR SUBCUT SCH (21:49)
[2022-06-18] MEDS: Insulin GLARGINE 100 un/ml 10 ml VIAL SUBCUT SCH (21:50)
[2022-06-19] MEDS: Venlafaxine XR 75 mg PO SCH (10:31)
[2022-06-19] MEDS: Multivitamins/Minerals TAB PO SCH (10:32)
[2022-06-19] MEDS: Acetaminophen IV 1 GM/100ML 1,000 MG/100 ML BAG IV PRN (12:44)
[2022-06-19] MEDS: DEXTROSE CENT\\PICC SCH (17:00)
[2022-06-19] MEDS: TPN CENT\\PICC SCH (17:00)
[2022-06-19] MEDS: AMINO ACID INFUSION CENT\\PICC SCH (17:00)
[2022-06-19] MEDS: WATER CENT\\PICC SCH (17:00)
[2022-06-19] MEDS: [UNRECOGNIZED DRUG - OTHER] CENT\\PICC SCH (17:00)
[2022-06-19] MEDS: Enoxaparin 40 MG/0.4 ML SYR SUBCUT SCH (20:50)
[2022-06-19] MEDS: Insulin GLARGINE 100 un/ml 10 ml VIAL SUBCUT SCH (20:54)
[2022-06-20 07:00] LABS: Albumin 2.9 g/dL (3.2-5.2); Albumin/Globulin Ratio 1.1 (1-3); Calcium 8.7 mg/dL (8.6-10.3); Creatinine, Serum 0.39 mg/dL (0.51-0.95); Globulin 2.7 g/dL (2-4); Magnesium 1.9 mg/dL (1.9-2.7); Phosphorus 3.9 mg/dL (2.5-5.0); Potassium 4.5 mmol/L (3.5-5.0); Total Bilirubin 0.2 mg/dL (0.2-1.0); Total Protein 5.6 g/dL (6.4-8.9); eGFR CKD-EPI 111.1 (>60)
[2022-06-20] MEDS: Multivitamins/Minerals TAB PO SCH (08:34)
[2022-06-20] MEDS: Venlafaxine XR 75 mg PO SCH (08:34)
[2022-06-20] MEDS: DEXTROSE CENT\\PICC SCH (17:32)
[2022-06-20] MEDS: TPN CENT\\PICC SCH (17:32)
[2022-06-20] MEDS: WATER CENT\\PICC SCH (17:32)
[2022-06-20] MEDS: AMINO ACID INFUSION CENT\\PICC SCH (17:32)
[2022-06-20] MEDS: [UNRECOGNIZED DRUG - OTHER] CENT\\PICC SCH (17:32)
[2022-06-20] MEDS: Insulin GLARGINE 100 un/ml 10 ml VIAL SUBCUT SCH (21:12)
[2022-06-20] MEDS: Enoxaparin 40 MG/0.4 ML SYR SUBCUT SCH (21:17)
[2022-06-21] MEDS: Venlafaxine XR 75 mg PO SCH (10:14)
[2022-06-21] MEDS: Multivitamins/Minerals TAB PO SCH (10:14)
[2022-06-21] MEDS: AMINO ACID INFUSION CENT\\PICC SCH (21:22)
[2022-06-21] MEDS: Enoxaparin 40 MG/0.4 ML SYR SUBCUT SCH (21:22)
[2022-06-21] MEDS: Insulin GLARGINE 100 un/ml 10 ml VIAL SUBCUT SCH (21:22)
[2022-06-21] MEDS: [UNRECOGNIZED DRUG - OTHER] CENT\\PICC SCH (21:22)
[2022-06-21] MEDS: TPN CENT\\PICC SCH (21:22)
[2022-06-21] MEDS: WATER CENT\\PICC SCH (21:22)
[2022-06-21] MEDS: DEXTROSE CENT\\PICC SCH (21:22)
[2022-06-22] MEDS: Venlafaxine XR 75 mg PO SCH (11:58)
[2022-06-22] MEDS: Multivitamins/Minerals TAB PO SCH (11:58)
[2022-06-22] MEDS: Al Hydrox/Mg Hydrox/Simet LIQ 30 ML UDC PO PRN (15:05)
[2022-06-22] MEDS: TPN CENT\\PICC SCH (21:12)
[2022-06-22] MEDS: [UNRECOGNIZED DRUG - OTHER] CENT\\PICC SCH (21:12)
[2022-06-22] MEDS: AMINO ACID INFUSION CENT\\PICC SCH (21:12)
[2022-06-22] MEDS: WATER CENT\\PICC SCH (21:12)
[2022-06-22] MEDS: DEXTROSE CENT\\PICC SCH (21:12)
[2022-06-22] MEDS: Enoxaparin 40 MG/0.4 ML SYR SUBCUT SCH (21:17)
[2022-06-22] MEDS: Insulin GLARGINE 100 un/ml 10 ml VIAL SUBCUT SCH (21:18)
[2022-06-23] MEDS: Acetaminophen IV 1 GM/100ML 1,000 MG/100 ML BAG IV PRN (00:17)
[2022-06-23] MEDS ORDERED: Alteplase (CATHFLO) 2 MG VIAL IV ONE (05:58)
[2022-06-23 10:16] LABS: Albumin 2.8 g/dL (3.2-5.2); Albumin/Globulin Ratio 1.1 (1-3); Calcium 8.4 mg/dL (8.6-10.3); Creatinine, Serum 0.38 mg/dL (0.51-0.95); Globulin 2.5 g/dL (2-4); Magnesium 1.8 mg/dL (1.9-2.7); Phosphorus 3.9 mg/dL (2.5-5.0); Potassium 4.4 mmol/L (3.5-5.0); Total Bilirubin 0.2 mg/dL (0.2-1.0); Total Protein 5.3 g/dL (6.4-8.9); eGFR CKD-EPI 111.8 (>60)
[2022-06-23] MEDS: Venlafaxine XR 75 mg PO SCH (11:29)
[2022-06-23] MEDS: Multivitamins/Minerals TAB PO SCH (11:29)
[2022-06-23] MEDS: Enoxaparin 40 MG/0.4 ML SYR SUBCUT SCH (21:28)
[2022-06-23] MEDS: Insulin GLARGINE 100 un/ml 10 ml VIAL SUBCUT SCH (21:28)
[2022-06-23] MEDS: [UNRECOGNIZED DRUG - OTHER] CENT\\PICC SCH (21:34)
[2022-06-23] MEDS: DEXTROSE CENT\\PICC SCH (21:34)
[2022-06-23] MEDS: AMINO ACID INFUSION CENT\\PICC SCH (21:34)
[2022-06-23] MEDS: TPN CENT\\PICC SCH (21:34)
[2022-06-23] MEDS: WATER CENT\\PICC SCH (21:34)
[2022-06-24] MEDS: Acetaminophen IV 1 GM/100ML 1,000 MG/100 ML BAG IV PRN ×2 (02:39→19:05)
[2022-06-24] MEDS: Venlafaxine XR 75 mg PO SCH (09:58)
[2022-06-24] MEDS: Multivitamins/Minerals TAB PO SCH (09:58)
[2022-06-24] MEDS ORDERED: Docusate LIQ 100 MG/10 ML UDC OTIC ONE (10:00)
[2022-06-24] MEDS: Insulin GLARGINE 100 un/ml 10 ml VIAL SUBCUT SCH (21:13)
[2022-06-24] MEDS: Enoxaparin 40 MG/0.4 ML SYR SUBCUT SCH (21:13)
[2022-06-24] MEDS: AMINO ACID INFUSION CENT\\PICC SCH (21:15)
[2022-06-24] MEDS: [UNRECOGNIZED DRUG - OTHER] CENT\\PICC SCH (21:15)
[2022-06-24] MEDS: TPN CENT\\PICC SCH (21:15)
[2022-06-24] MEDS: DEXTROSE CENT\\PICC SCH (21:15)
[2022-06-24] MEDS: WATER CENT\\PICC SCH (21:15)
[2022-06-25] MEDS: Venlafaxine XR 75 mg PO SCH (09:59)
[2022-06-25] MEDS: Multivitamins/Minerals TAB PO SCH (09:59)
[2022-06-25] MEDS: TPN CENT\\PICC SCH (21:48)
[2022-06-25] MEDS: WATER CENT\\PICC SCH (21:48)
[2022-06-25] MEDS: [UNRECOGNIZED DRUG - OTHER] CENT\\PICC SCH (21:48)
[2022-06-25] MEDS: DEXTROSE CENT\\PICC SCH (21:48)
[2022-06-25] MEDS: AMINO ACID INFUSION CENT\\PICC SCH (21:48)
[2022-06-25] MEDS: Insulin GLARGINE 100 un/ml 10 ml VIAL SUBCUT SCH (21:53)
[2022-06-25] MEDS: Enoxaparin 40 MG/0.4 ML SYR SUBCUT SCH (21:53)
[2022-06-26] MEDS: Prochlorperazine 5 mg/ml 2 ml VIAL (10 mg) IV PRN (08:56)
[2022-06-26] MEDS: Venlafaxine XR 75 mg PO SCH (11:08)
[2022-06-26] MEDS: Multivitamins/Minerals TAB PO SCH (11:08)
[2022-06-26] MEDS: Ondansetron 4 mg VIAL 2 MG/ML 2 ml VIAL IV PRN (14:28)
[2022-06-26] MEDS: Acetaminophen IV 1 GM/100ML 1,000 MG/100 ML BAG IV PRN (20:50)
[2022-06-26] MEDS: [UNRECOGNIZED DRUG - OTHER] CENT\\PICC SCH (20:51)
[2022-06-26] MEDS: DEXTROSE CENT\\PICC SCH (20:51)
[2022-06-26] MEDS: AMINO ACID INFUSION CENT\\PICC SCH (20:51)
[2022-06-26] MEDS: WATER CENT\\PICC SCH (20:51)
[2022-06-26] MEDS: TPN CENT\\PICC SCH (20:51)
[2022-06-26] MEDS: Enoxaparin 40 MG/0.4 ML SYR SUBCUT SCH (21:02)
[2022-06-26] MEDS: Insulin GLARGINE 100 un/ml 10 ml VIAL SUBCUT SCH (21:03)
[2022-06-27 06:34] LABS: Albumin/Globulin Ratio 1.1 (1-3); Calcium 8.8 mg/dL (8.6-10.3); Creatinine, Serum 0.44 mg/dL (0.51-0.95); Globulin 2.7 g/dL (2-4); Magnesium 1.8 mg/dL (1.9-2.7); Phosphorus 4.6 mg/dL (2.5-5.0); Potassium 4.5 mmol/L (3.5-5.0); Total Bilirubin 0.2 mg/dL (0.2-1.0); Total Protein 5.7 g/dL (6.4-8.9); eGFR CKD-EPI 107.9 (>60)
[2022-06-27] MEDS: Venlafaxine XR 75 mg PO SCH (11:27)
[2022-06-27] MEDS: Multivitamins/Minerals TAB PO SCH (11:27)
[2022-06-27] MEDS: Acetaminophen IV 1 GM/100ML 1,000 MG/100 ML BAG IV PRN (12:56)
[2022-06-27] MEDS: Al Hydrox/Mg Hydrox/Simet LIQ 30 ML UDC PO PRN (21:04)
[2022-06-27] MEDS: DEXTROSE CENT\\PICC SCH (21:31)
[2022-06-27] MEDS: [UNRECOGNIZED DRUG - OTHER] CENT\\PICC SCH (21:31)
[2022-06-27] MEDS: TPN CENT\\PICC SCH (21:31)
[2022-06-27] MEDS: WATER CENT\\PICC SCH (21:31)
[2022-06-27] MEDS: AMINO ACID INFUSION CENT\\PICC SCH (21:31)
[2022-06-27] MEDS: Enoxaparin 40 MG/0.4 ML SYR SUBCUT SCH (21:36)
[2022-06-27] MEDS: Insulin GLARGINE 100 un/ml 10 ml VIAL SUBCUT SCH (21:37)
[2022-06-28] MEDS: Multivitamins/Minerals TAB PO SCH (12:16)
[2022-06-28] MEDS: Venlafaxine XR 75 mg PO SCH (12:17)
[2022-06-28] MEDS: Prochlorperazine 5 mg/ml 2 ml VIAL (10 mg) IV PRN (12:49)
[2022-06-28] MEDS: Al Hydrox/Mg Hydrox/Simet LIQ 30 ML UDC PO PRN (20:05)
[2022-06-28] MEDS: Enoxaparin 40 MG/0.4 ML SYR SUBCUT SCH (20:06)
[2022-06-28] MEDS: Insulin GLARGINE 100 un/ml 10 ml VIAL SUBCUT SCH (20:06)
[2022-06-28] MEDS: [UNRECOGNIZED DRUG - OTHER] CENT\\PICC SCH (21:30)
[2022-06-28] MEDS: WATER CENT\\PICC SCH (21:30)
[2022-06-28] MEDS: DEXTROSE CENT\\PICC SCH (21:30)
[2022-06-28] MEDS: AMINO ACID INFUSION CENT\\PICC SCH (21:30)
[2022-06-28] MEDS: TPN CENT\\PICC SCH (21:30)
[2022-06-28] MEDS: Acetaminophen IV 1 GM/100ML 1,000 MG/100 ML BAG IV PRN (22:35)
[2022-06-29] MEDS: Venlafaxine XR 75 mg PO SCH (12:23)
[2022-06-29] MEDS: Multivitamins/Minerals TAB PO SCH (12:23)
[2022-06-29] MEDS: Acetaminophen IV 1 GM/100ML 1,000 MG/100 ML BAG IV PRN ×2 (13:52→20:09)
[2022-06-29] MEDS: [UNRECOGNIZED DRUG - OTHER] CENT\\PICC SCH (22:08)
[2022-06-29] MEDS: TPN CENT\\PICC SCH (22:08)
[2022-06-29] MEDS: WATER CENT\\PICC SCH (22:08)
[2022-06-29] MEDS: DEXTROSE CENT\\PICC SCH (22:08)
[2022-06-29] MEDS: AMINO ACID INFUSION CENT\\PICC SCH (22:08)
[2022-06-29] MEDS: Enoxaparin 40 MG/0.4 ML SYR SUBCUT SCH (22:26)
[2022-06-29] MEDS: Insulin GLARGINE 100 un/ml 10 ml VIAL SUBCUT SCH (22:26)
[2022-06-30 06:41] LABS: Albumin 2.8 g/dL (3.2-5.2); Albumin/Globulin Ratio 1.2 (1-3); Calcium 8.3 mg/dL (8.6-10.3); Creatinine, Serum 0.34 mg/dL (0.51-0.95); Globulin 2.4 g/dL (2-4); Magnesium 1.7 mg/dL (1.9-2.7); Phosphorus 3.6 mg/dL (2.5-5.0); Potassium 4.5 mmol/L (3.5-5.0); Total Bilirubin 0.2 mg/dL (0.2-1.0); Total Protein 5.2 g/dL (6.4-8.9); eGFR CKD-EPI 114.9 (>60)
[2022-06-30] MEDS: Venlafaxine XR 75 mg PO SCH (08:55)
[2022-06-30] MEDS: Multivitamins/Minerals TAB PO SCH (08:55)
[2022-06-30] MEDS: Fluticasone NASAL SPRAY 50MCG 16 gm SPRAY BTL BOTH NARES SCH (08:55)
[2022-06-30] MEDS ORDERED: Magnesium Sulfate 2 gm BAG 2 GM/50 ML BAG IVPB ONE (10:15)
[2022-06-30] MEDS: Prochlorperazine 5 mg/ml 2 ml VIAL (10 mg) IV PRN (12:03)
[2022-06-30] MEDS: Acetaminophen IV 1 GM/100ML 1,000 MG/100 ML BAG IV PRN ×2 (13:50→23:24)
[2022-06-30] MEDS ORDERED: Carbamide Peroxide 6.5% OTIC 15 ML BTL BOTH EARS ONE (19:58)
[2022-06-30] MEDS: Morphine ORAL CONCENTRATE 5 MG/0.25 ML ORAL.SYRIN SL PRN (20:26)
[2022-06-30] MEDS: WATER CENT\\PICC SCH (20:27)
[2022-06-30] MEDS: [UNRECOGNIZED DRUG - OTHER] CENT\\PICC SCH (20:27)
[2022-06-30] MEDS: DEXTROSE CENT\\PICC SCH (20:27)
[2022-06-30] MEDS: TPN CENT\\PICC SCH (20:27)
[2022-06-30] MEDS: AMINO ACID INFUSION CENT\\PICC SCH (20:27)
[2022-06-30] MEDS: Enoxaparin 40 MG/0.4 ML SYR SUBCUT SCH (20:31)
[2022-06-30] MEDS: Insulin GLARGINE 100 un/ml 10 ml VIAL SUBCUT SCH (20:31)
[2022-07-01] MEDS: Prochlorperazine 5 mg/ml 2 ml VIAL (10 mg) IV PRN ×2 (01:17→15:55)
[2022-07-01] MEDS: Morphine ORAL CONCENTRATE 5 MG/0.25 ML ORAL.SYRIN SL PRN ×3 (05:48→20:52)
[2022-07-01] MEDS: Venlafaxine XR 75 mg PO SCH (12:20)
[2022-07-01] MEDS: Multivitamins/Minerals TAB PO SCH (12:20)
[2022-07-01] MEDS: Fluticasone NASAL SPRAY 50MCG 16 gm SPRAY BTL BOTH NARES SCH (12:21)
[2022-07-01] MEDS: DEXTROSE CENT\\PICC SCH (20:46)
[2022-07-01] MEDS: [UNRECOGNIZED DRUG - OTHER] CENT\\PICC SCH (20:46)
[2022-07-01] MEDS: AMINO ACID INFUSION CENT\\PICC SCH (20:46)
[2022-07-01] MEDS: TPN CENT\\PICC SCH (20:46)
[2022-07-01] MEDS: WATER CENT\\PICC SCH (20:46)
[2022-07-01] MEDS: Senna TAB 8.6 mg TAB PO PRN (20:53)
[2022-07-01] MEDS: Ondansetron 4 mg VIAL 2 MG/ML 2 ml VIAL IV PRN (20:53)
[2022-07-01] MEDS: Insulin GLARGINE 100 un/ml 10 ml VIAL SUBCUT SCH (21:07)
[2022-07-01] MEDS: Enoxaparin 40 MG/0.4 ML SYR SUBCUT SCH (21:08)
[2022-07-02] MEDS: Prochlorperazine 5 mg/ml 2 ml VIAL (10 mg) IV PRN (02:45)
[2022-07-02] MEDS: Multivitamins/Minerals TAB PO SCH (12:53)
[2022-07-02] MEDS: Venlafaxine XR 75 mg PO SCH (12:53)
[2022-07-02] MEDS: Fluticasone NASAL SPRAY 50MCG 16 gm SPRAY BTL BOTH NARES SCH (12:53)
[2022-07-02] MEDS: Acetaminophen IV 1 GM/100ML 1,000 MG/100 ML BAG IV PRN (21:32)
[2022-07-02] MEDS: TPN CENT\\PICC SCH (21:36)
[2022-07-02] MEDS: DEXTROSE CENT\\PICC SCH (21:36)
[2022-07-02] MEDS: AMINO ACID INFUSION CENT\\PICC SCH (21:36)
[2022-07-02] MEDS: WATER CENT\\PICC SCH (21:36)
[2022-07-02] MEDS: [UNRECOGNIZED DRUG - OTHER] CENT\\PICC SCH (21:36)
[2022-07-02] MEDS: Enoxaparin 40 MG/0.4 ML SYR SUBCUT SCH (21:40)
[2022-07-02] MEDS: Insulin GLARGINE 100 un/ml 10 ml VIAL SUBCUT SCH (22:00)
[2022-07-02] MEDS: Al Hydrox/Mg Hydrox/Simet LIQ 30 ML UDC PO PRN (22:13)
[2022-07-03] MEDS: Venlafaxine XR 75 mg PO SCH (08:21)
[2022-07-03] MEDS: Multivitamins/Minerals TAB PO SCH (08:21)
[2022-07-03] MEDS: Fluticasone NASAL SPRAY 50MCG 16 gm SPRAY BTL BOTH NARES SCH (08:23)
[2022-07-03] MEDS: Acetaminophen IV 1 GM/100ML 1,000 MG/100 ML BAG IV PRN (15:45)
[2022-07-03] MEDS: Prochlorperazine 5 mg/ml 2 ml VIAL (10 mg) IV PRN (18:16)
[2022-07-03] MEDS: Morphine ORAL CONCENTRATE 5 MG/0.25 ML ORAL.SYRIN SL PRN (20:59)
[2022-07-03] MEDS: Enoxaparin 40 MG/0.4 ML SYR SUBCUT SCH (21:00)
[2022-07-03] MEDS: WATER CENT\\PICC SCH (21:04)
[2022-07-03] MEDS: AMINO ACID INFUSION CENT\\PICC SCH (21:04)
[2022-07-03] MEDS: TPN CENT\\PICC SCH (21:04)
[2022-07-03] MEDS: DEXTROSE CENT\\PICC SCH (21:04)
[2022-07-03] MEDS: [UNRECOGNIZED DRUG - OTHER] CENT\\PICC SCH (21:04)
[2022-07-03] MEDS: Insulin GLARGINE 100 un/ml 10 ml VIAL SUBCUT SCH (22:10)
[2022-07-04 11:01] LABS: Albumin 2.9 g/dL (3.2-5.2); Albumin/Globulin Ratio 1.3 (1-3); Calcium 8.4 mg/dL (8.6-10.3); Creatinine, Serum 0.33 mg/dL (0.51-0.95); Globulin 2.3 g/dL (2-4); Magnesium 1.7 mg/dL (1.9-2.7); Phosphorus 3.4 mg/dL (2.5-5.0); Potassium 4.6 mmol/L (3.5-5.0); Total Bilirubin 0.2 mg/dL (0.2-1.0); Total Protein 5.2 g/dL (6.4-8.9); eGFR CKD-EPI 115.7 (>60)
[2022-07-04] MEDS: Venlafaxine XR 75 mg PO SCH (11:31)
[2022-07-04] MEDS: Multivitamins/Minerals TAB PO SCH (11:31)
[2022-07-04] MEDS: Polyethylene Glycol 3350 17 GM PACKET PO PRN (11:31)
[2022-07-04] MEDS: Acetaminophen IV 1 GM/100ML 1,000 MG/100 ML BAG IV PRN ×2 (11:32→23:04)
[2022-07-04] MEDS: Prochlorperazine 5 mg/ml 2 ml VIAL (10 mg) IV PRN (12:03)
[2022-07-04] MEDS: Fluticasone NASAL SPRAY 50MCG 16 gm SPRAY BTL BOTH NARES SCH (12:39)
[2022-07-04] MEDS: Morphine ORAL CONCENTRATE 5 MG/0.25 ML ORAL.SYRIN SL PRN (17:08)
[2022-07-04] MEDS: Enoxaparin 40 MG/0.4 ML SYR SUBCUT SCH (22:44)
[2022-07-04] MEDS: Insulin GLARGINE 100 un/ml 10 ml VIAL SUBCUT SCH (22:50)
[2022-07-04] MEDS: TPN CENT\\PICC SCH (23:06)
[2022-07-04] MEDS: [UNRECOGNIZED DRUG - OTHER] CENT\\PICC SCH (23:06)
[2022-07-04] MEDS: WATER CENT\\PICC SCH (23:06)
[2022-07-04] MEDS: DEXTROSE CENT\\PICC SCH (23:06)
[2022-07-04] MEDS: AMINO ACID INFUSION CENT\\PICC SCH (23:06)
[2022-07-04] MEDS: Senna TAB 8.6 mg TAB PO PRN (23:10)
[2022-07-05] MEDS: Fluticasone NASAL SPRAY 50MCG 16 gm SPRAY BTL BOTH NARES SCH (09:01)
[2022-07-05] MEDS: Venlafaxine XR 75 mg PO SCH (09:02)
[2022-07-05] MEDS: Multivitamins/Minerals TAB PO SCH (09:02)
[2022-07-05] MEDS: Polyethylene Glycol 3350 17 GM PACKET PO PRN (09:03)
[2022-07-05] MEDS: Ondansetron 4 mg VIAL 2 MG/ML 2 ml VIAL IV PRN (09:10)
[2022-07-05] MEDS: Morphine ORAL CONCENTRATE 5 MG/0.25 ML ORAL.SYRIN SL PRN (18:22)
[2022-07-05] MEDS: Insulin GLARGINE 100 un/ml 10 ml VIAL SUBCUT SCH (21:50)
[2022-07-05] MEDS: Enoxaparin 40 MG/0.4 ML SYR SUBCUT SCH (21:50)
[2022-07-05] MEDS: TPN CENT\\PICC SCH (21:52)
[2022-07-05] MEDS: [UNRECOGNIZED DRUG - OTHER] CENT\\PICC SCH (21:52)
[2022-07-05] MEDS: WATER CENT\\PICC SCH (21:52)
[2022-07-05] MEDS: DEXTROSE CENT\\PICC SCH (21:52)
[2022-07-05] MEDS: AMINO ACID INFUSION CENT\\PICC SCH (21:52)
[2022-07-06] MEDS: Venlafaxine XR 75 mg PO SCH (10:51)
[2022-07-06] MEDS: Fluticasone NASAL SPRAY 50MCG 16 gm SPRAY BTL BOTH NARES SCH (10:51)
[2022-07-06] MEDS: Multivitamins/Minerals TAB PO SCH (10:51)
[2022-07-06] MEDS: Acetaminophen IV 1 GM/100ML 1,000 MG/100 ML BAG IV PRN (16:58)
[2022-07-06] MEDS: Morphine ORAL CONCENTRATE 5 MG/0.25 ML ORAL.SYRIN SL PRN (19:53)
[2022-07-06] MEDS: Enoxaparin 40 MG/0.4 ML SYR SUBCUT SCH (21:06)
[2022-07-06] MEDS: Insulin GLARGINE 100 un/ml 10 ml VIAL SUBCUT SCH (21:07)
[2022-07-06] MEDS: AMINO ACID INFUSION CENT\\PICC SCH (21:11)
[2022-07-06] MEDS: WATER CENT\\PICC SCH (21:11)
[2022-07-06] MEDS: [UNRECOGNIZED DRUG - OTHER] CENT\\PICC SCH (21:11)
[2022-07-06] MEDS: DEXTROSE CENT\\PICC SCH (21:11)
[2022-07-06] MEDS: TPN CENT\\PICC SCH (21:11)
[2022-07-07 06:08] LABS: Albumin 2.5 g/dL (3.2-5.2); Calcium 7.2 mg/dL (8.6-10.3); Magnesium 1.6 mg/dL (1.9-2.7); Total Bilirubin 0.2 mg/dL (0.2-1.0)
[2022-07-07 06:14] LABS: Albumin/Globulin Ratio 1.3 (1-3); Creatinine, Serum 0.42 mg/dL (0.51-0.95); Phosphorus 3.2 mg/dL (2.5-5.0); Total Protein 4.5 g/dL (6.4-8.9); eGFR CKD-EPI 109.2 (>60)
[2022-07-07] MEDS ORDERED: Magnesium Sulfate 2 gm BAG 2 GM/50 ML BAG IVPB ONE (07:05)
[2022-07-07] MEDS: Venlafaxine XR 75 mg PO SCH (11:58)
[2022-07-07] MEDS: Multivitamins/Minerals TAB PO SCH (11:58)
[2022-07-07] MEDS: Fluticasone NASAL SPRAY 50MCG 16 gm SPRAY BTL BOTH NARES SCH (12:00)
[2022-07-07] MEDS ORDERED: DEXTROSE CENT\\PICC SCH (21:00)
[2022-07-07] MEDS ORDERED: WATER CENT\\PICC SCH (21:00)
[2022-07-07] MEDS ORDERED: [UNRECOGNIZED DRUG - OTHER] CENT\\PICC SCH (21:00)
[2022-07-07] MEDS ORDERED: AMINO ACID INFUSION CENT\\PICC SCH (21:00)
[2022-07-07] MEDS ORDERED: TPN CENT\\PICC SCH (21:00)
[2022-07-07] MEDS: Enoxaparin 40 MG/0.4 ML SYR SUBCUT SCH (21:21)
[2022-07-07] MEDS: Insulin GLARGINE 100 un/ml 10 ml VIAL SUBCUT SCH (21:22)
[2022-07-07] MEDS: TPN CENT\\PICC SCH (21:24)
[2022-07-07] MEDS: AMINO ACID INFUSION CENT\\PICC SCH (21:24)
[2022-07-07] MEDS: DEXTROSE CENT\\PICC SCH (21:24)
[2022-07-07] MEDS: WATER CENT\\PICC SCH (21:24)
[2022-07-07] MEDS: [UNRECOGNIZED DRUG - OTHER] CENT\\PICC SCH (21:24)
[2022-07-08] MEDS: Ondansetron 4 mg VIAL 2 MG/ML 2 ml VIAL IV PRN (09:43)
[2022-07-08] MEDS: Acetaminophen IV 1 GM/100ML 1,000 MG/100 ML BAG IV PRN ×2 (10:06→21:37)
[2022-07-08] MEDS: Multivitamins/Minerals TAB PO SCH (11:33)
[2022-07-08] MEDS: Fluticasone NASAL SPRAY 50MCG 16 gm SPRAY BTL BOTH NARES SCH (11:33)
[2022-07-08] MEDS: Venlafaxine XR 75 mg PO SCH (11:33)
[2022-07-08] MEDS: TPN CENT\\PICC SCH (21:24)
[2022-07-08] MEDS: AMINO ACID INFUSION CENT\\PICC SCH (21:24)
[2022-07-08] MEDS: WATER CENT\\PICC SCH (21:24)
[2022-07-08] MEDS: [UNRECOGNIZED DRUG - OTHER] CENT\\PICC SCH (21:24)
[2022-07-08] MEDS: DEXTROSE CENT\\PICC SCH (21:24)
[2022-07-08] MEDS: Insulin GLARGINE 100 un/ml 10 ml VIAL SUBCUT SCH (21:25)
[2022-07-08] MEDS: Enoxaparin 40 MG/0.4 ML SYR SUBCUT SCH (21:25)
[2022-07-09] MEDS: Venlafaxine XR 75 mg PO SCH (09:55)
[2022-07-09] MEDS: Multivitamins/Minerals TAB PO SCH (09:55)
[2022-07-09] MEDS: Fluticasone NASAL SPRAY 50MCG 16 gm SPRAY BTL BOTH NARES SCH (09:56)
[2022-07-09] MEDS: Ondansetron 4 mg VIAL 2 MG/ML 2 ml VIAL IV PRN ×2 (12:48→16:56)
[2022-07-09] MEDS: Prochlorperazine 5 mg/ml 2 ml VIAL (10 mg) IV PRN ×2 (15:45→21:48)
[2022-07-09] MEDS: Insulin GLARGINE 100 un/ml 10 ml VIAL SUBCUT SCH (21:51)
[2022-07-09] MEDS: DEXTROSE CENT\\PICC SCH (21:52)
[2022-07-09] MEDS: TPN CENT\\PICC SCH (21:52)
[2022-07-09] MEDS: [UNRECOGNIZED DRUG - OTHER] CENT\\PICC SCH (21:52)
[2022-07-09] MEDS: AMINO ACID INFUSION CENT\\PICC SCH (21:52)
[2022-07-09] MEDS: WATER CENT\\PICC SCH (21:52)
[2022-07-09] MEDS: Enoxaparin 40 MG/0.4 ML SYR SUBCUT SCH (21:59)
[2022-07-10] MEDS: Ondansetron 4 mg VIAL 2 MG/ML 2 ml VIAL IV PRN (00:58)
[2022-07-10] MEDS: Prochlorperazine 5 mg/ml 2 ml VIAL (10 mg) IV PRN ×2 (09:02→17:08)
[2022-07-10] MEDS: Multivitamins/Minerals TAB PO SCH (10:25)
[2022-07-10] MEDS: Venlafaxine XR 75 mg PO SCH (10:25)
[2022-07-10] MEDS: Fluticasone NASAL SPRAY 50MCG 16 gm SPRAY BTL BOTH NARES SCH (10:26)
[2022-07-10] MEDS: Acetaminophen IV 1 GM/100ML 1,000 MG/100 ML BAG IV PRN (15:12)
[2022-07-10] MEDS: WATER CENT\\PICC SCH (22:20)
[2022-07-10] MEDS: [UNRECOGNIZED DRUG - OTHER] CENT\\PICC SCH (22:20)
[2022-07-10] MEDS: AMINO ACID INFUSION CENT\\PICC SCH (22:20)
[2022-07-10] MEDS: DEXTROSE CENT\\PICC SCH (22:20)
[2022-07-10] MEDS: TPN CENT\\PICC SCH (22:20)
[2022-07-10] MEDS: Enoxaparin 40 MG/0.4 ML SYR SUBCUT SCH (22:36)
[2022-07-10] MEDS: Insulin GLARGINE 100 un/ml 10 ml VIAL SUBCUT SCH (22:37)
[2022-07-11] MEDS: Prochlorperazine 5 mg/ml 2 ml VIAL (10 mg) IV PRN ×2 (03:49→12:42)
[2022-07-11 06:58] LABS: ALT 24 U/L (7-52); AST 16 U/L (13-39); Albumin 3.3 g/dL (3.2-5.2); Alkaline Phosphatase 165 U/L (35-149); Anion Gap 6 mmol/L (2-16); Blood Urea Nitrogen 21 mg/dL (6-24); CO2 Carbon Dioxide 29 mmol/L (22-32); Calcium 9.2 mg/dL (8.6-10.3); Chloride 101 mmol/L (101-111); Cholesterol 95 mg/dL; Creatinine, Serum 0.47 mg/dL (0.51-0.95); Globulin 3.2 g/dL (2-4); Glucose 172 mg/dL (70-100); Magnesium 1.8 mg/dL (1.9-2.7); Phosphorus 3.5 mg/dL (2.5-5.0); Potassium 4.2 mmol/L (3.5-5.0); Sodium 136 mmol/L (135-145); Total Protein 6.5 g/dL (6.4-8.9); Triglycerides 139 mg/dL; eGFR CKD-EPI 106.2 (>60)
[2022-07-11] MEDS: Ondansetron 4 mg VIAL 2 MG/ML 2 ml VIAL IV PRN (07:25)
[2022-07-11] MEDS: Acetaminophen IV 1 GM/100ML 1,000 MG/100 ML BAG IV PRN ×2 (08:00→20:44)
[2022-07-11] MEDS ORDERED: Alteplase (CATHFLO) 2 MG VIAL IV ONE (08:42)
[2022-07-11] MEDS: Multivitamins/Minerals TAB PO SCH (10:17)
[2022-07-11] MEDS: Venlafaxine XR 75 mg PO SCH (10:17)
[2022-07-11] MEDS: Fluticasone NASAL SPRAY 50MCG 16 gm SPRAY BTL BOTH NARES SCH (10:18)
[2022-07-11] MEDS ORDERED: Magnesium Sulfate 2 GM IV (Premix) IVPB ONE (12:00)
[2022-07-11] MEDS: Senna TAB 8.6 mg TAB PO PRN (20:55)
[2022-07-11] MEDS: Enoxaparin 40 MG/0.4 ML SYR SUBCUT SCH (20:56)
[2022-07-11] MEDS: Insulin GLARGINE 100 un/ml 10 ml VIAL SUBCUT SCH (21:03)
[2022-07-11] MEDS: DEXTROSE CENT\\PICC SCH (21:10)
[2022-07-11] MEDS: [UNRECOGNIZED DRUG - OTHER] CENT\\PICC SCH (21:10)
[2022-07-11] MEDS: TPN CENT\\PICC SCH (21:10)
[2022-07-11] MEDS: AMINO ACID INFUSION CENT\\PICC SCH (21:10)
[2022-07-11] MEDS: WATER CENT\\PICC SCH (21:10)
[2022-07-11] MEDS: Al Hydrox/Mg Hydrox/Simet LIQ 30 ML UDC PO PRN (23:20)
[2022-07-12] MEDS: Ondansetron 4 mg VIAL 2 MG/ML 2 ml VIAL IV PRN ×2 (04:55→14:57)
[2022-07-12] MEDS: Venlafaxine XR 75 mg PO SCH (09:09)
[2022-07-12] MEDS: Fluticasone NASAL SPRAY 50MCG 16 gm SPRAY BTL BOTH NARES SCH (09:10)
[2022-07-12] MEDS: Multivitamins/Minerals TAB PO SCH (09:10)
[2022-07-12] MEDS: Acetaminophen IV 1 GM/100ML 1,000 MG/100 ML BAG IV PRN ×2 (14:58→23:16)
[2022-07-12] MEDS: Enoxaparin 40 MG/0.4 ML SYR SUBCUT SCH (21:23)
[2022-07-12] MEDS: Insulin GLARGINE 100 un/ml 10 ml VIAL SUBCUT SCH (21:24)
[2022-07-12] MEDS: AMINO ACID INFUSION CENT\\PICC SCH (23:21)
[2022-07-12] MEDS: TPN CENT\\PICC SCH (23:21)
[2022-07-12] MEDS: DEXTROSE CENT\\PICC SCH (23:21)
[2022-07-12] MEDS: [UNRECOGNIZED DRUG - OTHER] CENT\\PICC SCH (23:21)
[2022-07-12] MEDS: WATER CENT\\PICC SCH (23:21)
[2022-07-13] MEDS: Fluticasone NASAL SPRAY 50MCG 16 gm SPRAY BTL BOTH NARES SCH (07:47)
[2022-07-13] MEDS: Venlafaxine XR 75 mg PO SCH ×2 (08:18→10:13)
[2022-07-13] MEDS: Multivitamins/Minerals TAB PO SCH ×2 (08:18→10:12)
[2022-07-13] MEDS: Prochlorperazine 5 mg/ml 2 ml VIAL (10 mg) IV PRN ×2 (08:22→16:52)
[2022-07-13] MEDS: Ondansetron 4 mg VIAL 2 MG/ML 2 ml VIAL IV PRN ×3 (11:00→21:46)
[2022-07-13] MEDS: Enoxaparin 40 MG/0.4 ML SYR SUBCUT SCH (21:45)
[2022-07-13] MEDS: Insulin GLARGINE 100 un/ml 10 ml VIAL SUBCUT SCH (21:46)
[2022-07-13] MEDS: [UNRECOGNIZED DRUG - OTHER] CENT\\PICC SCH (22:38)
[2022-07-13] MEDS: TPN CENT\\PICC SCH (22:38)
[2022-07-13] MEDS: WATER CENT\\PICC SCH (22:38)
[2022-07-13] MEDS: DEXTROSE CENT\\PICC SCH (22:38)
[2022-07-13] MEDS: AMINO ACID INFUSION CENT\\PICC SCH (22:38)
[2022-07-14 06:12] LABS: Albumin 3.1 g/dL (3.2-5.2); Calcium 8.8 mg/dL (8.6-10.3); Magnesium 1.6 mg/dL (1.9-2.7); Potassium 4.2 mmol/L (3.5-5.0); Total Bilirubin 0.2 mg/dL (0.2-1.0)
[2022-07-14 06:17] LABS: Creatinine, Serum 0.46 mg/dL (0.51-0.95); Phosphorus 3.7 mg/dL (2.5-5.0); Total Protein 5.6 g/dL (6.4-8.9); eGFR CKD-EPI 106.8 (>60)
[2022-07-14 06:18] LABS: Albumin/Globulin Ratio 1.2 (1-3); Globulin 2.5 g/dL (2-4)
[2022-07-14] MEDS ORDERED: Magnesium Sulfate IV 3 GM in NS 0.9% 100 ml BAG 100 ML IVPB ONE (07:53)
[2022-07-14] MEDS ORDERED: Magnesium Sulfate 2 gm BAG 2 GM/50 ML BAG IV ONE (08:15)
[2022-07-14] MEDS: Venlafaxine XR 75 mg PO SCH (10:12)
[2022-07-14] MEDS: Multivitamins/Minerals TAB PO SCH (10:13)
[2022-07-14] MEDS: DEXTROSE CENT\\PICC SCH (17:02)
[2022-07-14] MEDS: WATER CENT\\PICC SCH (17:02)
[2022-07-14] MEDS: TPN CENT\\PICC SCH (17:02)
[2022-07-14] MEDS: [UNRECOGNIZED DRUG - OTHER] CENT\\PICC SCH (17:02)
[2022-07-14] MEDS: AMINO ACID INFUSION CENT\\PICC SCH (17:02)
[2022-07-14] MEDS: Acetaminophen IV 1 GM/100ML 1,000 MG/100 ML BAG IV PRN (19:21)
[2022-07-14] MEDS: Enoxaparin 40 MG/0.4 ML SYR SUBCUT SCH (20:53)
[2022-07-14] MEDS: Insulin GLARGINE 100 un/ml 10 ml VIAL SUBCUT SCH (20:53)
[2022-07-15] MEDS: Prochlorperazine 5 mg/ml 2 ml VIAL (10 mg) IV PRN ×3 (08:30→19:48)
[2022-07-15] MEDS: Venlafaxine XR 75 mg PO SCH (09:41)
[2022-07-15] MEDS: Multivitamins/Minerals TAB PO SCH (09:41)
[2022-07-15] MEDS: Ondansetron 4 mg VIAL 2 MG/ML 2 ml VIAL IV PRN ×3 (11:46→22:08)
[2022-07-15] MEDS: Acetaminophen IV 1 GM/100ML 1,000 MG/100 ML BAG IV PRN (14:22)
[2022-07-15] MEDS: DEXTROSE CENT\\PICC SCH (16:34)
[2022-07-15] MEDS: WATER CENT\\PICC SCH (16:34)
[2022-07-15] MEDS: [UNRECOGNIZED DRUG - OTHER] CENT\\PICC SCH (16:34)
[2022-07-15] MEDS: TPN CENT\\PICC SCH (16:34)
[2022-07-15] MEDS: AMINO ACID INFUSION CENT\\PICC SCH (16:34)
[2022-07-15] MEDS: Insulin GLARGINE 100 un/ml 10 ml VIAL SUBCUT SCH (19:53)
[2022-07-15] MEDS: Enoxaparin 40 MG/0.4 ML SYR SUBCUT SCH (19:54)
[2022-07-16] MEDS: Prochlorperazine 5 mg/ml 2 ml VIAL (10 mg) IV PRN (04:55)
[2022-07-16] MEDS: Venlafaxine XR 75 mg PO SCH (12:49)
[2022-07-16] MEDS: Multivitamins/Minerals TAB PO SCH (12:49)
[2022-07-16] MEDS: Ondansetron ODT 4 mg TAB 4 MG TAB SL PRN ×2 (16:21→23:02)
[2022-07-16] MEDS: TPN CENT\\PICC SCH (16:53)
[2022-07-16] MEDS: WATER CENT\\PICC SCH (16:53)
[2022-07-16] MEDS: DEXTROSE CENT\\PICC SCH (16:53)
[2022-07-16] MEDS: [UNRECOGNIZED DRUG - OTHER] CENT\\PICC SCH (16:53)
[2022-07-16] MEDS: AMINO ACID INFUSION CENT\\PICC SCH (16:53)
[2022-07-16] MEDS: Witch Hazel PAD JAR TOPICAL PRN (18:35)
[2022-07-16] MEDS: Enoxaparin 40 MG/0.4 ML SYR SUBCUT SCH (21:45)
[2022-07-16] MEDS: Insulin GLARGINE 100 un/ml 10 ml VIAL SUBCUT SCH (21:46)
[2022-07-17] MEDS: Ondansetron ODT 4 mg TAB 4 MG TAB SL PRN ×3 (06:20→19:39)
[2022-07-17] MEDS: Multivitamins/Minerals TAB PO SCH (12:38)
[2022-07-17] MEDS: Venlafaxine XR 75 mg PO SCH (12:39)
[2022-07-17] MEDS ORDERED: Prochlorperazine 5 mg/ml 2 ml VIAL (10 mg) IV ONE (13:23)
[2022-07-17] MEDS ORDERED: Acetaminophen IV 1 GM/100ML 1,000 MG/100 ML BAG IV ONE (14:44)
[2022-07-17] MEDS: DEXTROSE CENT\\PICC SCH (17:16)
[2022-07-17] MEDS: WATER CENT\\PICC SCH (17:16)
[2022-07-17] MEDS: TPN CENT\\PICC SCH (17:16)
[2022-07-17] MEDS: [UNRECOGNIZED DRUG - OTHER] CENT\\PICC SCH (17:16)
[2022-07-17] MEDS: AMINO ACID INFUSION CENT\\PICC SCH (17:16)
[2022-07-17] MEDS: Enoxaparin 40 MG/0.4 ML SYR SUBCUT SCH (22:17)
[2022-07-17] MEDS: Insulin GLARGINE 100 un/ml 10 ml VIAL SUBCUT SCH (22:17)
[2022-07-18] MEDS: Ondansetron ODT 4 mg TAB 4 MG TAB SL PRN ×4 (02:09→22:32)
[2022-07-18] MEDS: Witch Hazel PAD JAR TOPICAL PRN (02:11)
[2022-07-18 05:44] LABS: Albumin 3.5 g/dL (3.2-5.2); Albumin/Globulin Ratio 1.1 (1-3); Calcium 9.2 mg/dL (8.6-10.3); Creatinine, Serum 0.47 mg/dL (0.51-0.95); Globulin 3.2 g/dL (2-4); Magnesium 1.7 mg/dL (1.9-2.7); Phosphorus 3.9 mg/dL (2.5-5.0); Potassium 3.8 mmol/L (3.5-5.0); Total Bilirubin 0.3 mg/dL (0.2-1.0); Total Protein 6.7 g/dL (6.4-8.9); eGFR CKD-EPI 106.2 (>60)
[2022-07-18] MEDS ORDERED: Magnesium Sulfate 2 gm BAG 2 GM/50 ML BAG IVPB ONE (07:23)
[2022-07-18] MEDS: Multivitamins/Minerals TAB PO SCH (09:17)
[2022-07-18] MEDS: Venlafaxine XR 75 mg PO SCH (09:17)
[2022-07-18] MEDS: TPN CENT\\PICC SCH (17:16)
[2022-07-18] MEDS: WATER CENT\\PICC SCH (17:16)
[2022-07-18] MEDS: AMINO ACID INFUSION CENT\\PICC SCH (17:16)
[2022-07-18] MEDS: DEXTROSE CENT\\PICC SCH (17:16)
[2022-07-18] MEDS: [UNRECOGNIZED DRUG - OTHER] CENT\\PICC SCH (17:16)
[2022-07-18] MEDS: Scopolamine 1 mg/72hr PATCH TRANSDERM SCH (17:17)
[2022-07-18] MEDS: Acetaminophen IV 1 GM/100ML 1,000 MG/100 ML BAG IV PRN (20:38)
[2022-07-18] MEDS: Insulin GLARGINE 100 un/ml 10 ml VIAL SUBCUT SCH (20:55)
[2022-07-18] MEDS: Enoxaparin 40 MG/0.4 ML SYR SUBCUT SCH (20:55)
[2022-07-19] MEDS: Ondansetron ODT 4 mg TAB 4 MG TAB SL PRN (10:28)
[2022-07-19] MEDS: Venlafaxine XR 75 mg PO SCH ×2 (10:29→13:30)
[2022-07-19] MEDS: Multivitamins/Minerals TAB PO SCH ×2 (10:29→13:30)
[2022-07-19] MEDS: [UNRECOGNIZED DRUG - OTHER] CENT\\PICC SCH (17:29)
[2022-07-19] MEDS: WATER CENT\\PICC SCH (17:29)
[2022-07-19] MEDS: TPN CENT\\PICC SCH (17:29)
[2022-07-19] MEDS: DEXTROSE CENT\\PICC SCH (17:29)
[2022-07-19] MEDS: AMINO ACID INFUSION CENT\\PICC SCH (17:29)
[2022-07-19] MEDS: Insulin GLARGINE 100 un/ml 10 ml VIAL SUBCUT SCH (20:30)
[2022-07-19] MEDS: Enoxaparin 40 MG/0.4 ML SYR SUBCUT SCH (20:30)
[2022-07-20] MEDS: Ondansetron ODT 4 mg TAB 4 MG TAB SL PRN ×3 (03:55→21:33)
[2022-07-20] MEDS: Acetaminophen IV 1 GM/100ML 1,000 MG/100 ML BAG IV PRN (09:28)
[2022-07-20] MEDS: Venlafaxine XR 75 mg PO SCH (10:08)
[2022-07-20] MEDS: Multivitamins/Minerals TAB PO SCH (10:08)
[2022-07-20] MEDS: WATER CENT\\PICC SCH (17:39)
[2022-07-20] MEDS: DEXTROSE CENT\\PICC SCH (17:39)
[2022-07-20] MEDS: [UNRECOGNIZED DRUG - OTHER] CENT\\PICC SCH (17:39)
[2022-07-20] MEDS: AMINO ACID INFUSION CENT\\PICC SCH (17:39)
[2022-07-20] MEDS: TPN CENT\\PICC SCH (17:39)
[2022-07-20] MEDS: Al Hydrox/Mg Hydrox/Simet LIQ 30 ML UDC PO PRN (21:32)
[2022-07-20] MEDS: Enoxaparin 40 MG/0.4 ML SYR SUBCUT SCH (21:33)
[2022-07-20] MEDS: Insulin GLARGINE 100 un/ml 10 ml VIAL SUBCUT SCH (21:34)
[2022-07-21 06:36] LABS: Albumin 3.3 g/dL (3.2-5.2); Albumin/Globulin Ratio 1.2 (1-3); Calcium 8.8 mg/dL (8.6-10.3); Creatinine, Serum 0.41 mg/dL (0.51-0.95); Globulin 2.7 g/dL (2-4); Magnesium 1.7 mg/dL (1.9-2.7); Phosphorus 3.2 mg/dL (2.5-5.0); Potassium 4.2 mmol/L (3.5-5.0); Total Bilirubin 0.3 mg/dL (0.2-1.0); eGFR CKD-EPI 109.8 (>60)
[2022-07-21] MEDS: Al Hydrox/Mg Hydrox/Simet LIQ 30 ML UDC PO PRN (12:20)
[2022-07-21] MEDS: Ondansetron ODT 4 mg TAB 4 MG TAB SL PRN ×2 (12:20→20:30)
[2022-07-21] MEDS: Venlafaxine XR 75 mg PO SCH (13:04)
[2022-07-21] MEDS: Multivitamins/Minerals TAB PO SCH (13:04)
[2022-07-21] MEDS: Scopolamine 1 mg/72hr PATCH TRANSDERM SCH (17:11)
[2022-07-21] MEDS: WATER CENT\\PICC SCH (17:14)
[2022-07-21] MEDS: [UNRECOGNIZED DRUG - OTHER] CENT\\PICC SCH (17:14)
[2022-07-21] MEDS: DEXTROSE CENT\\PICC SCH (17:14)
[2022-07-21] MEDS: AMINO ACID INFUSION CENT\\PICC SCH (17:14)
[2022-07-21] MEDS: TPN CENT\\PICC SCH (17:14)
[2022-07-21] MEDS: Insulin GLARGINE 100 un/ml 10 ml VIAL SUBCUT SCH (20:23)
[2022-07-21] MEDS: Enoxaparin 40 MG/0.4 ML SYR SUBCUT SCH (20:24)
[2022-07-22] MEDS: Al Hydrox/Mg Hydrox/Simet LIQ 30 ML UDC PO PRN ×2 (00:50→19:31)
[2022-07-22] MEDS: Multivitamins/Minerals TAB PO SCH ×2 (11:58→21:07)
[2022-07-22] MEDS: Venlafaxine XR 75 mg PO SCH ×2 (11:58→21:06)
[2022-07-22] MEDS: Ondansetron ODT 4 mg TAB 4 MG TAB SL PRN ×2 (12:02→21:07)
[2022-07-22] MEDS: [UNRECOGNIZED DRUG - OTHER] CENT\\PICC SCH (17:05)
[2022-07-22] MEDS: DEXTROSE CENT\\PICC SCH (17:05)
[2022-07-22] MEDS: AMINO ACID INFUSION CENT\\PICC SCH (17:05)
[2022-07-22] MEDS: WATER CENT\\PICC SCH (17:05)
[2022-07-22] MEDS: TPN CENT\\PICC SCH (17:05)
[2022-07-22] MEDS: Insulin GLARGINE 100 un/ml 10 ml VIAL SUBCUT SCH (21:07)
[2022-07-22] MEDS: Enoxaparin 40 MG/0.4 ML SYR SUBCUT SCH (21:07)
[2022-07-23] MEDS ORDERED: Prochlorperazine 5 mg/ml 2 ml VIAL (10 mg) IV ONE (02:01)
[2022-07-23] MEDS: Ondansetron ODT 4 mg TAB 4 MG TAB SL PRN ×2 (09:06→14:32)
[2022-07-23] MEDS: TPN CENT\\PICC SCH (17:23)
[2022-07-23] MEDS: DEXTROSE CENT\\PICC SCH (17:23)
[2022-07-23] MEDS: [UNRECOGNIZED DRUG - OTHER] CENT\\PICC SCH (17:23)
[2022-07-23] MEDS: AMINO ACID INFUSION CENT\\PICC SCH (17:23)
[2022-07-23] MEDS: WATER CENT\\PICC SCH (17:23)
[2022-07-23] MEDS: Multivitamins/Minerals TAB PO SCH (21:05)
[2022-07-23] MEDS: Venlafaxine XR 75 mg PO SCH (21:05)
[2022-07-23] MEDS: Insulin GLARGINE 100 un/ml 10 ml VIAL SUBCUT SCH (21:05)
[2022-07-23] MEDS: Enoxaparin 40 MG/0.4 ML SYR SUBCUT SCH (21:06)
[2022-07-24] MEDS: Ondansetron ODT 4 mg TAB 4 MG TAB SL PRN ×2 (11:51→22:16)
[2022-07-24] MEDS: TPN CENT\\PICC SCH (16:59)
[2022-07-24] MEDS: DEXTROSE CENT\\PICC SCH (16:59)
[2022-07-24] MEDS: AMINO ACID INFUSION CENT\\PICC SCH (16:59)
[2022-07-24] MEDS: WATER CENT\\PICC SCH (16:59)
[2022-07-24] MEDS: [UNRECOGNIZED DRUG - OTHER] CENT\\PICC SCH (16:59)
[2022-07-24] MEDS: Scopolamine 1 mg/72hr PATCH TRANSDERM SCH (17:06)
[2022-07-24] MEDS: Enoxaparin 40 MG/0.4 ML SYR SUBCUT SCH (22:21)
[2022-07-24] MEDS: Insulin GLARGINE 100 un/ml 10 ml VIAL SUBCUT SCH (22:22)
[2022-07-24] MEDS: Multivitamins/Minerals TAB PO SCH (22:24)
[2022-07-24] MEDS: Venlafaxine XR 75 mg PO SCH (22:24)
[2022-07-25 07:18] LABS: Albumin 3.1 g/dL (3.2-5.2); Albumin/Globulin Ratio 1.1 (1-3); Calcium 8.7 mg/dL (8.6-10.3); Creatinine, Serum 0.44 mg/dL (0.51-0.95); Globulin 2.8 g/dL (2-4); Magnesium 1.8 mg/dL (1.9-2.7); Phosphorus 4.1 mg/dL (2.5-5.0); Potassium 4.4 mmol/L (3.5-5.0); Total Bilirubin 0.2 mg/dL (0.2-1.0); Total Protein 5.9 g/dL (6.4-8.9); eGFR CKD-EPI 107.9 (>60)
[2022-07-25] MEDS: Ondansetron ODT 4 mg TAB 4 MG TAB SL PRN ×2 (08:12→21:35)
[2022-07-25] MEDS: [UNRECOGNIZED DRUG - OTHER] CENT\\PICC SCH (17:34)
[2022-07-25] MEDS: TPN CENT\\PICC SCH (17:34)
[2022-07-25] MEDS: DEXTROSE CENT\\PICC SCH (17:34)
[2022-07-25] MEDS: AMINO ACID INFUSION CENT\\PICC SCH (17:34)
[2022-07-25] MEDS: WATER CENT\\PICC SCH (17:34)
[2022-07-25] MEDS: Insulin GLARGINE 100 un/ml 10 ml VIAL SUBCUT SCH (21:32)
[2022-07-25] MEDS: Enoxaparin 40 MG/0.4 ML SYR SUBCUT SCH (21:33)
[2022-07-25] MEDS: Venlafaxine XR 75 mg PO SCH (21:34)
[2022-07-25] MEDS: Multivitamins/Minerals TAB PO SCH (21:35)
[2022-07-26] MEDS: Ondansetron ODT 4 mg TAB 4 MG TAB SL PRN ×2 (10:18→17:15)
[2022-07-26] MEDS: AMINO ACID INFUSION CENT\\PICC SCH (17:21)
[2022-07-26] MEDS: [UNRECOGNIZED DRUG - OTHER] CENT\\PICC SCH (17:21)
[2022-07-26] MEDS: TPN CENT\\PICC SCH (17:21)
[2022-07-26] MEDS: DEXTROSE CENT\\PICC SCH (17:21)
[2022-07-26] MEDS: WATER CENT\\PICC SCH (17:21)
[2022-07-26] MEDS: Insulin GLARGINE 100 un/ml 10 ml VIAL SUBCUT SCH (21:41)
[2022-07-26] MEDS: Enoxaparin 40 MG/0.4 ML SYR SUBCUT SCH (21:41)
[2022-07-26] MEDS: Multivitamins/Minerals TAB PO SCH (21:43)
[2022-07-26] MEDS: Venlafaxine XR 75 mg PO SCH (21:43)
[2022-07-27] MEDS: [UNRECOGNIZED DRUG - OTHER] CENT\\PICC SCH (17:34)
[2022-07-27] MEDS: WATER CENT\\PICC SCH (17:34)
[2022-07-27] MEDS: TPN CENT\\PICC SCH (17:34)
[2022-07-27] MEDS: AMINO ACID INFUSION CENT\\PICC SCH (17:34)
[2022-07-27] MEDS: DEXTROSE CENT\\PICC SCH (17:34)
[2022-07-27] MEDS: Scopolamine 1 mg/72hr PATCH TRANSDERM SCH (17:35)
[2022-07-27] MEDS: Enoxaparin 40 MG/0.4 ML SYR SUBCUT SCH (20:58)
[2022-07-27] MEDS: Venlafaxine XR 75 mg PO SCH (20:59)
[2022-07-27] MEDS: Multivitamins/Minerals TAB PO SCH (20:59)
[2022-07-27] MEDS: Insulin GLARGINE 100 un/ml 10 ml VIAL SUBCUT SCH (21:00)
[2022-07-28 06:39] LABS: Albumin/Globulin Ratio 1.1 (1-3); Calcium 8.4 mg/dL (8.6-10.3); Creatinine, Serum 0.51 mg/dL (0.51-0.95); Globulin 2.7 g/dL (2-4); Magnesium 1.8 mg/dL (1.9-2.7); Phosphorus 3.3 mg/dL (2.5-5.0); Potassium 4.4 mmol/L (3.5-5.0); Total Bilirubin 0.2 mg/dL (0.2-1.0); Total Protein 5.7 g/dL (6.4-8.9); eGFR CKD-EPI 104.2 (>60)
[2022-07-28] MEDS: TPN CENT\\PICC SCH (17:00)
[2022-07-28] MEDS: [UNRECOGNIZED DRUG - OTHER] CENT\\PICC SCH (17:00)
[2022-07-28] MEDS: AMINO ACID INFUSION CENT\\PICC SCH (17:00)
[2022-07-28] MEDS: WATER CENT\\PICC SCH (17:00)
[2022-07-28] MEDS: DEXTROSE CENT\\PICC SCH (17:00)
[2022-07-28] MEDS: Ondansetron ODT 4 mg TAB 4 MG TAB SL PRN (17:04)
[2022-07-28] MEDS: Multivitamins/Minerals TAB PO SCH (21:06)
[2022-07-28] MEDS: Venlafaxine XR 75 mg PO SCH (21:06)
[2022-07-28] MEDS: Enoxaparin 40 MG/0.4 ML SYR SUBCUT SCH (21:07)
[2022-07-28] MEDS: Insulin GLARGINE 100 un/ml 10 ml VIAL SUBCUT SCH (21:07)
[2022-07-29] MEDS: TPN CENT\\PICC SCH (18:00)
[2022-07-29] MEDS: WATER CENT\\PICC SCH (18:00)
[2022-07-29] MEDS: [UNRECOGNIZED DRUG - OTHER] CENT\\PICC SCH (18:00)
[2022-07-29] MEDS: DEXTROSE CENT\\PICC SCH (18:00)
[2022-07-29] MEDS: AMINO ACID INFUSION CENT\\PICC SCH (18:00)
[2022-07-29] MEDS: Enoxaparin 40 MG/0.4 ML SYR SUBCUT SCH (20:20)
[2022-07-29] MEDS: Multivitamins/Minerals TAB PO SCH (20:21)
[2022-07-29] MEDS: Insulin GLARGINE 100 un/ml 10 ml VIAL SUBCUT SCH (20:21)
[2022-07-29] MEDS: Venlafaxine XR 75 mg PO SCH (20:22)
[2022-07-30] MEDS: Scopolamine 1 mg/72hr PATCH TRANSDERM SCH (16:42)
[2022-07-30] MEDS: TPN CENT\\PICC SCH (16:43)
[2022-07-30] MEDS: WATER CENT\\PICC SCH (16:43)
[2022-07-30] MEDS: AMINO ACID INFUSION CENT\\PICC SCH (16:43)
[2022-07-30] MEDS: DEXTROSE CENT\\PICC SCH (16:43)
[2022-07-30] MEDS: [UNRECOGNIZED DRUG - OTHER] CENT\\PICC SCH (16:43)
[2022-07-30] MEDS: Venlafaxine XR 75 mg PO SCH (21:53)
[2022-07-30] MEDS: Multivitamins/Minerals TAB PO SCH (21:54)
[2022-07-30] MEDS: Insulin GLARGINE 100 un/ml 10 ml VIAL SUBCUT SCH (21:57)
[2022-07-30] MEDS: Enoxaparin 40 MG/0.4 ML SYR SUBCUT SCH (21:57)
[2022-07-31] MEDS: Ondansetron ODT 4 mg TAB 4 MG TAB SL PRN ×3 (09:51→23:11)
[2022-07-31] MEDS: Multivitamins/Minerals TAB PO SCH (20:21)
[2022-07-31] MEDS: Venlafaxine XR 75 mg PO SCH (20:21)
[2022-07-31] MEDS: Insulin GLARGINE 100 un/ml 10 ml VIAL SUBCUT SCH (20:22)
[2022-07-31] MEDS: Enoxaparin 40 MG/0.4 ML SYR SUBCUT SCH (20:22)
[2022-07-31] MEDS: [UNRECOGNIZED DRUG - OTHER] CENT\\PICC SCH (20:30)
[2022-07-31] MEDS: WATER CENT\\PICC SCH (20:30)
[2022-07-31] MEDS: AMINO ACID INFUSION CENT\\PICC SCH (20:30)
[2022-07-31] MEDS: TPN CENT\\PICC SCH (20:30)
[2022-07-31] MEDS: DEXTROSE CENT\\PICC SCH (20:30)
[2022-08-01 05:43] LABS: Albumin 3.2 g/dL (3.2-5.2); Calcium 8.9 mg/dL (8.6-10.3); Creatinine, Serum 0.55 mg/dL (0.51-0.95); Globulin 3.1 g/dL (2-4); Phosphorus 4.2 mg/dL (2.5-5.0); Potassium 4.3 mmol/L (3.5-5.0); Total Bilirubin 0.3 mg/dL (0.2-1.0); Total Protein 6.3 g/dL (6.4-8.9); eGFR CKD-EPI 102.3 (>60)
[2022-08-01] MEDS: Ondansetron ODT 4 mg TAB 4 MG TAB SL PRN (14:55)
[2022-08-01] MEDS: [UNRECOGNIZED DRUG - OTHER] CENT\\PICC SCH (21:13)
[2022-08-01] MEDS: TPN CENT\\PICC SCH (21:13)
[2022-08-01] MEDS: WATER CENT\\PICC SCH (21:13)
[2022-08-01] MEDS: DEXTROSE CENT\\PICC SCH (21:13)
[2022-08-01] MEDS: AMINO ACID INFUSION CENT\\PICC SCH (21:13)
[2022-08-01] MEDS: Venlafaxine XR 75 mg PO SCH (21:39)
[2022-08-01] MEDS: Enoxaparin 40 MG/0.4 ML SYR SUBCUT SCH (21:40)
[2022-08-01] MEDS: Multivitamins/Minerals TAB PO SCH (21:40)
[2022-08-01] MEDS: Insulin GLARGINE 100 un/ml 10 ml VIAL SUBCUT SCH (21:40)
[2022-08-02] MEDS: Al Hydrox/Mg Hydrox/Simet LIQ 30 ML UDC PO PRN (11:57)
[2022-08-02] MEDS: Scopolamine 1 mg/72hr PATCH TRANSDERM SCH (17:34)
[2022-08-02] MEDS: DEXTROSE CENT\\PICC SCH (21:08)
[2022-08-02] MEDS: TPN CENT\\PICC SCH (21:08)
[2022-08-02] MEDS: WATER CENT\\PICC SCH (21:08)
[2022-08-02] MEDS: AMINO ACID INFUSION CENT\\PICC SCH (21:08)
[2022-08-02] MEDS: [UNRECOGNIZED DRUG - OTHER] CENT\\PICC SCH (21:08)
[2022-08-02] MEDS: Multivitamins/Minerals TAB PO SCH (22:07)
[2022-08-02] MEDS: Venlafaxine XR 75 mg PO SCH (22:07)
[2022-08-02] MEDS: Insulin GLARGINE 100 un/ml 10 ml VIAL SUBCUT SCH (22:08)
[2022-08-02] MEDS: Enoxaparin 40 MG/0.4 ML SYR SUBCUT SCH (22:08)
[2022-08-03] MEDS: Ondansetron ODT 4 mg TAB 4 MG TAB SL PRN (11:57)
[2022-08-03] MEDS: TPN CENT\\PICC SCH (20:57)
[2022-08-03] MEDS: [UNRECOGNIZED DRUG - OTHER] CENT\\PICC SCH (20:57)
[2022-08-03] MEDS: AMINO ACID INFUSION CENT\\PICC SCH (20:57)
[2022-08-03] MEDS: WATER CENT\\PICC SCH (20:57)
[2022-08-03] MEDS: DEXTROSE CENT\\PICC SCH (20:57)
[2022-08-03] MEDS: Venlafaxine XR 75 mg PO SCH (21:21)
[2022-08-03] MEDS: Multivitamins/Minerals TAB PO SCH (21:21)
[2022-08-03] MEDS: Enoxaparin 40 MG/0.4 ML SYR SUBCUT SCH (21:22)
[2022-08-03] MEDS: Insulin GLARGINE 100 un/ml 10 ml VIAL SUBCUT SCH (21:22)
[2022-08-04 07:30] LABS: Albumin 2.9 g/dL (3.2-5.2); Calcium 8.3 mg/dL (8.6-10.3); Potassium 4.4 mmol/L (3.5-5.0); Total Bilirubin 0.3 mg/dL (0.2-1.0)
[2022-08-04 07:36] LABS: Albumin/Globulin Ratio 1.3 (1-3); Creatinine, Serum 0.58 mg/dL (0.51-0.95); Globulin 2.3 g/dL (2-4); Phosphorus 3.1 mg/dL (2.5-5.0); Total Protein 5.2 g/dL (6.4-8.9)
[2022-08-04] MEDS: Ondansetron ODT 4 mg TAB 4 MG TAB SL PRN (12:11)
[2022-08-04] MEDS: Senna TAB 8.6 mg TAB PO PRN (20:18)
[2022-08-04] MEDS: Venlafaxine XR 75 mg PO SCH (20:19)
[2022-08-04] MEDS: Multivitamins/Minerals TAB PO SCH (20:19)
[2022-08-04] MEDS: Enoxaparin 40 MG/0.4 ML SYR SUBCUT SCH (20:20)
[2022-08-04] MEDS: AMINO ACID INFUSION CENT\\PICC SCH (21:07)
[2022-08-04] MEDS: DEXTROSE CENT\\PICC SCH (21:07)
[2022-08-04] MEDS: [UNRECOGNIZED DRUG - OTHER] CENT\\PICC SCH (21:07)
[2022-08-04] MEDS: WATER CENT\\PICC SCH (21:07)
[2022-08-04] MEDS: TPN CENT\\PICC SCH (21:07)
[2022-08-04] MEDS ORDERED: Alteplase (CATHFLO) 2 MG VIAL IV ONE (21:27)
[2022-08-04] MEDS: Insulin GLARGINE 100 un/ml 10 ml VIAL SUBCUT SCH (22:05)
[2022-08-05] MEDS: Ondansetron ODT 4 mg TAB 4 MG TAB SL PRN (08:58)
[2022-08-05] MEDS: Polyethylene Glycol 3350 17 GM PACKET PO PRN (12:01)
[2022-08-05] MEDS: Al Hydrox/Mg Hydrox/Simet LIQ 30 ML UDC PO PRN (16:58)
[2022-08-05] MEDS: Scopolamine 1 mg/72hr PATCH TRANSDERM SCH (17:40)
[2022-08-05] MEDS: WATER CENT\\PICC SCH (22:15)
[2022-08-05] MEDS: [UNRECOGNIZED DRUG - OTHER] CENT\\PICC SCH (22:15)
[2022-08-05] MEDS: AMINO ACID INFUSION CENT\\PICC SCH (22:15)
[2022-08-05] MEDS: DEXTROSE CENT\\PICC SCH (22:15)
[2022-08-05] MEDS: TPN CENT\\PICC SCH (22:15)
[2022-08-05] MEDS: Multivitamins/Minerals TAB PO SCH (22:17)
[2022-08-05] MEDS: Enoxaparin 40 MG/0.4 ML SYR SUBCUT SCH (22:17)
[2022-08-05] MEDS: Venlafaxine XR 75 mg PO SCH (22:18)
[2022-08-05] MEDS: Insulin GLARGINE 100 un/ml 10 ml VIAL SUBCUT SCH (22:24)
[2022-08-05] MEDS: Senna TAB 8.6 mg TAB PO PRN (22:25)
[2022-08-06 08:06] LABS: ABS Eosinophils 0.1 10^3/uL (0.0-0.5); ABS Lymphocytes 1.8 10^3/uL (1.0-4.8); ABS Monocytes 0.6 10^3/uL (0.0-0.9); ABS Neutrophils 5.4 10^3/uL (1.5-7.6); Hemoglobin 11.5 g/dL (11.5-14.3); Lymphocyte % 22.3 %; Mean Corpuscular Hemoglobin 28.4 pg (27-33); Mean Corpuscular Hgb Conc 32.8 g/dL (31-36); Mean Corpuscular Volume 86.6 fL (80-97); Mean Platelet Volume 9.3 fL (7.5-11.2); Platelet Count 290 10^3/uL (150-450); Red Blood Count 4.04 10^6/uL (3.63-4.92); Red Cell Distribution Width 14.7 % (12-17); White Blood Count 7.9 10^3/uL (3.8-11.8)
[2022-08-06 08:22] LABS: Albumin 3.1 g/dL (3.2-5.2); Albumin/Globulin Ratio 1.1 (1-3); Calcium 8.5 mg/dL (8.6-10.3); Creatinine, Serum 0.55 mg/dL (0.51-0.95); Globulin 2.8 g/dL (2-4); Potassium 4.1 mmol/L (3.5-5.0); Total Bilirubin 0.3 mg/dL (0.2-1.0); Total Protein 5.9 g/dL (6.4-8.9); eGFR CKD-EPI 102.3 (>60)
[2022-08-06] MEDS: Polyethylene Glycol 3350 17 GM PACKET PO PRN (08:26)
[2022-08-06] MEDS: Multivitamins/Minerals TAB PO SCH (21:41)
[2022-08-06] MEDS: Venlafaxine XR 75 mg PO SCH (21:42)
[2022-08-06] MEDS: Insulin GLARGINE 100 un/ml 10 ml VIAL SUBCUT SCH (21:42)
[2022-08-06] MEDS: Enoxaparin 40 MG/0.4 ML SYR SUBCUT SCH (21:42)
[2022-08-06] MEDS: TPN CENT\\PICC SCH (21:43)
[2022-08-06] MEDS: [UNRECOGNIZED DRUG - OTHER] CENT\\PICC SCH (21:43)
[2022-08-06] MEDS: WATER CENT\\PICC SCH (21:43)
[2022-08-06] MEDS: AMINO ACID INFUSION CENT\\PICC SCH (21:43)
[2022-08-06] MEDS: DEXTROSE CENT\\PICC SCH (21:43)
[2022-08-07] MEDS: Al Hydrox/Mg Hydrox/Simet LIQ 30 ML UDC PO PRN (01:31)
[2022-08-07] MEDS: Senna TAB 8.6 mg TAB PO PRN (14:49)
[2022-08-07] MEDS: Magnesium Hydroxide LIQ 30 ML UDC PO PRN (16:47)
[2022-08-07] MEDS: Multivitamins/Minerals TAB PO SCH (22:20)
[2022-08-07] MEDS: Enoxaparin 40 MG/0.4 ML SYR SUBCUT SCH (22:20)
[2022-08-07] MEDS: Venlafaxine XR 75 mg PO SCH (22:20)
[2022-08-07] MEDS: Insulin GLARGINE 100 un/ml 10 ml VIAL SUBCUT SCH (23:18)
[2022-08-08] MEDS ORDERED: Alteplase (CATHFLO) 2 MG VIAL IV ONE (06:36)
[2022-08-08 08:34] LABS: Albumin/Globulin Ratio 1.1 (1-3); Calcium 8.2 mg/dL (8.6-10.3); Creatinine, Serum 0.52 mg/dL (0.51-0.95); Globulin 2.7 g/dL (2-4); Magnesium 2.1 mg/dL (1.9-2.7); Phosphorus 3.3 mg/dL (2.5-5.0); Potassium 3.9 mmol/L (3.5-5.0); Total Bilirubin 0.3 mg/dL (0.2-1.0); Total Protein 5.7 g/dL (6.4-8.9); eGFR CKD-EPI 103.7 (>60)
[2022-08-08] MEDS: Magnesium Hydroxide LIQ 30 ML UDC PO PRN (16:47)
[2022-08-08] MEDS: Scopolamine 1 mg/72hr PATCH TRANSDERM SCH (16:48)
[2022-08-08] MEDS: Senna TAB 8.6 mg TAB PO PRN (21:52)
[2022-08-08] MEDS: Enoxaparin 40 MG/0.4 ML SYR SUBCUT SCH (21:52)
[2022-08-08] MEDS: Venlafaxine XR 75 mg PO SCH (21:52)
[2022-08-08] MEDS: Multivitamins/Minerals TAB PO SCH (21:52)
[2022-08-09] MEDS: Multivitamins ADULT w/MIN LIQ 15 ML UDC PO SCH (10:40)
[2022-08-09] MEDS: Ondansetron ODT 4 mg TAB 4 MG TAB SL PRN ×2 (10:40→17:27)
[2022-08-09] MEDS: Venlafaxine XR 75 mg PO SCH (22:08)
[2022-08-09] MEDS: Enoxaparin 40 MG/0.4 ML SYR SUBCUT SCH (22:09)
[2022-08-09] MEDS: Multivitamins/Minerals TAB PO SCH (22:59)
[2022-08-10] MEDS: Multivitamins ADULT w/MIN LIQ 15 ML UDC PO SCH (07:35)
[2022-08-10] MEDS: Ondansetron ODT 4 mg TAB 4 MG TAB SL PRN (07:36)
[2022-08-10] MEDS: Venlafaxine XR 75 mg PO SCH (21:53)
[2022-08-10] MEDS: Enoxaparin 40 MG/0.4 ML SYR SUBCUT SCH (21:54)
[2022-08-11 06:31] LABS: Albumin 2.9 g/dL (3.2-5.2); Albumin/Globulin Ratio 1.1 (1-3); Calcium 7.9 mg/dL (8.6-10.3); Creatinine, Serum 0.59 mg/dL (0.51-0.95); Globulin 2.6 g/dL (2-4); Magnesium 2.1 mg/dL (1.9-2.7); Phosphorus 2.7 mg/dL (2.5-5.0); Potassium 4.1 mmol/L (3.5-5.0); Total Bilirubin 0.3 mg/dL (0.2-1.0); Total Protein 5.5 g/dL (6.4-8.9); eGFR CKD-EPI 100.6 (>60)
[2022-08-11] MEDS: Multivitamins ADULT w/MIN LIQ 15 ML UDC PO SCH (08:39)
[2022-08-11] MEDS: Ondansetron ODT 4 mg TAB 4 MG TAB SL PRN (08:39)
[2022-08-11] MEDS: Scopolamine 1 mg/72hr PATCH TRANSDERM SCH (17:40)
[2022-08-11] MEDS: Venlafaxine XR 75 mg PO SCH (22:26)
[2022-08-11] MEDS: Enoxaparin 40 MG/0.4 ML SYR SUBCUT SCH (22:26)
[2022-08-12] MEDS: Multivitamins ADULT w/MIN LIQ 15 ML UDC PO SCH (09:51)
[2022-08-12] MEDS: Senna TAB 8.6 mg TAB PO PRN (21:38)
[2022-08-12] MEDS: Venlafaxine XR 75 mg PO SCH (21:38)
[2022-08-12] MEDS: Enoxaparin 40 MG/0.4 ML SYR SUBCUT SCH (21:39)
[2022-08-13] MEDS: Multivitamins ADULT w/MIN LIQ 15 ML UDC PO SCH (10:10)
[2022-08-13] MEDS: Nystatin TOP POWDER 15 GM BTL TOPICAL SCH ×2 (14:47→22:12)
[2022-08-13] MEDS: Ondansetron ODT 4 mg TAB 4 MG TAB SL PRN (14:47)
[2022-08-13] MEDS: Venlafaxine XR 75 mg PO SCH (22:12)
[2022-08-13] MEDS: Enoxaparin 40 MG/0.4 ML SYR SUBCUT SCH (22:14)
[2022-08-14] MEDS: Multivitamins ADULT w/MIN LIQ 15 ML UDC PO SCH (10:39)
[2022-08-14] MEDS: Scopolamine 1 mg/72hr PATCH TRANSDERM SCH (17:25)
[2022-08-14] MEDS: Enoxaparin 40 MG/0.4 ML SYR SUBCUT SCH (21:51)
[2022-08-14] MEDS: Venlafaxine XR 75 mg PO SCH (21:51)
[2022-08-15] MEDS: Multivitamins ADULT w/MIN LIQ 15 ML UDC PO SCH (10:46)
[2022-08-15] MEDS: Venlafaxine XR 75 mg PO SCH (21:02)
[2022-08-15] MEDS: Enoxaparin 40 MG/0.4 ML SYR SUBCUT SCH (21:03)
[2022-08-16] MEDS: Multivitamins ADULT w/MIN LIQ 15 ML UDC PO SCH (08:43)
[2022-08-16] MEDS: Ondansetron ODT 4 mg TAB 4 MG TAB SL PRN ×2 (11:55→18:29)
[2022-08-16] MEDS: Venlafaxine XR 75 mg PO SCH (22:16)
[2022-08-16] MEDS: Enoxaparin 40 MG/0.4 ML SYR SUBCUT SCH (22:33)
[2022-08-17] MEDS: Multivitamins ADULT w/MIN LIQ 15 ML UDC PO SCH (10:51)
[2022-08-17] MEDS: Ondansetron ODT 4 mg TAB 4 MG TAB SL PRN ×2 (10:51→17:18)
[2022-08-17] MEDS: Scopolamine 1 mg/72hr PATCH TRANSDERM SCH (17:19)
[2022-08-17] MEDS: Enoxaparin 40 MG/0.4 ML SYR SUBCUT SCH (20:05)
[2022-08-17] MEDS: Venlafaxine XR 75 mg PO SCH (20:05)
[2022-08-18 08:12] LABS: ABS Eosinophils 0.1 10^3/uL (0.0-0.5); ABS Lymphocytes 1.8 10^3/uL (1.0-4.8); ABS Monocytes 0.5 10^3/uL (0.0-0.9); ABS Neutrophils 4.3 10^3/uL (1.5-7.6); Eosinophil % 0.9 %; Hematocrit 38.3 % (35-45); Hemoglobin 12.5 g/dL (11.5-14.3); Mean Corpuscular Hemoglobin 28.5 pg (27-33); Mean Corpuscular Hgb Conc 32.6 g/dL (31-36); Mean Corpuscular Volume 87.3 fL (80-97); Mean Platelet Volume 9.7 fL (7.5-11.2); Platelet Count 293 10^3/uL (150-450); Red Blood Count 4.39 10^6/uL (3.63-4.92); Red Cell Distribution Width 15.5 % (12-17); White Blood Count 6.7 10^3/uL (3.8-11.8)
[2022-08-18 08:22] LABS: Calcium 8.3 mg/dL (8.6-10.3); Creatinine, Serum 0.62 mg/dL (0.51-0.95); Potassium 4.1 mmol/L (3.5-5.0); eGFR CKD-EPI 99.4 (>60)
[2022-08-18] MEDS: Multivitamins ADULT w/MIN LIQ 15 ML UDC PO SCH (09:36)
[2022-08-18 10:05] VITALS: BP 105/74
== END 2022-08-18 15:50 | DRG 641 ==
LOC: MED → SUATTDRO 13:27 → OBSVTOIN 13:27
PROVIDERS: ADMIT Internal Medicine; ATTEND Internal Medicine

== ENCOUNTER 2022-12-19 11:21 | Inpatient (IN) ==
[2022-12-19] MEDS ORDERED: Succinylcholine 200 mg VIAL 20 mg/ml 10 ml VIAL (200 mg) ONE (11:26)
[2022-12-19] MEDS: NS 0.9% 1000 ml BAG 1,000 ML IV ONE (11:30)
[2022-12-19] MEDS: Etomidate 20 mg/10 ml 2 MG/ML 10 ml VIAL IV ONE (11:31)
[2022-12-19] MEDS: Succinylcholine 200 mg VIAL 20 mg/ml 10 ml VIAL (200 mg) IV ONE (11:31)
[2022-12-19] MEDS ORDERED: Pantoprazole VIAL 40 MG VIAL ONE (11:37)
[2022-12-19] MEDS: Pantoprazole VIAL 40 MG VIAL IV ONE (11:40)
[2022-12-19 11:50] LABS: ABS Monocytes 1.1 10^3/uL (0.0-0.9); ABS Neutrophils 12.9 10^3/uL (1.5-7.6); ABS Nucleated RBC 0.28 10^3/ul; Eosinophil % 0.2 %; Hematocrit 46.2 % (35-45); Hemoglobin 15.1 g/dL (11.5-14.3); Lymphocyte % 12.3 %; Mean Corpuscular Hemoglobin 30.6 pg (27-33); Mean Corpuscular Hgb Conc 32.7 g/dL (31-36); Mean Corpuscular Volume 93.4 fL (80-97); Mean Platelet Volume 10.4 fL (7.5-11.2); Nucleated Red Blood Cells % 1.7 %/100WBC (0.0-0.8); Platelet Count 320 10^3/uL (150-450); Red Blood Count 4.95 10^6/uL (3.63-4.92); Red Cell Distribution Width 14.5 % (12-17); White Blood Count 16.1 10^3/uL (3.8-11.8)
[2022-12-19] MEDS ORDERED: fentaNYL 100 mcg/2 ml 50 MCG/ML VIAL ONE ×5 (12:09→13:51)
[2022-12-19] MEDS: fentaNYL 100 mcg/2 ml 50 MCG/ML VIAL IV SLOW PU ONE ×5 (12:11→13:52)
[2022-12-19] MEDS ORDERED: Ondansetron 4 mg VIAL 2 MG/ML 2 ml VIAL ONE (12:12)
[2022-12-19] MEDS: Ondansetron 4 mg VIAL 2 MG/ML 2 ml VIAL IV ONE (12:13)
[2022-12-19 12:16] LABS: ALT 99 U/L (7-52); Albumin 3.1 g/dL (3.2-5.2); Albumin/Globulin Ratio 0.9 (1-3); Alkaline Phosphatase 135 U/L (35-149); Blood Urea Nitrogen 67 mg/dL (6-24); CO2 Carbon Dioxide 16 mmol/L (22-32); Chloride 80 mmol/L (101-111); Globulin 3.5 g/dL (2-4); Glucose 149 mg/dL (70-100); Sodium 136 mmol/L (135-145); Total Bilirubin 2.6 mg/dL (0.2-1.0); Total Protein 6.6 g/dL (6.4-8.9)
[2022-12-19 12:58] LABS: Anion Gap 40 mmol/L (2-16)
[2022-12-19] MEDS ORDERED: Norepinephrine 4 MG/250mL D5W 4,000 MCG/250 ML BAG IV ONE (13:30)
[2022-12-19] MEDS: Norepinephrine 4 MG/250mL D5W 4,000 MCG/250 ML BAG IV SCH (13:33)
[2022-12-19] MEDS: fentaNYL INFUSION 50 mcg/mL VL 2,500 MCG/50 ML VIAL IV SCH (14:04)
[2022-12-19 14:27] LABS: Hematocrit 39.6 % (35-45); Hemoglobin 13.4 g/dL (11.5-14.3); Mean Corpuscular Hemoglobin 30.4 pg (27-33); Mean Corpuscular Hgb Conc 33.8 g/dL (31-36); Mean Platelet Volume 9.8 fL (7.5-11.2); Platelet Count 162 10^3/uL (150-450); Red Cell Distribution Width 15.2 % (12-17); White Blood Count 12.1 10^3/uL (3.8-11.8)
[2022-12-19 14:43] LABS: Activated Partial Thrombo Time 23.8 seconds (26.0-38.0); INR 1.39 (0.83-1.13)
[2022-12-19 14:54] LABS: Calcium 6.1 mg/dL (8.6-10.3); Creatinine, Serum 1.76 mg/dL (0.51-0.95); Globulin 2.1 g/dL (2-4); Magnesium 1.4 mg/dL (1.9-2.7); Phosphorus 3.8 mg/dL (2.5-5.0); Potassium 2.5 mmol/L (3.5-5.0); Total Bilirubin 2.5 mg/dL (0.2-1.0); Total Protein 4.1 g/dL (6.4-8.9); eGFR CKD-EPI 31.9 (>60)
[2022-12-19] MEDS: Iodixanol (CONTRAST) 320 MG/ML 100 ML SDV IV ONE (15:11)
[2022-12-19] MEDS ORDERED: Propofol 10 mg/ml 100 ML BTL 1,000 MG/100 ML BTL ONE (15:17)
[2022-12-19 15:18] LABS: ABS Lymphocytes 0.8 10^3/uL (1.0-4.8); ABS Monocytes 0.7 10^3/uL (0.0-0.9); ABS Neutrophils 10.6 10^3/uL (1.5-7.6); ABS Nucleated RBC 0.08 10^3/ul; Eosinophil % 0.2 %; Lymphocyte % 6.4 %; Nucleated Red Blood Cells % 0.7 %/100WBC (0.0-0.8)
[2022-12-19] MEDS: Propofol 10 mg/ml 100 ML BTL 1,000 MG/100 ML BTL IV SCH (15:37)
[2022-12-19] MEDS ORDERED: fentaNYL 100 mcg/2 ml 50 MCG/ML VIAL IV SLOW PU PRN (15:39)
[2022-12-19 16:06] LABS: High Sensitivity Troponin 1 Hr 93 pg/mL (<15)
[2022-12-19] MEDS: Norepinephrine 4 MG/250mL NS 4,000 MCG/250 ML BAG IV SCH (16:07)
[2022-12-19] MEDS ORDERED: Phenylephrine 40 mcg/mL 10mL (400mcg) SYRINGE IV PUSH PRN (16:42)
[2022-12-19] MEDS: Erythromycin Lactobionate IV 250 MG in NS 0.9% 100 ml BAG 100 ML IVPB ONE (18:04)
[2022-12-19 18:22] LABS: INR 1.28 (0.83-1.13)
[2022-12-19 18:24] LABS: ABS Lymphocytes 1.5 10^3/uL (1.0-4.8); ABS Monocytes 0.7 10^3/uL (0.0-0.9); ABS Neutrophils 15.1 10^3/uL (1.5-7.6); ABS Nucleated RBC 0.09 10^3/ul; Eosinophil % 0.1 %; Hemoglobin 14.3 g/dL (11.5-14.3); Lymphocyte % 8.4 %; Mean Corpuscular Hemoglobin 30.4 pg (27-33); Mean Corpuscular Hgb Conc 34.1 g/dL (31-36); Mean Corpuscular Volume 89.3 fL (80-97); Mean Platelet Volume 10.2 fL (7.5-11.2); Nucleated Red Blood Cells % 0.5 %/100WBC (0.0-0.8); Platelet Count 188 10^3/uL (150-450); Red Blood Count 4.71 10^6/uL (3.63-4.92); Red Cell Distribution Width 15.2 % (12-17); White Blood Count 17.3 10^3/uL (3.8-11.8)
[2022-12-19 18:31] LABS: Potassium Redraw 2.4 mmol/L (3.5-5.0)
[2022-12-19 18:37] LABS: Albumin 2.1 g/dL (3.2-5.2); Albumin/Globulin Ratio 0.9 (1-3); Calcium 6.3 mg/dL (8.6-10.3); Creatinine, Serum 1.33 mg/dL (0.51-0.95); Globulin 2.3 g/dL (2-4); Magnesium 1.4 mg/dL (1.9-2.7); Potassium 2.4 mmol/L (3.5-5.0); Total Bilirubin 3.3 mg/dL (0.2-1.0); Total Protein 4.4 g/dL (6.4-8.9); eGFR CKD-EPI 44.7 (>60)
[2022-12-19] MEDS: KCL 20 MEQ/100 ML IVPREMIX 20 MEQ/100 ML BAG IV SCH ×2 (18:37→22:20)
[2022-12-19] MEDS: Phenylephrine 40 mcg/mL 10mL (400mcg) SYRINGE IV ONE (18:42)
[2022-12-19] MEDS: CALCIUM GLUCONATE 1GM/50ML NS 1 GM/50 ML BAG IV ONE (18:48)
[2022-12-19] MEDS ORDERED: Lidocaine 1% VIAL 10 MG/ML 30 ML VIAL ONE (19:00)
[2022-12-19] MEDS ORDERED: Heparin 2 UNITS/ML IVPREMIX 3,000 UNIT/1,500 ML BAG IV ONE (19:00)
[2022-12-19] MEDS ORDERED: Iodixanol 320 (CONTRAST) 100 ML SDV ONE ×2 (19:00→20:17)
[2022-12-19 21:01] LABS: Venous Bicarbonate HCO3 25.7 mmol/L (24-28)
[2022-12-19] MEDS: Chlorhexidine MOUTHWASH 0.12% 15 ML UDC SWISH SPIT SCH (21:53)
[2022-12-19] MEDS: Magnesium Sulfate 2 gm BAG 2 GM/50 ML BAG IVPB ONE (21:53)
[2022-12-19] MEDS: Magnesium Sulfate IV 1GM/100ML 1 GM/100 ML BAG IV ONE (21:54)
[2022-12-19] MEDS: Magnesium Sulf 4 GM/100 ML IV 4,000 MG/100 ML BAG IVPB ONE (22:22)
[2022-12-19 23:19] LABS: PCO2 Arterial 33 mmHg (35-45); PO2 Arterial 219 mmHg (80-100)
[2022-12-19] MEDS: Pantoprazole 80 mg in NS BAG 80 MG/250 ML BAG IV SCH (23:52)
[2022-12-20 04:08] LABS: ABS Monocytes 0.5 10^3/uL (0.0-0.9); ABS Neutrophils 16.8 10^3/uL (1.5-7.6); ABS Nucleated RBC 0.18 10^3/ul; Eosinophil % 0.1 %; Hematocrit 45.1 % (35-45); Hemoglobin 15.4 g/dL (11.5-14.3); Lymphocyte % 10.6 %; Mean Corpuscular Hemoglobin 30.6 pg (27-33); Mean Corpuscular Hgb Conc 34.2 g/dL (31-36); Mean Corpuscular Volume 89.6 fL (80-97); Nucleated Red Blood Cells % 0.9 %/100WBC (0.0-0.8); Platelet Count 202 10^3/uL (150-450); Red Blood Count 5.03 10^6/uL (3.63-4.92); Red Cell Distribution Width 15.5 % (12-17); White Blood Count 19.3 10^3/uL (3.8-11.8)
[2022-12-20 04:24] LABS: Albumin 2.4 g/dL (3.2-5.2); Albumin/Globulin Ratio 0.9 (1-3); Calcium 7.5 mg/dL (8.6-10.3); Creatinine, Serum 1.23 mg/dL (0.51-0.95); Globulin 2.6 g/dL (2-4); Magnesium 3.7 mg/dL (1.9-2.7); Phosphorus 2.3 mg/dL (2.5-5.0); Potassium 4.2 mmol/L (3.5-5.0); Total Bilirubin 3.5 mg/dL (0.2-1.0); eGFR CKD-EPI 49.1 (>60)
[2022-12-20] MEDS ORDERED: Pantoprazole VIAL 40 MG VIAL IV SCH (06:00)
[2022-12-20] MEDS: Norepinephrine 4 MG/250mL D5W 4,000 MCG/250 ML BAG IV SCH (08:19)
[2022-12-20] MEDS ORDERED: PHENYLEPHRINE DRIP IVPREMIX 50 MG/250 ML BAG IV SCH (09:00)
[2022-12-20] MEDS: Phenylephrine DRIP 0.2 MG/ML in NS 0.9% 250 ML (PHA mix) IV SCH (09:02)
[2022-12-20] MEDS: Cefepime 2 GM in Dextrose 2 GM/50 ML BAG IV SCH (10:08)
[2022-12-20] MEDS: metroNIDAZOLE IV 500 MG/100ML 500 MG/100 ML BAG IVPB SCH (10:40)
[2022-12-20] MEDS: Lactated Ringers 1000 ml BAG 1,000 ML IV ONE ×4 (12:42→23:20)
[2022-12-20 15:16] LABS: Hematocrit 41.6 % (35-45); Hemoglobin 14.3 g/dL (11.5-14.3); Mean Corpuscular Hgb Conc 34.3 g/dL (31-36); Mean Corpuscular Volume 90.3 fL (80-97); Mean Platelet Volume 10.1 fL (7.5-11.2); Platelet Count 158 10^3/uL (150-450); Red Blood Count 4.61 10^6/uL (3.63-4.92); Red Cell Distribution Width 15.8 % (12-17); White Blood Count 15.5 10^3/uL (3.8-11.8)
[2022-12-20] MEDS: Sodium Phosphate IV 15 MMOL in NS 0.9% 250 ml 250 ML IV ONE (15:28)
[2022-12-20 16:10] LABS: ABS Lymphocytes 1.7 10^3/uL (1.0-4.8); ABS Monocytes 0.4 10^3/uL (0.0-0.9); ABS Neutrophils 13.4 10^3/uL (1.5-7.6); ABS Nucleated RBC 0.18 10^3/ul; Eosinophil % 0.2 %; Lymphocyte % 10.8 %; Nucleated Red Blood Cells % 1.2 %/100WBC (0.0-0.8)
[2022-12-21] MEDS: Phenylephrine IV 50 MG in NS 0.9% 250 ml 245 ML IV SCH (01:42)
[2022-12-21 04:50] LABS: ABS Lymphocytes 1.4 10^3/uL (1.0-4.8); ABS Monocytes 0.3 10^3/uL (0.0-0.9); Eosinophil % 0.1 %; Hematocrit 39.1 % (35-45); Lymphocyte % 10.7 %; Mean Corpuscular Hemoglobin 30.1 pg (27-33); Mean Corpuscular Hgb Conc 33.2 g/dL (31-36); Mean Corpuscular Volume 90.7 fL (80-97); Mean Platelet Volume 10.9 fL (7.5-11.2); Nucleated Red Blood Cells % 0.8 %/100WBC (0.0-0.8); Platelet Count 129 10^3/uL (150-450); Red Blood Count 4.31 10^6/uL (3.63-4.92); Red Cell Distribution Width 15.6 % (12-17); White Blood Count 12.7 10^3/uL (3.8-11.8)
[2022-12-21 05:08] LABS: Albumin 1.9 g/dL (3.2-5.2); Albumin/Globulin Ratio 0.8 (1-3); Creatinine, Serum 0.68 mg/dL (0.51-0.95); Globulin 2.3 g/dL (2-4); Magnesium 2.1 mg/dL (1.9-2.7); Potassium 3.1 mmol/L (3.5-5.0); Total Bilirubin 2.8 mg/dL (0.2-1.0); Total Protein 4.2 g/dL (6.4-8.9); eGFR CKD-EPI 97.2 (>60)
[2022-12-21] MEDS: Potassium Phosphate IV 15 MMOL in NS 0.9% 250 ml 250 ML IVPB ONE (06:40)
[2022-12-21 06:46] LABS: PCO2 Arterial 30 mmHg (35-45); PO2 Arterial 101 mmHg (80-100)
[2022-12-21 10:09] LABS: Calcium 6.9 mg/dL (8.6-10.3); Creatinine, Serum 0.68 mg/dL (0.51-0.95); Potassium 3.3 mmol/L (3.5-5.0); eGFR CKD-EPI 97.2 (>60)
[2022-12-21] MEDS: Norepinephrine *QUAD STRENGTH* 16 mg/250 mL NS (ICU ONLY) IV SCH (12:04)
[2022-12-21 13:44] LABS: ABS Lymphocytes 1.3 10^3/uL (1.0-4.8); ABS Monocytes 0.3 10^3/uL (0.0-0.9); ABS Neutrophils 8.8 10^3/uL (1.5-7.6); ABS Nucleated RBC 0.09 10^3/ul; Eosinophil % 0.5 %; Hematocrit 38.4 % (35-45); Hemoglobin 12.8 g/dL (11.5-14.3); Lymphocyte % 12.5 %; Mean Corpuscular Hemoglobin 30.3 pg (27-33); Mean Corpuscular Hgb Conc 33.5 g/dL (31-36); Mean Corpuscular Volume 90.5 fL (80-97); Mean Platelet Volume 10.6 fL (7.5-11.2); Nucleated Red Blood Cells % 0.8 %/100WBC (0.0-0.8); Platelet Count 110 10^3/uL (150-450); Red Blood Count 4.24 10^6/uL (3.63-4.92); Red Cell Distribution Width 15.7 % (12-17); White Blood Count 10.5 10^3/uL (3.8-11.8)
[2022-12-21 14:29] LABS: Calcium 7.1 mg/dL (8.6-10.3); Creatinine, Serum 0.65 mg/dL (0.51-0.95); Potassium 3.2 mmol/L (3.5-5.0); eGFR CKD-EPI 98.3 (>60)
[2022-12-21] MEDS: Iodixanol (CONTRAST) 320 MG/ML 100 ML SDV IV ONE (15:17)
[2022-12-22] MEDS: [UNRECOGNIZED DRUG - OTHER] IV SCH (00:15)
[2022-12-22] MEDS: NOREPINEPHRINE IV SCH (00:15)
[2022-12-22] MEDS: NS 0.9% IV SCH (00:15)
[2022-12-22 05:12] LABS: ABS Eosinophils 0.1 10^3/uL (0.0-0.5); ABS Monocytes 0.2 10^3/uL (0.0-0.9); ABS Neutrophils 6.8 10^3/uL (1.5-7.6); ABS Nucleated RBC 0.09 10^3/ul; Eosinophil % 0.7 %; Hemoglobin 12.5 g/dL (11.5-14.3); Mean Corpuscular Hemoglobin 30.4 pg (27-33); Mean Corpuscular Hgb Conc 33.9 g/dL (31-36); Mean Corpuscular Volume 89.6 fL (80-97); Mean Platelet Volume 10.8 fL (7.5-11.2); Nucleated Red Blood Cells % 1.2 %/100WBC (0.0-0.8); Platelet Count 101 10^3/uL (150-450); Red Blood Count 4.13 10^6/uL (3.63-4.92); Red Cell Distribution Width 15.1 % (12-17)
[2022-12-22 05:30] LABS: Albumin 1.9 g/dL (3.2-5.2); Albumin/Globulin Ratio 0.9 (1-3); Calcium 7.1 mg/dL (8.6-10.3); Creatinine, Serum 0.5 mg/dL (0.51-0.95); Globulin 2.2 g/dL (2-4); Magnesium 1.8 mg/dL (1.9-2.7); Potassium 3.2 mmol/L (3.5-5.0); Total Bilirubin 2.3 mg/dL (0.2-1.0); Total Protein 4.1 g/dL (6.4-8.9); eGFR CKD-EPI 104.7 (>60)
[2022-12-22] MEDS: Hydrocortisone INJ 100 MG/2ML 2 ML VIAL IV ONE (10:32)
[2022-12-22 11:46] VITALS: BP 150/119
[2022-12-22] MEDS: fentaNYL INFUSION 50 mcg/mL VL 2,500 MCG/50 ML VIAL IV SCH (14:51)
[2022-12-22] MEDS: Midazolam PREMIXBAG 1 MG/ML NS 100 ML IV SCH (14:52)
[2022-12-22] MEDS ORDERED: Hydrocortisone INJ 100 MG VIAL IV SCH (16:00)
[2022-12-22] MEDS ORDERED: Atropine 1% (ORAL/SL) 15 ML BTL SL PRN (16:36)
[2022-12-22] MEDS ORDERED: Ondansetron ODT 4 mg TAB 4 MG TAB SL PRN (16:36)
[2022-12-22] MEDS: Midazolam 2 mg/2 ml VIAL 1 mg/ml 2 ml VIAL (2 mg) IV SLOW PU ONE (18:01)
[2022-12-22] MEDS: fentaNYL 100 mcg/2 ml 50 MCG/ML VIAL IV SLOW PU ONE (18:01)
== END 2022-12-22 22:28 | disposition expired | DRG 871 ==
LOC: ED 11:21 → EDHOLD 15:04 → ICU 15:32
PROVIDERS: ADMIT Internal Medicine Pulmonary Disease; ATTEND Internal Medicine